=== PATIENT | female | born 1950 | race Caucasian/White ===

== ENCOUNTER 2023-04-07 14:52 | Emergency (ER) | payer OTHER, SELFPAY ==
--- OUTSIDE RECORDS SUMMARY | 2023-04-07 15:04 | XMS REPORT | Continuity of Care Document ---
:1950 Author Organization [facility] t Address [address] [facility]. [address] [place] [address] Support Name Relationship Address Phone MAY VILLEDA P [address] [phone] [place] [phone] JANET VILLEDA E [address] [place] [phone] Unavailable E [address] Unavailable [place] [phone] Unavailable Unavailable Unavailable Unavailable MD ANGEL KIKO Emergency Provider [address] [facility] [place] [address] PHYSICIAN, NO Primary Care Physician Unavailable Unavailab CLAIRE Cohen Unavailable [address] [place] Unavailable [place] [phone] VINAY TONEY Unavailable UNK [phone] [place] [address] CHRISTIANA MAY Unavailable [address] [place] [phone] [place] [phone] JANET VILLEDA Unavailable [address] [place] [phone] [place] [phone] JANET VILLEDA T Unavailable Unavailable CHRISTIANA CASANDRA SP [address] [place] [phone] NOT OBTAINED Unavailable Unavailable Unavailable MAY VILLEDA SP [address] [place] [phone] MAY VILLEDA SP [address] [place] [phone] NONE, NONE OT [address] [place] [phone] MAY VILLEDA SP [address] [place] [phone] Care Team Providers Name Role Phone Violeta Kaur CNM Primary Care Physician [phone] JOAO JIMÉNEZ Attending Clinician Unavailable BEATRIS GUNTER Attending Clinician Unavailable Kush Levy Attending Clinician Unavailable Ginny Attending Clinician Unavailable Delfino Villareal Attending Clinician Unavailable Peter JHA, Rock Re Attending Clinician Willem Rogers MA Attending Clinician Unavailable Erasto Resendiz MD Attending Clinician ROBYN SANTIAGO Attending Clinician Unavailable Nic KUMAR, Dea Attending Clinician Unavailable Cheyanne Do MD Attending Clinician Stalin Attending Clinician Unavailable LAKESHIA PICKARD Attending Clinician Unavailable LYNETTE HENDERSON Attending Clinician Unavailable KATLYN POWELL Attending Clinician Unavailable JENNA RAMIREZ Attending Clinician Unavailable Layla Attending Clinician Unavailable NOLAN MANLEY Attending Clinician Unavailable BARBARA CHAVEZ Attending Clinician Unavailable ALICE CONTE Attending Clinician Unavailable CALEB WOLFE Attending Clinician Unavailable JOAO JIMÉNEZ Attending Clinician Unavailable RAKAN ESCOBAR Attending Clinician Unavailable EMEKA VILLANUEVA Attending Clinician Unavailable LAURA TORRES Attending Clinician Unavailable JES GORDON Attending Clinician Unavailable Heide Ngo NP Attending Clinician Unavailable DEL WASHINGTON Attending Clinician Unavailable Jenna Ramirez MD Attending Clinician Del Washington MD Attending Clinician ZackRyann clark Attending Clinician Unavailable JENNY BENÍTEZ Attending Clinician Unavailable LICHA MAYBERRY Attending Clinician Unavailable CHEYANNE DO Attending Clinician Unavailable NISHANT VASQUEZ Attending Clinician Unavail able DA DIAZ Attending Clinician Unavailable ALICE ELLIS Attending Clinician Unavailable WISAM ANTONY Attending Clinician Unavailable Natasha Solares Admitting Clinician Unavailable Ginny Admitting Clinician Unavailable ROBYN SANTIAGO Admitting Clinician Unavailable Stalin Admitting Clinician Unavailable Layla Admitting Clinician Unavailable BARBARA CHAVEZ Admitting Clinician Unavailable DIANA PAULSON Admitting Clinician Unavailable LAURA TORRES Admitting Clinician Unavailable JES GORDON Admitting Clinician Unavailable JENNY BENÍTEZ Admitting Clinician Unavailable BRANDEN BRAY Admitting Clinician Unavailable ARCHANA CASILLAS Admitting Clinician Unavailable Payers Payer Name Policy Type Policy Number Effective Date Expiration Date S gabbi [facility] [id number] (MEDICARE REPLACEMENT/ADVANTA GE - PPO) UNITED MEDICARE HMO [id number] 2020 00:00:00 [employer] MEDICARE ADV [id number] 2016 00:00:00 Problems Condition Condition Condition Status Onset Resolution Last Treating Co mments Source Name Details Category Date Date Treatment Clinician Date Lumbosacra Lumbosacra Problem Active V illage l l 8-24 Family radiculopa Radiculopa 00:00: Pr actic thy thy 00 e Morbid Morbid Problem Active [facility] obesity Obesity 6-22 Family 00:00: Practic 00 e Gastroesop Gastroesop Problem Active V illage hageal hageal 6-22 Family reflux Reflux 00:00: Practic disease Disease 00 e without without esophagiti Esophagiti s s Flare of Flare of Problem Active [facility] rheumatoid Rheumatoid 6-22 [facility] arthritis Arthritis 00:00: Prac tic 00 e Pain of Pain of Problem Active [facility] left Left 6-22 Family shoulder Shoulder 00:00: Practi c joint Joint 00 e Obstructiv Obstructiv Problem Active V illage e sleep e Sleep 5-18 Family apnea of Apnea of 00:00: Practi c adult Adult 00 e Varicose Varicose Problem Active [facility] veins of Veins of 5-18 Family lower Lower 00:00: Practic extremity Extremity 00 e Memory Memory Problem Active [facility] impairment Impairment 5-18 Fa kaela 00:00: Practic 00 e Long-term Long-term Problem Active Sonu renny current Current 5-18 Family use of Use of 00:00: Practic benzodiaze Benzodiaze 00 e clinton alonzo Rheumatoid Rheumatoid Disease Active Overview : Methodi arthritis arthritis -15 Formattin s t of of 00:00: g of this Hospita multiple multiple 00 note l sites sites might be without without different rheumatoid rheumatoid from the factor factor original. DX 2011Past Tx:MTXHum iraOrenci aCimzia LyoRinvoq Remicade 07/2022- [id number] /13/23: Last dose of Remicade 02/16/23 and had reaction to infusion so dicontinu ed. Still on PDS 20mg, tramadol helpingCo ntinue PDS 20mg for now, Discontin ue Remicade/ Inflixima bStart Orencia IV monthly, r/b/a d/w pt. Previous use was not for very long.Last Assessmen t & Plan: Formattin g of this note might be different from the original. Still with sig. Pain and debility. Inflixima b doses in 11/15/22 with little relief as it did previousl y. Taking PDSW 30mg and Tramadol with mild improveme nt. Negative inflixima b antibodie sIncrease Inflixima b to 10mg/kg IV q8, due 12/2022- orders updatedTr y to decrease PDS to 20mgConti nue with Tramadol Encounter Encounter Disease Active Overview: Methodi for for - Formattin st long-term long-term 00:00: g of this H ospita (current) (current) 00 note l use of use of might be other other different medication medication from the s s original. On Inflixima bqfTB negative 10/2022Hep B/C negative : Had an infusion reaction to Remicade. No fever chills or infection . Still with active synovitis Change to [place] IV Labs stableLas t Assessmen t & Plan: Formattin g of this note might be different from the original. 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 Deficiency 00:00: Pr actic disorder Disorder 00 e Degenerati Degenerati Problem Active V illage ve joint ve Joint 1- Family disease Disease 00:00: Practic involving Involving 00 e multiple Multiple joints Joints HMG COA HMG COA Problem Active [facility] reductase Reductase 1-26 Fami ly inhibitor Inhibitor 00:00: Prac tic adverse Adverse 00 e reaction Reaction Hyperglyce Hyperglyce Problem Active V illage gabriel due to gabriel Due to 07-14 [facility] type 2 Type 2 00:00: Practic diabetes Diabetes 00 e mellitus Mellitus Blood Blood Problem Active [facility] coagulatio Coagulatio 1-05 [facility] n disorder n Disorder 00:00: Pr actic 00 e Type 2 Type 2 Problem Active 2021-06 [facility] diabetes Diabetes 2-12 Family mellitus Mellitus 00:00: Practi c 00 e Restless Restless Problem Active 2021-06 [place] legs Legs 2-12 Family 00:00: Practic 00 e Arterioscl Arterioscl Problem Active 2021-06 V illage erosis of erosis of 2-12 Fami ly coronary Coronary 00:00: Practi c artery Artery 00 e bypass Bypass graft Graft Pulmonary Pulmonary Problem Active 2021-06 Sonu lawson embolism Embolism 2-12 Family 00:00: Practic 00 e Deep Deep Problem Active 2021-06 [facility] venous Venous 2-12 Family thrombosis Thrombosis 00:00: Pr actic of lower of Lower 00 e extremity Extremity Primary Primary Problem Active 2021-06 [facility] biliary Biliary 2-12 Family cholangiti Cholangiti 00:00: Pr actic s s 00 e Rheumatoid Rheumatoid Problem Active 2021-06 [facility] arthritis Arthritis 2-12 Fami ly 00:00: Practic 00 e Musculoske Musculoske Problem Active 2021-06 [facility] illage letal pain letal Pain 2-12 Fa kaela 00:00: Practic 00 e Rib pain Rib Pain Problem Active 2021-06 [place] 2-12 Family 00:00: Practic 00 e 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 2-12 Fa kaela osis osis 00:00: Practic 00 e Nonalcohol Nonalcohol Problem Active 2021-06 V illage ic ic 2-12 Family steatohepa Steatohepa 00:00: Pr actic titis titis 00 e Hyperlipid Hyperlipid Problem Active 2021-06 [facility] illage emia due emia Due 212 Family to type 2 to Type 2 00:00: Prac tic diabetes Diabetes 00 e mellitus Mellitus Peripheral Peripheral Problem Active 2021-06 [facility] neuropathy Neuropathy 2-12 Fa kaela due to Due to 00:00: Practic type 2 Type 2 00 e diabetes Diabetes mellitus Mellitus Carpal Carpal Problem Active 2021-06 [place] tunnel Tunnel 2-12 Family syndrome Syndrome 00:00: Practi c of left of Left 00 e wrist Wrist Restless Restless Disease Active [facility] di legs legs 2 st syndrome syndrome 00:00: Hospit a 00 l Diabetic Diabetic Disease Active [facility] polyneurop polyneurop 2 athy athy 00:00: Hospita associated associated 00 l with type with type 2 diabetes 2 diabetes mellitus mellitus S/P total S/P total Disease Active Met hodi knee knee 07-[address] replacemen replacemen 00:00: Ho spita t t 00 l Urinary Urinary Disease Active [facility] incontinen incontinen 07-28 st ce ce 00:00: Hospita 00 l Abnormal Abnormal Disease Active [facility] liver liver 07-28 function function 00:00: Hospit a 00 l Adrenal Adrenal Disease Active [facility] cortical cortical 07-28 st adenoma of adenoma of 00:00: Ho spita left left 00 l adrenal adrenal gland gland Atheroscle Atheroscle Disease Active M ethodi rotic rotic 07-28 st heart heart 00:00: Hospita disease of disease of 00 l barrow barrow coronary coronary artery artery without without angina angina pectoris pectoris Hx of CABG Hx of CABG Disease Recurre Overvie w: Methodi nce 07-[address] 00:00: g of this Hospita 00 note l might be different from the original. 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 Transamin ases were normal on last check in February 2020. Repeat today. She has no evidence of advanced fibrosis on imaging or exam. We discussed the importanc e of aggressiv e managemen t of all of her risk factors - diabetes, HTN, HPL and obesity. 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 A liver biopsy in Apr 2007 was consisten t with steatohep atitis, and did not show any evidence of PBC. MRI was suggestiv e of fatty liver disease. Alk phos is well within normal range. Will repeat blood work today but likelihoo d of PBC is low given normal alk phos. RUQ RUQ Disease Active Last [facility] abdominal abdominal 06-23 Assessmen L ukes pain pain 00:00: t & Plan: Medical 00 She has a Center history of RUQ dating back to 2006. Imaging has not pointed towards a cause - most recently in February 2020. Her abdominal pain is thought to be secondary to hepatomeg laron/NEAL. Repeat blood work today. We discussed weight loss at length. Bilateral Bilateral Disease Active Met hodi knee pain knee pain 5-18 st 00:00: Hospita 00 l Antibiotic Antibiotic Disease Active [facility] overdose overdose 7 [facility] 00[facility] Medical [facility] Center Cellulitis Cellulitis Disease Active [facility] of left of left 7-20 [facility] upper upper 00:00: Medical extremity extremity 00 Cent er Shoulder Shoulder Disease Active Metho di impingemen impingemen 1-17 st t t 00:00: Hospita 00 l Diabetes Diabetes Disease Active 2009-06 Meth[facility] di mellitus mellitus - st with with 00:00: Hospita neuropathy neuropathy 00 l Mixed Mixed Disease Active 2009-06 [facility] hyperlipid hyperlipid - st emia emia 00:00: Hospita 00 l Sleep Sleep Disease Active [facility] apnea apnea 4-27 st 00:00: Hospita 00 l NEAL NEAL Disease Active 2007-1 Overview: Method i (nonalcoho (nonalcoho -[address] lic lic [facility]00[facility] ste[facility]hepa [facility] note nathaniel adams) might be different from the original. Last Assessmen t & Plan: Formattin g of this note might be different from the original. The findings were confirmed by both imaging studies and a liver biopsy. The patient presents with multiple risk factors for metabolic syndrome which include hyperlipi demia, obesity, and diabetes. The diabetes is reportedl y not well controlle d. I have again stressed the importanc e of weight loss, and control of DM and hypertens ion. Originall y thought to have PBC and started on Uri. She may continue Ursodeoxy cholic acid as some studies have shown benefial effect for NAEL. Weight is 234 pounds, height is 5'5" and BMI is 39. She is advised that she should be on a weight loss diet with a goal weight of 210 to begin, but snf ideal weight would be in the 140's. She should employ either a restricte d carbohydr ate or restricte d calorie diet with routine exercise. Weekly weight loss should be about 1-2 pounds. The weight loss would benefit not only her liver health, but her overall health. No known No known Disease Metho di active active st problems problems Hospit a l Hyperlipid Hyperlipid Disease Active C HI [facility] Allergies, Adverse Reactions, Alerts Allergy Allergy Status Severity Reaction(s) Onset Inactive Treating Comm ents Source Name Type Date Date Clinician AMOXICIL Allergy Active Itching [facility] OLEG-POT 8-17 [facility] CLAVULAN 00:00: Medical ATE 00 Center DIPHENHY Allergy Active Other [facility] DRAMINE 8-17 [facility] HCL 00:00: Medical 00 Center CHOCOLAT Allergy Active Other [facility] E FLAVOR 8-17 [facility] 00:[facility]: Medical 00 Center Hydroxyc Propensi Active Other (See unknown M ethodi hloroqui ty to Comments) 3 st ne adverse 00:00: Hospita reaction 00 l s to drug Diphenhy Propensi Active Other (See RLS Me thodi dramine ty to Comments) [address] Hcl adverse 00:00: Hospita reaction 00 l s to drug Losartan Propensi Active Other (See RLS Me thodi ty to Comments) [address] adverse 00:00: Hospita reaction 00 l s to drug Oxycodon Propensi Active 2018-[address] e-Acetam ty to 08-12 [facility] inophen adverse 00:00: Medical reaction 00 Center s OXYCODON Allergy Active Itching 2018-06 [facility] E-ACETAM 08-12 INOPHEN 00:00: 00 Codeine Propensi Active Itching 2016-06 Method i ty to 08-09 st adverse 00:00: Hospita reaction 00 l s to drug Ibuprofe Propensi Active Other (See "makes my Methodi n ty to Comments) [address] adverse 00:00: crazy" Hospita reaction 00 l s to drug Ibuprofe Drug Active Other (See "makes my C [facility] n Intolera Comments) 3 legs go Luke s nce 00:00: crazy" Medical 00 Center IBUPROFE Allergy Active Low Other [facility] N 3 00:00: 00 Clindamy Propensi Active Diarrhea 2015-06 Colitis/C M ethodi zeferino ty to 07-[address] adverse 00:00: Hospita reaction 00 l s to drug Clindamy Drug Active Diarrhea 2015-06 Colitis/C [facility] zeferino Allergy 07-15 .Diff [facility] 00:[facility]: Medical 00 Center CLINDAMY Allergy Active High Diarrhea 2015-06 [facility] ZEFERINO 07-15 00:00: 00 Iodine Propensi Active Other Methodi ty to 818 reaction( st adverse 00:00: s): Hospita reaction 00 itching l s to drug Ceftriax Propensi Active Itching Other Metho di one ty to 8-18 reaction( st adverse 00:00: s): itch Hospita reaction 00 l s to drug Sulfa Propensi Active Other Methodi (Sulfona ty to 8-18 reaction( st mide adverse 00:00: s): chesy Hospit a Antibiot reaction 00 congestio l ics) s to n drug Valsarta Propensi Active Other Method i n ty to 818 reaction( st adverse 00:00: s): Info Hospita reaction 00 Not l s to Available drug Hydrocod Propensi Active Other Method i one-Acet ty to 02-03 reaction( st aminophe adverse 00:00: s): rash Hospi ta n reaction 00 l s to drug MORPHINE Allergy Active Med Hives 2014-06 [facility] 2-16 00:00: 00 Iodine Propensi Active Itching 2014-06 Methodi And ty to 16 st Iodide adverse 00:00: Hospita Containi reaction 00 l ng s to Products drug Morphine Propensi Active Itching 2014-06 Meth[facility] di ty to 216 st adverse 00:00: Hospita reaction 00 l s to drug Iodine Drug Active Itching 2014-[address] [facility] And Allergy -16 [facility] Iodide 00:00: Medical Containi 00 Center ng Products Morphine Drug Active Hives, 2014-[address] [facility] Allergy Itching -16 [facility] 00:00: Medical 00 Center Iodine Propensi Active Itching 2014-06 Methodi And ty to 08-04 st Iodide adverse 00:00: Hospita Containi reaction 00 l ng s to Products drug IODINE Allergy Active Med Itching 2014-06 [facility] AND 2-16 IODIDE 00:00: CONTAINI 00 NG PRODUCTS CEFTRIAX Allergy Active Itching [facility] ONE 02-15 00:00: 00 Ceftriax Propensi Active Itching Tolerates [facility] one ty to 02-15 keflex [facility] adverse 00:00: Medical reaction 00 Center s CONJUGAT Allergy Active Low [facility] ED 09-22 ESTROGEN 00:00: S 00 SULFA Allergy Active Low [facility] (SULFONA 09-22 MIDE 00:00: ANTIBIOT 00 ICS) Conjugat Propensi Active Other Method i ed ty to 09-22 reaction( st Estrogen adverse 00:00: s): Hospita s reaction 00 headaches l s to Migraine drug Prometha Propensi Active Restless Meth doug zine ty to 09-[address] adverse 00:00: syndrome. Hospit a reaction 00 Can take l s to if mixed drug with another medicatio nOther reaction( s): rls CODEINE Allergy Active Low Itching [facility] 06 00:00: 00 PROMETHA Allergy Active Low Other [facility] ZINE 09-22 00:00: 00 Prometha Drug Active Mild Restless [facility] zine Intolera 09-22 leg [facility] nce 00:00: syndrome. Medical 00 Can take Center if mixed with another medicatio n Conjugat Drug Active Mild Migraine [facility] ed Intolera 09-22 [facility] Estrogen nce 00:00: Medical s 00 Center Sulfa Propensi Active Mild Caused [facility] (Sulfona ty to 09-22 URI? [facility] mide adverse 00:00: Medical Antibiot reaction 00 Center ics) s Codeine Drug Active Itching Headache. [facility] t Intolera 09-22 Can take [facility] nce 00:00: small Medical 00 amounts Center Ceftriax Propensi Active Itching Metho di one ty to 01-05 st Sodium adverse 00:00: Hospita reaction 00 l s to drug Lisinopr Propensi Active 2008-06 Other Method i il ty to 0-13 reaction( st adverse 00:00: s): Hospita reaction 00 itching l s to drug Amoxicil Propensi Active Rash Congestio Met hodi oleg-Pot ty to 12-[address] Clavulan adverse 00:00: Hospita ate reaction 00 l s to drug Penicill Propensi Active Rash Method i ins ty to 12-19 st adverse 00:00: Hospita reaction 00 l s to drug Penicill Propensi Active Rash Method i ins ty to 12-19 st adverse 00:00: Hospita reaction 00 l s to drug AUGMENTI DA Active U 2003- [facility] N 02-19 [facility] 00:00: Region [facility] MORPHINE DA Active U 2003-0 [facility] 02-19 [facility] 00:00: Region 00 [facility] No Known DA Active U 2003-0 [facility] Contrast 02[facility]19 [facility] No Known DA Active U 2003[facility]0 [facility] Food 02-19 [facility] No Known DA Active U 2003-0 [facility] Other 02-19 [facility] Allergie 00:00: Region [facility] Mold Allergy Active Anaphylaxis, Sonu renny to Respiratory Famil y substanc distress Practi c e e SULFA Allergy Active Respiratory Vill age (SULFONA to distress Family MIDE substan Practic ANTIBIOT e e ICS) Hydroxyc Allergy Active Itching Villag e hloroqui to Family ne [facility] Practic e e Benadryl Allergy Active Other Village to Family substanc Practic e e CIGARETT Allergy Active Other Village E SMOKE to Family substanc Practic e e INSECT Allergy Active Anaphylaxis, Sonu renny VENOM to Other, Family substan Respiratory Pra ctic e distress e Iodine Allergy Active Itching [place] to Family [facility] Practic e e Family History Family Member Diagnosis Comments Start Date Stop Date Source Natural father Arthritis [facility] father Diabetes [facility] father Liver disease [facility] father Alcohol abuse [facility] Natural father Diabetes [facility] Natural father Liver disease [facility] Natural mother Blood Clots [facility] mother Heart disease [facility] Natural mother Pulmonary embolism [facility] Natural sister Liver disease [facility] Social History Social Habit Start Date Stop Date Quantity Comments Source Sexual orientation [facility] Alcohol intake 2023-03-22 2023-03-22 Ex-drinker [facility] 00:00:00 00:00:00 (finding) Hospital History of Social 2023-03-22 2023-03-[address] function 00:00:00 00:00:00 Hospital Tobacco use and 2021-08-03 2021-08-03 Smokeless [facility] exposure 00:00:00 00:00:00 tobacco non-user Hospital Tobacco Comment 2021-08-03 2021-08-03 None [facility] 00:00:00 00:00:00 Hospital Alcohol Comment 2017-06-08 2017-06-08 rarely [facility] 00:00:00 00:00:00 Hospital Sex Ass[birth year] At [birth year] [facility] 00:00:00 00:00:00 Hospital Smoking Status Start Date Stop Date Source Never smoked tobacco [facility] Medications Ordered Filled Start Stop Current Ordering Indication Dosage Frequency Signature Comments Components Source Medication Medication Date Date Medication? Clinician (SIG) Name Name gabapentin 2022-06 No 300mg QD Take 1 Met hodi (NEURONTIN) 03-[address] 300 mg 11:00: 00:00 (300 mg Hospita capsule 36 :00 total) by l mouth daily. insulin 2022-06 Yes 40U Q.5D Inject 40 Metho di glargine,hu 0-[address] m[address]rec.anlog 10:34: under the H ospita (BASAGLAR 11 skin 2 l KWIKPEN (two) U-100 times a INSULIN day. SUBQ) abatacept 2022-06 Yes Q14D Inject Method i (ORENCIA 0-[address] SUBQ) 10:34: skin every Hospit a 11 14 l (fourteen) days. calcium-mag 2022-06 Yes Take by Met hodi nesium-zinc 0-[address] tablet 10:32: Hospita 01 l insulin 2022-06 Yes 20U Inject 20 Metho di regular, 0-[address] human 10:32: directed Hospita (NOVOLIN R 01 as needed. l REGULAR SS U-100 INSULN INJ) rivaroxaban 2022-06 Yes 20mg Take 1 Meth doug (XARELTO) 0-04 tablet (20 st 20 mg 10:32: mg total) Hospita tablet 01 by mouth. l metFORMIN 2022-06 Yes 500mg Q.5D Take 1 Metho di XR 0-[address] (GLUCOPHAGE 10:32: (500 mg Hos walter -XR) 500 mg 01 total) by l 24 hr mouth 2 tablet (two) times a day. traMADoL 2022-06 Yes 100mg QD Take 100 Meth doug 100 mg 0-[address] tablet 10:32: mouth Hospita 01 nightly. l gabapentin 2022-06 Yes 600mg QD Take 600 Me thodi enacarbil 0-[address] (Horizant) 00:00: mouth Hospit a 600 mg 00 nightly. l tablet extended release acetaminoph 2022- No 650mg Q8H Take 650 Methodi en ER 9-13 09-[address] (TYLENOL) 11:27: 00:00 mouth Hospit a 650 MG 8 hr 04 :00 every 8 l tablet (eight) hours as needed for mild pain. clonAZEPAM 2022- No .5mg Take 0.5 Me thodi (KlonoPIN) 9-13 09-[address] 0.5 MG 11:26: 00:00 mouth. Hospita tablet 48 :00 l colchicine 2022- No .6mg QD Take 0.6 Me thodi 0.6 mg 03-[address] tablet 11:26: 00:00 mouth Hospita 39 :00 [place] [id number] 50mg Q6H Take 1 Metho di (ULTRAM) 50 03-01 tablet (50 s t mg tablet 11:26: 00:00 mg total) Ho spita 28 :00 by mouth l every 6 (six) hours as needed for moderate pain .acute pain. predniSONE Yes [id number] 20mg QD Take 2 Methodi (DELTASONE) - tablets st 10 mg 00:00: (20 mg Hospita tablet 00 total) by l mouth daily. Take 2 tabs daily x 3 days then 1 tab daily metformin metformin No 2 BID metformin [facility] ER 500 mg ER 500 mg 9- ER 500 mg Family 24 hr 24 hr 00:00: 24 hr Practic tablet,exte tablet,exte 00 tablet,ext e nded nded ended release release release Take 2 Take 2 Take 2 tablets tablets tablets twice a day twice a day twice a by oral by oral day by route for route for oral route 90 days. 90 days. for 90 days. metformin metformin No 2 BID metformin [facility] ER 500 mg ER 500 mg 9- ER 500 mg Family 24 hr 24 hr 00:00: 24 hr Practic tablet,exte tablet,exte 00 tablet,ext e nded nded ended release release release Take 2 Take 2 Take 2 tablets tablets tablets twice a day twice a day twice a by oral by oral day by route for route for oral route 90 days. 90 days. for 90 days. metformin metformin No 2 BID metformin [facility] ER 500 mg ER 500 mg - ER 500 mg Family 24 hr 24 hr 00:00: 24 hr Practic tablet,exte tablet,exte 00 tablet,ext e nded nded ended release release release Take 2 Take 2 Take 2 tablets tablets tablets twice a day twice a day twice a by oral by oral day by route for route for oral route 90 days. 90 days. for 90 days. certolizuma No 200mg Q14D Inject 200 Methodi b pegoL 11-18 06-[address] (CIMZIA) 17:05: 00:00 the [facility] mg/2 mL 37 :00 every 14 l (200 mg/mL (fourteen) x 2) days. syringe kit Xarelto 20 Xarelto 20 No Xarelto 20 [facility] mg tablet mg tablet 3-10 mg tablet Family 00:00: Practic 00 e Xarelto 20 Xarelto 20 No Xarelto 20 [facility] mg tablet mg tablet 3-10 mg tablet Family 00:00: Practic 00 e Xarelto 20 Xarelto 20 No 1 Q1D Xarelto 20 [facility] mg tablet mg tablet 3-10 mg tablet Family Take 1 Take 1 00:00: Take 1 Practic tablet tablet 00 tablet e every day every day every day by oral by oral by oral route for route for route for 90 days. 90 days. 90 days. predniSONE 2022- No Take 2 [facility] (DELTASONE) 3 09-13 tabs daily s t 5 mg tablet 00:00: 00:00 x 3 days H ospita 00 :00 then 1 tab l daily [facility] No 1 Q1D Farxiga 10 [facility] mg tablet mg tablet 1-03 mg tablet Family Take 1 Take 1 00:00: Take 1 Practic tablet tablet 00 tablet e every day every day every day by oral by oral by oral route for route for route for 90 days. 90 days. 90 days. Broxiga 10 Broxiga No 1 Q1D Farxiga 10 [facility] mg tablet mg tablet 1-03 mg tablet Family Take 1 Take 1 00:00: Take 1 Practic tablet tablet 00 tablet e every day every day every day by oral by oral by oral route for route for route for 90 days. 90 days. 90 days. Broxiga 10 Broxiga No 1 Q1D Farxiga 10 [facility] mg tablet mg tablet 1-03 mg tablet Family Take 1 Take 1 00:00: Take 1 Practic tablet tablet 00 tablet e every day every day every day by oral by oral by oral route for route for route for 90 days. 90 days. 90 days. Broxiga 10 Broxiwilliam No 1 Q1D Farxiga 10 [facility] mg tablet mg tablet 1-03 mg tablet Family Take 1 Take 1 00:00: Take 1 Practic tablet tablet 00 tablet e every day every day every day by oral by oral by oral route for route for route for 90 days. 90 days. 90 days. abatacept 2022- No Q1W Inject Metho di 125 mg/mL 03-[address] auto-inject 00:00: 00:00 skin every Hospita or 00 :00 7 days. l Inject 1 pen injector predniSONE 2021- No 10mg QD Take 1 [facility] (DELTASONE) 02-24 tablet (10 s t 10 mg 00:00: 05:59 mg total) Hospit a tablet 00 :00 by mouth l daily. Farxiga 10 Yes TAKE ONE Met hodi mg tablet -[address] 00:00: MOUTH Hospita 00 DAILY l solifenacin 2022- No 1{tbl} QD Take 1 M ethodi (VESICARE) 11-02 tablet (10 st 10 MG 00:00: 00:00 mg total) Hospit a tablet 00 :00 by mouth l daily. aspirin 2020-06- No QD daily. [facility]i (ECOTRIN) 07-10 st 325 MG 00:00: 00:00 Hospita enteric 00 :00 l coated tablet calcium-mag Yes Take by [facility] nesium-zinc 1-12 mouth. [facility] Tab 09:[facility]: [facility] omega-3 Yes 2g Q.5D Take [address] [facility] acid ethyl 1-12 by mouth 2 Dangelo es esters 09:35: (two) Medical (LOVAZA) 1 52 times Center gram daily. capsule insulin Yes QD Inject [facility] glargine 1-12 subcutaneo [facility] (BASAGLAR 09:35: usly Medical KWIKPEN 52 nightly . Center U-100 INSULIN) 100 unit/mL (3 mL) InPn calcium-mag Yes Take by [facility] nesium-zinc 1-12 mouth. [facility] Tab 09:35: Medical 52 Center omega-3 Yes 2g Q.5D Take [address] [facility] acid ethyl 1-12 by mouth 2 Dangelo es esters 09:35: (two) Medical (LOVAZA) 1 52 times Center gram daily. capsule insulin Yes QD Inject [facility] glargine -12 subcutaneo [facility] (BASAGLAR 09:35: Medical KWIKPEN 52 nightly . Center U-100 INSULIN) 100 unit/mL (3 mL) InPn hydrOXYzine 2020- No Itching 25mg Take [address] [facility] (ATARAX) 25 - 04-12 tablet (25 L ukes MG tablet 00:00: 23:59 mg total) Me dical 00 :00 by mouth Center every 12 (twelve) hours as needed for Itching for up to 90 days. hydrOXYzine 2020- No Itching 25mg Take [address] [facility] (ATARAX) 25 - 04-12 tablet (25 L ukes MG tablet 00:00: 23:59 mg total) Me dical 00 :00 by mouth Center every 12 (twelve) hours as needed for Itching for up to 90 days. losartan 2019-06 Yes 50mg QD Take [address] [facility] (COZAAR) 50 2-09 by mouth Luke s MG tablet 00:00: daily . Medic al [address] [place] [address] losartan 2019-06 Yes 50mg QD Take [address] [facility] (COZAAR) 50 2-09 by mouth Luke s MG tablet 00:00: daily . Medic al [address] [place] [address] Trulicity 2019-06 Yes Q7D once a [facility] 1.5 mg/0.5 1-17 week . [facility] mL PnIj 00:00: [address] 2019-06 Yes Q7D once a [facility] 1.5 mg/0.5 -17 week . [facility] mL PnIj 00:00: [place] [address] 2019-06 Yes 10mg QD Take [address] mg tablet 1-11 by mouth [facility] 00:00: daily . [place] [address] 2019-06 Yes 10mg QD Take [address] mg tablet 1-11 by mouth [facility] 00:00: daily . [address] 2019-06 No Trulicity [facility] 1.5 mg/0.5 1.5 mg/0.5 1-10 1.5 mg/0.5 Family mL mL 00:00: mL Practic subcutaneou subcutaneou 00 subcutaneo e s pen s pen us pen injector injector injector Bel Staples 2019- No [place]wey HalePen 9-29 Dewey Family U-100 U-100 00:00: U-100 Practic Insulin 100 Insulin 100 00 Insulin e unit/mL (3 unit/mL (3 100 mL) mL) unit/mL (3 subcutaneou subcutaneou mL) s s subcutaneo us BD BD No [facility] Ultra-Fine Ultra-Fine 9-29 Ultra-Fine Family Queenie Pen Queenie Pen 00:00: Queenie Pen P ractic Needle 32 Needle 32 00 Needle 32 e gauge x gauge x gauge x 5/32" 32" 532" BD BD No [facility] Ultra-Fine Ultra-Fine 9-29 Ultra-Fine Family Queenie Pen Queenie Pen 00:00: Queenie Pen P ractic Needle 32 Needle 32 00 Needle 32 e gauge x gauge x gauge x 5/32" 532" 532" BD BD No [facility] Ultra-Fine Ultra-Fine 9-29 Ultra-Fine Family Queenie Pen Queenie Pen 00:00: Queenie Pen P ractic Needle 32 Needle 32 00 Needle 32 e gauge x gauge x gauge x 5/32" 532" 532" BD BD No [facility] Ultra-Fine Ultra-Fine 9-29 Ultra-Fine Family Queenie Pen Queenie Pen 00:00: Queenie Pen P ractic Needle 32 Needle 32 00 Needle 32 e gauge x gauge x gauge x 5/32" 532" 532" BD BD No [facility] Ultra-Fine Ultra-Fine 9-29 Ultra-Fine Family Queenie Pen Queenie Pen 00:00: Queenie Pen P ractic Needle 32 Needle 32 00 Needle 32 e gauge x gauge x gauge x 5/32" 5/32" 532" pramipexole pramipexole No pramipexol [facility] ER 4.5 mg ER 4.5 mg 7-15 e ER 4.5 F amily tablet,exte tablet,exte 00:00: mg Practic nded nded 00 tablet,ext e release 24 release 24 ended hr hr release 24 hr cyclobenzap cyclobenzap No susanne [facility] rine 10 mg rine 10 mg 4-01 anne 10 Family tablet tablet 00:00: mg tablet Prac tic 00 e ibuprofen ibuprofen No ibuprofen [facility] 600 mg 600 mg - 600 mg Family tablet tablet 00:00: tablet Practic 00 e promethazin 2018-06 Yes 25mg Take [address] [facility] e 2-24 tablet (25 [facility] (PHENERGAN) 00:00: mg total) M edical 25 MG 00 by mouth Center tablet every 6 (six) hours as needed for Nausea. mupirocin 2018-06 Yes 1{appli Q.[id number] Apply [address] [facility] (BACTROBAN) 2-24 cation} [id number] applicatio [facility] 2 % cream 00:00: 3D n Medical 00 topically Center 3 (three) times daily. promethazin 2018-06 Yes 25mg Take [address] [facility] e 2-24 tablet (25 [facility] (PHENERGAN) 00:00: mg total) M edical 25 MG 00 by mouth Center tablet every 6 (six) hours as needed for Nausea. mupirocin 2018-06 Yes 1{appli Q.[id number] Apply [address] [facility] (BACTROBAN) 2-24 cation} [id number] applicatio [facility] 2 % cream 00:00: 3D n Medical 00 topically Center 3 (three) times daily. oxyCODONE-a 2018-06 Yes 10mg Q.25D Take [address] [facility] cetaminophe 2-19 by mouth 4 Debbie kes n 00:00: (four) Medical (PERCOCET) 00 times Center 10-325 mg daily. per tablet oxyCODONE-a 2018-06 Yes 10mg Q.25D Take [address] [facility] cetaminophe 2-19 by mouth 4 Debbie kes n 00:00: (four) Medical (PERCOCET) 00 times Center 10-325 mg daily. per tablet cholecalcif 2018-06 Yes 400U QD Take 400 Me thodi anaya, 2-[address] vitamin D3, 00:00: mouth Hospi ta 125 mcg 00 daily. l (5,000 unit) tablet insulin 2018-06 Yes 50U QD Inject 50 [facility] degludec-li 1-04 Units [facility] raglutide 00:00: subcutaneo Me dical (XULTOPHY 00 usly Center 100/3.6) daily. 100 unit-3.6 mg /mL (3 mL) InPn insulin 2018- Yes 50U QD Inject 50 [facility] degludec-li 1-04 Units [facility] raglutide 00:00: subcutaneo Me dical (XULTOPHY 00 usly Center 100/3.6) daily. 100 unit-3.6 mg /mL (3 mL) InPn liraglutide Yes as [facility] (Victoza 3-05 directed [facility] 2-Rodrick) 0.6 00:00: Medical mg/0.1 mL 00 Center (18 mg/3 mL) PnIj liraglutide Yes as [facility] (Victoza 3-05 directed [facility] 2-Rodrick) 0.6 00:00: Medical mg/0.1 mL 00 Center (18 mg/3 mL) PnIj Novolog Novolog 2018- No Novolog Vill age U-100 U-100 3-05 U-100 Family Insulin Insulin 00:00: Insulin Prac tic aspart 100 aspart 100 00 aspart 100 e unit/mL unit/mL unit/mL subcutaneou subcutaneou subcutaneo s solution s solution us solution albuterol 2019-0 Yes 3 ml as [facility] (PROVENTIL) 2-05 needed [facility] 2.5 mg /3 00:00: Medical mL (0.083 00 Center %) nebulizer solution albuterol 2019-0 Yes 3 ml as [facility] (PROVENTIL) 2-05 needed [facility] 2.5 mg /3 00:00: Medical mL (0.083 00 Center %) nebulizer solution acetaminoph 2019 Yes [address] en-codeine 1-16 as needed Luke s (TYLENOL 00:00: Medical #4) 300-60 00 Center mg per tablet acetaminoph 2019-0 Yes [address] en-codeine 1-16 as needed Luke s (TYLENOL 00:00: Medical #4) 300-60 00 Center mg per tablet Lyrica 75 Lyrica 75 2018-0 No Lyrica 75 Village mg capsule mg capsule 1-16 mg capsule Family 00:00: Practic 00 e DULAGLUTIDE Yes Inject [facility]oug (TRULICITY 9-[address] SUBQ) 14:45: skin. Hospita 44 l omega-3 Yes 1g Q.5D Take 1 g Method i acid ethyl 9-[address] esters 14:45: (two) Hospita (LOVAZA) 1 44 times a l gram day. capsule ondansetron 2016-06 Yes Method i (ZOFRAN) 4 2-06 st MG tablet 00:00: Hospita 00 l pravastatin pravastatin 2016-06 No pravastati [facility] 10 mg 10 mg 2-06 n 10 mg Family tablet tablet 00:00: tablet Practic 00 e pramipexole 2016-06 Yes Method i 3 mg tablet - st extended 00:00: Hospita release 24 00 l hr pramipexole 2016-06 Yes 3mg QD Take 3 mg M ethodi 3 mg tablet 07-[address] extended 00:00: nightly. Hospi ta release 24 00 l hr ezetimibe 2016-06 Yes Methodi (ZETIA) 10 1-20 st mg tablet 00:00: Hospita 00 l pramipexole 2016-06 Yes Method i (MIRAPEX) 1 0-31 st MG tablet 00:00: Hospita 00 l pramipexole 2016-06 Yes 1mg Q.[id number] Take 1 [facility] (MIRAPEX) 1 0-31 [id number] tablet (1 st MG tablet 00:00: 3D mg total) Hos walter 00 by mouth 3 l (three) times a day. LANTUS Yes Methodi SOLOSTAR 9-13 st 100 unit/mL 00:00: Hospit a injection 00 l (pen) Lovaza 1 Lovaza 1 No Lovaza 1 V illage gram gram 9-08 gram Family capsule capsule 00:00: capsule Prac tic 00 e Cipro 500 Cipro 500 No Cipro 500 Village mg tablet mg tablet 5-08 mg tablet Family 00:00: Practic e Cipro 500 Cipro 500 No Cipro 500 Village mg tablet mg tablet 5-08 mg tablet Family 00:00: Practic e Cipro 500 Cipro 500 No Cipro 500 Village mg tablet mg tablet 5-08 mg tablet Family 00:00: Practic 00 e Cipro 500 Cipro 500 No Cipro 500 [facility] mg tablet mg tablet 5-08 mg tablet Family 00:00: Practic 00 e azelastine Yes [address] [facility] (ASTELIN) 2-08 each [facility] 137 mcg 00:00: nostril Medical (0.1 %) 00 Center nasal spray azelastine Yes [address] [facility] (ASTELIN) 2-08 each [facility] 137 mcg 00:00: nostril Medical (0.1 %) 00 Center nasal spray AZITHROmyci 2015-06 Yes TAKE [address] [facility] n 2-22 TODAY AND [facility] (ZITHROMAX) 00:00: THEN 1 Medi josue 250 MG 00 DAILY X 4 Center tablet DAYS AZITHROmyci 2015-06 Yes TAKE [address] [facility] n 2-22 TODAY AND [facility] (ZITHROMAX) 00:00: THEN 1 Medi josue 250 MG 00 DAILY X 4 Center tablet DAYS Humalog Humalog No Humalog Vill age KwikPen KwikPen 8-16 KwikPen Family (U-100) (U-100) 00:00: (U-100) Prac tic Insulin 100 Insulin 100 00 Insulin e unit/mL unit/mL 100 subcutaneou subcutaneou unit/mL s s subcutaneo us Humalog Humalog No Humalog Vill age KwikPen KwikPen 8-16 KwikPen Family (U-100) (U-100) 00:00: (U-100) Prac tic Insulin 100 Insulin 100 00 Insulin e unit/mL unit/mL 100 subcutaneou subcutaneou unit/mL s 30 units s 30 units subcutaneo as needed as needed us 30 when BS are when BS are units as high high needed when BS are high benzonatate Yes [address] (TESSALON 1-21 as needed [facility] PERLES) 100 00:00: Medica l MG capsule 00 [place] benzonatate Yes [address] (TESSALON 1-21 as needed [facility] PERLES) 100 00:00: Medica l MG capsule 00 [place] pramipexole 2014-06 Yes TAKE ONE [facility] 3 mg Tb24 1-25 TABLET BY [facility] 00:00: MOUTH Medical 00 DAILY. [place] pramipexole 2014-06 Yes TAKE ONE [facility] 3 mg Tb24 1-25 TABLET BY [facility] 00:00: MOUTH Medical 00 DAILY. [place] Baby Baby No 1 Q1D Baby [facility] Aspirin 81 Aspirin 81 Aspirin 81 Family mg chewable mg chewable mg P ractic tablet Chew tablet Chew chewable e 1 tablet 1 tablet tablet every day every day Chew 1 by oral by oral tablet route. route. every day by oral route. Bel Colemanaglalyx No 40unit( BID Basaglar [place] KwikClay KwikPen s) KwikPen Family U-100 U-100 U-100 Practic Insulin 100 Insulin 100 Insulin e unit/mL (3 unit/mL (3 100 mL) mL) unit/mL (3 subcutaneou subcutaneou mL) s Inject 40 s Inject 40 subcutaneo units twice units twice us Inject a day by a day by 40 units subcutaneou subcutaneou twice a s route. s route. day by subcutaneo us route. clonazepam clonazepam No 1 clonazepam [facility] 1 mg tablet 1 mg tablet 1 mg F amily Take 1 Take 1 tablet Practic tablet as tablet as Take 1 e needed by needed by tablet as oral route. oral route. needed by oral route. erythromyci erythromyci No erythromyc [facility] n 5 mg/gram n 5 mg/gram in 5 F amily (0.5 %) eye (0.5 %) eye mg/gram Practic ointment ointment (0.5 %) e APPLY 1 CM APPLY 1 CM eye RIBBON INTO RIBBON INTO ointment THE LOWER THE LOWER APPLY 1 CM CONJUNCTIVA CONJUNCTIVA RIBBON L SAC(S) IN L SAC(S) IN INTO THE THE THE LOWER AFFECTED AFFECTED CONJUNCTIV EYE(S) BY EYE(S) BY AL SAC(S) OPHTHALMIC OPHTHALMIC IN THE ROUTE 3 ROUTE 3 AFFECTED TIMES PER TIMES PER EYE(S) BY DAY DAY OPHTHALMIC ROUTE 3 TIMES PER DAY fenofibrate fenofibrate No 1 Q1D fenofibrat [facility] 40 mg 40 mg e 40 mg Family tablet Take tablet Take tablet Practic 1 tablet 1 tablet Take 1 e every day every day tablet by oral by oral every day route. route. by oral route. FreeStyle FreeStyle No FreeStyle Village Wang 2 Wang 2 Wang 2 Family Sensor kit Sensor kit Sensor kit Practic Take by Take by Take by e miscell. miscell. miscell. route. route. route. gabapentin gabapentin No 1capsul BID gabapentin [facility] 300 mg 300 mg e(s) 300 mg Family capsule capsule capsule Practi c Take 1 Take 1 Take 1 e capsule capsule capsule twice a day twice a day twice a by oral by oral day by route at route at oral route bedtime. bedtime. at bedtime. metformin metformin No 2 BID metformin [facility] ER 500 mg ER 500 mg ER 500 mg Family 24 hr 24 hr 24 hr Practic tablet,exte tablet,exte tablet,ext e nded nded ended release release release Take 2 Take 2 Take 2 tablets tablets tablets twice a day twice a day twice a by oral by oral day by route for route for oral route 90 days. 90 days. for 90 days. metronidazo metronidazo No metronidaz [facility] le 0.75 % le 0.75 % ole 0.75 % [facility] topical gel topical gel topical Practic APPLY A APPLY A gel APPLY e THIN LAYER THIN LAYER A THIN TO THE TO THE LAYER TO AFFECTED AFFECTED THE AREA(S) BY AREA(S) BY AFFECTED TOPICAL TOPICAL AREA(S) BY ROUTE 2 ROUTE 2 TOPICAL TIMES PER TIMES PER ROUTE 2 DAY IN THE DAY IN THE TIMES PER MORNING AND MORNING AND DAY IN THE EVENING EVENING MORNING AND EVENING Orencia 125 Orencia 125 No 1mL Q1W Orencia [facility] mg/mL mg/mL 125 mg/mL Family subcutaneou subcutaneou subcutaneo Practic s syringe s syringe us syringe e Inject 1 mL Inject 1 mL Inject 1 every week every week mL every by by week by subcutaneou subcutaneou subcutaneo s route. s route. us route. pramipexole pramipexole No 1.5 Q1D pramipexol [facility] 1 mg tablet 1 mg tablet e 1 mg Family Take 1.5 Take 1.5 tablet Pract ic tablets tablets Take 1.5 e every day every day tablets by oral by oral every day route for route for by oral 90 days. 90 days. route for 90 days. solifenacin solifenacin No solifenaci [facility] 10 mg 10 mg n 10 mg Family tablet Take tablet Take tablet Practic 1 tablet 1 tablet Take 1 e every day every day tablet by oral by oral every day route. route. by oral route. tramadol tramadol No 1 tramadol Sonu renny 100 mg 100 mg 100 mg Family tablet Take tablet Take tablet Practic 1 tablet as 1 tablet as Take 1 e needed by needed by tablet as oral route. oral route. needed by oral route. Trulicity 3 Trulicity 3 No 3mg Q1W Trulicity [facility] mg/0.5 mL mg/0.5 mL 3 mg/0.5 F amily subcutaneou subcutaneou mL P ractic s pen s pen subcutaneo e injector injector us pen Inject 3 mg Inject 3 mg injector every week every week Inject 3 by by mg every subcutaneou subcutaneou week by s route as s route as subcutaneo directed directed us route for 30 for 30 as days. days. directed for 30 days. Tylenol Tylenol No Tylenol Villag e tylenol w/ tylenol w/ tylenol w/ Family codeine 1 codeine 1 codeine 1 Practic prn prn prn e Xarelto 20 Xarelto 20 No 1 Q1D Xarelto 20 Village mg tablet mg tablet mg tablet Family Take 1 Take 1 Take 1 Practic tablet tablet tablet e every day every day every day by oral by oral by oral route. route. route. Baby Baby No 1 Q1D Baby [place] Aspirin 81 Aspirin 81 Aspirin 81 Family mg chewable mg chewable mg P ractic tablet Chew tablet Chew chewable e 1 tablet 1 tablet tablet every day every day Chew 1 by oral by oral tablet route. route. every day by oral route. Bel Staples No 40unit( BID [facility] Dewey KwikPen s) Dewey Family U-100 U-100 U-100 Practic Insulin 100 Insulin 100 Insulin e unit/mL (3 unit/mL (3 100 mL) mL) unit/mL (3 subcutaneou subcutaneou mL) s Inject 40 s Inject 40 subcutaneo units twice units twice us Inject a day by a day by 40 units subcutaneou subcutaneou twice a s route. s route. day by subcutaneo us route. clonazepam clonazepam No 1 clonazepam [facility] 1 mg tablet 1 mg tablet 1 mg F amily Take 1 Take 1 tablet Practic tablet as tablet as Take 1 e needed by needed by tablet as oral route. oral route. needed by oral route. erythromyci erythromyci No erythromyc [facility] n 5 mg/gram n 5 mg/gram in 5 F amily (0.5 %) eye (0.5 %) eye mg/gram Practic ointment ointment (0.5 %) e APPLY 1 CM APPLY 1 CM eye RIBBON INTO RIBBON INTO ointment THE LOWER THE LOWER APPLY 1 CM CONJUNCTIVA CONJUNCTIVA RIBBON L SAC(S) IN L SAC(S) IN INTO THE THE THE LOWER AFFECTED AFFECTED CONJUNCTIV EYE(S) BY EYE(S) BY AL SAC(S) OPHTHALMIC OPHTHALMIC IN THE ROUTE 3 ROUTE 3 AFFECTED TIMES PER TIMES PER EYE(S) BY DAY DAY OPHTHALMIC ROUTE 3 TIMES PER DAY fenofibrate fenofibrate No 1 Q1D fenofibrat [facility] 40 mg 40 mg e 40 mg Family tablet Take tablet Take tablet Practic 1 tablet 1 tablet Take 1 e every day every day tablet by oral by oral every day route. route. by oral route. FreeStyle FreeStyle No FreeStyle [facility] Wang 2 Wang 2 Wang 2 Family Sensor kit Sensor kit Sensor kit Practic Take by Take by Take by e miscell. miscell. miscell. route. route. route. gabapentin gabapentin No 1capsul BID gabapentin [facility] 300 mg 300 mg e(s) 300 mg [facility] capsule capsule capsule Practi c Take 1 Take 1 Take 1 e capsule capsule capsule twice a day twice a day twice a by oral by oral day by route at route at oral route bedtime. bedtime. at bedtime. metformin metformin No 2 BID metformin [facility] ER 500 mg ER 500 mg ER 500 mg [facility] 24 hr 24 hr 24 hr Practic tablet,exte tablet,exte tablet,ext e nded nded ended release release release Take 2 Take 2 Take 2 tablets tablets tablets twice a day twice a day twice a by oral by oral day by route for route for oral route 90 days. 90 days. for 90 days. metronidazo metronidazo No metronidaz [facility] le 0.75 % le 0.75 % ole 0.75 % [facility] topical gel topical gel topical Practic APPLY A APPLY A gel APPLY e THIN LAYER THIN LAYER A THIN TO THE TO THE LAYER TO AFFECTED AFFECTED THE AREA(S) BY AREA(S) BY AFFECTED TOPICAL TOPICAL AREA(S) BY ROUTE 2 ROUTE 2 TOPICAL TIMES PER TIMES PER ROUTE 2 DAY IN THE DAY IN THE TIMES PER MORNING AND MORNING AND DAY IN THE EVENING EVENING MORNING AND EVENING Orencia 125 Orencia 125 No 1mL Q1W [place] mg/mL mg/mL 125 mg/mL [facility] subcutaneou subcutaneou subcutaneo Practic s syringe s syringe us syringe e Inject 1 mL Inject 1 mL Inject 1 every week every week mL every by by week by subcutaneou subcutaneou subcutaneo s route. s route. us route. pramipexole pramipexole No 1.5 Q1D pramipexol [facility] 1 mg tablet 1 mg tablet e 1 mg Family Take 1.5 Take 1.5 tablet Pract ic tablets tablets Take 1.5 e every day every day tablets by oral by oral every day route for route for by oral 90 days. 90 days. route for 90 days. solifenacin solifenacin No solifenaci [facility] 10 mg 10 mg n 10 mg Family tablet Take tablet Take tablet Practic 1 tablet 1 tablet Take 1 e every day every day tablet by oral by oral every day route. route. by oral route. tramadol tramadol No 1 tramadol Sonu renny 100 mg 100 mg 100 mg Family tablet Take tablet Take tablet Practic 1 tablet as 1 tablet as Take 1 e needed by needed by tablet as oral route. oral route. needed by oral route. Trulicity 3 Trulicity 3 No 3mg Q1W Trulicity [facility] mg/0.5 mL mg/0.5 mL 3 mg/0.5 F amily subcutaneou subcutaneou mL P ractic s pen s pen subcutaneo e injector injector us pen Inject 3 mg Inject 3 mg injector every week every week Inject 3 by by mg every subcutaneou subcutaneou week by s route as s route as subcutaneo directed directed us route for 30 for 30 as days. days. directed for 30 days. Tylenol Tylenol No Tylenol Vill[facility] e tylenol w/ tylenol w/ tylenol w/ Family codeine 1 codeine 1 codeine 1 Practic prn prn prn e Xarelto 20 Xarelto 20 No 1 Q1D Xarelto 20 Village mg tablet mg tablet mg tablet Family Take 1 Take 1 Take 1 Practic tablet tablet tablet e every day every day every day by oral by oral by oral route. route. route. Baby Baby No 1 Q1D Baby [place] Aspirin 81 Aspirin 81 Aspirin 81 Family mg chewable mg chewable mg P ractic tablet Chew tablet Chew chewable e 1 tablet 1 tablet tablet every day every day Chew 1 by oral by oral tablet route. route. every day by oral route. Basaglar Basaglar No 40unit( BID [facility]lar [place] Dewey BakerikClay s) [facility] Family U-100 U-100 U-100 Practic Insulin 100 Insulin 100 Insulin e unit/mL (3 unit/mL (3 100 mL) mL) unit/mL (3 subcutaneou subcutaneou mL) s Inject 40 s Inject 40 subcutaneo units twice units twice us Inject a day by a day by 40 units subcutaneou subcutaneou twice a s route. s route. day by subcutaneo us route. clonazepam clonazepam No 1 clonazepam [facility] 1 mg tablet 1 mg tablet 1 mg F amily Take 1 Take 1 tablet Practic tablet as tablet as Take 1 e needed by needed by tablet as oral route. oral route. needed by oral route. erythromyci erythromyci No erythromyc [facility] n 5 mg/gram n 5 mg/gram in 5 F amily (0.5 %) eye (0.5 %) eye mg/gram Practic ointment ointment (0.5 %) e APPLY 1 CM APPLY 1 CM eye RIBBON INTO RIBBON INTO ointment THE LOWER THE LOWER APPLY 1 CM CONJUNCTIVA CONJUNCTIVA RIBBON L SAC(S) IN L SAC(S) IN INTO THE THE THE LOWER AFFECTED AFFECTED CONJUNCTIV EYE(S) BY EYE(S) BY AL SAC(S) OPHTHALMIC OPHTHALMIC IN THE ROUTE 3 ROUTE 3 AFFECTED TIMES PER TIMES PER EYE(S) BY DAY DAY OPHTHALMIC ROUTE 3 TIMES PER DAY fenofibrate fenofibrate No 1 Q1D fenofibrat [facility] 40 mg 40 mg e 40 mg Family tablet Take tablet Take tablet Practic 1 tablet 1 tablet Take 1 e every day every day tablet by oral by oral every day route. route. by oral route. FreeStyle FreeStyle No FreeStyle [place] Wang 2 Wang 2 Wang 2 Family Sensor kit Sensor kit Sensor kit Practic Take by Take by Take by e miscell. miscell. miscell. route. route. route. gabapentin gabapentin No 1capsul BID gabapentin [facility] 300 mg 300 mg e(s) 300 mg Family capsule capsule capsule Practi c Take 1 Take 1 Take 1 e capsule capsule capsule twice a day twice a day twice a by oral by oral day by route at route at oral route bedtime. bedtime. at bedtime. metformin metformin No 2 BID metformin [place] ER 500 mg ER 500 mg ER 500 mg Family 24 hr 24 hr 24 hr Practic tablet,exte tablet,exte tablet,ext e nded nded ended release release release Take 2 Take 2 Take 2 tablets tablets tablets twice a day twice a day twice a by oral by oral day by route for route for oral route 90 days. 90 days. for 90 days. metronidazo metronidazo No metronidaz [facility] le 0.75 % le 0.75 % ole 0.75 % Family topical gel topical gel topical Practic APPLY A APPLY A gel APPLY e THIN LAYER THIN LAYER A THIN TO THE TO THE LAYER TO AFFECTED AFFECTED THE AREA(S) BY AREA(S) BY AFFECTED TOPICAL TOPICAL AREA(S) BY ROUTE 2 ROUTE 2 TOPICAL TIMES PER TIMES PER ROUTE 2 DAY IN THE DAY IN THE TIMES PER MORNING AND MORNING AND DAY IN THE EVENING EVENING MORNING AND EVENING [place] 125 [place] 125 No 1mL Q1W [place] mg/mL mg/mL 125 mg/mL Family subcutaneou subcutaneou subcutaneo Practic s syringe s syringe us syringe e Inject 1 mL Inject 1 mL Inject 1 every week every week mL every by by week by subcutaneou subcutaneou subcutaneo s route. s route. us route. pramipexole pramipexole No 1.5 Q1D pramipexol [facility] 1 mg tablet 1 mg tablet e 1 mg Family Take 1.5 Take 1.5 tablet Pract ic tablets tablets Take 1.5 e every day every day tablets by oral by oral every day route for route for by oral 90 days. 90 days. route for 90 days. solifenacin solifenacin No solifenaci [facility] 10 mg 10 mg n 10 mg Family tablet Take tablet Take tablet Practic 1 tablet 1 tablet Take 1 e every day every day tablet by oral by oral every day route. route. by oral route. tramadol tramadol No 1 tramadol Sonu renny 100 mg 100 mg 100 mg Family tablet Take tablet Take tablet Practic 1 tablet as 1 tablet as Take 1 e needed by needed by tablet as oral route. oral route. needed by oral route. Trulicity 3 Trulicity 3 No 3mg Q1W Trulicity [place] mg/0.5 mL mg/0.5 mL 3 mg/0.5 F amily subcutaneou subcutaneou mL P ractic s pen s pen subcutaneo e injector injector us pen Inject 3 mg Inject 3 mg injector every week every week Inject 3 by by mg every subcutaneou subcutaneou week by s route as s route as subcutaneo directed directed us route for 30 for 30 as days. days. directed for 30 days. Tylenol Tylenol No Tylenol [place] e tylenol w/ tylenol w/ tylenol w/ Family codeine 1 codeine 1 codeine 1 Practic prn prn prn e Xarelto 20 Xarelto 20 No 1 Q1D Xarelto 20 [facility] mg tablet mg tablet mg tablet Family Take 1 Take 1 Take 1 Practic tablet tablet tablet e every day every day every day by oral by oral by oral route. route. route. Baby Baby No 1 Q1D Baby [facility] Aspirin 81 Aspirin 81 Aspirin 81 Family mg chewable mg chewable mg P ractic tablet Chew tablet Chew chewable e 1 tablet 1 tablet tablet every day every day Chew 1 by oral by oral tablet route. route. every day by oral route. Bel Colemanaglalyx No [facility]( [facility] K[facility]Pen [facility]) KwGloria Family U-100 U-100 U-100 Practic Insulin 100 Insulin 100 Insulin e unit/mL (3 unit/mL (3 100 mL) mL) unit/mL (3 subcutaneou subcutaneou mL) s Inject 40 s Inject 40 subcutaneo units twice units twice us Inject a day by a day by 40 units subcutaneou subcutaneou twice a s route. s route. day by subcutaneo us route. celecoxib celecoxib No 1capsul Q1D celecoxib [facility] 200 mg 200 mg e(s) 200 mg Family capsule capsule capsule Practi c Take 1 Take 1 Take 1 e capsule capsule capsule every day every day every day by oral by oral by oral route for route for route for 30 days. 30 days. 30 days. clonazepam clonazepam No 1 clonazepam [place] 1 mg tablet 1 mg tablet 1 mg F amily Take 1 Take 1 tablet Practic tablet as tablet as Take 1 e needed by needed by tablet as oral route. oral route. needed by oral route. erythromyci erythromyci No erythromyc [facility] n 5 mg/gram n 5 mg/gram in 5 F amily (0.5 %) eye (0.5 %) eye mg/gram Practic ointment ointment (0.5 %) e APPLY 1 CM APPLY 1 CM eye RIBBON INTO RIBBON INTO ointment THE LOWER THE LOWER APPLY 1 CM CONJUNCTIVA CONJUNCTIVA RIBBON L SAC(S) IN L SAC(S) IN INTO THE THE THE LOWER AFFECTED AFFECTED CONJUNCTIV EYE(S) BY EYE(S) BY AL SAC(S) OPHTHALMIC OPHTHALMIC IN THE ROUTE 3 ROUTE 3 AFFECTED TIMES PER TIMES PER EYE(S) BY DAY DAY OPHTHALMIC ROUTE 3 TIMES PER DAY fenofibrate fenofibrate No 1 Q1D fenofibrat [facility] 40 mg 40 mg e 40 mg Family tablet Take tablet Take tablet Practic 1 tablet 1 tablet Take 1 e every day every day tablet by oral by oral every day route. route. by oral route. FreeStyle FreeStyle No FreeStyle [facility] Wang 2 Wang 2 Wang 2 Family Sensor kit Sensor kit Sensor kit Practic Take by Take by Take by e miscell. miscell. miscell. route. route. route. gabapentin gabapentin No 1capsul BID gabapentin [facility] 300 mg 300 mg e(s) 300 mg [facility] capsule capsule capsule Practi c Take 1 Take 1 Take 1 e capsule capsule capsule twice a day twice a day twice a by oral by oral day by route at route at oral route bedtime. bedtime. at bedtime. metformin metformin No 2 BID metformin [facility] ER 500 mg ER 500 mg ER 500 mg [facility] 24 hr 24 hr 24 hr Practic tablet,exte tablet,exte tablet,ext e nded nded ended release release release Take 2 Take 2 Take 2 tablets tablets tablets twice a day twice a day twice a by oral by oral day by route for route for oral route 90 days. 90 days. for 90 days. metronidazo metronidazo No metronidaz [facility] le 0.75 % le 0.75 % ole 0.75 % [facility] topical gel topical gel topical Practic APPLY A APPLY A gel APPLY e THIN LAYER THIN LAYER A THIN TO THE TO THE LAYER TO AFFECTED AFFECTED THE AREA(S) BY AREA(S) BY AFFECTED TOPICAL TOPICAL AREA(S) BY ROUTE 2 ROUTE 2 TOPICAL TIMES PER TIMES PER ROUTE 2 DAY IN THE DAY IN THE TIMES PER MORNING AND MORNING AND DAY IN THE EVENING EVENING MORNING AND EVENING Novolin R Novolin R No 5unit(s Novolin R [place] Regular Regular ) Regular Family U-100 U-100 U-100 Practic Insulin 100 Insulin 100 Insulin e unit/mL unit/mL 100 injection injection unit/mL solution solution injection Take 5 Take 5 solution units as units as Take 5 needed by needed by units as injection injection needed by route. route. injection route. Orencia 125 O[place]cia 125 No 1mL Q1W [place] mg/mL mg/mL 125 mg/mL Family subcutaneou subcutaneou subcutaneo Practic s syringe s syringe us syringe e Inject 1 mL Inject 1 mL Inject 1 every week every week mL every by by week by subcutaneou subcutaneou subcutaneo s route. s route. us route. Orencia Orencia No Orencia [place] e ClickJect ClickJect ClickJect Family 125 mg/mL 125 mg/mL 125 mg/mL Practic subcutaneou subcutaneou subcutaneo e s s us auto-inject auto-inject auto-injec or or tor pramipexole pramipexole No 1.5 Q1D pramipexol [facility] 1 mg tablet 1 mg tablet e 1 mg Family Take 1.5 Take 1.5 tablet Pract ic tablets tablets Take 1.5 e every day every day tablets by oral by oral every day route for route for by oral 90 days. 90 days. route for 90 days. solifenacin solifenacin No solifenaci [facility] 10 mg 10 mg n 10 mg Family tablet Take tablet Take tablet Practic 1 tablet 1 tablet Take 1 e every day every day tablet by oral by oral every day route. route. by oral route. tramadol tramadol No 1 tramadol Sonu renny 100 mg 100 mg 100 mg Family tablet Take tablet Take tablet Practic 1 tablet as 1 tablet as Take 1 e needed by needed by tablet as oral route. oral route. needed by oral route. Trulicity Trulicity No 4.5mg Q1W Trulicity [facility] 4.5 mg/0.5 4.5 mg/0.5 4.5 mg/0.5 Family mL mL mL Practic subcutaneou subcutaneou subcutaneo e s pen s pen us pen injector injector injector Inject 4.5 Inject 4.5 Inject 4.5 mg every mg every mg every week by week by week by subcutaneou subcutaneou subcutaneo s route for s route for us route 90 days. 90 days. for 90 days. Tylenol Tylenol No Tylenol [place] tylenol w/ tylenol w/ tylenol w/ Family codeine 1 codeine 1 codeine 1 Practic prn prn prn e Xarelto 20 Xarelto 20 No 1 Q1D Xarelto 20 [facility] mg tablet mg tablet mg tablet Family Take 1 Take 1 Take 1 Practic tablet tablet tablet e every day every day every day by oral by oral by oral route. route. route. Baby Baby No 1 Q1D Baby [place] Aspirin 81 Aspirin 81 Aspirin 81 Family mg chewable mg chewable mg P ractic tablet Chew tablet Chew chewable e 1 tablet 1 tablet tablet every day every day Chew 1 by oral by oral tablet route. route. every day by oral route. [place]aglalyx Colemanaglalyx No 40unit( BID [place]aglalyx [place] KwikPen s) [place] Family U-100 U-100 U-100 Practic Insulin 100 Insulin 100 Insulin e unit/mL (3 unit/mL (3 100 mL) mL) unit/mL (3 subcutaneou subcutaneou mL) s Inject 40 s Inject 40 subcutaneo units twice units twice us Inject a day by a day by 40 units subcutaneou subcutaneou twice a s route. s route. day by subcutaneo us route. clonazepam clonazepam No 1 clonazepam [facility] 1 mg tablet 1 mg tablet 1 mg F amily Take 1 Take 1 tablet Practic tablet as tablet as Take 1 e needed by needed by tablet as oral route. oral route. needed by oral route. Farxiga 10 Farxiga 10 No 1 Q1D Farxiga 10 [place] mg tablet mg tablet mg tablet Family Take 1 Take 1 Take 1 Practic tablet tablet tablet e every day every day every day by oral by oral by oral route for route for route for 90 days. 90 days. 90 days. FreeStyle FreeStyle No FreeStyle [facility] Wang 2 Wang 2 Wang 2 Family Sensor kit Sensor kit Sensor kit Practic Take by Take by Take by e miscell. miscell. miscell. route. route. route. metformin metformin No 2 BID metformin [place] ER 500 mg ER 500 mg ER 500 mg Family tablet,exte tablet,exte tablet,ext Practic nded nded ended e release 24 release 24 release 24 hr Take 2 hr Take 2 hr Take 2 tablets tablets tablets twice a day twice a day twice a by oral by oral day by route for route for oral route 90 days. 90 days. for 90 days. metronidazo metronidazo No metronidaz [facility] le 0.75 % le 0.75 % ole 0.75 % [facility] topical gel topical gel topical Practic APPLY A APPLY A gel APPLY e THIN LAYER THIN LAYER A THIN TO THE TO THE LAYER TO AFFECTED AFFECTED THE AREA(S) BY AREA(S) BY AFFECTED TOPICAL TOPICAL AREA(S) BY ROUTE 2 ROUTE 2 TOPICAL TIMES PER TIMES PER ROUTE 2 DAY IN THE DAY IN THE TIMES PER MORNING AND MORNING AND DAY IN THE EVENING EVENING MORNING AND EVENING Novolin R Novolin R No 5unit(s Novolin R [place] Regular Regular ) Regular Family U-100 U-100 U-100 Practic Insulin 100 Insulin 100 Insulin e unit/mL unit/mL 100 injection injection unit/mL solution solution injection Take 5 Take 5 solution units as units as Take 5 needed by needed by units as injection injection needed by route. route. injection route. pramipexole pramipexole No 1 TID pramipexol [facility] 1 mg tablet 1 mg tablet e 1 mg Family Take 1 Take 1 tablet Practic tablet 3 tablet 3 Take 1 e times a day times a day tablet 3 by oral by oral times a route. route. day by oral route. pramipexole pramipexole No 1 Q1D pramipexol [facility] ER 3 mg ER 3 mg e ER 3 mg Fami ly tablet,exte tablet,exte tablet,ext Practic nded nded ended e release 24 release 24 release 24 hr Take 1 hr Take 1 hr Take 1 tablet tablet tablet every day every day every day by oral by oral by oral route for route for route for 90 days. 90 days. 90 days. prednisone prednisone No 1 BID prednisone [facility] 5 mg tablet 5 mg tablet 5 mg F amily Take 1 Take 1 tablet Practic tablet tablet Take 1 e twice a day twice a day tablet by oral by oral twice a route for route for day by 16 days. 16 days. oral route for 16 days. Remicade Remicade No Remicade Sonu renny 100 mg 100 mg 100 mg Family intravenous intravenous intravenou Practic solution solution s solution e Inject by Inject by Inject by intravenous intravenous intravenou route. route. s route. tramadol tramadol No 1 tramadol Sonu renny 100 mg 100 mg 100 mg Family tablet Take tablet Take tablet Practic 1 tablet as 1 tablet as Take 1 e needed by needed by tablet as oral route. oral route. needed by oral route. Trulicity Trulicity No Trulicity [place] 4.5 mg/0.5 4.5 mg/0.5 4.5 mg/0.5 Family mL mL mL Practic subcutaneou subcutaneou subcutaneo e s pen s pen us pen injector injector injector Inject 4.5 Inject 4.5 Inject 4.5 mg every mg every mg every week by week by week by subcutaneou subcutaneou subcutaneo s route for s route for us route 90 days. 90 days. for 90 days. Tylenol Tylenol No Tylenol [place] tylenol w/ tylenol w/ tylenol w/ Family codeine 1 codeine 1 codeine 1 Practic prn prn prn e Baby Baby No 1 Q1D Baby [place] Aspirin 81 Aspirin 81 Aspirin 81 Family mg chewable mg chewable mg P ractic tablet Chew tablet Chew chewable e 1 tablet 1 tablet tablet every day every day Chew 1 by oral by oral tablet route. route. every day by oral route. Bel Staples No 40unit( BID [place] KwikPen s) [place] Family U-100 U-100 U-100 Practic Insulin 100 Insulin 100 Insulin e unit/mL (3 unit/mL (3 100 mL) mL) unit/mL (3 subcutaneou subcutaneou mL) s Inject 40 s Inject 40 subcutaneo units twice units twice us Inject a day by a day by 40 units subcutaneou subcutaneou twice a s route. s route. day by subcutaneo us route. clonazepam clonazepam No 1 clonazepam [place] 1 mg tablet 1 mg tablet 1 mg F amily Take 1 Take 1 tablet Practic tablet as tablet as Take 1 e needed by needed by tablet as oral route. oral route. needed by oral route. Farxiga 10 Farxiga 10 No 1 Q1D Farxiga 10 [place] mg tablet mg tablet mg tablet Family Take 1 Take 1 Take 1 Practic tablet tablet tablet e every day every day every day by oral by oral by oral route for route for route for 90 days. 90 days. 90 days. FreeStyle FreeStyle No FreeStyle [place] Wang 2 Wang 2 Wang 2 Family Sensor kit Sensor kit Sensor kit Practic Take by Take by Take by e miscell. miscell. miscell. route. route. route. metformin metformin No 2 BID metformin [facility] ER 500 mg ER 500 mg ER 500 mg Family tablet,exte tablet,exte tablet,ext Practic nded nded ended e release 24 release 24 release 24 hr Take 2 hr Take 2 hr Take 2 tablets tablets tablets twice a day twice a day twice a by oral by oral day by route for route for oral route 90 days. 90 days. for 90 days. metronidazo metronidazo No metronidaz [facility] le 0.75 % le 0.75 % ole 0.75 % Family topical gel topical gel topical Practic APPLY A APPLY A gel APPLY e THIN LAYER THIN LAYER A THIN TO THE TO THE LAYER TO AFFECTED AFFECTED THE AREA(S) BY AREA(S) BY AFFECTED TOPICAL TOPICAL AREA(S) BY ROUTE 2 ROUTE 2 TOPICAL TIMES PER TIMES PER ROUTE 2 DAY IN THE DAY IN THE TIMES PER MORNING AND MORNING AND DAY IN THE EVENING EVENING MORNING AND EVENING Novolin R Novolin R No 5unit(s Novolin R [facility] Regular Regular ) Regular Family U-100 U-100 U-100 Practic Insulin 100 Insulin 100 Insulin e unit/mL unit/mL 100 injection injection unit/mL solution solution injection Take 5 Take 5 solution units as units as Take 5 needed by needed by units as injection injection needed by route. route. injection route. pramipexole pramipexole No 1 TID pramipexol [facility] 1 mg tablet 1 mg tablet e 1 mg Family Take 1 Take 1 tablet Practic tablet 3 tablet 3 Take 1 e times a day times a day tablet 3 by oral by oral times a route. route. day by oral route. pramipexole pramipexole No 1 Q1D pramipexol [facility] ER 3 mg ER 3 mg e ER 3 mg Fami ly tablet,exte tablet,exte tablet,ext Practic nded nded ended e release 24 release 24 release 24 hr Take 1 hr Take 1 hr Take 1 tablet tablet tablet every day every day every day by oral by oral by oral route for route for route for 90 days. 90 days. 90 days. prednisone prednisone No 1 BID prednisone [facility] 5 mg tablet 5 mg tablet 5 mg F amily Take 1 Take 1 tablet Practic tablet tablet Take 1 e twice a day twice a day tablet by oral by oral twice a route for route for day by 16 days. 16 days. oral route for 16 days. Remicade Remicade No Remicade Sonu lawson 100 mg 100 mg 100 mg Family intravenous intravenous intravenou Practic solution solution s solution e Inject by Inject by Inject by intravenous intravenous intravenou route. route. s route. tramadol tramadol No 1 tramadol Sonu lawson 100 mg 100 mg 100 mg Family tablet Take tablet Take tablet Practic 1 tablet as 1 tablet as Take 1 e needed by needed by tablet as oral route. oral route. needed by oral route. Trulicity Trulicity No Trulicity [place] 4.5 mg/0.5 4.5 mg/0.5 4.5 mg/0.5 Family mL mL mL Practic subcutaneou subcutaneou subcutaneo e s pen s pen us pen injector injector injector Inject 4.5 Inject 4.5 Inject 4.5 mg every mg every mg every week by week by week by subcutaneou subcutaneou subcutaneo s route for s route for us route 90 days. 90 days. for 90 days. Tylenol Tylenol No Tylenol [place] [facility] tylenol w/ tylenol w/ tylenol w/ Family codeine 1 codeine 1 codeine 1 Practic prn prn prn e Baby Baby No 1 Q1D Baby [place] Aspirin 81 Aspirin 81 Aspirin 81 Family mg chewable mg chewable mg P ractic tablet Chew tablet Chew chewable e 1 tablet 1 tablet tablet every day every day Chew 1 by oral by oral tablet route. route. every day by oral route. Basaglar Basaglar No Basaglar Sonu lawson KwikPen KwikPen KwikPen Family U-100 U-100 U-100 Practic Insulin 100 Insulin 100 Insulin e unit/mL (3 unit/mL (3 100 mL) mL) unit/mL (3 subcutaneou subcutaneou mL) s Inject 40 s Inject 40 subcutaneo units twice units twice us Inject a day by a day by 40 units subcutaneou subcutaneou twice a s route. s route. day by subcutaneo us route. clonazepam clonazepam No 1 Q1D clonazepam [facility] 0.5 mg 0.5 mg 0.5 mg Family tablet Take tablet Take tablet Practic 1 tablet 1 tablet Take 1 e every day every day tablet by oral by oral every day route for 7 route for 7 by oral days. days. route for 7 days. clonazepam clonazepam No .5 clonazepam [facility] 1 mg tablet 1 mg tablet 1 mg F amily Take 0.5 Take 0.5 tablet Pract ic tablets as tablets as Take 0.5 e needed by needed by tablets as oral route oral route needed by for 10 for 10 oral route days. days. for 10 days. [facility] mg tablet mg tablet mg tablet Family Take 1 Take 1 Take 1 Practic tablet tablet tablet e every day every day every day by oral by oral by oral route for route for route for 90 days. 90 days. 90 days. FreeStyle FreeStyle No FreeStyle [facility] Wang 2 Wang 2 Wang 2 Family Sensor kit Sensor kit Sensor kit Practic Take by Take by Take by e miscell. miscell. miscell. route. route. route. metformin metformin No 2 BID metformin [facility] ER 500 mg ER 500 mg ER 500 mg Family tablet,exte tablet,exte tablet,ext Practic nded nded ended e release 24 release 24 release 24 hr Take 2 hr Take 2 hr Take 2 tablets tablets tablets twice a day twice a day twice a by oral by oral day by route for route for oral route 90 days. 90 days. for 90 days. metronidazo metronidazo No metronidaz [facility] le 0.75 % le 0.75 % ole 0.75 % [facility] topical gel topical gel topical Practic APPLY A APPLY A gel APPLY e THIN LAYER THIN LAYER A THIN TO THE TO THE LAYER TO AFFECTED AFFECTED THE AREA(S) BY AREA(S) BY AFFECTED TOPICAL TOPICAL AREA(S) BY ROUTE 2 ROUTE 2 TOPICAL TIMES PER TIMES PER ROUTE 2 DAY IN THE DAY IN THE TIMES PER MORNING AND MORNING AND DAY IN THE EVENING EVENING MORNING AND EVENING [facility] Regular Regular ) Regular Family U-100 U-100 U-100 Practic Insulin 100 Insulin 100 Insulin e unit/mL unit/mL 100 injection injection unit/mL solution solution injection Take 5 Take 5 solution units as units as Take 5 needed by needed by units as injection injection needed by route. route. injection route. pramipexole pramipexole No 1 TID pramipexol [facility] 1 mg tablet 1 mg tablet e 1 mg Family Take 1 Take 1 tablet Practic tablet 3 tablet 3 Take 1 e times a day times a day tablet 3 by oral by oral times a route. route. day by oral route. pramipexole pramipexole No pramipexol [facility] ER 3 mg ER 3 mg e ER 3 mg Fami ly tablet,exte tablet,exte tablet,ext Practic nded nded ended e release 24 release 24 release 24 hr Take 1 hr Take 1 hr Take 1 tablet tablet tablet every day every day every day by oral by oral by oral route for route for route for 90 days. 90 days. 90 days. Remicade Remicade No Remicade Sonu davisone 100 mg 100 mg 100 mg Family intravenous intravenous intravenou Practic solution solution s solution e Inject by Inject by Inject by intravenous intravenous intravenou route. route. s route. tramadol tramadol No 1 tramadol Sonu lawson 100 mg 100 mg 100 mg Family tablet Take tablet Take tablet Practic 1 tablet as 1 tablet as Take 1 e needed by needed by tablet as oral route. oral route. needed by oral route. Trulicity Trulicity No Trulicity [place] 4.5 mg/0.5 4.5 mg/0.5 4.5 mg/0.5 Family mL mL mL Practic subcutaneou subcutaneou subcutaneo e s pen s pen us pen injector injector injector Inject 4.5 Inject 4.5 Inject 4.5 mg every mg every mg every week by week by week by subcutaneou subcutaneou subcutaneo s route for s route for us route 90 days. 90 days. for 90 days. Tylenol Tylenol No Tylenol [place] [facility] tylenol w/ tylenol w/ tylenol w/ Family codeine 1 codeine 1 codeine 1 Practic prn prn prn e Baby Baby No 1 Q1D Baby [facility] Aspirin 81 Aspirin 81 Aspirin 81 Family mg chewable mg chewable mg P ractic tablet Chew tablet Chew chewable e 1 tablet 1 tablet tablet every day every day Chew 1 by oral by oral tablet route. route. every day by oral route. Basaglar Basaglar No Basaglar Sonu renny KwikPen KwikPen KwikPen Family U-100 U-100 U-100 Practic Insulin 100 Insulin 100 Insulin e unit/mL (3 unit/mL (3 100 mL) mL) unit/mL (3 subcutaneou subcutaneou mL) s Inject 40 s Inject 40 subcutaneo units twice units twice us Inject a day by a day by 40 units subcutaneou subcutaneou twice a s route. s route. day by subcutaneo us route. clonazepam clonazepam No 1 Q1D clonazepam [place] 0.5 mg 0.5 mg 0.5 mg Family tablet Take tablet Take tablet Practic 1 tablet 1 tablet Take 1 e every day every day tablet by oral by oral every day route for 7 route for 7 by oral days. days. route for 7 days. clonazepam clonazepam No clonazepam [place] 1 mg tablet 1 mg tablet 1 mg F amily Take 0.5 Take 0.5 tablet Pract ic tablets as tablets as Take 0.5 e needed by needed by tablets as oral route oral route needed by for 10 for 10 oral route days. days. for 10 days. Farxiga 10 Farxiga 10 No Farxiga 10 [place] mg tablet mg tablet mg tablet Family Take 1 Take 1 Take 1 Practic tablet tablet tablet e every day every day every day by oral by oral by oral route for route for route for 90 days. 90 days. 90 days. FreeStyle FreeStyle No FreeStyle [facility] Wang 2 Wang 2 Wang 2 Family Sensor kit Sensor kit Sensor kit Practic Take by Take by Take by e miscell. miscell. miscell. route. route. route. gabapentin gabapentin No 1capsul Q1D gabapentin [facility] 300 mg 300 mg e(s) 300 mg Family capsule capsule capsule Practi c Take 1 Take 1 Take 1 e capsule capsule capsule every day every day every day by oral by oral by oral route at route at route at bedtime. bedtime. bedtime. metformin metformin No 2 BID metformin [facility] ER 500 mg ER 500 mg ER 500 mg Family tablet,exte tablet,exte tablet,ext Practic nded nded ended e release 24 release 24 release 24 hr Take 2 hr Take 2 hr Take 2 tablets tablets tablets twice a day twice a day twice a by oral by oral day by route for route for oral route 90 days. 90 days. for 90 days. metronidazo metronidazo No metronidaz [facility] le 0.75 % le 0.75 % ole 0.75 % Family topical gel topical gel topical Practic APPLY A APPLY A gel APPLY e THIN LAYER THIN LAYER A THIN TO THE TO THE LAYER TO AFFECTED AFFECTED THE AREA(S) BY AREA(S) BY AFFECTED TOPICAL TOPICAL AREA(S) BY ROUTE 2 ROUTE 2 TOPICAL TIMES PER TIMES PER ROUTE 2 DAY IN THE DAY IN THE TIMES PER MORNING AND MORNING AND DAY IN THE EVENING EVENING MORNING AND EVENING Novolin R Novolin R No 5unit(s Novolin R [facility] Regular Regular ) Regular Family U-100 U-100 U-100 Practic Insulin 100 Insulin 100 Insulin e unit/mL unit/mL 100 injection injection unit/mL solution solution injection Take 5 Take 5 solution units as units as Take 5 needed by needed by units as injection injection needed by route. route. injection route. pramipexole pramipexole No 1 TID pramipexol [facility] 1 mg tablet 1 mg tablet e 1 mg Family Take 1 Take 1 tablet Practic tablet 3 tablet 3 Take 1 e times a day times a day tablet 3 by oral by oral times a route. route. day by oral route. pramipexole pramipexole No pramipexol [facility] ER 3 mg ER 3 mg e ER 3 mg Fami ly tablet,exte tablet,exte tablet,ext Practic nded nded ended e release 24 release 24 release 24 hr Take 1 hr Take 1 hr Take 1 tablet tablet tablet every day every day every day by oral by oral by oral route for route for route for 90 days. 90 days. 90 days. Remicade Remicade No Remicade [facility] 100 mg 100 mg 100 mg Family intravenous intravenous intravenou Practic solution solution s solution e Inject by Inject by Inject by intravenous intravenous intravenou route. route. s route. tramadol tramadol No 1 tramadol [facility] 100 mg 100 mg 100 mg Family tablet Take tablet Take tablet Practic 1 tablet as 1 tablet as Take 1 e needed by needed by tablet as oral route. oral route. needed by oral route. Trulicity Trulicity No 4.5mg Q1W Trulicity [facility] 4.5 mg/0.5 4.5 mg/0.5 4.5 mg/0.5 Family mL mL mL Practic subcutaneou subcutaneou subcutaneo e s pen s pen us pen injector injector injector Inject 4.5 Inject 4.5 Inject 4.5 mg every mg every mg every week by week by week by subcutaneou subcutaneou subcutaneo s route for s route for us route 90 days. 90 days. for 90 days. Tylenol Tylenol No Tylenol [facility] tylenol w/ tylenol w/ tylenol w/ Family codeine 1 codeine 1 codeine 1 Practic prn prn prn e Xarelto 20 Xarelto 20 No Xarelto 20 [facility] mg tablet mg tablet mg tablet Family Take 1 Take 1 Take 1 Practic tablet tablet tablet e every day every day every day by oral by oral by oral route for route for route for 90 days. 90 days. 90 days. Baby Baby No 1 Q1D Baby [place] Aspirin 81 Aspirin 81 Aspirin 81 Family mg chewable mg chewable mg P ractic tablet Chew tablet Chew chewable e 1 tablet 1 tablet tablet every day every day Chew 1 by oral by oral tablet route. route. every day by oral route. Basaglalyx [place] No 40unit( BID Basaglalyx [facility] KwikPen KwikPen s) KwikPen Family U-100 U-100 U-100 [facility] Insulin 100 Insulin 100 Insulin e unit/mL (3 unit/mL (3 100 mL) mL) unit/mL (3 subcutaneou subcutaneou mL) s Inject 40 s Inject 40 subcutaneo units twice units twice us Inject a day by a day by 40 units subcutaneou subcutaneou twice a s route. s route. day by subcutaneo us route. clonazepam clonazepam No 1 clonazepam [facility] 1 mg tablet 1 mg tablet 1 mg F amily Take 1 Take 1 tablet Practic tablet as tablet as Take 1 e needed by needed by tablet as oral route. oral route. needed by oral route. FreeStyle FreeStyle No FreeStyle [facility] Wang 2 Wang 2 Wang 2 Family Sensor kit Sensor kit Sensor kit Practic Take by Take by Take by e miscell. miscell. miscell. route. route. route. Baby Baby No 1 Q1D Baby [place] Aspirin 81 Aspirin 81 Aspirin 81 Family mg chewable mg chewable mg P ractic tablet Chew tablet Chew chewable e 1 tablet 1 tablet tablet every day every day Chew 1 by oral by oral tablet route. route. every day by oral route. Basaglar Basaglar No Basaglar [facility] ren[facility] KwikPen KwikPen KwikPen Family U-100 U-100 U-100 [facility] Insulin 100 Insulin 100 Insulin e unit/mL (3 unit/mL (3 100 mL) mL) unit/mL (3 subcutaneou subcutaneou mL) s Inject 40 s Inject 40 subcutaneo units twice units twice us Inject a day by a day by 40 units subcutaneou subcutaneou twice a s route. s route. day by subcutaneo us route. clonazepam clonazepam No 1 Q1D clonazepam [facility] 0.5 mg 0.5 mg 0.5 mg Family tablet Take tablet Take tablet Practic 1 tablet 1 tablet Take 1 e every day every day tablet by oral by oral every day route for 7 route for 7 by oral days. days. route for 7 days. clonazepam clonazepam No clonazepam [facility] 1 mg tablet 1 mg tablet 1 mg F amily Take 0.5 Take 0.5 tablet Pract ic tablets as tablets as Take 0.5 e needed by needed by tablets as oral route oral route needed by for 10 for 10 oral route days. days. for 10 days. famotidine famotidine No 1 Q1D famotidine [facility] 40 mg 40 mg 40 mg Family tablet Take tablet Take tablet Practic 1 tablet 1 tablet Take 1 e every day every day tablet by oral by oral every day route for route for by oral 30 days. 30 days. route for 30 days. Farxiga 10 Farxiga 10 No Farxiga 10 [facility] mg tablet mg tablet mg tablet Family TAKE ONE TAKE ONE TAKE ONE Pra ctic TABLET BY TABLET BY TABLET BY e MOUTH DAILY MOUTH DAILY MOUTH DAILY FreeStyle FreeStyle No FreeStyle [facility] Wang 2 Wang 2 Wang 2 Family Sensor kit Sensor kit Sensor kit Practic Take by Take by Take by e miscell. miscell. miscell. route. route. route. gabapentin gabapentin No 1capsul Q1D gabapentin [facility] 300 mg 300 mg e(s) 300 mg Family capsule capsule capsule Practi c Take 1 Take 1 Take 1 e capsule capsule capsule every day every day every day by oral by oral by oral route at route at route at bedtime. bedtime. bedtime. gabapentin gabapentin No 1capsul Q1D gabapentin [facility] 300 mg 300 mg e(s) 300 mg Family capsule capsule capsule Practi c Take 1 Take 1 Take 1 e capsule capsule capsule every day every day every day by oral by oral by oral route. route. route. metformin metformin No 2 BID metformin [facility] ER 500 mg ER 500 mg ER 500 mg Family tablet,exte tablet,exte tablet,ext Practic nded nded ended e release 24 release 24 release 24 hr Take 2 hr Take 2 hr Take 2 tablets tablets tablets twice a day twice a day twice a by oral by oral day by route for route for oral route 90 days. 90 days. for 90 days. metronidazo metronidazo No metronidaz [facility] le 0.75 % le 0.75 % ole 0.75 % [facility] topical gel topical gel topical Practic APPLY A APPLY A gel APPLY e THIN LAYER THIN LAYER A THIN TO THE TO THE LAYER TO AFFECTED AFFECTED THE AREA(S) BY AREA(S) BY AFFECTED TOPICAL TOPICAL AREA(S) BY ROUTE 2 ROUTE 2 TOPICAL TIMES PER TIMES PER ROUTE 2 DAY IN THE DAY IN THE TIMES PER MORNING AND MORNING AND DAY IN THE EVENING EVENING MORNING AND EVENING Novolin R Novolin R No 5unit(s Novolin R [facility] Regular Regular ) Regular Family U-100 U-100 U-100 Practic Insulin 100 Insulin 100 Insulin e unit/mL unit/mL 100 injection injection unit/mL solution solution injection Take 5 Take 5 solution units as units as Take 5 needed by needed by units as injection injection needed by route. route. injection route. pramipexole pramipexole No pramipexol [facility] 1 mg tablet 1 mg tablet e 1 mg Family Take 1 Take 1 tablet Practic tablet 3 tablet 3 Take 1 e times a day times a day tablet 3 by oral by oral times a route. route. day by oral route. pramipexole pramipexole No pramipexol [facility] ER 3 mg ER 3 mg e ER 3 mg Fami ly tablet,exte tablet,exte tablet,ext Practic nded nded ended e release 24 release 24 release 24 hr Take 1 hr Take 1 hr Take 1 tablet tablet tablet every day every day every day by oral by oral by oral route for route for route for 90 days. 90 days. 90 days. prednisone prednisone No 1 Q1D prednisone [facility] 20 mg 20 mg 20 mg Family tablet Take tablet Take tablet Practic 1 tablet 1 tablet Take 1 e every day every day tablet by oral by oral every day route for route for by oral 21 days. 21 days. route for 21 days. Remicade Remicade No Remicade [facility] 100 mg 100 mg 100 mg Family intravenous intravenous intravenou Practic solution solution s solution e Inject by Inject by Inject by intravenous intravenous intravenou route. route. s route. tramadol tramadol No 1 tramadol [facility] 100 mg 100 mg 100 mg Family tablet Take tablet Take tablet Practic 1 tablet as 1 tablet as Take 1 e needed by needed by tablet as oral route. oral route. needed by oral route. Trulicity Trulicity No Trulicity [facility] 4.5 mg/0.5 4.5 mg/0.5 4.5 mg/0.5 Family mL mL mL Practic subcutaneou subcutaneou subcutaneo e s pen s pen us pen injector injector injector Inject 4.5 Inject 4.5 Inject 4.5 mg every mg every mg every week by week by week by subcutaneou subcutaneou subcutaneo s route for s route for us route 90 days. 90 days. for 90 days. Tylenol Tylenol No Tylenol [facility] tylenol w/ tylenol w/ tylenol w/ Family codeine 1 codeine 1 codeine 1 Practic prn prn prn e metformin metformin No 1 BID metformin [facility] ER 500 mg ER 500 mg ER 500 mg Family 24 hr 24 hr 24 hr Practic tablet,exte tablet,exte tablet,ext e nded nded ended release release release Take 1 Take 1 Take 1 tablet tablet tablet twice a day twice a day twice a by oral by oral day by route. route. oral route. Xarelto 20 Xarelto 20 No Xarelto 20 [facility] mg tablet mg tablet mg tablet Family Take 1 Take 1 Take 1 Practic tablet tablet tablet e every day every day every day by oral by oral by oral route for route for route for 90 days. 90 days. 90 days. Orencia 125 Orencia 125 No 1mL Q1W [place] mg/mL mg/mL 125 mg/mL Family subcutane subcutaneou subcutaneo Practic s syringe s syringe us syringe e Inject 1 mL Inject 1 mL Inject 1 every week every week mL every by by week by subcutaneou subcutaneou subcutaneo s route. s route. us route. pramipexole pramipexole No 1 Q1D pramipexol [facility] 0.5 mg 0.5 mg e 0.5 mg Family tablet Take tablet Take tablet Practic 1 tablet 1 tablet Take 1 e every day every day tablet by oral by oral every day route at route at by oral bedtime. bedtime. route at bedtime. Baby Baby No 1 Q1D Baby [place] Aspirin 81 Aspirin 81 Aspirin 81 Family mg chewable mg chewable mg P ractic tablet Chew tablet Chew chewable e 1 tablet 1 tablet tablet every day every day Chew 1 by oral by oral tablet route. route. every day by oral route. solifenacin solifenacin No 1 Q1D solifenaci [facility] 10 mg 10 mg n 10 mg Family tablet Take tablet Take tablet Practic 1 tablet 1 tablet Take 1 e every day every day tablet by oral by oral every day route. route. by oral route. ciprofloxac ciprofloxac No ciprofloxa [place] in 0.3 % in 0.3 % zeferino 0.3 % Fa kaela eye drops eye drops eye drops Practic INSTILL 1-2 INSTILL 1-2 INSTILL e DROP INTO DROP INTO 1-2 DROP BOTH EYES BOTH EYES INTO BOTH EVERY 6 EVERY 6 EYES EVERY HOURS FOR 5 HOURS FOR 5 6 HOURS DAYS DAYS FOR 5 DAYS clonazepam clonazepam No 1 Q1D clonazepam [facility] 0.5 mg 0.5 mg 0.5 mg Family tablet Take tablet Take tablet Practic 1 tablet 1 tablet Take 1 e every day every day tablet by oral by oral every day route for 7 route for 7 by oral days. days. route for 7 days. famotidine famotidine No famotidine [facility] 40 mg 40 mg 40 mg Family tablet TAKE tablet TAKE tablet Practic 1 TABLET BY 1 TABLET BY TAKE 1 e MOUTH DAILY MOUTH DAILY TABLET BY MOUTH DAILY Farxiga 10 Farxiga 10 No Farxiga 10 [facility] mg tablet mg tablet mg tablet Family TAKE ONE TAKE ONE TAKE ONE Pra ctic TABLET BY TABLET BY TABLET BY e MOUTH DAILY MOUTH DAILY MOUTH DAILY FreeStyle FreeStyle No FreeStyle [place] Wang 2 Wang 2 Wang 2 Family Sensor kit Sensor kit Sensor kit Practic Take by Take by Take by e miscell. miscell. miscell. route. route. route. gabapentin gabapentin No 1capsul Q1D gabapentin [facility] 300 mg 300 mg e(s) 300 mg Family capsule capsule capsule Practi c Take 1 Take 1 Take 1 e capsule capsule capsule every day every day every day by oral by oral by oral route at route at route at bedtime. bedtime. bedtime. tramadol tramadol No 1 tramadol [facility] 100 mg 100 mg 100 mg Family tablet Take tablet Take tablet Practic 1 tablet as 1 tablet as Take 1 e needed by needed by tablet as oral route. oral route. needed by oral route. Novolin N Novolin N No Novolin N [facility] NPH U-100 NPH U-100 NPH U-100 Family Insulin Insulin Insulin Practi c isophane isophane isophane e 100 unit/mL 100 unit/mL 100 subcutaneou subcutaneou unit/mL s susp s susp subcutaneo us susp Novolin R Novolin R No 5unit(s Novolin R [facility] Regular Regular ) Regular Family U-100 U-100 U-100 Practic Insulin 100 Insulin 100 Insulin e unit/mL unit/mL 100 injection injection unit/mL solution solution injection Take 5 Take 5 solution units as units as Take 5 needed by needed by units as injection injection needed by route. route. injection route. pramipexole pramipexole No pramipexol [facility] 1 mg tablet 1 mg tablet e 1 mg Family tablet Practic e Trulicity Trulicity No Trulicity [facility] pt unsure pt unsure pt unsure Family of of of Practic dosage(once dosage(once dosage(onc e a week) a week) e a week) prednisone prednisone No prednisone [facility] 20 mg 20 mg 20 mg Family tablet Take tablet Take tablet Practic 1 tablet 1 tablet Take 1 e every day every day tablet by oral by oral every day route for route for by oral 21 days. 21 days. route for 21 days. Remicade Remicade No Remicade [facility] 100 mg 100 mg 100 mg Family intravenous intravenous intravenou Practic solution solution s solution e Inject by Inject by Inject by intravenous intravenous intravenou route. route. s route. tramadol tramadol No 1 tramadol [facility] 100 mg 100 mg 100 mg Family tablet Take tablet Take tablet Practic 1 tablet as 1 tablet as Take 1 e needed by needed by tablet as oral route. oral route. needed by oral route. Trulicity Trulicity No Trulicity [facility] 4.5 mg/0.5 4.5 mg/0.5 4.5 mg/0.5 Family mL mL mL Practic subcutaneou subcutaneou subcutaneo e s pen s pen us pen injector injector injector INJECT 4.5 INJECT 4.5 INJECT 4.5 MG UNDER MG UNDER MG UNDER THE SKIN THE SKIN THE SKIN ONCE WEEKLY ONCE WEEKLY ONCE WEEKLY Tylenol Tylenol No Tylenol [facility] tylenol w/ tylenol w/ tylenol w/ Family codeine 1 codeine 1 codeine 1 Practic prn prn prn e Voltaren Voltaren No Voltellisn Son[facility] lawson Arthritis Arthritis Arthritis Family Pain 1 % Pain 1 % Pain 1 % Pra ctic topical gel topical gel topical e gel Xarelto 20 Xarelto 20 No Xarelto 20 [facility] mg tablet mg tablet mg tablet Family Take 1 Take 1 Take 1 Practic tablet tablet tablet e every day every day every day by oral by oral by oral route for route for route for 90 days. 90 days. 90 days. Tylenol Tylenol No Tylenol [facility] tylenol w/ tylenol w/ tylenol w/ Family codeine 1 codeine 1 codeine 1 Practic prn prn prn e Xarelto 20 Xarelto 20 No 1 Q1D Xarelto 20 [facility] mg tablet mg tablet mg tablet Family Take 1 Take 1 Take 1 Practic tablet tablet tablet e every day every day every day by oral by oral by oral route. route. route. Baby Baby No 1 Q1D Baby [place] Aspirin 81 Aspirin 81 Aspirin 81 Family mg chewable mg chewable mg P ractic tablet Chew tablet Chew chewable e 1 tablet 1 tablet tablet every day every day Chew 1 by oral by oral tablet route. route. every day by oral route. [place] No 40unit( BID Basaglar [place] KwikPen KwikPen s) KwikPen Family U-100 U-100 U-100 Practic Insulin 100 Insulin 100 Insulin e unit/mL (3 unit/mL (3 100 mL) mL) unit/mL (3 subcutaneou subcutaneou mL) s Inject 40 s Inject 40 subcutaneo units twice units twice us Inject a day by a day by 40 units subcutaneou subcutaneou twice a s route. s route. day by subcutaneo us route. famotidine famotidine No famotidine [facility] 40 mg 40 mg 40 mg Family tablet TAKE tablet TAKE tablet Practic 1 TABLET BY 1 TABLET BY TAKE 1 e MOUTH DAILY MOUTH DAILY TABLET BY MOUTH DAILY Farxiga 10 Farxiga 10 No Farxiga 10 [facility] mg tablet mg tablet mg tablet Family TAKE ONE TAKE ONE TAKE ONE Pra ctic TABLET BY TABLET BY TABLET BY e MOUTH DAILY MOUTH DAILY MOUTH DAILY FreeStyle FreeStyle No FreeStyle [place] Wang 2 Wang 2 Wang 2 Family Sensor kit Sensor kit Sensor kit Practic Take by Take by Take by e miscell. miscell. miscell. route. route. route. gabapentin gabapentin No 1capsul Q1D gabapentin [facility] 300 mg 300 mg e(s) 300 mg Family capsule capsule capsule Practi c Take 1 Take 1 Take 1 e capsule capsule capsule every day every day every day by oral by oral by oral route at route at route at bedtime. bedtime. bedtime. pramipexole pramipexole No pramipexol [facility] 1 mg tablet 1 mg tablet e 1 mg Family tablet Practic e prednisone prednisone No prednisone [facility] 20 mg 20 mg 20 mg Family tablet Take tablet Take tablet Practic 1 tablet 1 tablet Take 1 e every day every day tablet by oral by oral every day route for route for by oral 21 days. 21 days. route for 21 days. Remicade Remicade No Remicade [facility] 100 mg 100 mg 100 mg Family intravenous intravenous intravenou Practic solution solution s solution e Inject by Inject by Inject by intravenous intravenous intravenou route. route. s route. tramadol tramadol No 1 tramadol [facility] 100 mg 100 mg 100 mg Family tablet Take tablet Take tablet Practic 1 tablet as 1 tablet as Take 1 e needed by needed by tablet as oral route. oral route. needed by oral route. Trulicity Trulicity No Trulicity [facility] 4.5 mg/0.5 4.5 mg/0.5 4.5 mg/0.5 Family mL mL mL Practic subcutaneou subcutaneou subcutaneo e s pen s pen us pen injector injector injector INJECT 4.5 INJECT 4.5 INJECT 4.5 MG UNDER MG UNDER MG UNDER THE SKIN THE SKIN THE SKIN ONCE WEEKLY ONCE WEEKLY ONCE WEEKLY Tylenol Tylenol No Tylenol [place] tylenol w/ tylenol w/ tylenol w/ Family codeine 1 codeine 1 codeine 1 Practic prn prn prn e Vascepa 1 Vascepa 1 No 2capsul BID Vascepa 1 [facility] gram gram e(s) gram Family capsule capsule capsule Practi c Take 2 Take 2 Take 2 e capsules capsules capsules twice a day twice a day twice a by oral by oral day by route. route. oral route. Xarelto 20 Xarelto 20 No Xarelto 20 [facility] mg tablet mg tablet mg tablet Family Take 1 Take 1 Take 1 Practic tablet tablet tablet e every day every day every day by oral by oral by oral route for route for route for 90 days. 90 days. 90 days. Baby Baby No 1 Q1D Baby [place] Aspirin 81 Aspirin 81 Aspirin 81 Family mg chewable mg chewable mg P ractic tablet Chew tablet Chew chewable e 1 tablet 1 tablet tablet every day every day Chew 1 by oral by oral tablet route. route. every day by oral route. Basaglar Basaglar No Basaglar Sonu davisone [place] Family U-100 U-100 U-100 Practic Insulin 100 Insulin 100 Insulin e unit/mL (3 unit/mL (3 100 mL) mL) unit/mL (3 subcutaneou subcutaneou mL) s Inject 40 s Inject 40 subcutaneo units twice units twice us Inject a day by a day by 40 units subcutaneou subcutaneou twice a s route. s route. day by subcutaneo us route. Farxiga 10 Farxiga 10 No Farxiga 10 [facility] mg tablet mg tablet mg tablet Family TAKE ONE TAKE ONE TAKE ONE Pra ctic TABLET BY TABLET BY TABLET BY e MOUTH DAILY MOUTH DAILY MOUTH DAILY FreeStyle FreeStyle No FreeStyle [facility] Wang 2 Wang 2 Wang 2 Family Sensor kit Sensor kit Sensor kit Practic Take by Take by Take by e miscell. miscell. miscell. route. route. route. furosemide furosemide No 1 Q1D furosemide [facility] 20 mg 20 mg 20 mg Family tablet Take tablet Take tablet Practic 1 tablet 1 tablet Take 1 e every day every day tablet by oral by oral every day route for route for by oral 30 days. 30 days. route for 30 days. gabapentin gabapentin No 1capsul Q1D gabapentin [facility] 300 mg 300 mg e(s) 300 mg Family capsule capsule capsule Practi c Take 1 Take 1 Take 1 e capsule capsule capsule every day every day every day by oral by oral by oral route at route at route at bedtime. bedtime. bedtime. Humalog Humalog No Humalog [facility] [place] Family (U-100) (U-100) (U-100) Practi c Insulin 100 Insulin 100 Insulin e unit/mL unit/mL 100 subcutaneou subcutaneou unit/mL s 5-10 s 5-10 subcutaneo units as units as us 5-10 needed when needed when units as BS are BS are needed highand highand when BS premeals on premeals on are heaviest heaviest highand meal of the meal of the premeals day day on heaviest meal of the day potassium potassium No 1 Q1D potassium [place] chloride ER chloride ER chloride Family 10 mEq 10 mEq ER 10 mEq Practi c tablet,exte tablet,exte tablet,ext e nded nded ended release release release Take 1 Take 1 Take 1 tablet tablet tablet every day every day every day by oral by oral by oral route for route for route for 30 days. 30 days. 30 days. pramipexole pramipexole No pramipexol [facility] 1 mg tablet 1 mg tablet e 1 mg Family TAKE ONE TAKE ONE tablet Pract ic TABLET BY TABLET BY TAKE ONE e MOUTH THREE MOUTH THREE TABLET BY TIMES A DAY TIMES A DAY MOUTH THREE TIMES A DAY prednisone prednisone No prednisone [facility] 20 mg 20 mg 20 mg Family tablet Take tablet Take tablet Pract[facility] 1 tablet 1 tablet Take 1 e every day every day tablet by oral by oral every day route for route for by oral 21 days. 21 days. route for 21 days. Remicade Remicade No Remicade [facility] 100 mg 100 mg 100 mg Family intravenous intravenous intravenou Practic solution solution s solution e Inject by Inject by Inject by intravenous intravenous intravenou route. route. s route. tramadol tramadol No 1 tramadol [facility] ren[facility] 100 mg 100 mg 100 mg Family tablet Take tablet Take tablet Practic 1 tablet as 1 tablet as Take 1 e needed by needed by tablet as oral route. oral route. needed by oral route. Trulicity Trulicity No Trulicity [facility] 4.5 mg/0.5 4.5 mg/0.5 4.5 mg/0.5 [facility] mL mL mL Practic subcutaneou subcutaneou subcutaneo e s pen s pen us pen injector injector injector INJECT 4.5 INJECT 4.5 INJECT 4.5 MG UNDER MG UNDER MG UNDER THE SKIN THE SKIN THE SKIN ONCE WEEKLY ONCE WEEKLY ONCE WEEKLY Tylenol Tylenol No Tylenol [facility] tylenol w/ tylenol w/ tylenol w/ Family codeine 1 codeine 1 codeine 1 Practic prn prn prn e Xarelto 20 Xarelto 20 No Xarelto 20 [facility] mg tablet mg tablet mg tablet Family Take 1 Take 1 Take 1 Practic tablet tablet tablet e every day every day every day by oral by oral by oral route for route for route for 90 days. 90 days. 90 days. Baby Baby No 1 Q1D Baby [place] Aspirin 81 Aspirin 81 Aspirin 81 Family mg chewable mg chewable mg P ractic tablet Chew tablet Chew chewable e 1 tablet 1 tablet tablet every day every day Chew 1 by oral by oral tablet route. route. every day by oral route. Basaglar Basaglar No Basaglar [facility] Family U-100 U-100 U-100 [facility] Insulin 100 Insulin 100 Insulin e unit/mL (3 unit/mL (3 100 mL) mL) unit/mL (3 subcutaneou subcutaneou mL) s Inject 40 s Inject 40 subcutaneo units twice units twice us Inject a day by a day by 40 units subcutaneou subcutaneou twice a s route. s route. day by subcutaneo us route. Farxiga 10 Farxiga 10 No Farxiga 10 [facility] mg tablet mg tablet mg tablet Family TAKE 1 TAKE 1 TAKE 1 Practic TABLET BY TABLET BY TABLET BY e MOUTH DAILY MOUTH DAILY MOUTH DAILY FreeStyle FreeStyle No FreeStyle [facility] [facility] Wang 2 Wang 2 Wang 2 Family Sensor kit Sensor kit Sensor kit Practic Take by Take by Take by e miscell. miscell. miscell. route. route. route. furosemide furosemide No furosemide [facility] 20 mg 20 mg 20 mg Family tablet Take tablet Take tablet Practic 1 tablet 1 tablet Take 1 e every day every day tablet by oral by oral every day route for route for by oral 30 days. 30 days. route for 30 days. gabapentin gabapentin No 1capsul Q1D gabapentin [facility] 300 mg 300 mg e(s) 300 mg Family capsule capsule capsule Practi c Take 1 Take 1 Take 1 e capsule capsule capsule every day every day every day by oral by oral by oral route at route at route at bedtime. bedtime. bedtime. Humalog Humalog No Humalog [facility] (U-100) (U-100) (U-100) Practi c Insulin 100 Insulin 100 Insulin e unit/mL unit/mL 100 subcutaneou subcutaneou unit/mL s 5-10 s 5-10 subcutaneo units as units as us 5-10 needed when needed when units as BS are BS are needed highand highand when BS premeals on premeals on are heaviest heaviest highand meal of the meal of the premeals day day on heaviest meal of the day Mounjaro Mounjaro No 2.5mg Q1W Mounjaro [facility] 2.5 mg/0.5 2.5 mg/0.5 2.5 mg/0.5 Family mL mL mL Practic subcutaneou subcutaneou subcutaneo e s pen s pen us pen injector injector injector Inject 2.5 Inject 2.5 Inject 2.5 mg every mg every mg every week by week by week by subcutaneou subcutaneou subcutaneo s route for s route for us route 30 days. 30 days. for 30 days. Novolog Novolog No Novolog [facility] FlexPen FlexPen FlexPen Family U-100 U-100 U-100 Practic Insulin Insulin Insulin e aspart 100 aspart 100 aspart 100 unit/mL (3 unit/mL (3 unit/mL (3 mL) mL) mL) subcutaneou subcutaneou subcutaneo s s us potassium potassium potassium [facility] chloride ER chloride ER chloride [facility] 10 mEq 10 mEq ER 10 mEq Practi c tablet,exte tablet,exte tablet,ext e nded nded ended release release release Take 1 Take 1 Take 1 tablet tablet tablet every day every day every day by oral by oral by oral route for route for route for 30 days. 30 days. 30 days. pramipexole pramipexole No pramipexol [facility] 1 mg tablet 1 mg tablet e 1 mg Family TAKE ONE TAKE ONE tablet Pract ic TABLET BY TABLET BY TAKE ONE e MOUTH THREE MOUTH THREE TABLET BY TIMES A DAY TIMES A DAY MOUTH THREE TIMES A DAY prednisone prednisone No prednisone [facility] 20 mg 20 mg 20 mg Family tablet Take tablet Take tablet Practic 1 tablet 1 tablet Take 1 e every day every day tablet by oral by oral every day route for route for by oral 21 days. 21 days. route for 21 days. Toujeo Max Toujeo Max No 15unit( Q1D Toujeo Max [place] U-300 U-300 s) U-300 Family SoloStar SoloStar SoloStar Pra ctic 300 unit/mL 300 unit/mL 300 e (3 mL) (3 mL) unit/mL (3 subcutaneou subcutaneou mL) s insulin s insulin subcutaneo pen Inject pen Inject us insulin 15 units 15 units pen Inject every day every day 15 units by by every day subcutaneou subcutaneou by s route for s route for subcutaneo 30 days. 30 days. us route for 30 days. tramadol tramadol No 1 tramadol Sonu davisone 100 mg 100 mg 100 mg Family tablet Take tablet Take tablet Practic 1 tablet as 1 tablet as Take 1 e needed by needed by tablet as oral route. oral route. needed by oral route. Tylenol Tylenol No Tylenol [facility] tylenol w/ tylenol w/ tylenol w/ Family codeine 1 codeine 1 codeine 1 Practic prn prn prn e Xarelto 20 Xarelto 20 No Xarelto 20 [facility] mg tablet mg tablet mg tablet Family Take 1 Take 1 Take 1 Practic tablet tablet tablet e every day every day every day by oral by oral by oral route for route for route for 90 days. 90 days. 90 days. Baby Baby No 1 Q1D Baby [facility] Aspirin 81 Aspirin 81 Aspirin 81 Family mg chewable mg chewable mg P ractic tablet Chew tablet Chew chewable e 1 tablet 1 tablet tablet every day every day Chew 1 by oral by oral tablet route. route. every day by oral route. Basaglar Basaglar No Basaglar Sonu lawson KwikPen KwikPen KwikPen Family U-100 U-100 U-100 Practic Insulin 100 Insulin 100 Insulin e unit/mL (3 unit/mL (3 100 mL) mL) unit/mL (3 subcutaneou subcutaneou mL) s Inject 40 s Inject 40 subcutaneo units twice units twice us Inject a day by a day by 40 units subcutaneou subcutaneou twice a s route. s route. day by subcutaneo us route. ciprofloxac ciprofloxac No 1 Q12H ciprofloxa [facility] in 500 mg in 500 mg zeferino 500 mg Family tablet Take tablet Take tablet Practic 1 tablet 1 tablet Take 1 e every 12 every 12 tablet hours by hours by every 12 oral route oral route hours by for 10 for 10 oral route days. days. for 10 days. Farxiga 10 Farxiga 10 No Farxiga 10 [facility] mg tablet mg tablet mg tablet Family TAKE 1 TAKE 1 TAKE 1 Practic TABLET BY TABLET BY TABLET BY e MOUTH DAILY MOUTH DAILY MOUTH DAILY FreeStyle FreeStyle No FreeStyle [facility] Wang 2 Wang 2 Wang 2 Family Sensor kit Sensor kit Sensor kit Practic Take by Take by Take by e miscell. miscell. miscell. route. route. route. furosemide furosemide No furosemide [facility] 20 mg 20 mg 20 mg Family tablet Take tablet Take tablet Practic 1 tablet 1 tablet Take 1 e every day every day tablet by oral by oral every day route for route for by oral 30 days. 30 days. route for 30 days. gabapentin gabapentin No 1capsul Q1D gabapentin [facility] 300 mg 300 mg e(s) 300 mg Family capsule capsule capsule Practi c Take 1 Take 1 Take 1 e capsule capsule capsule every day every day every day by oral by oral by oral route at route at route at bedtime. bedtime. bedtime. Humalog Humalog No Humalog [facility] KwikPen KwikPen KwikPen Family (U-100) (U-100) (U-100) Practi c Insulin 100 Insulin 100 Insulin e unit/mL unit/mL 100 subcutaneou subcutaneou unit/mL s 5-10 s 5-10 subcutaneo units as units as us 5-10 needed when needed when units as BS are BS are needed highand highand when BS premeals on premeals on are heaviest heaviest highand meal of the meal of the premeals day day on heaviest meal of the day metronidazo metronidazo No 1 Q8H metronidaz [facility] le 500 mg le 500 mg ole 500 mg Family tablet Take tablet Take tablet Practic 1 tablet 1 tablet Take 1 e every 8 every 8 tablet hours by hours by every 8 oral route oral route hours by for 10 for 10 oral route days. days. for 10 days. Mounjaro Mounjaro No 2.5mg Q1W Mounjaro Vi [facility] 2.5 mg/0.5 2.5 mg/0.5 2.5 mg/0.5 Family mL mL mL Practic subcutaneou subcutaneou subcutaneo e s pen s pen us pen injector injector injector Inject 2.5 Inject 2.5 Inject 2.5 mg every mg every mg every week by week by week by subcutaneou subcutaneou subcutaneo s route for s route for us route 30 days. 30 days. for 30 days. mupirocin 2 mupirocin 2 No mupirocin [facility] % topical % topical 2 % Famil y ointment ointment topical Prac tic APPLY A APPLY A ointment e SMALL SMALL APPLY A AMOUNT TO AMOUNT TO SMALL THE THE AMOUNT TO AFFECTED AFFECTED THE AREA BY AREA BY AFFECTED TOPICAL TOPICAL AREA BY ROUTE 3 ROUTE 3 TOPICAL TIMES PER TIMES PER ROUTE 3 DAY DAY TIMES PER DAY Novolog Novolog No Novolog [facility] FlexPen FlexPen FlexPen Family U-100 U-100 U-100 Practic Insulin Insulin Insulin e aspart 100 aspart 100 aspart 100 unit/mL (3 unit/mL (3 unit/mL (3 mL) mL) mL) subcutaneou subcutaneou subcutaneo s Patient s Patient us Patient unsure of unsure of unsure of dosage dosage dosage ofloxacin ofloxacin No 1drop(s TID ofloxacin [facility] 0.3 % eye 0.3 % eye ) 0.3 % eye Family drops drops drops Practic Instill 1 Instill 1 Instill 1 e drop 3 drop 3 drop 3 times a day times a day times a by by day by ophthalmic ophthalmic ophthalmic route for route for route for 33 days. 33 days. 33 days. potassium potassium No potassium [facility] chloride ER chloride ER chloride [facility] 10 mEq 10 mEq ER 10 mEq Practi c tablet,exte tablet,exte tablet,ext e nded nded ended release release release TAKE 1 TAKE 1 TAKE 1 TABLET BY TABLET BY TABLET BY MOUTH DAILY MOUTH DAILY MOUTH DAILY pramipexole pramipexole No 1 TID pramipexol [facility] 1 mg tablet 1 mg tablet e 1 mg Family Take 1 Take 1 tablet Practic tablet 3 tablet 3 Take 1 e times a day times a day tablet 3 by oral by oral times a route. route. day by oral route. pramipexole pramipexole No pramipexol [facility] ER 3 mg ER 3 mg e ER 3 mg Fami ly tablet,exte tablet,exte tablet,ext Practic nded nded ended e release 24 release 24 release 24 hr Take 1 hr Take 1 hr Take 1 tablet tablet tablet every day every day every day by oral by oral by oral route for route for route for 90 days. 90 days. 90 days. prednisone prednisone No 1 Q1D prednisone [facility] 10 mg 10 mg 10 mg Family tablet Take tablet Take tablet Practic 1 tablet 1 tablet Take 1 e every day every day tablet by oral by oral every day route as route as by oral needed for needed for route as 30 days. 30 days. needed for 30 days. prednisone prednisone prednisone [facility] 20 mg 20 mg 20 mg Family tablet Take tablet Take tablet Practic 1 tablet 1 tablet Take 1 e every day every day tablet by oral by oral every day route for route for by oral 21 days. 21 days. route for 21 days. Yaneth Brandusita Witt No 15unit( Q1D Yaneth Witt [facility] U-300 U-300 s) U-300 Family SoloStar SoloStar SoloStar Pra ctic 300 unit/mL 300 unit/mL 300 e (3 mL) (3 mL) unit/mL (3 subcutaneou subcutaneou mL) s insulin s insulin subcutaneo pen Inject pen Inject us insulin 15 units 15 units pen Inject every day every day 15 units by by every day subcutaneou subcutaneou by s route for s route for subcutaneo 30 days. 30 days. us route for 30 days. tramadol tramadol No 1 tramadol Sonu renny 100 mg 100 mg 100 mg Family tablet Take tablet Take tablet Practic 1 tablet as 1 tablet as Take 1 e needed by needed by tablet as oral route. oral route. needed by oral route. Tylenol Tylenol No Tylenol [facility] tylenol w/ tylenol w/ tylenol w/ Family codeine 1 codeine 1 codeine 1 Practic prn prn prn e Xarelto 20 Xarelto 20 No Xarelto 20 [facility] mg tablet mg tablet mg tablet Family Take 1 Take 1 Take 1 Practic tablet tablet tablet e every day every day every day by oral by oral by oral route for route for route for 90 days. 90 days. 90 days. Immunizations Ordered Immunization Filled Immunization Date Status Commen ts Source Name Name Pneumococcal Pneumococcal 2022-05-22 Completed [facility] conjugate PCV20, conjugate PCV20, 00:00:00 Pr actice polysaccharide polysaccharide [id number] conjugate, [id number] conjugate, adjuvant, PF - ML adjuvant, PF - ML Influenza vaccine, Influenza vaccine, 2022-05-22 [facility] quadrivalent, quadrivalent, 00:00:00 Practice adjuvanted - ML adjuvanted - ML Pneumococcal Pneumococcal 2022-05-22 Completed [facility] conjugate PCV20, conjugate PCV20, 00:00:00 Pr actice polysaccharide polysaccharide [id number] conjugate, [id number] conjugate, adjuvant, PF - ML adjuvant, PF - ML Influenza vaccine, Influenza vaccine, 2022-05-22 Completed [facility] Family quadrivalent, quadrivalent, 00:00:00 Practice adjuvanted - ML adjuvanted - ML Pneumococcal Pneumococcal 2022-05-22 Completed [facility] Fa kaela conjugate PCV20, conjugate PCV20, 00:00:00 Pr actice polysaccharide polysaccharide [id number] conjugate, [id number] conjugate, adjuvant, PF - ML adjuvant, PF - ML Influenza vaccine, Influenza vaccine, 2022-05-22 Completed [facility] Family quadrivalent, quadrivalent, 00:00:00 Practice adjuvanted - ML adjuvanted - ML Pneumococcal Pneumococcal 2022-05-22 Completed [facility] Fa kaela conjugate PCV20, conjugate PCV20, 00:00:00 Pr actice polysaccharide polysaccharide [id number] conjugate, [id number] conjugate, adjuvant, PF - ML adjuvant, PF - ML Influenza vaccine, Influenza vaccine, 2022-05-22 Completed [facility] quadrivalent, quadrivalent, 00:00:00 Practice adjuvanted - ML adjuvanted - ML Pneumococcal Pneumococcal 2022-05-22 Completed [facility] kaela conjugate PCV20, conjugate PCV20, 00:00:00 Pr actice polysaccharide polysaccharide [id number] conjugate, [id number] conjugate, adjuvant, PF - ML adjuvant, PF - ML Influenza vaccine, Influenza vaccine, 2022-05-22 Completed [facility] quadrivalent, quadrivalent, 00:00:00 Practice adjuvanted - ML adjuvanted - ML Pneumococcal Pneumococcal 2022-05-22 Completed [facility] kaela conjugate PCV20, conjugate PCV20, 00:00:00 Pr actice polysaccharide polysaccharide [id number] conjugate, [id number] conjugate, adjuvant, PF - ML adjuvant, PF - ML Influenza vaccine, Influenza vaccine, 2022-05-22 Completed [facility] Family quadrivalent, quadrivalent, 00:00:00 Practice adjuvanted - ML adjuvanted - ML Pneumococcal Pneumococcal 2022-05-22 Completed [facility] Fa kaela conjugate PCV20, conjugate PCV20, 00:00:00 Pr actice polysaccharide polysaccharide [id number] conjugate, [id number] conjugate, adjuvant, PF - ML adjuvant, PF - ML Influenza vaccine, Influenza vaccine, 2022-05-22 Completed [facility] quadrivalent, quadrivalent, 00:00:00 Practice adjuvanted - ML adjuvanted - ML Pneumococcal Pneumococcal 2022-05-22 Completed [facility] conjugate PCV20, conjugate PCV20, 00:00:00 Pr actice polysaccharide polysaccharide [id number] conjugate, [id number] conjugate, adjuvant, PF - ML adjuvant, PF - ML Influenza vaccine, Influenza vaccine, 2022-05-22 Completed [facility] Family quadrivalent, quadrivalent, 00:00:00 Practice adjuvanted - ML adjuvanted - ML Pneumococcal Pneumococcal 2022-05-22 Completed [facility] Fa kaela conjugate PCV20, conjugate PCV20, 00:00:00 Pr actice polysaccharide polysaccharide [id number] conjugate, [id number] conjugate, adjuvant, PF - ML adjuvant, PF - ML Influenza vaccine, Influenza vaccine, 2022-05-22 Completed [facility] Family quadrivalent, quadrivalent, 00:00:00 Practice adjuvanted - ML adjuvanted - ML Pneumococcal Pneumococcal 2022-05-22 Completed [facility] kaela conjugate PCV20, conjugate PCV20, 00:00:00 Pr actice polysaccharide polysaccharide [id number] conjugate, [id number] conjugate, adjuvant, PF - ML adjuvant, PF - ML Influenza vaccine, Influenza vaccine, 2022-05-22 Completed [facility] quadrivalent, quadrivalent, 00:00:00 Practice adjuvanted - ML adjuvanted - ML Pneumococcal Pneumococcal 2022-05-22 Completed [facility] kaela conjugate PCV20, conjugate PCV20, 00:00:00 Pr actice polysaccharide polysaccharide [id number] conjugate, [id number] conjugate, adjuvant, PF - ML adjuvant, PF - ML Influenza vaccine, Influenza vaccine, 2022-05-22 Completed [facility] quadrivalent, quadrivalent, 00:00:00 Practice adjuvanted - ML adjuvanted - ML Pneumococcal Pneumococcal 2022-05-22 Completed [facility] kaela conjugate PCV20, conjugate PCV20, 00:00:00 Pr actice polysaccharide polysaccharide [id number] conjugate, [id number] conjugate, adjuvant, PF - ML adjuvant, PF - ML Influenza vaccine, Influenza vaccine, 2022-05-22 Completed [facility] Family quadrivalent, quadrivalent, 00:00:00 Practice adjuvanted - ML adjuvanted - ML Pneumococcal Pneumococcal 2022-05-22 Completed [facility] kaela conjugate PCV20, conjugate PCV20, 00:00:00 Pr actice polysaccharide polysaccharide [id number] conjugate, [id number] conjugate, adjuvant, PF - ML adjuvant, PF - ML Influenza vaccine, Influenza vaccine, 2022-05-22 Completed [facility] quadrivalent, quadrivalent, 00:00:00 Practice adjuvanted - ML adjuvanted - ML Pneumococcal Pneumococcal 2022-05-22 Completed [facility] conjugate PCV20, conjugate PCV20, 00:00:00 Pr actice polysaccharide polysaccharide [id number] conjugate, [id number] conjugate, adjuvant, PF - ML adjuvant, PF - ML Influenza vaccine, Influenza vaccine, 2022-05-22 Completed [facility] Family quadrivalent, quadrivalent, 00:00:00 Practice adjuvanted - ML adjuvanted - ML COVID-19, mRNA, COVID-19, mRNA, 2021-12-28 Completed [facility] LNP-S, PF, 100 LNP-S, PF, 100 00:00:00 Practi ce mcg/0.5 mL dose mcg/0.5 mL dose (Moderna) - ML (Moderna) - ML COVID-19, mRNA, COVID-19, mRNA, 2021-12-28 Completed [facility] Family LNP-S, PF, 100 LNP-S, PF, 100 00:00:00 Practi ce mcg/0.5 mL dose mcg/0.5 mL dose (Moderna) - ML (Moderna) - ML COVID-19, mRNA, COVID-19, mRNA, 2021-12-28 Completed [facility] Family LNP-S, PF, 100 LNP-S, PF, 100 00:00:00 Practi ce mcg/0.5 mL dose mcg/0.5 mL dose (Moderna) - ML (Moderna) - ML COVID-19, mRNA, COVID-19, mRNA, 2021-12-28 Completed [facility] LNP-S, PF, 100 LNP-S, PF, 100 00:00:00 Practi ce mcg/0.5 mL dose mcg/0.5 mL dose (Moderna) - ML (Moderna) - ML COVID-19, mRNA, COVID-19, mRNA, 2021-12-28 Completed [facility] LNP-S, PF, 100 LNP-S, PF, 100 00:00:00 Practi ce mcg/0.5 mL dose mcg/0.5 mL dose (Moderna) - ML (Moderna) - ML COVID-19, mRNA, COVID-19, mRNA, 2021-12-28 Completed [facility] LNP-S, PF, 100 LNP-S, PF, 100 00:00:00 Practi ce mcg/0.5 mL dose mcg/0.5 mL dose (Moderna) - ML (Moderna) - ML COVID-19, mRNA, COVID-19, mRNA, 2021-12-28 Completed [facility] LNP-S, PF, 100 LNP-S, PF, 100 00:00:00 Practi ce mcg/0.5 mL dose mcg/0.5 mL dose (Moderna) - ML (Moderna) - ML COVID-19, mRNA, COVID-19, mRNA, 2021-12-28 Completed [facility] LNP-S, PF, 100 LNP-S, PF, 100 00:00:00 Practi ce mcg/0.5 mL dose mcg/0.5 mL dose (Moderna) - ML (Moderna) - ML COVID-19, mRNA, COVID-19, mRNA, 2021-12-28 Completed [facility] Family LNP-S, PF, 100 LNP-S, PF, 100 00:00:00 Practi ce mcg/0.5 mL dose mcg/0.5 mL dose (Moderna) - ML (Moderna) - ML COVID-19, mRNA, COVID-19, mRNA, 2021-12-28 Completed [facility] LNP-S, PF, 100 LNP-S, PF, 100 00:00:00 Practi ce mcg/0.5 mL dose mcg/0.5 mL dose (Moderna) - ML (Moderna) - ML COVID-19, mRNA, COVID-19, mRNA, 2021-12-28 Completed [facility] LNP-S, PF, 100 LNP-S, PF, 100 00:00:00 Practi ce mcg/0.5 mL dose mcg/0.5 mL dose (Moderna) - ML (Moderna) - ML COVID-19, mRNA, COVID-19, mRNA, 2021-12-28 Completed [facility] LNP-S, PF, 100 LNP-S, PF, 100 00:00:00 Practi ce mcg/0.5 mL dose mcg/0.5 mL dose (Moderna) - ML (Moderna) - ML COVID-19, mRNA, COVID-19, mRNA, 2021-12-28 Completed [facility] LNP-S, PF, 100 LNP-S, PF, 100 00:00:00 Practi ce mcg/0.5 mL dose mcg/0.5 mL dose (Moderna) - ML (Moderna) - ML COVID-19, mRNA, COVID-19, mRNA, 2021-12-28 Completed [facility] LNP-S, PF, 100 LNP-S, PF, 100 00:00:00 Practi ce mcg/0.5 mL dose mcg/0.5 mL dose (Moderna) - ML (Moderna) - ML influenza, influenza, 2021-03-24 Completed [facility] high-dose, high-dose, 00:00:00 Practice quadrivalent - ML quadrivalent - ML COVID-19, mRNA, COVID-19, mRNA, 2021-03-24 Completed [facility] LNP-S, PF, 100 LNP-S, PF, 100 00:00:00 Practi ce mcg/0.5 mL dose mcg/0.5 mL dose (Moderna) - ML (Moderna) - ML influenza, influenza, 2021-03-24 Completed [facility] Family high-dose, high-dose, 00:00:00 Practice quadrivalent - ML quadrivalent - ML COVID-19, mRNA, COVID-19, mRNA, 2021-03-24 Completed [facility] LNP-S, PF, 100 LNP-S, PF, 100 00:00:00 Practi ce mcg/0.5 mL dose mcg/0.5 mL dose (Moderna) - ML (Moderna) - ML influenza, influenza, 2021-03-24 Completed [facility] high-dose, high-dose, 00:00:00 Practice quadrivalent - ML quadrivalent - ML COVID-19, mRNA, COVID-19, mRNA, 2021-03-24 Completed [facility] LNP-S, PF, 100 LNP-S, PF, 100 00:00:00 Practi ce mcg/0.5 mL dose mcg/0.5 mL dose (Moderna) - ML (Moderna) - ML influenza, influenza, 2021-03-24 Completed [facility] high-dose, high-dose, 00:00:00 Practice quadrivalent - ML quadrivalent - ML COVID-19, mRNA, COVID-19, mRNA, 2021-03-24 Completed [facility] LNP-S, PF, 100 LNP-S, PF, 100 00:00:00 Practi ce mcg/0.5 mL dose mcg/0.5 mL dose (Moderna) - ML (Moderna) - ML influenza, influenza, 2021-03-24 Completed [facility] Family high-dose, high-dose, 00:00:00 Practice quadrivalent - ML quadrivalent - ML COVID-19, mRNA, COVID-19, mRNA, 2021-03-24 Completed [facility] Family LNP-S, PF, 100 LNP-S, PF, 100 00:00:00 Practi ce mcg/0.5 mL dose mcg/0.5 mL dose (Moderna) - ML (Moderna) - ML influenza, influenza, 2021-03-24 Completed [facility] Family high-dose, high-dose, 00:00:00 Practice quadrivalent - ML quadrivalent - ML COVID-19, mRNA, COVID-19, mRNA, 2021-03-24 Completed [facility] Family LNP-S, PF, 100 LNP-S, PF, 100 00:00:00 Practi ce mcg/0.5 mL dose mcg/0.5 mL dose (Moderna) - ML (Moderna) - ML influenza, influenza, 2021-03-24 Completed [facility] Family high-dose, high-dose, 00:00:00 Practice quadrivalent - ML quadrivalent - ML COVID-19, mRNA, COVID-19, mRNA, 2021-03-24 Completed [facility] LNP-S, PF, 100 LNP-S, PF, 100 00:00:00 Practi ce mcg/0.5 mL dose mcg/0.5 mL dose (Moderna) - ML (Moderna) - ML influenza, influenza, 2021-03-24 Completed [facility] Family high-dose, high-dose, 00:00:00 Practice quadrivalent - ML quadrivalent - ML COVID-19, mRNA, COVID-19, mRNA, 2021-03-24 Completed [facility] LNP-S, PF, 100 LNP-S, PF, 100 00:00:00 Practi ce mcg/0.5 mL dose mcg/0.5 mL dose (Moderna) - ML (Moderna) - ML influenza, influenza, 2021-03-24 Completed [facility] Family high-dose, high-dose, 00:00:00 Practice quadrivalent - ML quadrivalent - ML COVID-19, mRNA, COVID-19, mRNA, 2021-03-24 Completed [facility] LNP-S, PF, 100 LNP-S, PF, 100 00:00:00 Practi ce mcg/0.5 mL dose mcg/0.5 mL dose (Moderna) - ML (Moderna) - ML influenza, influenza, 2021-03-24 Completed [facility] high-dose, high-dose, 00:00:00 Practice quadrivalent - ML quadrivalent - ML COVID-19, mRNA, COVID-19, mRNA, 2021-03-24 Completed [facility] LNP-S, PF, 100 LNP-S, PF, 100 00:00:00 Practi ce mcg/0.5 mL dose mcg/0.5 mL dose (Moderna) - ML (Moderna) - ML influenza, influenza, 2021-03-24 Completed [facility] high-dose, high-dose, 00:00:00 Practice quadrivalent - ML quadrivalent - ML influenza, influenza, 2021-03-24 Completed [facility] high-dose, high-dose, 00:00:00 Practice quadrivalent - ML quadrivalent - ML COVID-19, mRNA, COVID-19, mRNA, 2021-03-24 Completed [facility] LNP-S, PF, 100 LNP-S, PF, 100 00:00:00 Practi ce mcg/0.5 mL dose mcg/0.5 mL dose (Moderna) - ML (Moderna) - ML COVID-19, mRNA, COVID-19, mRNA, 2021-03-24 Completed [facility] LNP-S, PF, 100 LNP-S, PF, 100 00:00:00 Practi ce mcg/0.5 mL dose mcg/0.5 mL dose (Moderna) - ML (Moderna) - ML influenza, influenza, 2021-03-24 Completed [facility] Family high-dose, high-dose, 00:00:00 Practice quadrivalent - ML quadrivalent - ML COVID-19, mRNA, COVID-19, mRNA, 2021-03-24 Completed [facility] LNP-S, PF, 100 LNP-S, PF, 100 00:00:00 Practi ce mcg/0.5 mL dose mcg/0.5 mL dose (Moderna) - ML (Moderna) - ML influenza, influenza, 2021-03-24 Completed [facility] high-dose, high-dose, 00:00:00 Practice quadrivalent - ML quadrivalent - ML COVID-19, mRNA, COVID-19, mRNA, 2021-03-24 Completed [facility] LNP-S, PF, 100 LNP-S, PF, 100 00:00:00 Practi ce mcg/0.5 mL dose mcg/0.5 mL dose (Moderna) - ML (Moderna) - ML COVID-19, mRNA, COVID-19, mRNA, 2020-07-28 Completed [facility] LNP-S, PF, 100 LNP-S, PF, 100 00:00:00 Practi ce mcg/0.5 mL dose mcg/0.5 mL dose (Moderna) - ML (Moderna) - ML COVID-19, mRNA, COVID-19, mRNA, 2020-07-28 Completed [facility] LNP-S, PF, 100 LNP-S, PF, 100 00:00:00 Practi ce mcg/0.5 mL dose mcg/0.5 mL dose (Moderna) - ML (Moderna) - ML COVID-19, mRNA, COVID-19, mRNA, 2020-07-28 Completed [facility] LNP-S, PF, 100 LNP-S, PF, 100 00:00:00 Practi ce mcg/0.5 mL dose mcg/0.5 mL dose (Moderna) - ML (Moderna) - ML COVID-19, mRNA, COVID-19, mRNA, 2020-07-28 Completed [facility] LNP-S, PF, 100 LNP-S, PF, 100 00:00:00 Practi ce mcg/0.5 mL dose mcg/0.5 mL dose (Moderna) - ML (Moderna) - ML COVID-19, mRNA, COVID-19, mRNA, 2020-07-28 Completed [facility] LNP-S, PF, 100 LNP-S, PF, 100 00:00:00 Practi ce mcg/0.5 mL dose mcg/0.5 mL dose (Moderna) - ML (Moderna) - ML COVID-19, mRNA, COVID-19, mRNA, 2020-07-28 Completed [facility] LNP-S, PF, 100 LNP-S, PF, 100 00:00:00 Practi ce mcg/0.5 mL dose mcg/0.5 mL dose (Moderna) - ML (Moderna) - ML COVID-19, mRNA, COVID-19, mRNA, 2020-07-28 [facility]pleted [facility], PF, 100 LNP-S, PF, 100 00:00:00 Practi ce mcg/0.5 mL dose mcg/0.5 mL dose (Moderna) - ML (Moderna) - ML COVID-19, mRNA, COVID-19, mRNA, 2020-07-28 [facility]pleted [facility] PF, 100 LNP-S, PF, 100 00:00:00 Practi ce mcg/0.5 mL dose mcg/0.5 mL dose (Moderna) - ML (Moderna) - ML COVID-19, mRNA, COVID-19, mRNA, 2020-07-28 [facility]pleted [facility] PF, 100 LNP-S, PF, 100 00:00:00 Practi ce mcg/0.5 mL dose mcg/0.5 mL dose (Moderna) - ML (Moderna) - ML COVID-19, mRNA, COVID-19, mRNA, 2020-07-28 [facility]pleted [facility] PF, 100 LNP-S, PF, 100 00:00:00 Practi ce mcg/0.5 mL dose mcg/0.5 mL dose (Moderna) - ML (Moderna) - ML COVID-19, mRNA, COVID-19, mRNA, 2020-07-28 [facility]pleted [facility], PF, 100 LNP-S, PF, 100 00:00:00 Practi ce mcg/0.5 mL dose mcg/0.5 mL dose (Moderna) - ML (Moderna) - ML COVID-19, mRNA, COVID-19, mRNA, 2020-07-28 [facility]pleted [facility], PF, 100 LNP-S, PF, 100 00:00:00 Practi ce mcg/0.5 mL dose mcg/0.5 mL dose (Moderna) - ML (Moderna) - ML COVID-19, mRNA, COVID-19, mRNA, 2020-07-28 [facility]pleted [facility], PF, 100 LNP-S, PF, 100 00:00:00 Practi ce mcg/0.5 mL dose mcg/0.5 mL dose (Moderna) - ML (Moderna) - ML COVID-19, mRNA, COVID-19, mRNA, 2020-07-28 [facility]pleted [facility], PF, 100 LNP-S, PF, 100 00:00:00 Practi ce mcg/0.5 mL dose mcg/0.5 mL dose (Moderna) - ML (Moderna) - ML COVID-19, mRNA, COVID-19, mRNA, 2020-06-30 Completed [facility], PF, 100 LNP-S, PF, 100 00:00:00 Practi ce mcg/0.5 mL dose mcg/0.5 mL dose (Moderna) - ML (Moderna) - ML COVID-19, mRNA, COVID-19, mRNA, 2020-06-30 Completed [facility], PF, 100 LNP-S, PF, 100 00:00:00 Practi ce mcg/0.5 mL dose mcg/0.5 mL dose (Moderna) - ML (Moderna) - ML COVID-19, mRNA, COVID-19, mRNA, 2020-06-30 Completed [facility], PF, 100 LNP-S, PF, 100 00:00:00 Practi ce mcg/0.5 mL dose mcg/0.5 mL dose (Moderna) - ML (Moderna) - ML COVID-19, mRNA, COVID-19, mRNA, 2020-06-30 Completed [facility], PF, 100 LNP-S, PF, 100 00:00:00 Practi ce mcg/0.5 mL dose mcg/0.5 mL dose (Moderna) - ML (Moderna) - ML COVID-19, mRNA, COVID-19, mRNA, 2020-06-30 Completed [facility], PF, 100 LNP-S, PF, 100 00:00:00 Practi ce mcg/0.5 mL dose mcg/0.5 mL dose (Moderna) - ML (Moderna) - ML COVID-19, mRNA, COVID-19, mRNA, 2020-06-30 Completed [facility], PF, 100 LNP-S, PF, 100 00:00:00 Practi ce mcg/0.5 mL dose mcg/0.5 mL dose (Moderna) - ML (Moderna) - ML COVID-19, mRNA, COVID-19, mRNA, 2020-06-30 Completed [facility], PF, 100 LNP-S, PF, 100 00:00:00 Practi ce mcg/0.5 mL dose mcg/0.5 mL dose (Moderna) - ML (Moderna) - ML COVID-19, mRNA, COVID-19, mRNA, 2020-06-30 Completed [facility], PF, 100 LNP-S, PF, 100 00:00:00 Practi ce mcg/0.5 mL dose mcg/0.5 mL dose (Moderna) - ML (Moderna) - ML COVID-19, mRNA, COVID-19, mRNA, 2020-06-30 Completed [facility], PF, 100 LNP-S, PF, 100 00:00:00 Practi ce mcg/0.5 mL dose mcg/0.5 mL dose (Moderna) - ML (Moderna) - ML COVID-19, mRNA, COVID-19, mRNA, 2020-06-30 Completed [facility], PF, 100 LNP-S, PF, 100 00:00:00 Practi ce mcg/0.5 mL dose mcg/0.5 mL dose (Moderna) - ML (Moderna) - ML COVID-19, mRNA, COVID-19, mRNA, 2020-06-30 Completed [facility], PF, 100 LNP-S, PF, 100 00:00:00 Practi ce mcg/0.5 mL dose mcg/0.5 mL dose (Moderna) - ML (Moderna) - ML COVID-19, mRNA, COVID-19, mRNA, 2020-06-30 Completed [facility], PF, 100 LNP-S, PF, 100 00:00:00 Practi ce mcg/0.5 mL dose mcg/0.5 mL dose (Moderna) - ML (Moderna) - ML COVID-19, mRNA, COVID-19, mRNA, 2020-06-30 Completed [facility], PF, 100 LNP-S, PF, 100 00:00:00 Practi ce mcg/0.5 mL dose mcg/0.5 mL dose (Moderna) - ML (Moderna) - ML COVID-19, mRNA, COVID-19, mRNA, 2020-06-30 Completed [facility], PF, 100 LNP-S, PF, 100 00:00:00 Practi ce mcg/0.5 mL dose mcg/0.5 mL dose (Moderna) - ML (Moderna) - ML Tdap - ML Tdap - ML 2019-09-17 Completed [facility] Tdap - ML Tdap - ML 2019-09-17 Completed [facility] 00:00:00 Practice Tdap - ML Tdap - ML 2019-09-17 Completed [facility] 00:00:00 Practice Tdap - ML Tdap - ML 2019-09-17 Completed [facility] 00:00:00 Practice Tdap - ML Tdap - ML 2019-09-17 Completed [facility] 00:00:00 Practice Tdap - ML Tdap - ML 2019-09-17 Completed [facility] 00:00:00 Practice Tdap - ML Tdap - ML 2019-09-17 Completed [facility] 00:00:00 Practice Tdap - ML Tdap - ML 2019-09-17 Completed [facility] 00:00:00 Practice Tdap - ML Tdap - ML 2019-09-17 Completed [facility] 00:00:00 Practice Tdap - ML Tdap - ML 2019-09-17 Completed [facility] 00:00:00 Practice Tdap - ML Tdap - ML 2019-09-17 Completed [facility] 00:00:00 Practice Tdap - ML Tdap - ML 2019-09-17 Completed [facility] 00:00:00 Practice Tdap - ML Tdap - ML 2019-09-17 Completed [facility] 00[facility]:00 Practice Tdap - ML Tdap - ML 2019-09-17 Completed [facility] 00:00:00 Practice Tdap 2019-01-[address] [facility] Tdap 2019-01-[address] [facility] influenza, influenza, Unknown Completed [facility] high-dose, high-dose, Practice quadrivalent quadrivalent Pneumococcal Pneumococcal Unknown Completed [facility] kaela conjugate PCV20, conjugate PCV20, Pr actice polysaccharide polysaccharide [id number] conjugate, [id number] conjugate, adjuvant, PF - ML adjuvant, PF - ML Influenza vaccine, Influenza vaccine, Unknown Completed [facility] quadrivalent, quadrivalent, Practice adjuvanted - ML adjuvanted - ML COVID-19, mRNA, COVID-19, mRNA, Unknown Completed [facility], PF, 100 LNP-S, PF, 100 Practi ce mcg/0.5 mL dose mcg/0.5 mL dose (Moderna) - ML (Moderna) - ML influenza, influenza, Unknown Completed [facility] high-dose, high-dose, Practice quadrivalent - ML quadrivalent - ML COVID-19, mRNA, COVID-19, mRNA, Unknown Completed [facility], PF, 100 LNP-S, PF, 100 Practi ce mcg/0.5 mL dose mcg/0.5 mL dose (Moderna) - ML (Moderna) - ML COVID-19, mRNA, COVID-19, mRNA, Unknown Completed [facility] age Family LNP-S, PF, 100 LNP-S, PF, 100 Practi ce mcg/0.5 mL dose mcg/0.5 mL dose (Moderna) - ML (Moderna) - ML COVID-19, mRNA, COVID-19, mRNA, Unknown Completed [facility] age Family LNP-S, PF, 100 LNP-S, PF, 100 Practi ce mcg/0.5 mL dose mcg/0.5 mL dose (Moderna) - ML (Moderna) - ML Tdap - ML Tdap - ML Unknown Completed [facility] Practice Tdap Unknown Completed [facility] Tdap Unknown Completed [facility] Pneumococcal Unknown Completed [facility] FLUZONE HIGH-DOSE PF Unknown Completed [facility] Hep B, Unspecified Unknown Completed [facility] Hep B, Unspecified Unknown Completed [facility] Hep A, Unspecified [facility], Unspecified [facility] COVID-19 Unknown [facility] COVID[facility]19 Unknown [facility] COVID-19 Unknown [facility] FLUZONE QUAD Unknown Completed [facility] FLUZONE QUAD Unknown Completed [facility] FLUZONE QUAD Unknown Completed [facility] FLUZONE QUAD Unknown Completed [facility] Tdap Unknown Com[facility] COVID-19 Unknown [facility] Vital Signs Vital Name Observation Time Observation Value Comments Source BP Systolic 2023-03-29 00:00:00 121 mm[Hg] [facility] Body Weight 2023-03-29 00:00:00 224.8 [lb_av] [facility] Height 2023-03-29 00:00:00 64 [in_i] [facility] BP Diastolic 2023-03-29 00:00:00 77 mm[Hg] [facility] BMI (Body Mass 2023-03-29 00:00:00 38.6 kg/m2 [facility] BP Diastolic 2023-02-28 00:00:00 76 mm[Hg] [facility] BMI (Body Mass 2023-02-28 00:00:00 38.9 kg/m2 [facility] BP Systolic 2023-02-28 00:00:00 134 mm[Hg] [facility] Height 2023-02-28 00:00:00 64 [in_i] [facility] Body Weight 2023-02-28 00:00:00 226.8 [lb_av] [facility] BP Systolic 2023-02-17 00:00:00 140 mm[Hg] [facility] Body Weight 2023-02-17 00:00:00 227.4 [lb_av] [facility] Height 2023-02-17 00:00:00 64 [in_i] [facility] BMI (Body Mass 2023-02-17 00:00:00 39 kg/m2 [facility] BP Diastolic 2023-02-17 00:00:00 80 mm[Hg] [facility] BP Diastolic 2023-02-07 00:00:00 74 mm[Hg] [facility] Body Weight 2023-02-07 00:00:00 220 [lb_av] [facility] Height 2023-02-07 00:00:00 64 [in_i] [facility] BP Systolic 2023-02-07 00:00:00 130 mm[Hg] [facility] BMI (Body Mass 2023-02-07 00:00:00 37.8 kg/m2 [facility] BMI (Body Mass 2023-02-03 00:00:00 37.8 kg/m2 [facility] Body Weight 2023-02-03 00:00:00 220 [lb_av] [facility] Height 2023-02-03 00:00:00 64 [in_i] [facility] BP Diastolic 2023-02-03 00:00:00 71 mm[Hg] [facility] BP Systolic 2023-02-03 00:00:00 108 mm[Hg] [facility] BP Diastolic 2022-12-06 00:00:00 86 mm[Hg] [facility] Height 2022-12-06 00:00:00 64 [in_i] [facility] BMI (Body Mass 2022-12-06 00:00:00 38.4 kg/m2 [facility] BP Systolic 2022-12-06 00:00:00 134 mm[Hg] [facility] Body Weight 2022-12-06 00:00:00 224 [lb_av] [facility] BP Diastolic 2022-11-01 00:00:00 81 mm[Hg] [facility] Height 2022-11-01 00:00:00 64 [in_i] [facility] BMI (Body Mass 2022-11-01 00:00:00 37.8 kg/m2 [facility] BP Systolic 2022-11-01 00:00:00 125 mm[Hg] [facility] Body Weight 2022-11-01 00:00:00 220.4 [lb_av] [facility] BP Diastolic 2022-09-12 00:00:00 80 mm[Hg] [facility] Height 2022-09-12 00:00:00 64 [in_i] [facility] BMI (Body Mass 2022-09-12 00:00:00 38.8 kg/m2 [facility] BP Systolic 2022-09-12 00:00:00 123 mm[Hg] [facility] Body Weight 2022-09-12 00:00:00 226 [lb_av] [facility] BP Diastolic 2022-08-26 00:00:00 79 mm[Hg] [facility] Height 2022-08-26 00:00:00 64 [in_i] [facility] BMI (Body Mass 2022-08-26 00:00:00 38.3 kg/m2 [facility] BP Systolic 2022-08-26 00:00:00 123 mm[Hg] [facility] Body Weight 2022-08-26 00:00:00 223.2 [lb_av] [facility] BP Diastolic 2022-08-12 00:00:00 80 mm[Hg] [facility] Height 2022-08-12 00:00:00 64 [in_i] [facility] BMI (Body Mass 2022-08-12 00:00:00 38.3 kg/m2 [facility] BP Systolic 2022-08-12 00:00:00 124 mm[Hg] [facility] Body Weight 2022-08-12 00:00:00 223 [lb_av] [facility] BP Diastolic 2022-07-13 00:00:00 83 mm[Hg] [facility] Height 2022-07-13 00:00:00 64 [in_i] [facility] BMI (Body Mass 2022-07-13 00:00:00 38.7 kg/m2 [facility] BP Systolic 2022-07-13 00:00:00 133 mm[Hg] [facility] Body Weight 2022-07-13 00:00:00 225.4 [lb_av] [facility] BP Diastolic 2022-06-22 00:00:00 77 mm[Hg] [facility] Height 2022-06-22 00:00:00 64 [in_i] [facility] BMI (Body Mass 2022-06-22 00:00:00 38.1 kg/m2 [facility] BP Systolic 2022-06-22 00:00:00 139 mm[Hg] [facility] Body Weight 2022-06-22 00:00:00 221.8 [lb_av] [facility] BP Diastolic 2022-06-21 00:00:00 75 mm[Hg] [facility] Height 2022-06-21 00:00:00 64 [in_i] [facility] BMI (Body Mass 2022-06-21 00:00:00 38.1 kg/m2 [facility] Index) Practice BP Systolic 2022-06-21 00:00:00 112 mm[Hg] [facility] Body Weight 2022-06-21 00:00:00 221.8 [lb_av] [facility] BP Diastolic 2022-05-25 00:00:00 76 mm[Hg] [facility] Height 2022-05-25 00:00:00 64 [in_i] [facility] BMI (Body Mass 2022-05-25 00:00:00 38.4 kg/m2 [facility] Index) Practice BP Systolic 2022-05-25 00:00:00 130 mm[Hg] [facility] Body Weight 2022-05-25 00:00:00 223.6 [lb_av] [facility] HEIGHT 2021-03-16 11:31:00 162.6 cm WEIGHT 2021-03-16 11:31:00 108.863 kg HEIGHT 2020-06-23 10:49:00 163.8 cm WEIGHT 2020-06-23 10:49:00 110.768 kg HEIGHT 2020-06-23 10:49:00 163.8 cm WEIGHT 2020-06-23 10:49:00 110.768 kg Systolic blood 2023-04-03 14:05:00 137 mm[facility]Hg[facility] pressure Diastolic blood 2023-04-03 14:05:00 75 mm[Hg] [facility] pressure Heart rate 2023-04-03 14:05:00 96 /min [facility] Body temperature 2023-04-03 14:05:00 36.67 Rylie [facility] Respiratory rate 2023-04-03 14:05:00 18 /min [facility] Body height 2023-04-03 14:05:00 160 cm [facility] Body weight 2023-04-03 14:05:00 100.699 kg [facility] BMI 2023-04-03 14:05:00 39.33 kg/m2 [facility] Oxygen saturation in 2023-04-03 14:05:00 97 /min [facility] Arterial blood by Pulse oximetry Systolic blood 2020-06-23 10:49:00 145 mm[Hg] [facility] Diastolic blood 2020-06-23 10:49:00 76 mm[Hg] [facility] rate 2020-06-23 10:49:00 75 /min [facility] Body temperature 2020-06-23 10:49:00 36.72 Rylie [facility] Respiratory rate 2020-06-23 10:49:00 18 /min [facility] Body height 2020-06-23 10:49:00 163.8 cm [facility] Body weight 2020-06-23 10:49:00 110.768 kg [facility] BMI 2020-06-23 10:49:00 41.27 kg/m2 [facility] Procedures Procedure Date / Time Performing Clinician Source Performed SEDIMENTATION RATE 2023-04-03 14:04:00 [facility] C-REACTIVE PROTEIN 2023-04-03 14:04:00 [facility] CBC WITH PLATELET AND 2023-04-03 14:04:00 [facility] DIFFERENTIAL COMPREHENSIVE METABOLIC 2023-04-03 14:04:00 [facility] PANEL CBC WITH PLATELET AND 2023-02-16 13:49:00 [facility] DIFFERENTIAL COMPREHENSIVE METABOLIC 2023-02-16 13:49:00 [facility] PANEL SEDIMENTATION RATE 2023-02-16 13:49:00 [facility] C-REACTIVE PROTEIN 2023-02-16 13:49:00 [facility] X-RAY OF SHOULDER 2 VIEW 2022-12-06 00:00:00 [facility] INFLIXIMAB AND 2022-11-22 17:49:00 [facility] ospital ANTI-INFLIXIMAB AB (SERIAL MONITOR) C-REACTIVE PROTEIN 2022-11-22 16:52:00 [facility] SEDIMENTATION RATE 2022-11-22 16:52:00 [facility]OL[facility] 2022-11-22 16:52:00 Erasto Resendiz [facility] PANEL CBC WITH PLATELET AND 2022-11-22 16:52:00 [facility] DIFFERENTIAL QUANTIFERON-TB GOLD PLUS, 2022-11-15 17:24:00 Erasto Resendiz [facility] 4 TUBE QUANTIFERON-TB GOLD PLUS 2022-11-15 17:24:00 LauraErasto borjas [facility] CBC WITH PLATELET AND 2022-11-15 15:05:00 [facility] DIFFERENTIAL COMPREHENSIVE METABOLIC 2022-11-15 15:05:00 Erasto Resendiz [facility] PANEL SEDIMENTATION RATE 2022-11-15 15:05:00 [facility] C-REACTIVE PROTEIN 2022-11-15 15:05:00 [facility] MRI, lumbar spine, w/o 2022-09-12 00:00:00 [facility] Practice ankle brachial index 2022-08-12 00:00:00 [facility] X-RAY OF CHEST 2 VIEW 2022-05-25 00:00:00 [facility] HEPATIC FUNCTION PANEL 2020-08-12 09:28:00 Jenna Ramirez [facility] GGT 2020-08-12 09:28:00 Jenna Ramirez [facility] HEPATIC FUNCTION PANEL 2020-07-29 09:40:00 Jenna Ramirez [facility] GGT 2020-07-29 09:40:00 Jenna Ramirez [facility] HEPATIC FUNCTION PANEL 2020-07-14 11:19:00 Jenna Ramirez [facility] GGT 2020-07-14 11:19:00 Jenna Ramirez [facility] HEPATIC FUNCTION PANEL 2020-06-30 09:38:00 Jenna Ramirez [facility] GAMMA GLUTAMYL TRANSFERASE 2020-06-30 09:38:00 James, Jenna Combs [facility] (GGT) [facility] BASIC METABOLIC PANEL (7) 2020-06-23 12:34:00 Del Washington [facility] HEPATIC FUNCTION PANEL 2020-06-23 12:34:00 Del Washington [facility] CBC W/PLT COUNT & AUTO 2020-06-23 12:34:[address] [facility] DIFFERENTIAL [facility] MITOCHONDRIA M2 ANTIBODY 2020-06-23 12:34:[address] [facility] (IGG) [facility] GAMMA GLUTAMYL TRANSFERASE 2020-06-23 12:34:[address] [facility] (GGT) [facility] Mammography of Bilateral [facility] Breasts Practice Tonsillectomy [facility] Laparoscopic [facility] Cholecystectomy Practice Lung Surgery [facility] Practice Hysterectomy [facility] Practice Section [facility] Colonoscopy [facility] Plan of Care Planned Activity Planned Date Details Comments Source Future Scheduled Test 2029-01-05 DTAP/TDAP/TD VACCINES [facility] 00:00:00 (3 - Td) [code = [facility] DTAP/TDAP/TD VACCINES (3 - Td)] Future Scheduled Test 2029-01-05 DTAP/TDAP/TD VACCINES [facility] 00:00:00 (3 - Td) [code = [facility] DTAP/TDAP/TD VACCINES (3 - Td)] Future Scheduled Test 2023-04-06 [facility] 11:50:34 malignant neoplasm of colon (procedure) [code = 660150466] Future Scheduled Test 2023-04-06 [facility] 11:50:34 malignant neoplasm of colon (procedure) [code = 076024061] Future Scheduled Test 2023-04-06 [facility] 11:50:34 malignant neoplasm of colon (procedure) [code = 161698864] Future Scheduled Test 2023-04-06 [facility] 11:50:34 (procedure) [code = 810909564] Future Scheduled Test 2023-04-06 SHINGLES VACCINES (1 [facility] 11:50:34 of 2) [code = SHINGLES VACCINES (1 of 2)] Future Scheduled Test 2023-04-06 HEPATITIS B VACCINES [facility] 11:50:34 (3 of 3 - Risk 3-dose series) [code = HEPATITIS B VACCINES (3 of 3 - Risk 3-dose series)] Future Scheduled Test 2023-04-06 RSV VACCINES > 60 YR [facility] 11:50:34 (1 - 1-dose 60+ series) [code = RSV VACCINES > 60 YR (1 - 1-dose 60+ series)] Future Scheduled Test 2023-04-06 65+ PNEUMOCOCCAL [facility] 11:50:34 VACCINE (2 - PCV) [code = 65+ PNEUMOCOCCAL VACCINE (2 - PCV)] Future Scheduled Test 2023-04-06 BREAST CANCER [facility] 11:50:34 SCREENING [code = BREAST CANCER SCREENING] Future Scheduled Test 2023-04-06 DIABETIC FOOT EXAM [facility] 11:50:34 [code = DIABETIC FOOT EXAM] Future Scheduled Test 2023-04-06 URINE MICROALBUMIN [facility] 11:50:34 [code = URINE MICROALBUMIN] Future Scheduled Test 2023-04-06 COVID-19 VACCINE (5 - [facility] 11:50:34 season) [code = COVID-19 VACCINE ( - season)] Future Scheduled Test 2023-04-06 INFLUENZA VACCINE [facility] 11:50:34 (#1) [code = INFLUENZA VACCINE (#1)] Future Scheduled Test 2023-04-06 DIABETES: RETINAL EYE [facility] 11:50:34 EXAM [code = DIABETES: RETINAL EYE EXAM] Future Scheduled Test 2023-04-06 Screening for [facility] 11:50:34 malignant neoplasm of colon (procedure) [code = 139974041] Future Scheduled Test 2023-04-06 Screening for [facility] 11:50:34 malignant neoplasm of colon (procedure) [code = 107025989] Diagnostic Test 2023-03-29 HbA1c (hemoglobin [facility] 00:[facility] A1c), blood [code = Practice HbA1c (hemoglobin A1c), blood] Diagnostic Test 2023-03-29 CMP, serum or plasma [facility] 00:[facility]:00 [code = CMP, serum or Practi ce plasma] Diagnostic Test 2023-03-29 CBC w/ auto diff [facility] 00:00:00 [code = CBC w/ auto Practice diff] Future Scheduled Test 2021-02-17 [address] VACC[address] [facility] 00:00:00 (#1) [code = Medical Center INFLUENZA VACCINE (#1)] Future Scheduled Test 2021-02-17 IN[address] VACC[address] [facility] 00:00:00 (#1) [code = Medical Center INFLUENZA VACCINE (#1)] Future Scheduled Test 2020-06-[address] [facility] 00:00:00 (12+) [code = Medical Center DEPRESSION SCREENING (12+)] Future Scheduled Test 2020-06-19 FALLS RISK SCREENING [facility] 00:00:00 [code = FALLS RISK Medical C enter SCREENING] Future Scheduled Test 2020-06-[address] [facility] 00:00:00 (12+) [code = Medical Center DEPRESSION SCREENING (12+)] Future Scheduled Test 2020-06-19 FALLS RISK SCREENING [facility] 00:00:00 [code = FALLS RISK Medical C enter SCREENING] Future Scheduled Test 2017-03-[address] [facility] 00:00:00 measurement [facility] Center (procedure) [code = [id number]] Future Scheduled Test 2017-03-[address] [facility] 00:00:00 [facility] (procedure) [code = 68193012] Future Scheduled Test 2015-06-[address] [facility] 00:00:00 WELLNESS (YEAR 2 or Medical Center FIRST YEAR if no IPPE) [code = MEDICARE ANNUAL WELLNESS (YEAR 2 or FIRST YEAR if no IPPE)] Future Scheduled Test 2015-06-[address] [facility] 00:00:00 WELLNESS (YEAR 2 or Medical Center FIRST YEAR if no IPPE) [code = MEDICARE ANNUAL WELLNESS (YEAR 2 or FIRST YEAR if no IPPE)] Future Scheduled Test 2014 PNEUMOCOCCAL 65+ [facility]RS [facility] 00:00:00 (1 of 1 - Medical Center [id number] [id number]) [code = PNEUMOCOCCAL 65+ YRS (1 of 1 - [id number] [id number])] Future Scheduled Test 2014 PNEUMOCOCCAL 65+ YRS [facility] 00:00:00 (1 of 1 - Medical Center [id number] [id number]) [code = PNEUMOCOCCAL 65+ YRS (1 of 1 - [id number] PCV13)] Future Scheduled Test 1999 SHINGLES VACCINES ([address] [facility] 00:00:00 of 2) [code = Medical Center SHINGLES VACCINES (1 of 2)] Future Scheduled Test 1999 SHINGLES VACCINES ([address] [facility] 00:00:00 of 2) [code = Medical Center SHINGLES VACCINES (1 of 2)] Future Scheduled Test 1967 HEPATITIS C SCREENING [facility] 00:00:00 [code = HEPATITIS C Medical Center SCREENING] Future Scheduled Test 1967 HEPATITIS C SCREENING [facility] 00:00:00 [code = HEPATITIS C Medical Center SCREENING] Future Scheduled Test 1961 COVID-19 VACCINE (1) [facility] 00:00:00 [code = COVID-[address] VACCINE (1)] Future Scheduled Test 1961 COVID-19 VACCINE (1) [facility] 00:00:00 [code = COVID-[address] VACCINE (1)] Future Scheduled Test 1959 DIABETIC EYE EXAM [facility] 00:00:00 [code = DIABETIC EYE Medical Center EXAM] Future Scheduled Test [facility] examination [facility] (regime/therapy) [code = [id number]] Future Scheduled Test 1959 Urine screening for [facility] 00:00[facility]00 protein (procedure) [facility] [code = 551565293] Future Scheduled Test 1959 DIABETIC EYE EXAM [facility] [code = DIABETIC EYE [facility] EXAM] Future Scheduled Test 1959 Diabetic foot [facility] examination [facility] (regime/therapy) [code = 540101953] Future Scheduled Test 1959 Urine screening for [facility] 00:00:00 protein (procedure) [facility] [code = 062086535] Future Scheduled Test 1949 [facility]ening for [facility] breast (procedure) [code = 281272036] Future Scheduled Test 1949 [facility]ening [facility] colon (procedure) [code = 421330778] Future Scheduled Test 1949 [facility] breast (procedure) [code = 925140290] Future Scheduled Test 1949 Screening for [facility] 00:[facility]:00 malignant neoplasm of [facility] colon (procedure) [code = 020123814] Future Scheduled Test DIABETES: RETINAL EYE [facility] EXAM [code = DIABETES: RETINAL EYE EXAM] Future Scheduled Test DIABETIC FOOT EXAM [facility] [code = DIABETIC FOOT EXAM] Future Scheduled Test URINE MICROALBUMIN [facility] [code = URINE MICROALBUMIN] Future Scheduled Test COVID-19 VACCINE (1) [facility] [code = COVID-19 VACCINE (1)] Future Scheduled Test Hepatitis C screening [facility] (procedure) [code = 378652847] Future Scheduled Test BREAST CANCER [facility] SCREENING [code = BREAST CANCER SCREENING] Future Scheduled Test COLONOSCOPY SCREENING [facility] [code = COLONOSCOPY SCREENING] Future Scheduled Test SHINGLES VACCINES [facility] (#1) [code = SHINGLES VACCINES (#1)] Future Scheduled Test 65+ PNEUMOCOCCAL [facility] VACCINE (2 of 2) [code = 65+ PNEUMOCOCCAL VACCINE (2 of 2)] Future Scheduled Test INFLUENZA VACCINE [facility] [code = INFLUENZA VACCINE] Future Appointment 2023-04-26 [facility], [place] [address] [facility] Encounters Start End Encounter Admission Attending Care Care Encounter Source Date/Time Date/Time Type Type Clinicians Facility Department ID 2021-06-23 Outpatient TINO TW MED [id number] MH 11:08:42 JOAO 2021-06-23 Outpatient JANI MHTW MED [id number] MH 08:28:20 BEATRIS 2020-06-24 Inpatient KATHLEEN SamuelMOUNA sextonCR DAYS [id number] [facility] 12:00:00 Kush Rueda [facility] 2019-06-14 Outpatient MHTW MHTW [id number] MH TW 13:01:42 2023-04-03 2023-04-03 Infusion 1.2.840.1 [id number] Methodi 09:15:00 11:11:[address] 3.430.2.7 Hospit a .3.022639 l .8 2023-04-03 2023-04-03 Travel 1.2.840.1 1.2.173.278 5048 [id number] Methodi 00:00:00 00:00:[address] 3.430.2.7 0.2.7.3.698 Ho spita .3.414636 084.8 l .8 2023-04-03 2023-04-03 Outpatient [facility] [id number] 00:00:00 00:00:[address] 2023-03-29 2023-03-29 Outpatient Nguyen[place] [id number] [facility] 00:00:00 00:00:00 MINDY [id number] Family Practic e 2023-03-29 2023-03-29 Katlyn VFP [place] - [id number] [facility] 00:00:00 00:00:00 [facility] [place], Medical - Pracbennie shelby MD: 129 [place] - e Vision [facility], [address], [place] [address] , Ph. 2023-03-27 2023-03-27 Telephone Dionna, 1.2.840.1 [id number] Methodi 00:00:00 00:00:[address] 3.430.2.7 Hospit a .3.889772 l .8 2023-03-22 2023-03-22 Office [place] 1.2.840.1 [id number] [id number] Methodi 10:30:00 11:02:43 [place] [address] 3.430.2.7 Hospit a .3.088330 l .8 2023-03-22 2023-03-22 Telephone Ken, 1.2.840.1 [id number] Methodi 00:00:00 00:00:[address] 3.430.2.7 Hospit a .3.637040 l .8 2023-03-22 2023-03-22 Outpatient PETER, [place] [facility] [id number] [facility] 00:00:00 00:00:[address] 2023-03-14 2023-03-15 Infusion 1.2.840.1 [id number] Methodi 08:45:00 11:02:[address] 3.430.2.7 Hospit a .3.513169 l .8 2023-03-14 2023-03-15 Outpatient [facility] [id number] [facility] 00:00:00 00:00:[address] 2023-03-14 2023-03-14 Travel 1.2.840.1 1.2.511.927 9817 [id number] Methodi 00:00:00 00:00:[address] 3.430.2.7 0.2.7.3.698 spita .3.958907 084.8 l .8 2023-03-02 2023-03-02 Telephone Dionna, 1.2.840.1 [id number] 21 [id number] Methodi 00:00:00 00:00:[address] 3.430.2.7 Hospit a .3.283628 l .8 2023-03-01 2023-03-01 Office Astrid, 1.2.840.1 [id number] 894 [id number] Methodi 11:00:00 11:44:57 Visit Erasto 53746.1.[address] 3.430.2.7 Hospit a .3.371869 l .8 2023-03-01 2023-03-01 Travel 1.2.840.1 1.2.416.906 9869 [id number] Methodi 00:00:00 00:00:[address] 3.430.2.7 0.2.7.3.698 Ho spita .3.595671 084.8 l .8 2023-03-01 2023-03-01 Telephone [place] 1.2.840.1 [id number] 2 [id number] Methodi 00:00:00 00:00:[address] 3.430.2.7 Hospit a .3.894243 l .8 2023-03-01 2023-03-01 [facility] [id number] [facility] 00:00:00 00:00:00 MUJAHED [address] 2023-02-28 2023-02-28 Outpatient Nguyen_C_HO VFP VFP [address] [place] [address] 00:00:00 00:00:00 USUSAN [id number] Family Practic e 2023-02-28 2023-02-28 Katlyn VFP [place] - [id number] [facility] 00:00:00 00:00:00 [facility] Won Medical - Pracbennie shelby MD: 129 [place] - e Vision VM_HOU_[facility], [address], [place] [address] , Ph. 2023-02-27 2023-02-27 Outpatient Nguyen_C_HO VFP VFP [address] [place] [address] 00:00:00 00:00:00 MINDY [id number] Family Practic e 2023-02-22 2023-02-22 Outpatient Nguyen_C_HO VFP VFP [address] [place] [address] 00:00:00 00:00:00 USUSAN [id number] Family Practic e 2023-02-16 2023-02-17 Infusion 1.2.840.1 [id number] 578 [id number] Methodi 08:45:00 10:49:[address] 3.430.2.7 Hospit a .3.150022 l .8 2023-02-17 2023-02-17 Katlyn VFP [place] - [id number] [facility] 00:00:00 00:00:00 [facility] Won Medical - Practi c MD: 129 [place] - e Vision VM_HOU_[facility] [address], [place], [place] [address] , Ph. 2023-02-16 2023-02-17 Outpatient [facility] [id number] [facility] 00:00:00 00:00:[address] 2023-02-16 2023-02-16 Travel 1.2.840.1 1.2.575.196 9372 [id number] Methodi 00:00:00 00:00:[address] 3.430.2.7 0.2.7.3.698 Ho spita .3.227061 084.8 l .8 2023-02-14 2023-02-14 Office Astrid, 1.2.840.1 [id number] 175 [id number] Methodi 10:15:00 10:58:51 Visit Erasto 28819.1.[address] 3.430.2.7 Hospit a .3.028234 l .8 2023-02-14 2023-02-14 Travel 1.2.840.1 1.2.685.150 6555 146784 Methodi 00:00:00 00:00:[address] 3.430.2.7 0.2.7.3.698 Ho spita .3.469737 084.8 l .8 2023-02-14 2023-02-14 [facility] [id number] [facility] 00:00:00 00:00:[address] 2023-02-10 2023-02-10 Outpatient Nguyen_C_HO VFP VFP 247 8247-20 [facility] 00:00:00 00:00:00 MINDY [id number] Family Practic e 2023-02-07 2023-02-07 Outpatient Nguyen_C_HO VFP VFP 247 8247-20 [facility] 00:00:00 00:00:00 MINDY 067268 Family Practic e 2023-02-07 2023-02-07 Outpatient Nguyen_C_HO VFP VFP 247 8247-20 [facility] 00:00:00 00:00:00 USUSAN [id number] Family Practic e 2023-02-07 2023-02-07 Katlyn VFP [place] - [id number] [facility] 00:00:00 00:00:00 Zane [facility] [place], Medical - Practi c MD: 129 [place] - e Vision Jag[address] [facility], [address], [place] [address] , Ph. 2023-02-03 2023-02-03 Outpatient Nguyen_C_HO VFP VFP 247 8247-20 [facility] 00:00:00 00:00:00 MINDY [id number] Family Practic e 2023-02-03 2023-02-03 Lena Ramachandran VFP [place] - [id number] [facility] 00:00:00 00:00:00 MARIXA Harkins: [facility] 4585 Medical - Practi c Research [place] - e [address], [place] [address] , Ph. 2022-12-27 2022-12-28 Office Astrid, 1.2.840.1 [id number] 576 [id number] Methodi 12:45:00 06:24:13 Visit Erasto 71764.1.[address] 3.430.2.7 Hospit a .3.021415 l .8 2022-12-27 2022-12-28 [facility] [id number] [facility] 00:00:00 00:00:00 [facility] [address] 2022-12-23 2022-12-23 Telephone Nic, 1.2.840.1 [id number] Methodi 00:00:00 00:00:[address] 3.430.2.7 Hospit a .3.371658 l .8 2022-12-06 2022-12-06 Outpatient Nguyen_C VFP VFP [id number] 20 [facility] 00:00:00 00:00:00 [id number] Family Practic e 2022-12-06 2022-12-06 Katlyn P [place] - [id number] [place] 00:00:00 00:00:00 [facility] [place] - Maegan shelby MD: 129 [place] - e Vision VM_HOU_[facility], [address], [place] [address] , Ph. 2022-11-22 2022-11-23 Office Astrid 1.2.840.1 [id number] 864 [id number] Methodi 11:15:00 06:57:13 Visit Erasto 66944.1.[address] 3.430.2.7 Hospit a .3.451207 l .8 2022-11-23 2022-11-23 Outpatient Nguyen_C VFP VF [id number] [address] [place] [address] 00:00:00 00:00:00 [id number] Family Practic e 2022-11-22 2022-11-23 [facility] [id number] [facility] 00:00:00 00:00:00 [address]IX[address] 2022-11-22 2022-11-22 [facility] Cheyanne Do 1.2.840.1 [id number] Methodi 00:00:00 00:00:00 Orders Leann 46535.1.[address] 3.430.2.7 Hospit a .3.278747 l .8 2022-11-22 2022-11-22 Travel 1.2.840.1 1.2.608.423 4451 411040 Methodi 00:00:00 00:00:[address] 3.430.2.7 0.2.7.3.698 Ho spita .3.403551 084.8 l .8 2022-11-20 2022-11-20 Outpatient Nguyen_C VFP VFP [id number] [address] [place] [address] 00:00:00 00:00:00 [id number] Family Practic e 2022-11-18 2022-11-19 Office Astrid 1.2.840.1 [id number] 038 [id number] Methodi 12:15:00 08:24:19 Visit Mujahed 12804.1.[address] 3.430.2.7 Hospit a .3.068433 l .8 2022-11-18 2022-11-19 Outpatient ASTRID [facility] [id number] [facility] 00:00:00 00:00:00 [address]ED [address] 2022-11-18 2022-11-18 Travel 1.2.840.1 1.2.803.315 7935 726902 Methodi 00:00:00 00:00:[address] 3.430.2.7 0.2.7.3.698 Ho spita .3.630047 084.8 l .8 2022-11-15 2022-11-16 Infusion Astrid, 1.2.840.1 [id number] Methodi 10:00:00 16:22:[address] 3.430.2.7 Hospit a .3.782244 l .8 2022-11-15 2022-11-16 Outpatient ASTRID [facility] [id number] [facility] 00:00:00 00:00:00 MUJAHED [address] 2022-11-15 2022-11-15 Travel 1.2.840.1 1.2.363.136 3792 850577 Methodi 00:00:00 00:00:[address] 3.430.2.7 0.2.7.3.698 Ho spita .3.499005 084.8 l .8 2022-11-08 2022-11-08 Telephone Nic, 1.2.840.1 [id number] Methodi 00:00:00 00:00:[address] 3.430.2.7 Hospit a .3.675771 l .8 2022-11-01 2022-11-01 Outpatient Nguyen_C VFP VFP [id number] [address] [place] [address] 00:00:00 00:00:00 917807 Family Practic e 2022-11-01 2022-11-01 Katlyn VFP [place] - [id number] [facility] 00:00:00 00:00:00 Zane [facility] Estella [place] - Pracbennie shelby MD: 129 [place] - e Vision VM_KIP_[facility], [address], [place] [address] , Ph. 2022-10-31 2022-10-31 Cruz Resendiz, 1.2.840.1 [id number] 058 [id number] Methodi 00:00:00 00:00:00 Only Mujahed [address]3968.1.[address] 3.430.2.7 Hospit a .3.024547 l .8 2022-10-30 2022-10-30 Outpatient Nguyen_C VFP VFP [id number] [address] [place] [address] 00:00:00 00:00:00 [id number] Family Practic e 2022-10-16 2022-10-16 Outpatient Nguyen_C VFP VFP [id number] [address] [place] [address] 00:00:00 00:00:00 [id number] Family Practic e 2022-10-14 2022-10-14 Junie Resendiz 1.2.840.1 [id number] 21 [id number] Methodi 00:00:00 00:00:[address] 3.430.2.7 Hospit a .3.717971 l .8 2022-09-19 2022-09-19 Outpatient Nguyen_C VFP VFP [id number] [address] [place] [address] 00:00:00 00:00:00 [id number] Family Practic e 2022-09-12 2022-09-12 Outpatient Roblessuare VFP VFP [id number] 00:00:00 00:00:00 z_J [id number] Family Practic e 2022-09-12 2022-09-12 Melodie VFP [place] - [id number] V illage 00:00:00 00:00:00 [facility] Est[facility] Martinez - Pra love MD: 129 [place] - e Vision VM_HOU_[address], [place] [address] , Ph. 2022-09-02 2022-09-02 Emergency E MELLY TW MHTW 7523 MHTW 16:06:00 23:42:00 LAKESHIA 2022-08-26 2022-08-26 Outpatient Roblessuare VFP VFP [address] [place] [address] 00:00:00 00:00:00 z_J [id number] Family Practic e 2022-08-26 2022-08-26 Katlyn VFP [place] - [id number] [facility] 00:00:00 00:00:00 Degroot [facility] Won, Medical - Pracbennie shelby MD: 129 [place] - e Vision VM_Lorrie [facility] [address], [place] [address] , Ph. 2022-08-16 2022-08-16 Emergency E HENDERSON, TW MHTW 7522 MHTW 16:12:00 23:58:00 LYNETTE 2022-08-12 2022-08-12 Outpatient Roblessuare VFP VFP [address] [place] [address] 00:00:00 00:00:00 z_J [id number] Family Practic e 2022-08-12 2022-08-12 Outpatient Roblessuare VFP VFP [address] [place] [address] 00:00:00 00:00:00 z_J [id number] Family Practic e 2022-08-12 2022-08-12 Outpatient Roblessuare VFP VFP [id number] 00:00:00 00:00:00 z_J 513204 Family Practic e 2022-08-12 2022-08-12 Melodie VFP [place] - [id number] V illage 00:00:00 00:00:00 [facility] Juan Medical - Pra love MD: 129 [place] - e Vision VM_Lorrie [address] [facility] [address], [place] [address] , Ph. 2022-07-27 2022-07-27 Outpatient Roblessuare VFP VFP [address] [place] [address] 00:00:00 00:00:00 z_J [id number] Family Practic e 2022-07-13 2022-07-13 Katlyn VFP [place] - [id number] [facility] 00:00:00 00:00:00 [facility] WonEstella - Maegan shelby MD: 129 [place] - e Vision _KIP_[facility] [address], [place] [address] , Ph. 2022-07-07 2022-07-07 Outpatient Roblessuare VFP VFP [address] [place] [address] 00:00:00 00:00:00 kali_Varsha [id number] Family Practic e 2022-07-07 2022-07-07 Outpatient Roblessuare VFP VFP [address] [place] [address] 00:00:00 00:00:00 Nalini [id number] Family Practic e 2022-06-28 2022-06-28 Outpatient Roblessuare VFP VFP [address] [place] [address] 00:00:00 00:00:00 kali_Varsha [id number] Family Practic e 2022-06-22 2022-06-22 Outpatient Roblessuare VFP VFP [address] [place] [address] 00:00:00 00:00:00 kali_Varsha [id number] Family Practic e 2022-06-22 2022-06-22 Katlyn VFP [place] - [id number] [facility] 00:00:00 00:00:00 [facility] WonEstella - Maegan shelby MD: 129 [place] - e Vision VM_KIP_Wilbertorena [facility] [address], [place] [address] , Ph. 2022-06-21 2022-06-21 Outpatient Roblessuare VFP VFP [address] [place] [address] 00:00:00 00:00:00 z_J [id number] Family Practic e 2022-06-21 2022-06-21 Kristin VFP [place] - [id number] [facility] 00:00:00 00:00:00 MARIXA Garcia: [facility] 129 Vision [facility] [place] - e [address] _AURAU_Nort [facility] [address], [place] [address] , Ph. 2022-06-07 2022-06-07 Outpatient DEGROOT-CORTES MHTW MHTW [id number] MHTW 11:00:00 23:59:00 JAYMIEAKTLYN 2022-06-06 2022-06-06 Outpatient Roblessuare VFP VFP [id number] 00:00:00 00:00:00 Nalini [id number] Family Practic e 2022-05-25 2022-05-25 Outpatient Roblessuare VFP VFP [id number] 00:00:00 00:00:00 Nalini [id number] Family Practic e 2022-05-25 2022-05-25 Katlyn VFP [place] - [id number] [facility] 00:00:00 00:00:00 [facility] - Practi afsaneh MD: 129 [place] - e Vision VM_HOU_[facility] [address] [place] [address] , Ph. 2022-05-20 2022-05-20 Outpatient Clark_A_HOU VFP VFP [address] [place] [address] 00:00:00 00:00:00 [id number] Family Practic e 2022-05-20 2022-05-20 Outpatient Roblessuare VFP VFP [id number] 00:00:00 00:00:00 Nalini [id number] Family Practic e 2022-02-15 2022-02-16 Emergency E EFREN MANLEY MHTW [id number] MHTW 23:24:00 04:36:00 NOLAN 2022-01-04 2022-01-06 Outpatient E NACHO MHTW MED [id number] MHTW 14:45:00 11:30:00 BARBARA MALLOY 2021-12-28 2021-12-28 Outpatient [facility] [id number] [facility] 00:00:00 00:00:[address] 2021-11-25 2021-11-25 Emergency E ALICE CONTE MHTW MHTW [id number] MHTW 16:26:00 18:08:00 2021-11-09 2021-11-09 Outpatient [facility] [id number] [facility] 00:00:00 00:00:[address] 2021-10-26 2021-10-26 Outpatient EL SLWH [facility] [id number] WH 13:54:15 13:54:15 2021-10-26 2021-10-26 Outpatient EL JAMES, [facility] [id number] WH 13:07:10 13:07:10 RISE 2021-09-20 2021-09-20 Outpatient [facility] [id number] [facility] 00:00:00 00:00:[address] 2021-08-30 2021-08-30 Outpatient EL JAMES, [facility] [id number] [facility] 13:02:31 23:59:00 RISE 2021-08-10 2021-08-10 Outpatient EL JAMES, WH [facility] [id number] [facility] 12:46:11 12:46:11 RISE 2021-08-03 2021-08-03 Outpatient CALEB WOLFE [facility] [id number] [facility] 00:00:00 00:00:[address] 2021-08-03 2021-08-03 Outpatient CALEB WOLFE [facility] [id number] [facility] 00:00:00 00:00:[address] 2021-07-28 2021-07-28 Outpatient [facility] [id number] [facility] 00:00:00 00:00:[address] 2021-07-11 2021-07-12 Emergency E VINEET TW TW 7517 TW 19:46:00 02:10:00 NOLAN 2021-06-07 2021-06-07 Outpatient EL TINO, [facility] [id number] [facility] 15:28:13 23:59:00 JOAO 2021-05-03 2021-05-10 Inpatient E LUZ MHTRupa MED [id number] MHTW 11:48:00 12:45:00 RAKAN 2021-03-16 2021-03-16 Outpatient EL JAMES, [facility] [id number] [facility] 00:00:00 00:00:00 RISE 2021-02-20 2021-02-20 Emergency E RICH MHTW MHTW [id number] MHTW 08:33:00 13:03:00 EMEKA 2021-02-20 2021-02-20 Outpatient JANI MHTW MED [id number] MHTW 08:08:00 08:08:00 BEATRIS 2020-12-29 2020-12-29 Outpatient EL JAMES, [facility] [id number] [facility] 00:00:00 00:00:00 [facility] 2020-12-18 2020-12-18 Outpatient LAURA TORRES MHTW MED [id number] MHTW 12:44:00 15:15:00 2020-08-27 2020-08-30 Inpatient Blank EVAN MHTW MED [id number] MHTW 23:50:00 12:00:00 JES 2020-08-24 2020-08-24 Telephone Jeni [facility] [id number] 00:00:00 00:00:00 [facility] 2020-08-18 2020-08-18 Outpatient KATHLEEN PHILLIPMARTINEZ, [facility] [id number] [facility] 00:00:00 00:00:00 DEL 2020-06-30 2020-06-30 Office James [facility] [id number] 08:23:56 08:53:56 Visit [facility] 2020-06-30 2020-06-30 Outpatient EL JAMES, [facility] [id number] [facility] 00:00:00 00:00:00 [facility] 2020-06-30 2020-06-30 Outpatient EL JAMES, [facility] [id number] [facility] 00:00:00 00:00:00 [facility] 2020-06-30 2020-06-30 Outpatient EL [facility] [id number] [facility] 00:00:00 00:00:00 2020-06-30 2020-06-30 Orders Jeni [facility] [id number] 00:00:00 00:00:00 Only Heide M [facility] 2020-06-23 2020-06-23 Office EL Jenna Ramirez [facility] [id number] 10:46:05 11:46:05 Visit Del [facility] 2020-06-23 2020-06-23 Outpatient FELIX [facility] [id number] SL 00:00:00 00:00:00 DEL 2020-06-23 2020-06-23 Outpatient EL [facility] [id number] [facility] 00:00:00 00:00:00 2020-06-22 2020-06-22 Documentat Zack [facility] [id number] 00:[facility] 00[facility] 2020-05-28 2020-05-28 Outpatient MEHDI RAMIREZ SLE [id number] [facility] 00:00:00 00:00:00 RISE 2020-05-04 2020-05-04 Outpatient LIKOVER, [facility] [id number] Memoria 15:41:00 23:59:00 [facility] 2020-03-30 2020-03-30 Outpatient SHAWANDA TW MED [id number] MHTW 14:00:00 23:59:00 GWENDOLINE 2020-03-24 2020-03-24 [facility] 7510 Memoria 05:32:00 10:00:00 JENNY [facility] 2020-02-17 2020-02-17 Outpatient CHEYANNE DO TW MHTW [id number] MHTW 20:00:00 20:00:00 2019-11-04 2019-11-04 Outpatient LIKOVER, [facility] 0139 [facility] 16:12:00 16:12:00 JENNY [facility] 2019-06-05 2019-06-05 Outpatient [facility] [id number] [facility] 06:21:00 06:21:00 nathaniel [facility] 2019-03-04 2019-03-04 Outpatient MHTW TW [id number] MHTW 09:00:00 09:00:00 2019-02-19 2019-02-19 Outpatient [facility] 13:31:00 13:31:00 nathaniel armstrong [facility] 2019-01-23 2019-01-23 Outpatient [facility] 7505 [facility] 13:31:00 13:31:00 nathaniel armstrong [facility] 2019-01-21 2019-01-21 Outpatient [facility] [address] [facility] 07:21:00 07:21:00 2018-09-11 2018-09-11 Outpatient JOE, [facility] [id number] 00:00:00 00:00:00 [facility] Results Test Description Test Time Test Comments Results Result Comments Source Sedimentation rate 2023-04-03 16:24:00 Test Item Value Reference Range Interpretation Comme nts Sedimentation rate (test code = 10 See_Comment [Automated message] The system 79975-3) which generated this result transmitted ref erence range: 0 - 30 mm/hr. The refe rence range was not used to interpr et this result as normal/abnormal . [facility] [id number] 14:54:00 Test Item Value Reference Range Interpretation Comments Hemolysis (test code = <15 <=15 3440) Sodium (test code = 138 mmol/L 135-658 3196904) Potassium (test code = 4.3 mmol/L 3.5-5.0 3687778) Chloride (test code = 105 mmol/L 98-107 2075-0) CO2 (test code = 24 mmol/L 23-32 8-9) Glucose (test code = 218 mg/dL 60-100 H 2345-7) BUN (test code = 24 mg/dL 7-17 H 2472390) Creatinine (test code = 0.7 mg/dL 0.6-1.0 4695436) eGFR MDRD (test code = 83.2 See_Comment If Af rican [place], 8846) multiply the GF R by 1.210. [Automat ed message] The sy stem which generated this result transmit karen reference range : 60.0 - 137.0 mL/min/1.73m^2. The reference range was not used to interpret this result as normal/abnormal . Total bilirubin (test 0.3 mg/dL 0.2-1.3 code = 1974-) Alkaline phosphatase 92 U/L 38-126 (test code = 6768-6) Protein (test code = 6.5 g/dL 6.0-8.5 2885-2) Albumin (test code = 3.7 g/dL 3.5-5.0 0777359) Calcium (test code = 9.4 mg/dL 8.4-10.6 1679085) AST (test code = 14 U/L 8-35 1920-8) ALT (test code = 16 U/L 7-44 1742-6) Anion gap (test code = 14.0 10.0-20.0 9475195) BUN/creatinine ratio 35.0 7.0-25.0 H (test code = 3097-3) Lab Interpretation Abnormal (test code = 07806-6) [facility]-reactive [id number] 14:54:00 Test Item Value Reference Range Interpretation Comments CRP (test code = 1987-) 0.8 mg/dL <=0.5 H Lab Interpretation (test code = Abnormal 25854-5) [facility] with platelet and [id number] 14:27:00 Test Item Value Reference Range Interpretation Comments WBC (test code = 6690-2) 9.7 10^3/uL 4.0-10.6 RBC (test code = 0227266) 5.40 10^6/uL 4.15-4.90 H HGB (test code = 280) 14.6 g/dL 12.0-16.0 HCT (test code = 5738853) 45.4 % 37.0-48.0 MCV (test code = 4710577) 84.1 fL 80.0-98.0 MCH (test code = 3372664) 27.0 pg 28.0-33.0 L MCHC (test code = 1407132) 32.2 g/dL 32.0-36.0 RDW (test code = 2973) 16.6 % 10.6-15.4 H Platelet count (test code = 346 10^3/uL 150-400 777-3) MPV (test code = 5718341) 10.5 fL 9.4-12.4 Nucleated RBC (test code = 254) 0.0 % 0.0-1.0 Absolute nRBC (test code = 0.0 10^3/uL 0.0-0.0 9739953) Neutrophils (test code = 61.0 % 45.0-74.0 3544796) Lymphocytes (test code = 736-9) 24.6 % 16.0-45.0 Monocytes (test code = 5905-5) 10.7 % 4.0-10.0 H Eosinophils (test code = 1352) 2.7 % 0.0-5.0 Basophils (test code = 706-2) 0.4 % 0.0-2.0 Immature granulocytes (test code 0.6 % 0.0-1.0 = 1594) Neutrophils, absolute (test code 5.9 10^3/uL 1.6-9.0 = 1801) Lymphocytes, absolute (test code 2.4 10^3/uL 0.4-4.4 = 6420640) Monocytes, absolute (test code = 1.0 10^3/uL 0.2-1.7 4431604) Eosinophils, absolute (test code 0.3 10^3/uL 0.0-1.7 = 1353) Basophils, absolute (test code = 0.0 10^3/uL 0.0-0.3 929) Immature granulocytes, absolute 0.1 10^3/uL 0.0-0.0 H (test code = 2839) Lab Interpretation (test code = Abnormal 91141-7) [facility], [id number] 12:12:00 Test Item Value Reference Range Interpretation Comments bacteria (test code = bacteria) none seen none seen/few cast type (test code = cast type) comment casts (test code = casts) none seen none seen comment (test code = comment) comment crystal type (test code = crystal comment type) crystals (test code = crystals) comment epithelial cells (non renal) (test none seen 0-10 code = epithelial cells (non renal)) epithelial cells (renal) (test code comment = epithelial cells (renal)) mucus threads (test code = mucus comment threads) RBC (test code = RBC) 0-2 0-2 trichomonas (test code = comment trichomonas) WBC (test code = WBC) none seen 0-5 yeast (test code = yeast) comment [facility] W Reflex Culture panel - Urine 2023-03-01 00:00:00 Test Item Value Reference Range Interpretation Comments appearance (test code = appearance) clear clear bilirubin (test code = bilirubin) negative negative glucose (test code = glucose) 3+ negative A ketones (test code = ketones) negative negative microscopic examination (test code = microscopic examination) nitrite, urine (test code = negative negative nitrite, urine) occult blood (test code = occult negative negative blood) pH (test code = pH) 8.0 5.0-7.5 H protein (test code = protein) negative negative/trace specific gravity (test code = >=1.030 1.005-1.030 A specific gravity) urinalysis reflex (test code = comment urinalysis reflex) urine-color (test code = yellow yellow urine-color) urobilinogen,semi-qn (test code = 0.2 mg/dL 0.2-1.0 urobilinogen,semi-qn) WBC esterase (test code = WBC negative negative esterase) [facility]Microalbumin/Creatinine [Mass Ratio] in [id number] 00:00:00 Test Item Value Reference Range Interpretation Comments creatinine random urine 22.1 mg/dL 20.0-320.0 (test code = creatinine random urine) microalbumin random result IS <5 ug/mL. urine (test code = result IS less than microalbumin random the sensitivity of the urine) instrument. microalbumin/creatinine (random urine) ratio calculated (test code = microalbumin/creatinine (random urine) ratio calculated) [facility] HospitalThyroxine (T4) free [Mass/volume] in Serum or Plasma 2023-02-28 19:33:00 Test Item Value Reference Range Interpretation Comments T4 free (test code = T4 free) 0.96 NG/dL 0.70-1.48 [facility] HospitalCB W Auto Differential panel - [id number] 00:00:00 Test Item Value Reference Range Interpretation Comments WBC (test code = WBC) 13.16 x10*3/?L 4.00-11.00 H RBC (test code = RBC) 5.81 10*12/L 3.93-5.22 H hemoglobin (test code = 15.10 g/dL 11.20-15.70 hemoglobin) hematocrit (test code = 49.3 % 34.1-44.9 H hematocrit) MCV (test code = MCV) 84.9 fL 80.0-100.0 MCH (test code = MCH) 26.0 pg 25.6-32.2 MCHC (test code = MCHC) 30.6 g/dL 32.2-35.5 L platelet count (test code = 407.0 k/uL 150.0-400.0 H platelet count) RDW-SD (test code = RDW-SD) 50.7 fL 36.4-46.3 H MPV (test code = MPV) 11.6 fL 7.5-11.5 H neut% (test code = neut%) 78.7 % 34.0-71.1 H lymph% (test code = lymph%) 15.1 % 19.3-51.7 L mon% (test code = mon%) 4.9 % 4.7-12.5 eos% (test code = eos%) 0.1 % 0.7-5.8 L baso% (test code = baso%) 0.4 % 0.1-1.2 neut# (test code = neut#) 10.4 x10*3/?L 1.6-6.1 H lymph# (test code = lymph#) 2.0 x10*3/?L 1.2-3.7 mon# (test code = mon#) 0.7 x10*3/?L 0.2-0.9 eos# (test code = eos#) 0.01 x10*3/?L 0.04-0.36 L baso# (test code = baso#) 0.05 x10*3/?L 0.01-0.08 [facility] HospitalTSH, serum, reflex free [id number] 00:00:00 Test Item Value Reference Range Interpretation Comments TSH_R (test code = TSH_R) 0.335 uIU/mL 0.350-4.940 L [facility]Com[facility] 2000 panel - Serum or Plasma 2023-02-28 00:00:00 Test Item Value Reference Range Interpretation Comments glucose (test code = glucose) 286 mg/dL 70-99 H creatinine (test code = 0.78 mg/dL 0.57-1.11 creatinine) BUN (test code = BUN) 21.1 mg/dL 9.8-25.0 eGFR (test code = eGFR) >60 sodium (test code = sodium) 136 mEq/L 135-145 potassium (test code = potassium) 5.2 mEq/L 3.5-5.3 CO2 (test code = CO2) 21.1 mmol/L 20.0-32.0 chloride (test code = chloride) 102 mmol/L 98-110 anion gap (test code = anion gap) 13 calc calcium (test code = calcium) 9.8 mg/dL 8.4-10.4 total protein (test code = total 6.9 g/dL 6.1-8.2 protein) albumin (test code = albumin) 3.7 g/dL 3.4-5.1 total bilirubin (test code = 0.4 mg/dL 0.2-1.2 total bilirubin) alk phos (test code = alk phos) 105 unit/L 40-150 ALT (test code = ALT) 26 U/L 0-55 AST (test code = AST) 16 U/L 5-34 [facility] HospitalHemoglobin A1c/Hemoglobin.total in [id number] 00:00:00 Test Item Value Reference Range Interpretation Comments Hemoglobin A1c/Hemoglobin.total in 8.1 % 1.0-5.7 H Blood (test code = 4548-4) average blood glucose (calculation) 186 mg/dL (test code = average blood glucose (calculation)) [facility] HospitalPOCT-GLUCOSE [id number] 06:50:03 Test Item Value Reference Range Interpretation Comments POC-GLUCOSE METER 112 mg/dL 70-110 H : TESTED A T [facility] [address] (BEAKER) (test code [facility] [address] [facility], = 1538) [place] [address] 384: Pilot Can Router/Techni nicole ID = [id number] for Varsha lafleur Chayito LIPID [id number] 13:01:52 Test Item Value Reference Range Interpretation Comments TRIGLYCERIDES (BEAKER) (test code = 212 mg/dL 540) CHOLESTEROL (BEAKER) (test code = 215 mg/dL 631) HDL CHOLESTEROL (BEAKER) (test code 44 mg/dL = 976) LDL CHOLESTEROL CALCULATED (BEAKER) 129 mg/dL (test code = 633) Triglyceride Reference Range: Low Risk <150 Borderline 150-199 High Risk 200- 499 Very High Risk >=500Cholesterol Reference Range: Low Risk <200 Borderline 200-239 High Risk >240HDL Cholesterol Reference Range: Low Risk >=60 High Risk <40LDL Cholesterol Reference Range: Optimal <100 Near Optimal 100-129 Borderline 130-159 High 160-189 Very High >=190 [employer] ID - [id number] 10:10:47 Test Item Value Reference Range Interpretation Comments PROTIME (BEAKER) (test 11.9 seconds 9.7-11.2 H Final Information code = 759) (Auto Output) INR (BEAKER) (test 1.13 See_Comment Final Inf ormation code = 370) (Auto Output) [Automated mess age] The system Szl generated this result transmit karen reference range : <=5.90. The reference range was not used to interpret this result as normal/abnormal . PARTIAL THROMBOPLASTIN 37.1 seconds 23.0-31.0 H Final Information TIME (BEAKER) (test (Auto Ou tput) code = 760) RECOMMENDED COUMADIN/WARFARIN INR THERAPY RANGESSTANDARD DOSE: 2.0 - 3.0 Includes: PROPHYLAXIS for venous thrombosis, systemic embolization; TREATMENT for venous thrombosis and/or pulmonary embolus.HIGH RISK: Target INR is 2.5-3.5 for patients with mechanical heart valves.BUN AND CREATININE [id number] 10:10:46 Test Item Value Reference Range Interpretation Comments BLOOD UREA 16 mg/dL 10-26 NITROGEN (BEAKER) (test code = 354) CREATININE 0.52 mg/dL 0.50-1.20 (BEAKER) (test code = 358) BUN/CREAT RATIO 31 For a normal individual on (BEAKER) (test a normal diet , the code = reference inter william for the [id number]) mass ratio rang es between 12:1 and 20:1 ( BUN in mg/dL/creatinin e in mg/dL) EGFR (BEAKER) 98 Interpretatio n of eGFR (test code = mL/min/1.73 values Stage De scription 1092) sq m Result G1 Carina l or high >=90 G2 Mildly decreased 60-89 G3a Mildl y to moderately 45-5 9 G3b Moderately to s everely 30-44 G4 Severl y decreased 15-29 G5 Kidney failure <15Reported eGF R is based on the CKD-EPI 2020 equation that d oes not use a race coefficientEsti mated GFR is not as accur ate as Creatinine Anju babb in predicting glom erular filtration rate . Estimated GFR is not appl icable for dialysis patien ts [id number] 10:06:42 Test Item Value Reference Range Interpretation Comments SODIUM (BEAKER) (test code = 381) 137 meq/L 135-148 POTASSIUM (BEAKER) (test code = 3.8 meq/L 3.6-5.5 379) CHLORIDE (BEAKER) (test code = 382) 105 meq/L 98-106 CO2 (BEAKER) (test code = 355) 25 meq/L 24-32 CBC W/PLT COUNT & AUTO [id number] 09:45:34 Test Item Value Reference Range Interpretation Comments WHITE BLOOD CELL COUNT (BEAKER) 8.5 K/ L 4.0-10.0 (test code = 775) RED BLOOD CELL COUNT (BEAKER) 5.27 M/ L 4.00-5.00 H (test code = 761) HEMOGLOBIN (BEAKER) (test code = 14.1 GM/DL 12.0-15.5 410) HEMATOCRIT (BEAKER) (test code = 43.4 % 36.0-46.0 411) MEAN CORPUSCULAR VOLUME (BEAKER) 82 fL 82-99 (test code = 753) MEAN CORPUSCULAR HEMOGLOBIN 26.8 pg 27.0-33.0 L (BEAKER) (test code = 751) MEAN CORPUSCULAR HEMOGLOBIN CONC 32.5 GM/DL 32.0-36.0 (BEAKER) (test code = 752) RED CELL DISTRIBUTION WIDTH 14.7 % 12.0-15.0 (BEAKER) (test code = 412) PLATELET COUNT (BEAKER) (test 373 K/CU MM 150-430 code = 756) MEAN PLATELET VOLUME (BEAKER) 10.0 fL 6.0-11.5 (test code = 754) NUCLEATED RED BLOOD CELLS 0 /100 WBC 0-0 (BEAKER) (test code = 413) NEUTROPHILS RELATIVE PERCENT 59 % (BEAKER) (test code = 429) LYMPHOCYTES RELATIVE PERCENT 29 % (BEAKER) (test code = 430) MONOCYTES RELATIVE PERCENT 8 % (BEAKER) (test code = 431) EOSINOPHILS RELATIVE PERCENT 3 % (BEAKER) (test code = 432) BASOPHILS RELATIVE PERCENT 1 % (BEAKER) (test code = 437) NEUTROPHILS ABSOLUTE COUNT 5.00 K/ L 1.80-8.00 (BEAKER) (test code = 670) LYMPHOCYTES ABSOLUTE COUNT 2.44 K/ L 1.48-4.50 (BEAKER) (test code = 414) MONOCYTES ABSOLUTE COUNT (BEAKER) 0.69 K/ L 0.00-1.30 (test code = 415) EOSINOPHILS ABSOLUTE COUNT 0.27 K/ L 0.00-0.50 (BEAKER) (test code = 416) BASOPHILS ABSOLUTE COUNT (BEAKER) 0.04 K/ L 0.00-0.20 (test code = 417) IMMATURE GRANULOCYTES-RELATIVE 0.90 % 0.00-0.00 H PERCENT (BEAKER) (test code = 2801) Infliximab Concentration and Anti-Infliximab Antibody (Serial Monitor)2022-12-02 06:08:00 Test Item Value Reference Interpretation Comments Range Infliximab 37 ug/mL Quantitation L imit: <0.4 Drug Level ug/mLResults of 0.4 or higher (test code = [place] [address]-0) infliximab. Com ments: - The optimal drug co ncentration depends upon pa tient-specific factors includi ng the disease and desired the rapeutic endpoint. - Norma ntenance trough concentr ations >=5 may be associated w ith higher remission rates .(1) - In severe CD, high er trough levels (>10) ma y be necessary to achieve fist bruce healing.(2) - I n rheumatoid arthritis, DARIUS R responders had higher medi an trough levels (3.6) th an non-responders (0.5).(3) - This assay maren ures the antibody-unboun d (free) fraction of inf liximab when serum anti-infl iximab antibodies are present. ANTI-INFLIXIMA <22 ng/mL Interpretati on: The above B ANTIBODY result is an UN DETECTED (test code = Antibody titer. Quantitation 76451-8) Limit: <22 ng/m L. Results of 22 or higher in dicate detection of an ti- infliximab antibodies. 22 - 200 ng/mL: LOW titer 201 - 1,000 ng/mL: INTERMEDIATE ti ter 1,001 or greater ng/mL: HIGH titer Comments: - Ant i-drug antibody levels should be interpreted in the context of the concomitant free drug trough concentr ation. - Low titer anti-drug antibodies may be transien t while high titers are like ly to be more consequential.( 4-6) - Some immunogenicity is reversible. Elimination of intermediate titer (and even some high titer) anti-inf liximab antibodies has been achieved with dose escal ation and/or methotrexate or 6-MP.(7) - Maintenance of drug levels greater than 3 ug/mL may reduce the risk of developing anti-drug antib odies.(8) - This anti-infli ximab antibody assay is drug t olerant, and all positive re sults are verified for an ti-drug specificity by a confirmatory test. Reference s:1. Yvonne Trejo , et al. AGA Review on TDM i n IBD. Gastroenterol 2017;153:835-85 7.2. Laya Bhatti, et al. Gastroen terol 2016;150(4):S10 5-S106.3. Wolbink GJ, et al. Madie Rheum Dis 2005;64:704 -707.4. Rudi C, e t al. Inflamm Bowel Dis 2012; 18(12): 2706-3512.5. Nubia Trejo, et al. Am J Gas troenterol 2013;108: 962-9 71.6. Korina H, et al. Clin Gas troenterol Hepatol 2015;13 (3): 522-530.7. Asha peterson A, et al. Gastroenter ol 2019;156(6):S-6 17.8. Nacho JF, et al. Chris roenterol 2016;150(4):S14 4.9. Joshua Maddox et al. [facility] Marty rnal 2016 DOI:10.1208/ [id number] -3. These tests were raquel sebastian and their performancechar acteristics determined by Nathaniel Brennan. They have not beencl eared or approved by the Food and Drug Administration. However, these electrochemilum inescence immunoassay (ECLIA)measurem ents of infliximab and anti-infliximab antibody(consti tuting DoseASSURE IFX) have been developed andva lidated in accordance with CLIA (Clinical LaboratoryImpro vement Amendments) and the FDA Guidance docume nt, AssayDevelopmen t and Validation for Immunogenicity Testing ofThera peutic Protein Products (2019) . Results of apeer-reviewed methods comparison / va lidation of theseassays hav e been published.(9) MANJIT (test code Performed at: = MANJIT) 01 - [facility] [id number] [place], [place] [id number] Director: Jayme Santos MD, Phone: [phone] [facility] RiverQuantiFERON-TB Gold Plus, 4 [id number] 03:07:00 Test Item Value Reference Range Interpretation Comments QuantiFERON Incubation Incubation (test performed. code = 5936) Quantiferon TB Negative Negative No response t o M gold plus (test tuberculosis antigens code = 78118-3) detected.Inf ection with M tubercul osis is unlikely, bu t high riskindividuals should be consi dered for additional testing(ATS/IDS A/CDC Clinical Practi ce Guidelines, 201 7). Thereference ra nge is an Antigen melissa s Nil result of <0.35 IU/mL.Chemilumi nescen ce immunoassay methodology MANJIT (test code = Performed at: 01 MANJIT) - [facility] [address] [id number] Director: Evangelista Metz MD, Phone: [phone] med at: 02 - [facility] [address] [id number] Director: Tab Anthony MD, Phone: [phone] [facility] HospitalQuantiFERON-TB Gold [id number] 03:07:00 Test Item Value Reference Range Interpretation Comments Quantiferon Comment QuantiFERON-TB Gold criteria (test Plus is a code = 8251-1) qualitative indirect test f orM tuberculosis infection (including dise ase) and is intended for usein conjuncti on with risk assessment, radiography, an d other medicalan d diagnostic evaluations. Th e QuantiFERON-TB Gold Plus result isdetermined by subtracting the Nil value from eith er TB antigen (Ag)value. The Mitogen tube se rves as a control fo r the test. QuantiFERON TB1 Ag 0.05 IU/mL Value (test code = 68416-7) QuantiFERON TB2 Ag 0.04 IU/mL Value (test code = 88530-8) Quantiferon NIL 0.07 IU/mL value (test code = 02242-8) Quantiferon >10.00 IU/mL mitogen value (test code = 14014-4) MANJIT (test code = Performed at: 02 MANJIT) - [facility] [address] [id number] Director: Tab Anthony MD, Phone: [phone] [facility] Auto Differential panel - [id number] 00:00:00 Test Item Value Reference Range Interpretation Comments Basophils [#/volume] in Blood 16 cells/uL 0-200 by Automated count (test code = 704-7) Basophils/100 leukocytes in 0.2 % Blood by Automated count (test code = 706-2) Eosinophils [#/volume] in 89 cells/uL 15-500 Blood by Automated count (test code = 711-2) Eosinophils/100 leukocytes in 1.1 % Blood by Automated count (test code = 713-8) Hematocrit [Volume Fraction] 41.1 % 35.0-45.0 of Blood by Automated count (test code = 4544-3) Hemoglobin [Mass/volume] in 13.9 g/dL 11.7-15.5 Blood (test code = 718-7) Lymphocytes [#/volume] in 2851 cells/uL 850-3900 Blood by Automated count (test code = 731-0) Lymphocytes/100 leukocytes in 35.2 % Blood by Automated count (test code = 736-9) Erythrocyte mean corpuscular 28.5 pg 27.0-33.0 hemoglobin [Entitic mass] by Automated count (test code = 785-6) Erythrocyte mean corpuscular 33.8 g/dL 32.0-36.0 hemoglobin concentration [Mass/volume] by Automated count (test code = 786-4) Erythrocyte mean corpuscular 84.4 fL 80.0-100.0 volume [Entitic volume] by Automated count (test code = 787-2) Monocytes [#/volume] in Blood 624 cells/uL 200-950 by Automated count (test code = 742-7) Monocytes/100 leukocytes in 7.7 % Blood by Automated count (test code = 5905-5) Neutrophils [#/volume] in 4520 cells/uL 9588-5271 Blood by Automated count (test code = 751-8) Neutrophils/100 leukocytes in 55.8 % Blood by Automated count (test code = 770-8) Platelets [#/volume] in Blood 367 thousand/uL 140-400 by Automated count (test code = 777-3) Platelet mean volume [Entitic 11.0 fL 7.5-12.5 volume] in Blood by Boris (test code = 776-5) Erythrocytes [#/volume] in 4.87 million/uL 3.80-5.10 Blood by Automated count (test code = 789-8) Erythrocyte distribution 15.1 % 11.0-15.0 H width [Ratio] by Automated count (test code = 788-0) Leukocytes [#/volume] in 8.1 thousand/uL 3.8-10.8 Blood by Automated count (test code = 6690-2) [facility]Com[facility] 2000 panel - Serum or Plasma 2022-11-11 00:00:00 Test Item Value Reference Range Interpretation Comments Albumin [Mass/volume] 3.7 g/dL 3.6-5.1 in Serum or Plasma (test code = 1751-7) Albumin/Globulin [Mass 1.4 (calc) 1.0-2.5 Ratio] in Serum or Plasma (test code = 1759-0) Alkaline phosphatase 89 U/L 37-153 [Enzymatic activity/volume] in Serum or Plasma (test code = 6768-6) Alanine 15 U/L 6-29 aminotransferase [Enzymatic activity/volume] in Serum or Plasma (test code = 1742-6) Aspartate 16 U/L 10-35 aminotransferase [Enzymatic activity/volume] in Serum or Plasma (test code = 1920-8) Bilirubin.total 0.4 mg/dL 0.2-1.2 [Mass/volume] in Serum or Plasma (test code = 1974-) Urea nitrogen 16 mg/dL 7-25 [Mass/volume] in Serum or Plasma (test code = 3094-0) Urea not applicable 6-22 nitrogen/Creatinine [Mass Ratio] in Serum or Plasma (test code = 3097-3) Calcium [Mass/volume] 9.6 mg/dL 8.6-10.4 in Serum or Plasma (test code = 41775-3) Chloride 103 mmol/L 98-110 [Moles/volume] in Serum or Plasma (test code = 5-0) Carbon dioxide, total 26 mmol/L 20-32 [Moles/volume] in Serum or Plasma (test code = 2027-) Creatinine 0.82 mg/dL 0.60-1.00 [Mass/volume] in Serum or Plasma (test code = 2160-0) Glomerular filtration 75 mL/min/1.73m2 See_Comment [ Automated rate/1.73 sq message] The M.predicted [Volume system w hich Rate/Area] in Serum, generat ed this Plasma or Blood by result Creatinine-based transmitted formula (CKD-EPI 2020) refer ence range: (test code = 19285-3) > or = 60. The reference range was not used to interpret this result as normal/abnormal . Globulin [Mass/volume] 2.7 g/dL (calc) 1.9-3.7 in Serum by calculation (test code = 24539-0) Glucose [Mass/volume] 183 mg/dL 65-99 H in Serum or Plasma (test code = 2345-7) Potassium 4.9 mmol/L 3.5-5.3 [Moles/volume] in Serum or Plasma (test code = 2823-3) Protein [Mass/volume] 6.4 g/dL 6.1-8.1 in Serum or Plasma (test code = 2885-2) Sodium [Moles/volume] 137 mmol/L 135-146 in Serum or Plasma (test code = 2951-2) [facility] HospitalHemoglobin A1c/Hemoglobin.total in [id number] 00:00:00 Test Item Value Reference Range Interpretation Comments Glucose mean value 166 mg/dL [Mass/volume] in Blood Estimated from glycated hemoglobin (test code = 49879-5) Glucose mean value 9.2 mmol/L [Moles/volume] in Blood Estimated from glycated hemoglobin (test code = 89469-1) Hemoglobin 7.4 % of total HGB <5.7 H A1c/Hemoglobin.total in Blood (test code = 4548-4) [facility] HospitalLipid 1996 panel - Serum or [id number] 00:00:00 Test Item Value Reference Range Interpretation Comments Cholesterol 233 mg/dL <200 H [Mass/volume] in Serum or Plasma (test code = 2093-3) Cholesterol.total/Cho 5.0 (calc) <5.0 H lesterol.in HDL [Mass ratio] in Serum or Plasma (test code = 9830-1) Cholesterol in HDL 47 mg/dL See_Comment L [Automat ed [Mass/volume] in message] Th e system Serum or Plasma (test which generated code = 2085-9) this result transmitted reference range : > or = 50. The reference range was not used to interpret this result as normal/abnormal . Cholesterol in LDL 143 mg/dL H [Mass/volume] in (calc) Serum or Plasma by calculation (test code = 95456-1) Cholesterol non HDL 186 mg/dL <130 H [Mass/volume] in (calc) Serum or Plasma (test code = 52321-1) Triglyceride 278 mg/dL <150 H [Mass/volume] in Serum or Plasma (test code = 2571-8) [facility] HospitalReagin Ab [Units/volume] in Serum or Plasma by RPR 2022-11-11 00:00:00 Test Item Value Reference Range Interpretation Comments Reagin Ab [Presence] in Serum by non-reactive non-reactive RPR (test code = 50005-3) [facility] HospitalThyroxine (T4) free [Mass/volume] in Serum or Plasma 2022-11-11 00:00:00 Test Item Value Reference Range Interpretation Comments Thyroxine (T4) free [Mass/volume] 1.0 NG/dL 0.8-1.8 in Serum or Plasma (test code = 3024-7) [facility] HospitalFolate+Cyanocobalamin [Interpretation] in Serum or Blood 2022-11-11 00:00:00 Test Item Value Reference Range Interpretation Comments Cobalamin (Vitamin B12) 434 pg/mL 200-1100 [Mass/volume] in Serum or Plasma (test code = 2132-9) Folate [Mass/volume] in Serum or 6.8 NG/mL Plasma (test code = 2284-8) [facility] HospitalMicroalbumin/Creatinine [Mass Ratio] in [id number] 00:00:00 Test Item Value Reference Range Interpretation Comments microalbumin random urine 5 ug/mL (test code = microalbumin random urine) creatinine random urine (test 67.5 mg/dL 20.0-320.0 code = creatinine random urine) microalbumin/creatinine 7 mcg/mg creat (random urine) ratio calculated (test code = microalbumin/creatinine (random urine) ratio calculated) [facility] HospitalHemoglobin A1c/Hemoglobin.total in [id number] 00:00:00 Test Item Value Reference Range Interpretation Comments Hemoglobin A1c/Hemoglobin.total in 10.0 % 1.0-5.7 H Blood (test code = 4548-4) average blood glucose (calculation) 240 mg/dL (test code = average blood glucose (calculation)) [facility] W Auto Differential panel - [id number] 00:00:00 Test Item Value Reference Range Interpretation Comments WBC (test code = WBC) 10.20 x10*3/?L 4.00-11.00 RBC (test code = RBC) 5.19 10*12/L 3.93-5.22 hemoglobin (test code = 14.60 g/dL 11.20-15.70 hemoglobin) hematocrit (test code = 46.4 % 34.1-44.9 H hematocrit) MCV (test code = MCV) 89.4 fL 80.0-100.0 MCH (test code = MCH) 28.1 pg 25.6-32.2 MCHC (test code = MCHC) 31.5 g/dL 32.2-35.5 L RDW-SD (test code = RDW-SD) 49.0 fL 36.4-46.3 H platelet count (test code = 353.0 k/uL 150.0-400.0 platelet count) MPV (test code = MPV) 11.3 fL 7.5-11.5 neut% (test code = neut%) 57.2 % 34.0-71.1 lymph% (test code = lymph%) 30.1 % 19.3-51.7 mon% (test code = mon%) 9.3 % 4.7-12.5 eos% (test code = eos%) 2.0 % 0.7-5.8 baso% (test code = baso%) 0.4 % 0.1-1.2 neut# (test code = neut#) 5.8 x10*3/?L 1.6-6.1 lymph# (test code = lymph#) 3.1 x10*3/?L 1.2-3.7 mon# (test code = mon#) 1.0 x10*3/?L 0.2-0.9 H eos# (test code = eos#) 0.20 x10*3/?L 0.04-0.36 baso# (test code = baso#) 0.04 x10*3/?L 0.01-0.08 [facility]in [Units/volume] in Serum or [id number] 00:00:00 Test Item Value Reference Range Interpretation Comments TSH (test code = TSH) 0.835 uIU/mL 0.350-4.940 [facility]Com[facility] 2000 panel - Serum or Plasma 2022-06-21 00:00:00 Test Item Value Reference Range Interpretation Comments ALT (test code = ALT) 27 U/L 0-55 AST (test code = AST) 20 U/L 5-34 BUN (test code = BUN) 15.8 mg/dL 9.8-25.0 alk phos (test code = alk phos) 106 unit/L 40-150 glucose (test code = glucose) 236 mg/dL 70-99 H albumin (test code = albumin) 3.5 g/dL 3.4-5.1 creatinine (test code = 0.76 mg/dL 0.57-1.11 creatinine) eGFR (test code = eGFR) >60 total bilirubin (test code = 0.9 mg/dL 0.2-1.2 total bilirubin) sodium (test code = sodium) 139 mEq/L 135-145 potassium (test code = potassium) 4.6 mEq/L 3.5-5.3 chloride (test code = chloride) 103 mmol/L 98-110 total protein (test code = total 6.6 g/dL 6.1-8.2 protein) calcium (test code = calcium) 9.1 mg/dL 8.4-10.4 CO2 (test code = CO2) 23.7 mmol/L 20.0-32.0 anion gap (test code = anion gap) 12 calc [facility] 1996 panel - Serum or [id number] 00:00:00 Test Item Value Reference Range Interpretation Comments HDL (test code = HDL) 52 mg/dL triglyceride (test code = 223 mg/dL <150 H triglyceride) VLDL (calculated) (test code = VLDL 45 mg/dL (calculated)) cholesterol/HDL ratio (test code = 5.7 mg/dL cholesterol/HDL ratio) non-HDL cholesterol (calculated) 243 mg/dL <160 H (test code = non-HDL cholesterol (calculated)) cholesterol (test code = 295 mg/dL <200 H cholesterol) Cholesterol in LDL [Mass/volume] in 198 mg/dL <130 H Serum or Plasma (test code = 2089-1) [facility] Auto Differential panel - [id number] 00:00:00 Test Item Value Reference Range Interpretation Comments WBC (test code = WBC) 10.20 x10*3/?L 4.00-11.00 RBC (test code = RBC) 5.19 10*12/L 3.93-5.22 hemoglobin (test code = 14.60 g/dL 11.20-15.70 hemoglobin) hematocrit (test code = 46.4 % 34.1-44.9 H hematocrit) MCV (test code = MCV) 89.4 fL 80.0-100.0 MCH (test code = MCH) 28.1 pg 25.6-32.2 MCHC (test code = MCHC) 31.5 g/dL 32.2-35.5 L RDW-SD (test code = RDW-SD) 49.0 fL 36.4-46.3 H platelet count (test code = 353.0 k/uL 150.0-400.0 platelet count) MPV (test code = MPV) 11.3 fL 7.5-11.5 neut% (test code = neut%) 57.2 % 34.0-71.1 lymph% (test code = lymph%) 30.1 % 19.3-51.7 mon% (test code = mon%) 9.3 % 4.7-12.5 eos% (test code = eos%) 2.0 % 0.7-5.8 baso% (test code = baso%) 0.4 % 0.1-1.2 neut# (test code = neut#) 5.8 x10*3/?L 1.6-6.1 lymph# (test code = lymph#) 3.1 x10*3/?L 1.2-3.7 mon# (test code = mon#) 1.0 x10*3/?L 0.2-0.9 H eos# (test code = eos#) 0.20 x10*3/?L 0.04-0.36 baso# (test code = baso#) 0.04 x10*3/?L 0.01-0.08 [facility] HospitalThyrotropin [Units/volume] in Serum or [id number] 00:00:00 Test Item Value Reference Range Interpretation Comments TSH (test code = TSH) 0.835 uIU/mL 0.350-4.940 [facility]Com[facility] 2000 panel - Serum or Plasma 2022-06-21 00:00:00 Test Item Value Reference Range Interpretation Comments ALT (test code = ALT) 27 U/L 0-55 AST (test code = AST) 20 U/L 5-34 BUN (test code = BUN) 15.8 mg/dL 9.8-25.0 alk phos (test code = alk phos) 106 unit/L 40-150 glucose (test code = glucose) 236 mg/dL 70-99 H albumin (test code = albumin) 3.5 g/dL 3.4-5.1 creatinine (test code = 0.76 mg/dL 0.57-1.11 creatinine) eGFR (test code = eGFR) >60 total bilirubin (test code = 0.9 mg/dL 0.2-1.2 total bilirubin) sodium (test code = sodium) 139 mEq/L 135-145 potassium (test code = potassium) 4.6 mEq/L 3.5-5.3 chloride (test code = chloride) 103 mmol/L 98-110 total protein (test code = total 6.6 g/dL 6.1-8.2 protein) calcium (test code = calcium) 9.1 mg/dL 8.4-10.4 CO2 (test code = CO2) 23.7 mmol/L 20.0-32.0 anion gap (test code = anion gap) 12 calc [facility] 1996 panel - Serum or [id number] 00:00:00 Test Item Value Reference Range Interpretation Comments HDL (test code = HDL) 52 mg/dL triglyceride (test code = 223 mg/dL <150 H triglyceride) VLDL (calculated) (test code = VLDL 45 mg/dL (calculated)) cholesterol/HDL ratio (test code = 5.7 mg/dL cholesterol/HDL ratio) non-HDL cholesterol (calculated) 243 mg/dL <160 H (test code = non-HDL cholesterol (calculated)) cholesterol (test code = 295 mg/dL <200 H cholesterol) Cholesterol in LDL [Mass/volume] in 198 mg/dL <130 H Serum or Plasma (test code = 2089-1) [facility] Differential panel - [id number] 00:00:00 Test Item Value Reference Range Interpretation Comments WBC (test code = WBC) 10.20 x10*3/?L 4.00-11.00 RBC (test code = RBC) 5.19 10*12/L 3.93-5.22 hemoglobin (test code = 14.60 g/dL 11.20-15.70 hemoglobin) hematocrit (test code = 46.4 % 34.1-44.9 H hematocrit) MCV (test code = MCV) 89.4 fL 80.0-100.0 MCH (test code = MCH) 28.1 pg 25.6-32.2 MCHC (test code = MCHC) 31.5 g/dL 32.2-35.5 L RDW-SD (test code = RDW-SD) 49.0 fL 36.4-46.3 H platelet count (test code = 353.0 k/uL 150.0-400.0 platelet count) MPV (test code = MPV) 11.3 fL 7.5-11.5 neut% (test code = neut%) 57.2 % 34.0-71.1 lymph% (test code = lymph%) 30.1 % 19.3-51.7 mon% (test code = mon%) 9.3 % 4.7-12.5 eos% (test code = eos%) 2.0 % 0.7-5.8 baso% (test code = baso%) 0.4 % 0.1-1.2 neut# (test code = neut#) 5.8 x10*3/?L 1.6-6.1 lymph# (test code = lymph#) 3.1 x10*3/?L 1.2-3.7 mon# (test code = mon#) 1.0 x10*3/?L 0.2-0.9 H eos# (test code = eos#) 0.20 x10*3/?L 0.04-0.36 baso# (test code = baso#) 0.04 x10*3/?L 0.01-0.08 [facility] HospitalThyrotropin [Units/volume] in Serum or [id number] 00:00:00 Test Item Value Reference Range Interpretation Comments TSH (test code = TSH) 0.835 uIU/mL 0.350-4.940 [facility]Com[facility] 2000 panel - Serum or Plasma 2022-06-21 00:00:00 Test Item Value Reference Range Interpretation Comments ALT (test code = ALT) 27 U/L 0-55 AST (test code = AST) 20 U/L 5-34 BUN (test code = BUN) 15.8 mg/dL 9.8-25.0 alk phos (test code = alk phos) 106 unit/L 40-150 glucose (test code = glucose) 236 mg/dL 70-99 H albumin (test code = albumin) 3.5 g/dL 3.4-5.1 creatinine (test code = 0.76 mg/dL 0.57-1.11 creatinine) eGFR (test code = eGFR) >60 total bilirubin (test code = 0.9 mg/dL 0.2-1.2 total bilirubin) sodium (test code = sodium) 139 mEq/L 135-145 potassium (test code = potassium) 4.6 mEq/L 3.5-5.3 chloride (test code = chloride) 103 mmol/L 98-110 total protein (test code = total 6.6 g/dL 6.1-8.2 protein) calcium (test code = calcium) 9.1 mg/dL 8.4-10.4 CO2 (test code = CO2) 23.7 mmol/L 20.0-32.0 anion gap (test code = anion gap) 12 calc [facility]Lipid 1996 panel - Serum or [id number] 00:00:00 Test Item Value Reference Range Interpretation Comments HDL (test code = HDL) 52 mg/dL triglyceride (test code = 223 mg/dL <150 H triglyceride) VLDL (calculated) (test code = VLDL 45 mg/dL (calculated)) cholesterol/HDL ratio (test code = 5.7 mg/dL cholesterol/HDL ratio) non-HDL cholesterol (calculated) 243 mg/dL <160 H (test code = non-HDL cholesterol (calculated)) cholesterol (test code = 295 mg/dL <200 H cholesterol) Cholesterol in LDL [Mass/volume] in 198 mg/dL <130 H Serum or Plasma (test code = 2089-1) [facility] Differential panel - [id number] 00:00:00 Test Item Value Reference Range Interpretation Comments WBC (test code = WBC) 10.20 x10*3/?L 4.00-11.00 RBC (test code = RBC) 5.19 10*12/L 3.93-5.22 hemoglobin (test code = 14.60 g/dL 11.20-15.70 hemoglobin) hematocrit (test code = 46.4 % 34.1-44.9 H hematocrit) MCV (test code = MCV) 89.4 fL 80.0-100.0 MCH (test code = MCH) 28.1 pg 25.6-32.2 MCHC (test code = MCHC) 31.5 g/dL 32.2-35.5 L RDW-SD (test code = RDW-SD) 49.0 fL 36.4-46.3 H platelet count (test code = 353.0 k/uL 150.0-400.0 platelet count) MPV (test code = MPV) 11.3 fL 7.5-11.5 neut% (test code = neut%) 57.2 % 34.0-71.1 lymph% (test code = lymph%) 30.1 % 19.3-51.7 mon% (test code = mon%) 9.3 % 4.7-12.5 eos% (test code = eos%) 2.0 % 0.7-5.8 baso% (test code = baso%) 0.4 % 0.1-1.2 neut# (test code = neut#) 5.8 x10*3/?L 1.6-6.1 lymph# (test code = lymph#) 3.1 x10*3/?L 1.2-3.7 mon# (test code = mon#) 1.0 x10*3/?L 0.2-0.9 H eos# (test code = eos#) 0.20 x10*3/?L 0.04-0.36 baso# (test code = baso#) 0.04 x10*3/?L 0.01-0.08 [facility] HospitalThyrotropin [Units/volume] in Serum or [id number] 00:00:00 Test Item Value Reference Range Interpretation Comments TSH (test code = TSH) 0.835 uIU/mL 0.350-4.940 [facility]Com[facility] 2000 panel - Serum or Plasma 2022-06-21 00:00:00 Test Item Value Reference Range Interpretation Comments ALT (test code = ALT) 27 U/L 0-55 AST (test code = AST) 20 U/L 5-34 BUN (test code = BUN) 15.8 mg/dL 9.8-25.0 alk phos (test code = alk phos) 106 unit/L 40-150 glucose (test code = glucose) 236 mg/dL 70-99 H albumin (test code = albumin) 3.5 g/dL 3.4-5.1 creatinine (test code = 0.76 mg/dL 0.57-1.11 creatinine) eGFR (test code = eGFR) >60 total bilirubin (test code = 0.9 mg/dL 0.2-1.2 total bilirubin) sodium (test code = sodium) 139 mEq/L 135-145 potassium (test code = potassium) 4.6 mEq/L 3.5-5.3 chloride (test code = chloride) 103 mmol/L 98-110 total protein (test code = total 6.6 g/dL 6.1-8.2 protein) calcium (test code = calcium) 9.1 mg/dL 8.4-10.4 CO2 (test code = CO2) 23.7 mmol/L 20.0-32.0 anion gap (test code = anion gap) 12 calc [facility]Lip[facility] 1996 panel - Serum or [id number] 00:00:00 Test Item Value Reference Range Interpretation Comments HDL (test code = HDL) 52 mg/dL triglyceride (test code = 223 mg/dL <150 H triglyceride) VLDL (calculated) (test code = VLDL 45 mg/dL (calculated)) cholesterol/HDL ratio (test code = 5.7 mg/dL cholesterol/HDL ratio) non-HDL cholesterol (calculated) 243 mg/dL <160 H (test code = non-HDL cholesterol (calculated)) cholesterol (test code = 295 mg/dL <200 H cholesterol) Cholesterol in LDL [Mass/volume] in 198 mg/dL <130 H Serum or Plasma (test code = 2089-1) [facility]UR[facility]/ REFLEX URINE [id number] 13:07:12 Test Item Value Reference Range Interpretation Comments COLOR (BEAKER) (test code = 470) Yellow CLARITY (BEAKER) (test code = 469) Clear SPECIFIC GRAVITY UA (BEAKER) (test 1.025 1.001-1.035 code = 468) PH UA (BEAKER) (test code = 467) 7.0 5.0-8.0 PROTEIN UA (BEAKER) (test code = Negative Negative 464) GLUCOSE UA (BEAKER) (test code = Negative Negative 365) KETONES UA (BEAKER) (test code = Negative Negative 371) BILIRUBIN UA (BEAKER) (test code = Negative Negative 462) BLOOD UA (BEAKER) (test code = 461) Negative Negative NITRITE UA (BEAKER) (test code = Negative Negative 465) LEUKOCYTE ESTERASE UA (BEAKER) (test Negative Negative code = 466) UROBILINOGEN UA (BEAKER) (test code 0.2 = 463) RBC UA (BEAKER) (test code = 519) 2 /HPF WBC UA (BEAKER) (test code = 520) 4 /HPF MUCUS (BEAKER) (test code = 1574) Few SQUAMOUS EPITHELIAL (BEAKER) (test 1 /HPF code = 516) HYALINE CASTS (BEAKER) (test code = 3 /LPF 514) SOURCE(BEAKER) (test code = 5825) [employer] Can Router ID - techCBC W/PLT COUNT & AUTO [id number] 12:38:36 Test Item Value Reference Range Interpretation Comments WHITE BLOOD CELL COUNT (BEAKER) 15.1 K/ L 4.0-10.0 H (test code = 775) RED BLOOD CELL COUNT (BEAKER) 5.26 M/ L 4.00-5.00 H (test code = 761) HEMOGLOBIN (BEAKER) (test code = 14.5 GM/DL 12.0-15.5 410) HEMATOCRIT (BEAKER) (test code = 45.9 % 36.0-46.0 411) MEAN CORPUSCULAR VOLUME (BEAKER) 87 fL 82-99 (test code = 753) MEAN CORPUSCULAR HEMOGLOBIN 27.6 pg 27.0-33.0 (BEAKER) (test code = 751) MEAN CORPUSCULAR HEMOGLOBIN CONC 31.6 GM/DL 32.0-36.0 L (BEAKER) (test code = 752) RED CELL DISTRIBUTION WIDTH 14.7 % 12.0-15.0 (BEAKER) (test code = 412) PLATELET COUNT (BEAKER) (test 489 K/CU MM 150-430 H code = 756) MEAN PLATELET VOLUME (BEAKER) 10.3 fL 6.0-11.5 (test code = 754) NUCLEATED RED BLOOD CELLS 0 /100 WBC 0-0 (BEAKER) (test code = 413) NEUTROPHILS RELATIVE PERCENT 78 % (BEAKER) (test code = 429) LYMPHOCYTES RELATIVE PERCENT 16 % (BEAKER) (test code = 430) MONOCYTES RELATIVE PERCENT 4 % (BEAKER) (test code = 431) EOSINOPHILS RELATIVE PERCENT 0 % (BEAKER) (test code = 432) BASOPHILS RELATIVE PERCENT 1 % (BEAKER) (test code = 437) NEUTROPHILS ABSOLUTE COUNT 11.78 K/ L 1.80-8.00 H (BEAKER) (test code = 670) LYMPHOCYTES ABSOLUTE COUNT 2.43 K/ L 1.48-4.50 (BEAKER) (test code = 414) MONOCYTES ABSOLUTE COUNT (BEAKER) 0.61 K/ L 0.00-1.30 (test code = 415) EOSINOPHILS ABSOLUTE COUNT 0.02 K/ L 0.00-0.50 (BEAKER) (test code = 416) BASOPHILS ABSOLUTE COUNT (BEAKER) 0.08 K/ L 0.00-0.20 (test code = 417) IMMATURE GRANULOCYTES-RELATIVE 1.10 % 0.00-0.00 H PERCENT (BEAKER) (test code = 2801) U/S, ABDOMINAL, [id number] 15:06:00Referring: Dr. Davy Castellanos for Exam:->fatty liver [facility] : 1950 Sex: FFINAL REPORT ABDOMINAL ULTRASOUND HISTORY: Fatty liver COMPARISON: CT abdomen of 07/14/2006 TECHNIQUE: Real-time ultrasound of the abdomen was performed. FINDINGS: The liver is enlarged. Hepatic length is 19.4 cm. There is a diffuse increase in hepatic echogenicity suggestive of diffuse hepatic parenchymal disease such as fatty infiltration. No mass lesion is visualized. The gallbladder surgically absent. The common bile duct is normal in caliber, measuring 5.6 mm. The main portal vein is normal in caliber, measuring 11.0 mm. The spleen is normal in size, measuring 10.1 cm in length. No abnormalities are visualized in the pancreas. No ascites or pleural effusions. The kidneys are n ormal in size, contour, and echogenicity. The right kidney measures 12.1 cm in length and the left kidney measures 11.3 cm in length. Mild bilateral hydronephrosis. No shadowing calculi are visualized.No renal mass lesion. No abnormalities are seen in the abdominal aorta, inferior vena cava, or hepatic veins. IMPRESSION: 1. Hepatomegaly. Fatty infiltration of the liver. 2. Prior cholecystectomy. No bile duct dilatation is visualized. 3. Mild bilateral symmetrical hydronephrosis. Signed: Caleb Tipton Verified Date/Time: 08/30/2021 15:06:20 [place] Location: [facility] Radiology Reading Room RAD, CHEST, 2 VIEWS 2021-06-07 16:43:00Referring: Dr. Davy Torres Reason for Exam:->z95.1 [facility] : 1950 Sex: FFINAL REPORT HISTORY: Presence of aortocoronary bypass graft COMPARISON: 01/06/2019FINDINGS: The lungs are clear aside from curvilinear likely scar at the left lateral lung base. No pleural effusions or pneumothorax. The heart shadow is normal in size. Sternotomy wires are present. The thoracic aorta is mildly tortuous. Degenerative changes are present in the spine. There are postoperative changes in the left shoulder. IMPRESSION: No evidence of acute cardiopulmonary disease. Signed: Caleb Tipton MDReport Verified Date/Time: 06/07/2021 16:43:30 [place] Location: [facility] Radiology Reading Room Hepatic function panel 2020-08-13 02:05:00 Test Item Value Reference Range Interpretation Comments Protein, Total, 6.5 g/dL 6.1-8.1 Serum (test code = 20101024) Albumin (test 3.8 g/dL 3.6-5.1 code = 0121461) GLOBULIN (QUEST) 2.7 See_Comment [Automated (test code = message] The 6216677) system which generated this result transmit karen reference range : 1.9 - 3.7 g/dL (calc). The reference range was not used to interpret this result as normal/abnormal . Albumin Globulin 1.4 See_Comment [Automated Ratio (test code message] Th e = 1759-0) system which generated this result transmit karen reference range : 1.0 - 2.5 (calc ). The reference range was not u sed to interpret th is result as normal/abnormal . Bilirubin, Total 0.4 mg/dL 0.2-1.2 (test code = 9397847) Bilirubin, 0.0 mg/dL See_Comment [Automated Direct (test message] The code = 7693961) system which generated this result transmit karen reference range : < OR = 0.2. The reference range was not used to interpret this result as normal/abnormal . Bilirubin, 0.4 See_Comment [Automated Indirect (test message] The code = 0804862) system which generated this result transmit karen reference range : 0.2 - 1.2 mg/dL (calc). The reference range was not used to interpret this result as normal/abnormal . Alkaline 107 U/L 37-153 Phosphatase, S (test code = 6768-6) AST (SGOT) (test 14 U/L 10-35 code = 20101030) ALT (SGPT) (test 20 U/L 6-29 code = 2716162) MANJIT (test code = FASTING:NOFASTING: MANJIT) NO RAC (test code = Performing RAC) Organization Information: Site ID: [facility] Address: [address] [place] [id number] Director: Mike Pantoja [facility]2021-[facility]-25 02:05:00 Test Item Value Reference Range Interpretation Comments GGT (test code = 28 U/L -65 ) MANJIT (test code = FASTING:NOFASTING: NO MANJIT) RAC (test code = Performing Organization RAC) Information: Site ID: [facility] Name: [facility] Address: [address] [place] [phone] Director: Mike KempMad [facility] HospitalHepatic function [id number] 02:05:00 Test Item Value Reference Range Interpretation Comments Protein, Total, 6.5 g/dL 6.1-8.1 Serum (test code = 20101024) Albumin (test 3.8 g/dL 3.6-5.1 code = 9855992) GLOBULIN (QUEST) 2.7 See_Comment [Automated (test code = message] The ) system which generated this result transmit karen reference range : 1.9 - 3.7 g/dL (calc). The reference range was not used to interpret this result as normal/abnormal . Albumin Globulin 1.4 See_Comment [Automated Ratio (test code message] Th e = 1759-0) system which generated this result transmit karen reference range : 1.0 - 2.5 (calc ). The reference range was not u sed to interpret th is result as normal/abnormal . Bilirubin, Total 0.4 mg/dL 0.2-1.2 (test code = 0709103) Bilirubin, 0.0 mg/dL See_Comment [Automated Direct (test message] The code = 4696798) system which generated this result transmit karen reference range : < OR = 0.2. The reference range was not used to interpret this result as normal/abnormal . Bilirubin, 0.4 See_Comment [Automated Indirect (test message] The code = 5429040) system which generated this result transmit karen reference range : 0.2 - 1.2 mg/dL (calc). The reference range was not used to interpret this result as normal/abnormal . Alkaline 107 U/L 37-153 Phosphatase, S (test code = 6768-6) AST (SGOT) (test 14 U/L 10-35 code = 6665433) ALT (SGPT) (test 20 U/L 6-29 code = 9870954) MANJIT (test code = FASTING:NOFASTING: MANJIT) NO RAC (test code = Performing RAC) Organization Information: Site ID: [facility] Name: [facility] Address: [address] [place] [phone] Director: Mike Pantoja [facility]2021-02-25 02:05:00 Test Item Value Reference Range Interpretation Comments GGT (test code = 28 U/L 65 ) MANJIT (test code = FASTING:NOFASTING: NO MANJIT) RAC (test code = Performing Organization RAC) Information: Site ID: [facility] Name: [facility] Address: [address] [place] [phone] Director: Mike L Kit [facility] CenterHEPATIC FUNCTION [id number] 10:28:00 Test Item Value Reference Range Interpretation Comments TOTAL PROTEIN (BEAKER) (test code = 7.0 gm/dL 6.0-8.5 770) ALBUMIN (BEAKER) (test code = 1145) 3.9 g/dL 3.5-5.0 BILIRUBIN TOTAL (BEAKER) (test code 0.7 mg/dL 0.1-1.3 = 377) BILIRUBIN DIRECT (BEAKER) (test 0.3 mg/dL 0.0-0.5 code = 706) ALKALINE PHOSPHATASE (BEAKER) (test 117 U/L 30-115 H code = 346) AST (SGOT) (BEAKER) (test code = 23 U/L 5-40 353) ALT (SGPT) (BEAKER) (test code = 36 U/L 6-50 347) Pilot Can Router ID - [id number] Glutamyl Transferase (GGT)2020-06-30 10:12:00 Test Item Value Reference Range Interpretation Comments GGT (test code = 2324-2) 67 U/L 5-55 H MANJIT (test code = MANJIT) Pilot Can Router ID - [id number] Lab Interpretation (test Abnormal code = 16627-1) [facility]ut[facility] Transfer[facility] (GGT)2020-06-30 10:12:00 Test Item Value Reference Range Interpretation Comments GGT (test code = 2324-2) 67 U/L 5-55 H MANJIT (test code = MANJIT) Pilot Can Router ID - [id number] Lab Interpretation (test Abnormal code = 16284-2) [facility] CenterGAMMA GLUT[facility]YL TRANSFERASE (GGT)2020-06-30 10:12:00 Test Item Value Reference Range Interpretation Comments GAMMA GLUTAMYL TRANSFERASE (BEAKER) 67 U/L 5-55 H (test code = 364) Pilot Can Router ID - [id number] M2 Antibody (IgG)2020-06-28 13:40:00 Test Item Value Reference Range Interpretation Comments Mitochondria M2 Ab 20.9 U See Note: H Reference (test code = 8838146) Range: NEGATIVE: < OR = 20.0EQUIVOCAL: 20.1-24.9POSITI VE: > OR = 25.0 MANJIT (test code = MANJIT) Performing Lab EZ [facility] [address] [place] [address] Kameron Erazo MD, PhD, MARJORIE Lab Interpretation Abnormal (test code = 86512-3) [facility] CenterMitochondria M2 Antibody (IgG)2020-06-28 13:40:00 Test Item Value Reference Range Interpretation Comments Mitochondria M2 Ab 20.9 U See Note: H Reference (test code = 3406861) Range: NEGATIVE: < OR = 20.0EQUIVOCAL: 20.1-24.9POSITI VE: > OR = 25.0 MANJIT (test code = MANJIT) Performing Lab EZ [facility] [address] [place] [address] Kameron Erazo MD, PhD, MARJORIE Lab Interpretation Abnormal (test code = 62259-5) [facility] Metabolic [id number] 13:06:00 Test Item Value Reference Range Interpretation Comments Sodium (test code = 139 meq/L 608-937 3888-2) Potassium (test code = 4.4 meq/L 3.5-5.5 2823-3) Chloride (test code = 106 meq/L 98-106 2075-0) CO2 (test code = 24 meq/L 20-31 2028-9) BUN (test code = 19 mg/dL 10-26 3094-0) Creatinine (test code 0.76 mg/dL 0.5-1.2 = 2160-0) Glucose (test code = 180 mg/dL 70-110 H 2345-7) Calcium (test code = 9.3 mg/dL 8.5-10.5 94186-9) EGFR (test code = 75 mL/min/1.73 [place] [address]-3) NOT ACCURATE CREATININE CLEARANCE IN PREDICTING GLOMERULAR FILTRATION RATE . ESTIMATED GFR I S NOT APPLICABLE FOR DIALYSIS PATIENTS. MANJIT (test code = MANJIT) Pilot Can Router ID - [id number] Lab Interpretation Abnormal (test code = 06730-6) [facility] Metabolic [id number] 13:06:00 Test Item Value Reference Range Interpretation Comments Sodium (test code = 139 meq/L 404-189 8741-2) Potassium (test code = 4.4 meq/L 3.5-5.5 2823-3) Chloride (test code = 106 meq/L 98-106 2075-0) CO2 (test code = 24 meq/L -31 2028-9) BUN (test code = 19 mg/dL - 3094-0) Creatinine (test code 0.76 mg/dL 0.5-1.2 = 2160-0) Glucose (test code = 180 mg/dL 70-110 H 2345-7) Calcium (test code = 9.3 mg/dL 8.5-10.5 13293-8) EGFR (test code = 75 mL/min/1.73 [place] [address]-1) NOT ACCURATE CREATININE CLEARANCE IN PREDICTING GLOMERULAR FILTRATION RATE . ESTIMATED GFR I S NOT APPLICABLE FOR DIALYSIS PATIENTS. MANJIT (test code = MANJIT) Pilot Can Router ID - [id number] Lab Interpretation Abnormal (test code = 63686-6) [facility] METABOLIC [id number] 13:06:00 Test Item Value Reference Range Interpretation Comments SODIUM (BEAKER) 139 meq/L 135-148 (test code = 381) POTASSIUM (BEAKER) 4.4 meq/L 3.5-5.5 (test code = 379) CHLORIDE (BEAKER) 106 meq/L 98-106 (test code = 382) CO2 (BEAKER) (test 24 meq/L code = 355) BLOOD UREA NITROGEN 19 mg/dL 04-13 (BEAKER) (test code = 354) CREATININE (BEAKER) 0.76 mg/dL 0.50-1.20 (test code = 358) GLUCOSE RANDOM 180 mg/dL 70-110 H (BEAKER) (test code = 652) CALCIUM (BEAKER) 9.3 mg/dL 8.5-10.5 (test code = 697) EGFR (BEAKER) (test 75 mL/min/1.73 ESTIMA KAREN GFR IS code = 1092) sq m NOT ACCURATE CREATININE CLEARANCE IN PREDICTING GLOMERULAR FILTRATION RATE . ESTIMATED GFR I S NOT APPLICABLE FOR DIALYSIS PATIEN TS. Pilot Can Router ID - [id number] FUNCTION [id number] 13:06:00 Test Item Value Reference Range Interpretation Comments TOTAL PROTEIN (BEAKER) (test code = 6.5 gm/dL 6.0-8.5 770) ALBUMIN (BEAKER) (test code = 1145) 3.7 g/dL 3.5-5.0 BILIRUBIN TOTAL (BEAKER) (test code 0.5 mg/dL 0.1-1.3 = 377) BILIRUBIN DIRECT (BEAKER) (test 0.2 mg/dL 0.0-0.5 code = 706) ALKALINE PHOSPHATASE (BEAKER) (test 124 U/L 30-115 H code = 346) AST (SGOT) (BEAKER) (test code = 21 U/L 5-40 353) ALT (SGPT) (BEAKER) (test code = 31 U/L 6-50 347) [employer] ID - [id number] GLUTAMYL TRANSFERASE (GGT)2020-06-23 13:06:00 Test Item Value Reference Range Interpretation Comments GAMMA GLUTAMYL TRANSFERASE (BEAKER) 78 U/L 5-55 H (test code = 364) [employer] ID - [id number] with platelet count + automated [id number] 12:45:00 Test Item Value Reference Range Interpretation Comments WBC (test code = 6690-2) 9.8 See_Comment [A utomated message] The system Szl generated this result transmitted ref erence range: 4.0 - 10 .0 K/L. The refe rence range was not u sed to interpret this result as normal/abnor mal. RBC (test code = 789-8) 5.13 See_Comment H [Au tomated message] The system Szl generated this result transmitted ref erence range: 4.00 - 5 .00 M/L. The refe rence range was not u sed to interpret this result as normal/abnor mal. MCHC (test code = 786-4) 31.8 See_Comment L [A utomated message] The system Szl generated this result transmitted ref erence range: 32.0 - 3 6.0 GM/DL. The refe rence range was not u sed to interpret this result as normal/abnor mal. Hematocrit (test code = 45.0 % 36-46 4544-3) MCV (test code = 787-2) 87.7 fL 82-99 MCH (test code = 785-6) 27.9 pg 27-33 RDW (test code = 788-0) 14.0 % 12-15 Platelets (test code = 285 See_Comment [Aut omated message] 777-3) The system Szl generated this result transmitted ref erence range: 150 - 43 0 K/CU MM. The referen ce range was not u sed to interpret this result as normal/abnor mal. MPV (test code = 10.8 fL 6-11.5 82341-2) nRBC (test code = 413) 0 See_Comment [Aut omated message] The system Szl generated this result transmitted ref erence range: 0 - 0 /1 00 WBC. The refere nce range was not u sed to interpret this result as normal/abnor mal. % Neutros (test code = 55 % 429) % Lymphs (test code = 30 % 430) % Monos (test code = 10 % 431) % Eos (test code = 432) 4 % % Baso (test code = 437) 1 % # Neutros (test code = 5.41 See_Comment [Aut omated message] 670) The system Szl generated this result transmitted ref erence range: 1.80 - 8 .00 K/L. The refe rence range was not u sed to interpret this result as normal/abnor mal. # Lymphs (test code = 2.97 See_Comment [Auto mated message] 414) The system Szl generated this result transmitted ref erence range: 1.48 - 4 .50 K/L. The refe rence range was not u sed to interpret this result as normal/abnor mal. # Monos (test code = 0.94 See_Comment [Autom ated message] 415) The system Szl generated this result transmitted ref erence range: 0.00 - 1 .30 K/L. The refe rence range was not u sed to interpret this result as normal/abnor mal. # Eos (test code = 416) 0.39 See_Comment [Au tomated message] The system Szl generated this result transmitted ref erence range: 0.00 - 0 .50 K/L. The refe rence range was not u sed to interpret this result as normal/abnor mal. # Baso (test code = 417) 0.05 See_Comment [A utomated message] The system Szl generated this result transmitted ref erence range: 0.00 - 0 .20 K/L. The refe rence range was not u sed to interpret this result as normal/abnor mal. Immature 0 % 0-0 Granulocytes-Relative (test code = 2801) Lab Interpretation (test Abnormal code = 79852-6) [facility] with platelet count + automated [id number] 12:45:00 Test Item Value Reference Range Interpretation Comments WBC (test code = 6690-2) 9.8 See_Comment [A utomated message] The system Szl generated this result transmitted ref erence range: 4.0 - 10 .0 K/L. The refe rence range was not u sed to interpret this result as normal/abnor mal. RBC (test code = 789-8) 5.13 See_Comment H [Au tomated message] The system Szl generated this result transmitted ref erence range: 4.00 - 5 .00 M/L. The refe rence range was not u sed to interpret this result as normal/abnor mal. MCHC (test code = 786-4) 31.8 See_Comment L [A utomated message] The system Szl generated this result transmitted ref erence range: 32.0 - 3 6.0 GM/DL. The refe rence range was not u sed to interpret this result as normal/abnor mal. Hematocrit (test code = 45.0 % 36-46 4544-3) MCV (test code = 787-2) 87.7 fL 82-99 MCH (test code = 785-6) 27.9 pg 27-33 RDW (test code = 788-0) 14.0 % 12-15 Platelets (test code = 285 See_Comment [Aut omated message] 777-3) The system Szl generated this result transmitted ref erence range: 150 - 43 0 K/CU MM. The referen ce range was not u sed to interpret this result as normal/abnor mal. MPV (test code = 10.8 fL 6-11.5 29621-9) nRBC (test code = 413) 0 See_Comment [Aut omated message] The system Szl generated this result transmitted ref erence range: 0 - 0 /1 00 WBC. The refere nce range was not u sed to interpret this result as normal/abnor mal. % Neutros (test code = 55 % 429) % Lymphs (test code = 30 % 430) % Monos (test code = 10 % 431) % Eos (test code = 432) 4 % % Baso (test code = 437) 1 % # Neutros (test code = 5.41 See_Comment [Aut omated message] 670) The system Szl generated this result transmitted ref erence range: 1.80 - 8 .00 K/L. The refe rence range was not u sed to interpret this result as normal/abnor mal. # Lymphs (test code = 2.97 See_Comment [Auto mated message] 414) The system Szl generated this result transmitted ref erence range: 1.48 - 4 .50 K/L. The refe rence range was not u sed to interpret this result as normal/abnor mal. # Monos (test code = 0.94 See_Comment [Autom ated message] 415) The system Szl generated this result transmitted ref erence range: 0.00 - 1 .30 K/L. The refe rence range was not u sed to interpret this result as normal/abnor mal. # Eos (test code = 416) 0.39 See_Comment [Au tomated message] The system Szl generated this result transmitted ref erence range: 0.00 - 0 .50 K/L. The refe rence range was not u sed to interpret this result as normal/abnor mal. # Baso (test code = 417) 0.05 See_Comment [A utomated message] The system Szl generated this result transmitted ref erence range: 0.00 - 0 .20 K/L. The refe rence range was not u sed to interpret this result as normal/abnor mal. Immature 0 % 0-0 Granulocytes-Relative (test code = 2801) Lab Interpretation (test Abnormal code = 04921-2) [facility] W/PLT COUNT & AUTO [id number] 12:45:00 Test Item Value Reference Range Interpretation Comments WHITE BLOOD CELL COUNT (BEAKER) 9.8 K/ L 4.0-10.0 (test code = 775) RED BLOOD CELL COUNT (BEAKER) 5.13 M/ L 4.00-5.00 H (test code = 761) HEMOGLOBIN (BEAKER) (test code = 14.3 GM/DL 12.0-15.5 410) HEMATOCRIT (BEAKER) (test code = 45.0 % 36.0-46.0 411) MEAN CORPUSCULAR VOLUME (BEAKER) 87.7 fL 82.0-99.0 (test code = 753) MEAN CORPUSCULAR HEMOGLOBIN 27.9 pg 27.0-33.0 (BEAKER) (test code = 751) MEAN CORPUSCULAR HEMOGLOBIN CONC 31.8 GM/DL 32.0-36.0 L (BEAKER) (test code = 752) RED CELL DISTRIBUTION WIDTH 14.0 % 12.0-15.0 (BEAKER) (test code = 412) PLATELET COUNT (BEAKER) (test 285 K/CU MM 150-430 code = 756) MEAN PLATELET VOLUME (BEAKER) 10.8 fL 6.0-11.5 (test code = 754) NUCLEATED RED BLOOD CELLS 0 /100 WBC 0-0 (BEAKER) (test code = 413) NEUTROPHILS RELATIVE PERCENT 55 % (BEAKER) (test code = 429) LYMPHOCYTES RELATIVE PERCENT 30 % (BEAKER) (test code = 430) MONOCYTES RELATIVE PERCENT 10 % (BEAKER) (test code = 431) EOSINOPHILS RELATIVE PERCENT 4 % (BEAKER) (test code = 432) BASOPHILS RELATIVE PERCENT 1 % (BEAKER) (test code = 437) NEUTROPHILS ABSOLUTE COUNT 5.41 K/ L 1.80-8.00 (BEAKER) (test code = 670) LYMPHOCYTES ABSOLUTE COUNT 2.97 K/ L 1.48-4.50 (BEAKER) (test code = 414) MONOCYTES ABSOLUTE COUNT (BEAKER) 0.94 K/ L 0.00-1.30 (test code = 415) EOSINOPHILS ABSOLUTE COUNT 0.39 K/ L 0.00-0.50 (BEAKER) (test code = 416) BASOPHILS ABSOLUTE COUNT (BEAKER) 0.05 K/ L 0.00-0.20 (test code = 417) IMMATURE GRANULOCYTES-RELATIVE 0 % 0-0 PERCENT (BEAKER) (test code = 2801) BLOOD [id number] 01:00:00 Test Item Value Reference Range Interpretation Comments CULTURE (BEAKER) (test No growth in 5 days code = 1095) BLOOD [id number] 01:00:00 Test Item Value Reference Range Interpretation Comments CULTURE (BEAKER) (test No growth in 5 days code = 1095) POCT-GLUCOSE [id number] 11:28:00 Test Item Value Reference Range Interpretation Comments POC-GLUCOSE METER 229 mg/dL 70-110 H TESTED AT [facility] [address] (BEAKER) (test code [facility] = 1538) [place] [address] POCT-GLUCOSE [id number] 05:09:00 Test Item Value Reference Range Interpretation Comments POC-GLUCOSE METER 258 mg/dL 70-110 H TESTED AT [facility] [address] (BEAKER) (test code [facility] = 1538) [place] [address] BASIC METABOLIC [id number] 04:37:00 Test Item Value Reference Range Interpretation Comments SODIUM (BEAKER) 134 meq/L 135-148 L (test code = 381) POTASSIUM (BEAKER) 4.2 meq/L 3.5-5.5 Specimen slightly (test code = 379) hemolyzed CHLORIDE (BEAKER) 107 meq/L 98-106 H (test code = 382) CO2 (BEAKER) (test 19 meq/L 20-31 L code = 355) BLOOD UREA NITROGEN 9 mg/dL 10-26 L (BEAKER) (test code = 354) CREATININE (BEAKER) 0.71 mg/dL 0.50-1.20 Specimen slightly (test code = 358) hemolyzed GLUCOSE RANDOM 260 mg/dL 70-110 H (BEAKER) (test code = 652) CALCIUM (BEAKER) 9.0 mg/dL 8.5-10.5 (test code = 697) EGFR (BEAKER) (test 82 mL/min/1.73 ESTIMA KAREN GFR IS code = 1092) sq m NOT ACCURATE CREATININE CLEARANCE IN PREDICTING GLOMERULAR FILTRATION RATE . ESTIMATED GFR I S NOT APPLICABLE FOR DIALYSIS PATIEN TS. POCT-GLUCOSE [id number] 20:47:00 Test Item Value Reference Range Interpretation Comments POC-GLUCOSE METER 205 mg/dL 70-110 H TESTED AT [facility] [address] (BEAKER) (test code [facility] = 1538) [place] [address] POCT-GLUCOSE [id number] 16:43:00 Test Item Value Reference Range Interpretation Comments POC-GLUCOSE METER 193 mg/dL 70-110 H TESTED AT [facility] [address] ([facility]) (test code [facility] = 1538) [place] [address] POCT-GLUCOSE [id number] 11:38:00 Test Item Value Reference Range Interpretation Comments POC-GLUCOSE METER 198 mg/dL 70-110 H TESTED AT [facility] [address] ([facility]) (test code [facility] = 1538) [place] [address] RAD, CHEST, 1 VIEW, NON [id number] 11:13:00Reason for exam:->SOBShould this be performed at the bedside?->YesFINAL REPORT Chest, AP view. History: Shortness of breath. Comparison: 09/19/2016. Discussion: The cardiomediastinal silhouette and pulmonary vasculature are within normal limits. The lungs are clear without evidence of consolidation or effusion. There are no acute osseous abnormalities. The soft tissues are unremarkable. IMPRESSION: No acute cardiopulmonary abnormality. Signed: Joanie Sandoval MDReport Verified Date/Time: 01/06/2019 11:13:43 Reading Location: [address] Ortho Consult Reading Room POCT-GLUCOSE [id number] 05:58:00 Test Item Value Reference Range Interpretation Comments POC-GLUCOSE METER 177 mg/dL 70-110 H TESTED AT [facility] [address] ([facility]) (test code [facility] = 1538) [place] [address] RAD, HAND, 3 VIEWS, [id number] 20:51:00Reason for exam:->ABSCESSFINAL REPORT RAD, HAND, 3 VIEWS, LEFT CLINICAL HISTORY:ABSCESS TECHNIQUE: RAD, HAND, 3 VIEWS, LEFT COMPARISON: None. Dorsal soft tissue swelling. No subcutaneous gas or organized soft tissue collection identified. Degenerative changes of the first carpometacarpal joint. Ossification distal to the ulnar styloid likely degenerative or remote posttraumatic in origin. Triquetral irregularity suggests remote injury but is nonspecific. Osseous alignment is normal. There are degenerative changes of the first digit DIP joint. No acute osseous fracture. IMPRESSION: Dorsal soft tissue swelling. No radiographic evidence of subcutaneous gas or convincing evidence of osteomyelitis. Consider correlation with MRI with and without IV contrast for more sensitive detection of osteomyelitis. Additional findings discussed above. Signed: Jeferson Mike MDReport Verified Date/Time: 01/05/2019 20:51:30 REHENSIVE METABOLIC [id number] 20:05:00 Test Item Value Reference Range Interpretation Comments TOTAL PROTEIN 6.5 gm/dL 6.0-8.5 (BEAKER) (test code = 770) ALBUMIN (BEAKER) 3.7 g/dL 3.5-5.0 (test code = 1145) ALKALINE PHOSPHATASE 120 U/L 30-115 H (BEAKER) (test code = 346) BILIRUBIN TOTAL 0.5 mg/dL 0.1-1.3 (BEAKER) (test code = 377) SODIUM (BEAKER) (test 139 meq/L 135-148 code = 381) POTASSIUM (BEAKER) 3.5 meq/L 3.5-5.5 (test code = 379) CHLORIDE (BEAKER) 107 meq/L 98-106 H (test code = 382) CO2 (BEAKER) (test 24 meq/L 20-31 code = 355) BLOOD UREA NITROGEN 15 mg/dL 10-26 (BEAKER) (test code = 354) CREATININE (BEAKER) 0.76 mg/dL 0.50-1.20 (test code = 358) GLUCOSE RANDOM 164 mg/dL 70-110 H (BEAKER) (test code = 652) CALCIUM (BEAKER) 9.3 mg/dL 8.5-10.5 (test code = 697) AST (SGOT) (BEAKER) 38 U/L 5-40 (test code = 353) ALT (SGPT) (BEAKER) 42 U/L 6-50 (test code = 347) EGFR (BEAKER) (test 75 mL/min/1.73 ESTIMA KAREN GFR IS code = 1092) sq m NOT ACCURATE CREATININE CLEARANCE IN PREDICTING GLOMERULAR FILTRATION RATE . ESTIMATED GFR I S NOT APPLICABLE FOR DIALYSIS PATIEN TS. CREATINE KINASE (CK)2019-01-05 20:05:00 Test Item Value Reference Range Interpretation Comments CREATINE KINASE TOTAL (BEAKER) (test 265 U/L 29-168 H code = 380) CBC W/PLT COUNT & AUTO [id number] 19:38:00 Test Item Value Reference Range Interpretation Comments WHITE BLOOD CELL COUNT 9.6 K/ L 4.0-10.0 (BEAKER) (test code = 775) RED BLOOD CELL COUNT 4.83 M/ L 4.00-5.00 (BEAKER) (test code = 761) HEMOGLOBIN (BEAKER) 13.7 GM/DL 12.0-15.5 (test code = 410) HEMATOCRIT (BEAKER) 42.7 % 36.0-46.0 (test code = 411) MEAN CORPUSCULAR VOLUME 88.4 fL 82.0-99.0 (BEAKER) (test code = 753) MEAN CORPUSCULAR 28.4 pg 27.0-33.0 HEMOGLOBIN (BEAKER) (test code = 751) MEAN CORPUSCULAR 32.1 GM/DL 32.0-36.0 HEMOGLOBIN CONC (BEAKER) (test code = 752) RED CELL DISTRIBUTION 13.1 % 12.0-15.0 WIDTH (BEAKER) (test code = 412) PLATELET COUNT (BEAKER) 348 K/CU MM 150-430 (test code = 756) MEAN PLATELET VOLUME 10.2 fL 6.0-11.5 MPV-Boogie roximately (BEAKER) (test code = 20% po sitive bias 754) due to method change. NUCLEATED RED BLOOD 0 /100 WBC 0-0 CELLS (BEAKER) (test code = 413) NEUTROPHILS RELATIVE 54 % PERCENT (BEAKER) (test code = 429) LYMPHOCYTES RELATIVE 32 % PERCENT (BEAKER) (test code = 430) MONOCYTES RELATIVE 8 % PERCENT (BEAKER) (test code = 431) EOSINOPHILS RELATIVE 6 % PERCENT (BEAKER) (test code = 432) BASOPHILS RELATIVE 1 % PERCENT (BEAKER) (test code = 437) NEUTROPHILS ABSOLUTE 5.13 K/ L 1.80-8.00 COUNT (BEAKER) (test code = 670) LYMPHOCYTES ABSOLUTE 3.03 K/ L 1.48-4.50 COUNT (BEAKER) (test code = 414) MONOCYTES ABSOLUTE 0.72 K/ L 0.00-1.30 COUNT (BEAKER) (test code = 415) EOSINOPHILS ABSOLUTE 0.56 K/ L 0.00-0.50 H COUNT (BEAKER) (test code = 416) BASOPHILS ABSOLUTE 0.05 K/ L 0.00-0.20 COUNT (BEAKER) (test code = 417) IMMATURE 1 % 0-0 H GRANULOCYTES-RELATIVE PERCENT (BEAKER) (test code = 2801) BLOOD [id number] 10:00:00 Test Item Value Reference Range Interpretation Comments CULTURE (BEAKER) (test No growth in 5 days code = 1095) SPUTUM CULTURE + GRAM [id number] 11:15:00 Test Item Value Reference Range Interpretation Comments CULTURE (BEAKER) 2+ Normal respiratory (test code = 1095) mer present GRAM STAIN RESULT 4+ White blood cells (BEAKER) (test code = seen 1123) GRAM STAIN RESULT 0-5 epithelial cells (BEAKER) (test code = 46835) GRAM STAIN RESULT No organisms seen (BEAKER) (test code = 10719) POCT-GLUCOSE [id number] 05:40:00 Test Item Value Reference Range Interpretation Comments POC-GLUCOSE METER 236 mg/dL 70-110 H TESTED AT [facility] [address] (BEAKER) (test code [facility] = 1538) [place] [address] CBC W/PLT COUNT & AUTO [id number] 03:54:00 Test Item Value Reference Range Interpretation Comments WHITE BLOOD CELL COUNT (BEAKER) 11.2 K/ L 4.0-10.0 H (test code = 775) RED BLOOD CELL COUNT (BEAKER) 4.63 M/ L 4.00-5.00 (test code = 761) HEMOGLOBIN (BEAKER) (test code = 13.3 GM/DL 12.0-15.0 410) HEMATOCRIT (BEAKER) (test code = 40.5 % 36.0-45.0 411) MEAN CORPUSCULAR VOLUME (BEAKER) 87.4 fL 82.0-99.0 (test code = 753) MEAN CORPUSCULAR HEMOGLOBIN 28.7 pg 27.0-33.0 (BEAKER) (test code = 751) MEAN CORPUSCULAR HEMOGLOBIN CONC 32.9 GM/DL 32.0-36.0 (BEAKER) (test code = 752) RED CELL DISTRIBUTION WIDTH 13.8 % 12.0-15.0 (BEAKER) (test code = 412) PLATELET COUNT (BEAKER) (test 327 K/CU MM 150-430 code = 756) MEAN PLATELET VOLUME (BEAKER) 7.6 fL 6.5-10.5 (test code = 754) NUCLEATED RED BLOOD CELLS 0 /100 WBC 0-0 (BEAKER) (test code = 413) NEUTROPHILS RELATIVE PERCENT 76 % (BEAKER) (test code = 429) LYMPHOCYTES RELATIVE PERCENT 15 % (BEAKER) (test code = 430) MONOCYTES RELATIVE PERCENT 8 % (BEAKER) (test code = 431) EOSINOPHILS RELATIVE PERCENT 0 % (BEAKER) (test code = 432) BASOPHILS RELATIVE PERCENT 0 % (BEAKER) (test code = 437) NEUTROPHILS ABSOLUTE COUNT 8.50 K/ L 1.80-8.00 H (BEAKER) (test code = 670) LYMPHOCYTES ABSOLUTE COUNT 1.70 K/ L 1.48-4.50 (BEAKER) (test code = 414) MONOCYTES ABSOLUTE COUNT (BEAKER) 0.90 K/ L 0.00-1.30 (test code = 415) EOSINOPHILS ABSOLUTE COUNT 0.00 K/ L 0.00-0.50 (BEAKER) (test code = 416) BASOPHILS ABSOLUTE COUNT (BEAKER) 0.00 K/ L 0.00-0.20 (test code = 417) POCT-GLUCOSE [id number] 20:20:00 Test Item Value Reference Range Interpretation Comments POC-GLUCOSE METER 311 mg/dL 70-110 H Notified R Neil JHA/TESTED AT (BEAKER) (test code [facility] [address] [facility] = 1538) [facility] [place] [address] POCT-GLUCOSE [id number] 16:03:00 Test Item Value Reference Range Interpretation Comments POC-GLUCOSE METER 247 mg/dL 70-110 H TESTED AT [facility] [address] (BEAKER) (test code [facility] = 1538) [place] [address] BLOOD [id number] 16:00:00 Test Item Value Reference Range Interpretation Comments CULTURE (BEAKER) (test No growth in 5 days code = 1095) BLOOD [id number] 16:00:00 Test Item Value Reference Range Interpretation Comments CULTURE (BEAKER) (test No growth in 5 days code = 1095) POCT-GLUCOSE [id number] 11:59:00 Test Item Value Reference Range Interpretation Comments POC-GLUCOSE METER 118 mg/dL 70-110 H TESTED AT [facility] [address] (BEAKER) (test code [facility] = 1538) [place] [address] POCT-GLUCOSE [id number] 06:11:00 Test Item Value Reference Range Interpretation Comments POC-GLUCOSE METER 152 mg/dL 70-110 H TESTED AT [facility] [address] (BEAKER) (test code [facility] = 1538) [place] [address] POCT-GLUCOSE [id number] 20:49:00 Test Item Value Reference Range Interpretation Comments POC-GLUCOSE METER 207 mg/dL 70-110 H TESTED AT [facility] [address] (BEAKER) (test code [facility] = 1538) [place] [address] POCT-GLUCOSE [id number] 16:49:00 Test Item Value Reference Range Interpretation Comments POC-GLUCOSE METER 221 mg/dL 70-110 H TESTED AT [facility] [address] (BEAKER) (test code [facility] = 1538) [place] [address] POCT-GLUCOSE [id number] 11:47:00 Test Item Value Reference Range Interpretation Comments POC-GLUCOSE METER 172 mg/dL 70-110 H TESTED AT [facility] [address] (BEAKER) (test code [facility] = 1538) [place] [address] BASIC METABOLIC [id number] 05:37:00 Test Item Value Reference Range Interpretation Comments SODIUM (BEAKER) 140 meq/L 135-148 (test code = 381) POTASSIUM (BEAKER) 3.8 meq/L 3.5-5.5 (test code = 379) CHLORIDE (BEAKER) 103 meq/L 98-106 (test code = 382) CO2 (BEAKER) (test 23 meq/L 20-31 code = 355) BLOOD UREA NITROGEN 15 mg/dL 10-26 (BEAKER) (test code = 354) CREATININE (BEAKER) 0.70 mg/dL 0.50-1.20 (test code = 358) GLUCOSE RANDOM 85 mg/dL 70-110 (BEAKER) (test code = 652) CALCIUM (BEAKER) 9.7 mg/dL 8.5-10.5 (test code = 697) EGFR (BEAKER) (test 83 mL/min/1.73 ESTIMA KAREN GFR IS code = 1092) sq m NOT ACCURATE CREATININE CLEARANCE IN PREDICTING GLOMERULAR FILTRATION RATE . ESTIMATED GFR I S NOT APPLICABLE FOR DIALYSIS PATIEN TS. CBC W/PLT COUNT & AUTO [id number] 05:26:00 Test Item Value Reference Range Interpretation Comments WHITE BLOOD CELL COUNT (BEAKER) 12.0 K/ L 4.0-10.0 H (test code = 775) RED BLOOD CELL COUNT (BEAKER) 4.81 M/ L 4.00-5.00 (test code = 761) HEMOGLOBIN (BEAKER) (test code = 13.8 GM/DL 12.0-15.0 410) HEMATOCRIT (BEAKER) (test code = 42.0 % 36.0-45.0 411) MEAN CORPUSCULAR VOLUME (BEAKER) 87.3 fL 82.0-99.0 (test code = 753) MEAN CORPUSCULAR HEMOGLOBIN 28.8 pg 27.0-33.0 (BEAKER) (test code = 751) MEAN CORPUSCULAR HEMOGLOBIN CONC 33.0 GM/DL 32.0-36.0 (BEAKER) (test code = 752) RED CELL DISTRIBUTION WIDTH 13.9 % 12.0-15.0 (BEAKER) (test code = 412) PLATELET COUNT (BEAKER) (test 312 K/CU MM 150-430 code = 756) MEAN PLATELET VOLUME (BEAKER) 7.9 fL 6.5-10.5 (test code = 754) NUCLEATED RED BLOOD CELLS 0 /100 WBC 0-0 (BEAKER) (test code = 413) NEUTROPHILS RELATIVE PERCENT 66 % (BEAKER) (test code = 429) LYMPHOCYTES RELATIVE PERCENT 22 % (BEAKER) (test code = 430) MONOCYTES RELATIVE PERCENT 9 % (BEAKER) (test code = 431) EOSINOPHILS RELATIVE PERCENT 2 % (BEAKER) (test code = 432) BASOPHILS RELATIVE PERCENT 1 % (BEAKER) (test code = 437) NEUTROPHILS ABSOLUTE COUNT 7.90 K/ L 1.80-8.00 (BEAKER) (test code = 670) LYMPHOCYTES ABSOLUTE COUNT 2.60 K/ L 1.48-4.50 (BEAKER) (test code = 414) MONOCYTES ABSOLUTE COUNT (BEAKER) 1.10 K/ L 0.00-1.30 (test code = 415) EOSINOPHILS ABSOLUTE COUNT 0.30 K/ L 0.00-0.50 (BEAKER) (test code = 416) BASOPHILS ABSOLUTE COUNT (BEAKER) 0.10 K/ L 0.00-0.20 (test code = 417) POCT-GLUCOSE [id number] 12:06:00 Test Item Value Reference Range Interpretation Comments POC-GLUCOSE METER 226 mg/dL 70-110 H TESTED AT [facility] [address] [facility] (test code [facility] = 1538) [place] [address] POCT-GLUCOSE [id number] 07:36:00 Test Item Value Reference Range Interpretation Comments POC-GLUCOSE METER 116 mg/dL 70-110 H TESTED AT [facility] [address] ([facility]) (test code [facility] = 1538) [place] [address] POCT-GLUCOSE [id number] 20:56:00 Test Item Value Reference Range Interpretation Comments POC-GLUCOSE METER 233 mg/dL 70-110 H TESTED AT [place] [address] ([facility]) (test code [employer] [facility] = 1538) [place] [address] POCT-GLUCOSE [id number] 16:24:00 Test Item Value Reference Range Interpretation Comments POC-GLUCOSE METER 152 mg/dL 70-110 H TESTED AT [facility] [address] ([facility]) (test code [employer] [facility] = 1538) [place] [address] POCT-GLUCOSE [id number] 11:46:00 Test Item Value Reference Range Interpretation Comments POC-GLUCOSE METER 171 mg/dL 70-110 H TESTED AT [facility] [address] [facility] (test code [employer] [facility] = 1538) [place] [address] POCT-GLUCOSE [id number] 07:01:00 Test Item Value Reference Range Interpretation Comments POC-GLUCOSE METER 130 mg/dL 70-110 H TESTED AT [facility] [address] [facility] (test code [employer] [facility] = 1538) [place] [address] HEMOGLOBIN [id number] 06:05:00 Test Item Value Reference Range Interpretation Comments HEMOGLOBIN A1C ([facility]) (test code = 7.6 % 4.3-6.1 H 368) CBC W/PLT COUNT & AUTO [id number] 05:31:00 Test Item Value Reference Range Interpretation Comments WHITE BLOOD CELL COUNT (BEAKER) 7.2 K/ L 4.0-10.0 (test code = 775) RED BLOOD CELL COUNT (BEAKER) 4.50 M/ L 4.00-5.00 (test code = 761) HEMOGLOBIN (BEAKER) (test code = 13.1 GM/DL 12.0-15.0 410) HEMATOCRIT (BEAKER) (test code = 39.7 % 36.0-45.0 411) MEAN CORPUSCULAR VOLUME (BEAKER) 88.2 fL 82.0-99.0 (test code = 753) MEAN CORPUSCULAR HEMOGLOBIN 29.1 pg 27.0-33.0 (BEAKER) (test code = 751) MEAN CORPUSCULAR HEMOGLOBIN CONC 33.0 GM/DL 32.0-36.0 (BEAKER) (test code = 752) RED CELL DISTRIBUTION WIDTH 13.9 % 12.0-15.0 (BEAKER) (test code = 412) PLATELET COUNT (BEAKER) (test 202 K/CU MM 150-430 code = 756) MEAN PLATELET VOLUME (BEAKER) 8.8 fL 6.5-10.5 (test code = 754) NUCLEATED RED BLOOD CELLS 0 /100 WBC 0-0 (BEAKER) (test code = 413) NEUTROPHILS RELATIVE PERCENT 65 % (BEAKER) (test code = 429) LYMPHOCYTES RELATIVE PERCENT 24 % (BEAKER) (test code = 430) MONOCYTES RELATIVE PERCENT 9 % (BEAKER) (test code = 431) EOSINOPHILS RELATIVE PERCENT 2 % (BEAKER) (test code = 432) BASOPHILS RELATIVE PERCENT 0 % (BEAKER) (test code = 437) NEUTROPHILS ABSOLUTE COUNT 4.70 K/ L 1.80-8.00 (BEAKER) (test code = 670) LYMPHOCYTES ABSOLUTE COUNT 1.70 K/ L 1.48-4.50 (BEAKER) (test code = 414) MONOCYTES ABSOLUTE COUNT (BEAKER) 0.70 K/ L 0.00-1.30 (test code = 415) EOSINOPHILS ABSOLUTE COUNT 0.10 K/ L 0.00-0.50 (BEAKER) (test code = 416) BASOPHILS ABSOLUTE COUNT (BEAKER) 0.00 K/ L 0.00-0.20 (test code = 417) POCT-GLUCOSE [id number] 22:05:00 Test Item Value Reference Range Interpretation Comments POC-GLUCOSE METER 198 mg/dL 70-110 H TESTED AT [facility] [id number] (BEAKER) (test code [facility] = 1538) [place] [address] SEDIMENTATION [id number] 18:04:00 Test Item Value Reference Range Interpretation Comments SEDIMENTATION RATE, ERYTHROCYTE 47 mm/HR 0-40 H (BEAKER) (test code = 766) POCT-GLUCOSE [id number] 17:48:00 Test Item Value Reference Range Interpretation Comments POC-GLUCOSE METER 131 mg/dL 70-110 H TESTED AT [facility] [id number] (BEAKER) (test code [facility] = 1538) [place] [address] COMPREHENSIVE METABOLIC [id number] 14:48:00 Test Item Value Reference Range Interpretation Comments TOTAL PROTEIN 7.2 gm/dL 6.0-8.5 Specimen sligh tly (BEAKER) (test code = hemoly zed 770) ALBUMIN (BEAKER) 3.7 g/dL 3.5-5.0 Specimen sl ightly (test code = 1145) hemolyzed ALKALINE PHOSPHATASE 80 U/L 30-115 (BEAKER) (test code = 346) BILIRUBIN TOTAL 0.4 mg/dL 0.1-1.3 Specimen sli ghtly (BEAKER) (test code = hemoly zed 377) SODIUM (BEAKER) (test 136 meq/L 135-148 code = 381) POTASSIUM (BEAKER) 4.6 meq/L 3.5-5.5 Specimen slightly (test code = 379) hemolyzed CHLORIDE (BEAKER) 103 meq/L 98-106 (test code = 382) CO2 (BEAKER) (test 23 meq/L 20-31 code = 355) BLOOD UREA NITROGEN 13 mg/dL 10-26 (BEAKER) (test code = 354) CREATININE (BEAKER) 0.82 mg/dL 0.50-1.20 Specimen slightly (test code = 358) hemolyzed GLUCOSE RANDOM 153 mg/dL 70-110 H (BEAKER) (test code = 652) CALCIUM (BEAKER) 9.6 mg/dL 8.5-10.5 (test code = 697) AST (SGOT) (BEAKER) 38 U/L 5-40 Specimen slightly (test code = 353) hemolyzed ALT (SGPT) (BEAKER) 43 U/L 6-50 Specimen slightly (test code = 347) hemolyzed EGFR (BEAKER) (test 70 mL/min/1.73 ESTIMA KAREN GFR IS code = 1092) sq m NOT ACCURATE CREATININE CLEARANCE IN PREDICTING GLOMERULAR FILTRATION RATE . ESTIMATED GFR I S NOT APPLICABLE FOR DIALYSIS PATIEN TS. CBC W/PLT COUNT & AUTO [id number] 14:33:00 Test Item Value Reference Range Interpretation Comments WHITE BLOOD CELL COUNT (BEAKER) 10.8 K/ L 4.0-10.0 H (test code = 775) RED BLOOD CELL COUNT (BEAKER) 4.80 M/ L 4.00-5.00 (test code = 761) HEMOGLOBIN (BEAKER) (test code = 13.9 GM/DL 12.0-15.0 410) HEMATOCRIT (BEAKER) (test code = 42.4 % 36.0-45.0 411) MEAN CORPUSCULAR VOLUME (BEAKER) 88.3 fL 82.0-99.0 (test code = 753) MEAN CORPUSCULAR HEMOGLOBIN 29.0 pg 27.0-33.0 (BEAKER) (test code = 751) MEAN CORPUSCULAR HEMOGLOBIN CONC 32.8 GM/DL 32.0-36.0 (BEAKER) (test code = 752) RED CELL DISTRIBUTION WIDTH 14.4 % 12.0-15.0 (BEAKER) (test code = 412) PLATELET COUNT (BEAKER) (test 215 K/CU MM 150-430 code = 756) MEAN PLATELET VOLUME (BEAKER) 9.1 fL 6.5-10.5 (test code = 754) NUCLEATED RED BLOOD CELLS 0 /100 WBC 0-0 (BEAKER) (test code = 413) NEUTROPHILS RELATIVE PERCENT 80 % (BEAKER) (test code = 429) LYMPHOCYTES RELATIVE PERCENT 14 % (BEAKER) (test code = 430) MONOCYTES RELATIVE PERCENT 6 % (BEAKER) (test code = 431) EOSINOPHILS RELATIVE PERCENT 1 % (BEAKER) (test code = 432) BASOPHILS RELATIVE PERCENT 0 % (BEAKER) (test code = 437) NEUTROPHILS ABSOLUTE COUNT 8.60 K/ L 1.80-8.00 H (BEAKER) (test code = 670) LYMPHOCYTES ABSOLUTE COUNT 1.50 K/ L 1.48-4.50 (BEAKER) (test code = 414) MONOCYTES ABSOLUTE COUNT (BEAKER) 0.60 K/ L 0.00-1.30 (test code = 415) EOSINOPHILS ABSOLUTE COUNT 0.00 K/ L 0.00-0.50 (BEAKER) (test code = 416) BASOPHILS ABSOLUTE COUNT (BEAKER) 0.00 K/ L 0.00-0.20 (test code = 417)
--- NOTE | 2023-04-07 15:52 | RAD REPORT ---
EXAM DESCRIPTION: MARTIR VINSON - 04/07/2023 3:32 pm CLINICAL HISTORY: Pain;Swelling COMPARISON: No comparisons TECHNIQUE: Left hand, 3 views. FINDINGS: No fracture is identified. There is no dislocation or periosteal reaction noted. Joint alignment is maintained with moderate deg enerative changes at the thumb base. Pronounced soft tissue swelling about the dorsum of the hand and knuckles. IMPRESSION: No acute osseus abnormality. Moderate degenerative changes at the thumb base. Soft tissu e swelling as above.
[2023-04-07 15:54] LABS: Absolute Lymphocytes (CBC) 2.2 K/uL (0.7-4.9); Hematocrit 42.8 % (36.0-45.0); Lymphocytes % 25.2 % (15.3-44.8); MCV 82.4 fL (80-100); MPV 8.9 fL (7.6-11.3); Platelets 308 thou/uL (152-406)
[2023-04-07] MEDS ORDERED: CIPROFLOXACIN 400mg IV 400 MG/200 ML BAG IV ONE (15:57)
[2023-04-07 16:11] LABS: Albumin 3.1 g/dL (3.4-5.0); Bilirubin Total 0.4 mg/dL (0.2-1.0); Potassium 4.1 mEq/L (3.5-5.1); Protein, Total 6.8 g/dL (6.4-8.2)
--- NOTE | 2023-04-07 16:22 | ER ---
Nurse's Notes [facility] Name: Shara Perdomo Age: 72 yrs Sex: Female : 1950 Arrival Date: 04/07/2023 Time: 14:52 Bed 7 Private MD: Diagnosis: Cellulitis of the left hand Presentation: 04/07 15:01 Chief complaint: Patient states: "Last night, I got stung by a [place] catfish on my mb9 left hand. It's red, irritated, and swollen. I am allergic to it". Coronavirus screen: At this time, the client does not indicate any symptoms associated with coronavirus-19. Ebola Screen: No symptoms or risks identified at this time. Initial Sepsis Screen: Does the patient meet any 2 criteria? No. Patient's initial sepsis screen is negative. Does the patient have a suspected source of infection? No. Patient's initial sepsis screen is negative. Risk Assessment: Do you want to hurt yourself or someone else? Patient reports no desire to harm self or others. Onset of symptoms was April 07, 2023. 15:01 Method Of Arrival: Ambulatory 9 15:01 Acuity: SAMIRA 3 mb9 Triage Assessment: 15:08 General: Appears in no apparent distress. Behavior is calm, cooperative. Pain: mb9 Complains of pain in left hand. Derm: Skin is pink, warm \\T\\ dry. Musculoskeletal: Range of motion: intact in all extremities, Swelling present in left hand. Historical: - Allergies: 15:04 No Known Allergies; mb9 - Home Meds: 15:06 Insulin: Regular Sub-Q [Active]; Xarelto oral [Active]; Aspirin Oral [Active]; mb9 - PMHx: 15:04 Diabetes mellitus; mb9 15:05 Rheumatoid arthritis; mb9 - PSHx: 15:05 Cholecystectomy; Tonsillectomy; section; Total abdominal hysterectomy; Spinal mb9 fusion; 15:06 [place] [address]; mb9 - Immunization history:: Adult Immunizations up to date. - Social history:: Smoking status: Patient denies any tobacco usage or history of. Screenin:01 [facility] ED Fall Risk Assessment (Adult) History of falling in the last 3 months, rs5 including since admission No falls in past 3 months (0 pts) Confusion or Disorientation No (0 pts) Intoxicated or Sedated No (0 pts) Impaired Gait No (0 pts) Mobility Assist Device Used No (0 pt) Altered Elimination No (0 pt) Score/Fall Risk Level 0 - 2 = Low Risk Oriented to surroundings, Maintained a safe environment. 15:01 Abuse screen: Denies threats or abuse. Nutritional screening: No deficits noted. rs5 Tuberculosis screening: No symptoms or risk factors identified. Assessment: 15:05 General: Appears in no apparent distress. comfortable, Behavior is calm, cooperative. rs5 Pain: Complains of pain in left hand Pain does not radiate. Pain currently is 3 out of 10 on a pain scale. Quality of pain is described as burning, aching, Pain began 2 hours ago. Neuro: Level of Consciousness is awake, alert, obeys commands, Oriented to person, place, time, situation. Cardiovascular: Heart tones S1 S2 present Patient's skin is warm and dry. Rhythm is regular. Respiratory: Airway is patent Respiratory effort is even, unlabored, Respiratory pattern is regular, symmetrical, Breath sounds are clear bilaterally. GI: Abdomen is round non-distended, Bowel sounds present X 4 quads. Abd is soft and non tender X 4 quads. : No signs and/or symptoms were reported regarding the genitourinary system. EENT: No signs and/or symptoms were reported regarding the EENT system. Derm: Skin is intact, Skin is pink, warm \\T\\ dry. Musculoskeletal: Range of motion: intact in all extremities, limited in left hand Left hand red, swollen. 15:49 Reassessment: No changes from previously documented assessment. rs5 15:49 Reassessment: Pt up for discharge, awaiting antibiotic to be finished. Reassessment: rs5 Patient and/or family updated on plan of care and expected duration. Pain level reassessed. Patient is alert, oriented x 3, equal unlabored respirations, skin warm/dry/pink. Vital Signs: 15:01 BP 140 / 77; Pulse 100; Resp 18; Temp 98.2; Pulse Ox 96% on R/A; Weight 99.79 kg; mb9 Height 5 ft. 5 in. ; 15:01 Body Mass Index 36.61 (99.79 kg, 165.1 cm) mb9 ED Course: 14:58 Patient arrived in ED. ts1 14:59 Jackie Branch [facility]NP [facility] 14:59 Aryan Merino MD is Attending Physician. [facility] 15:01 Patient has correct armband on for positive identification. Placed in gown. Bed in low rs5 position. Side rails up X2. 15:04 Triage completed. mb9 15:08 Arm band placed on. 9 15:34 XRAY Hand LEFT 3 View In Process Unspecified. EDMS 15:37 Glenn Choi, RN is Primary Nurse. rs5 Administered Medications: 15:47 Drug: Ciprofloxacin IVPB 400 mg 200 ml IVPB once over 60 mins Volume: 200 ml; Route: rs5 IVPB; Infused Over: 60 mins; Site: left forearm; 16:31 Not Given (Patient Refused; Pt denies painn): [id number] mg IVP once rs5 Outcome: 16:22 Discharge ordered by . [facility] 17:25 Patient left the ED. aa5 Signatures: Dispatcher [employer] EDSD Santa Rothman RN RN aa5 Jackie Branch FNP INSTRUCTIONAL ASSISTANT [facility] Dora Blackman RN RN mb9 Glenn Choi, RN RN rs5 Dea Lam, PAS PAS ts1 Corrections: (The following items were deleted from the chart) 15:06 15:01 Pulse 100bpm; Resp 18bpm; Pulse Ox 96% RA; Temp 98.2F; mb9 mb9
--- NOTE | 2023-04-07 16:23 | EDPHYS ---
Physician Documentation [facility] Name: Shara Perdomo Age: 72 yrs Sex: Female : 1950 Arrival Date: 04/07/2023 Time: 14:52 Bed 7 Private MD: ED Physician Aryan Merino HPI: 04/07 15:04 This 72 yrs old Female presents to ER via Ambulatory with complaints of Stung by a fish.jh7 15:04 Onset: The symptoms/episode began/occurred last night. Associated signs and symptoms: jh7 Pertinent positives: redness, swelling, Pertinent negatives: fever. 72-year-old female reports that she was stung by a hardheaded catfish last night at [place]. Complains of left hand swelling and redness. Reports that she is allergic to these kind of catfish. History of rheumatoid arthritis and diabetes.. Historical: - Allergies: 15:04 No Known Allergies; mb9 - Home Meds: 15:06 Insulin: Regular Sub-Q [Active]; Xarelto oral [Active]; Aspirin Oral [Active]; mb9 - PMHx: 15:04 Diabetes mellitus; mb9 15:05 Rheumatoid arthritis; mb9 - PSHx: 15:05 Cholecystectomy; Tonsillectomy; section; Total abdominal hysterectomy; Spinal mb9 fusion; 15:06 [place] [address]; mb9 - Immunization history:: Adult Immunizations up to date. - Social history:: Smoking status: Patient denies any tobacco usage or history of. ROS: 15:05 Constitutional: Negative for fever, chills, and weight loss, Eyes: Negative for injury, jh7 pain, redness, and discharge, Neck: Negative for injury, pain, and swelling, Cardiovascular: Negative for chest pain, palpitations, and edema, Respiratory: Negative for shortness of breath, cough, wheezing, and pleuritic chest pain, Back: Negative for injury and pain, Skin: Negative for injury, rash, and discoloration, Neuro: Negative for headache, weakness, numbness, tingling, and seizure, 15:05 MS/extremity: Positive for injury or acute deformity, erythema, pain, swelling, tenderness, of the left hand, 15:05 All other systems are negative, Exam: 15:05 Constitutional: This is a well developed, well nourished patient who is awake, alert, [facility] and in no acute distress. Head/Face: Normocephalic, atraumatic. Cardiovascular: Regular rate and rhythm with a normal S1 and S2. No gallops, murmurs, or rubs. Normal PMI, no JVD. No pulse deficits. Respiratory: Lungs have equal breath sounds bilaterally, clear to auscultation and percussion. No rales, rhonchi or wheezes noted. No increased work of breathing, no retractions or nasal flaring. Back: No spinal tenderness. No costovertebral tenderness. Full range of motion. 15:05 Neuro: Awake and alert, GCS 15, oriented to person, place, time, and situation. Motor strength 5/5 in all extremities. Sensory grossly intact. Normal gait. 15:05 Musculoskeletal/extremity: Extremities: noted in the left hand: erythema, pain, swelling, tenderness, Swelling and erythema noted over the dorsum of the hand and third digit. The hand is hot to the touch., ROM: intact in all extremities, Circulation is intact in all extremities. Pulses: are normal with no appreciated deficits, Perfusion: the extremity is normally perfused throughout, Sensation intact. 15:05 Skin: cellulitis, that is moderate, on the left hand, Vital Signs: 15:01 BP 140 / 77; Pulse 100; Resp 18; Temp 98.2; Pulse Ox 96% on R/A; Weight 99.79 kg; 9 Height 5 ft. 5 in. ; 15:01 Body Mass Index 36.61 (99.79 kg, 165.1 cm) [facility] MDM: 14:59 Patient medically screened. [facility] 16:25 Differential diagnosis: Cellulitis, puncture wound, allergic reaction. Data reviewed: [facility] vital signs, nurses notes, lab test result(s), radiologic studies, plain films. I considered the following discharge prescriptions or medication management in the emergency department Medications were administered in the Emergency Department. See MAR. Independent interpretation of the following test(s) in the Emergency Department X-Ray: My interpretation is no FB seen on x-ray. Care significantly affected by the following chronic conditions: Diabetes. Counseling: I had a detailed discussion with the patient and/or guardian regarding the historical points, exam findings, and any diagnostic results supporting the discharge/admit diagnosis, to return to the emergency department if symptoms worsen or persist or if there are any questions or concerns that arise at home. Response to treatment: the patient's symptoms have mildly improved after treatment. ED course: Inform the patient that we would give her a dose of IV antibiotics here, and prescribe her oral antibiotics to take at home. Strict return precautions given if she develops a fever or redness and swelling spreads. Advised to elevate the affected extremity and apply warm compresses at home.. 04/07 15:09 Order name: CBC with Diff; Complete Time: 16:20 [facility] 04/07 15:09 Order name: CMP; Complete Time: 16: [facility] 04/07 15: Order name: Lactate w/ 2H reflex if indic.; Complete Time: 16: [facility] 04/07 15:09 Order name: XRAY Hand LEFT 3 View; Complete Time: 15:53 [facility] Administered Medications: 15:47 Drug: Ciprofloxacin IVPB 400 mg 200 ml IVPB once over 60 mins Volume: 200 ml; Route: rs5 IVPB; Infused Over: 60 mins; Site: left forearm; 16:31 Not Given (Patient Refused; Pt denies painn): [id number] mg IVP once rs5 Disposition: 20:11 Co-signature as Attending Physician, Aryan Merino MD I reviewed the patient's care rt provided by the Advanced Practice Provider and agree with the diagnosis and treatment plan. Disposition Summary: 04/07/23 16:22 Discharge Ordered Notes: Location: Home [facility] Problem: new [facility] Symptoms: are unchanged [facility] Condition: Stable [facility] Diagnosis - Cellulitis of the left hand [facility] Followup: [facility] - With: Private Physician - When: 2 - 3 days - Reason: Recheck today's complaints Discharge Instructions: - Discharge Summary Sheet [facility] - Cellulitis, Adult [facility] Forms: - Medication Reconciliation Form [facility] - Thank You Letter [facility] - Antibiotic Education [facility] - Patient Portal Instructions [facility] - Leadership Thank You Letter [facility] Prescriptions: - Naprosyn 500 mg Oral Tablet - take 1 tablet ORAL route 2 times per day take with food; 30 tablet; Refills: 0, [facility] Product Selection Permitted - Doxycycline Monohydrate 100 mg Oral Tablet - take 1 tablet ORAL route every 12 hours for 10 days; 20 tablet; Refills: 0, [facility] Product Selection Permitted Signatures: Dispatcher [employer] Jackie Trammell FNP FNP [facility] Dora Blackman, RN RN mb9 Aryan Merino MD MD rt Glenn Choi, JOSÉ RN rs5
[2023-04-07] MEDS ORDERED: KETOROLAC 30 MG/ML INJ ONE ×2 (16:43→17:11)
[2023-04-07 17:35] VITALS: BP 140/77; TEMP 98.2; O2SAT 96
== END 2023-04-07 17:25 | disposition home or self-care (01) ==
LOC: ER 14:52
DX: L03.114 Cellulitis of left upper limb (principal); E11.9 Type 2 diabetes mellitus without complications; Z79.4 Long term (current) use of insulin; Z79.01 Long term (current) use of anticoagulants; Z79.82 Long term (current) use of aspirin
CPT/HCPCS: 85025; 36415; 83605; 80053; 73130; 96374; 99283; J0744

== ENCOUNTER 2023-04-08 12:20 | Emergency (ER) | payer OTHER ==
--- OUTSIDE RECORDS SUMMARY | 2023-04-08 12:32 | XMS REPORT | Continuity of Care Document ---
:1950 Author Organization [facility] t Address [address] [facility]. [address] [place] [address] Support Name Relationship Address Phone MAY VILLEDA P [address] [phone] [place] [id number] JANET VILLEDA E [address] [place] [id number] Unavailable E [address] Unavailable [place] [id number] Unavailable Unavailable Unavailable Unavailable MD ANGEL KIKO Emergency Provider [address] [facility] [place] [address] PHYSICIAN, NO Primary Care Physician Unavailable Unavailab CLAIRE Cohen Unavailable [address] [place] Unavailable [place] [id number] VINAY TONEY Unavailable UNK [phone] [place] [address] CHRISTIANA MAY Unavailable [address] [place] [phone] [place] [id number] JANET VILLEDA Unavailable [address] [place] [phone] [place] [id number] JANET VILLEDA T Unavailable Unavailable CHRISTIANA CASANDRA SP [address] [place] [id number] NOT OBTAINED Unavailable Unavailable Unavailable MAY VILLEDA SP [address] [place] [id number] MAY VILLEDA SP [address] [place] [id number] NONE, NONE OT [address] [place] [id number] MAY VILLEDA SP [address] [place] [id number] Care Team Providers Name Role Phone Asked, No Pcp Primary Care Physician Unavailable JOAO JIMÉNEZ Attending Clinician Unavailable BEATRIS GUNTER Attending Clinician Unavailable Kush Levy Attending Clinician Unavailable Ginny Attending Clinician Unavailable Delfino Villareal Attending Clinician Unavailable Peter JHA, [facility] Re Attending Clinician Willem Rogers MA Attending Clinician Unavailable Astrid JHA, Erasto Attending Clinician Leon Castillo MD Attending Clinician [phone] Nic KUMAR, Dea Attending Clinician Unavailable Cheyanne Do MD Attending Clinician Stalin Attending Clinician Unavailable LAKESHIA PICKARD Attending Clinician Unavailable LYNETTE HENDERSON Attending Clinician Unavailable KATLYN POWELL Attending Clinician Unavailable Sang KUMAR, Erma Huizar Attending Clinician Unavailable Jenna Ramirez MD Attending Clinician Heide Rosas Attending Clinician [phone] Layla Attending Clinician Unavailable NOLAN MANLEY Attending Clinician Unavailable BARBARA CHAVEZ Attending Clinician Unavailable ALICE CONTE Attending Clinician Unavailable JENNA RAMIREZ Attending Clinician Unavailable CALEB WOLFE Attending Clinician Unavailable JOAO JIMÉNEZ Attending Clinician Unavailable RAKAN ESCOBAR Attending Clinician Unavailable EMEKA VILLANUEVA Attending Clinician Unavailable MIRNA SHIPLEY Attending Clinician Unavailable JES GORDON Attending Clinician Unavailable Heide Ngo NP Attending Clinician Unavailable DEL WASHINGTON Attending Clinician Unavailable Del Washington MD Attending Clinician Ryann Dixon Attending Clinician Unavailable JENNY BENÍTEZ Attending Clinician Unavailable LICHA MAYBERRY Attending Clinician Unavailable CHEYANNE DO Attending Clinician Unavailable NISHANT VASQUEZ Attending Clinician Unavail able DA DIAZ Attending Clinician Unavailable ALICE ELLIS Attending Clinician Unavailable WISAM ANTONY Attending Clinician Unavailable Natasha Solares Admitting Clinician Unavailable Ginny Admitting Clinician Unavailable LEON CASTILLO Admitting Clinician Unavailable Stalin Admitting Clinician Unavailable Layla Admitting Clinician Unavailable BARBARA CHAVEZ Admitting Clinician Unavailable DIANA PAULSON Admitting Clinician Unavailable MIRNA SHIPLEY Admitting Clinician Unavailable JES GORDON Admitting Clinician Unavailable JENNY BENÍTEZ Admitting Clinician Unavailable BRANDEN BRAY Admitting Clinician Unavailable ARCHANA CASILLAS Admitting Clinician Unavailable Payers Payer Name Policy Type Policy Number Effective Date Expiration Date S [facility] [id number] (MEDICARE REPLACEMENT/ADVANTA GE - PPO) [employer] MEDICARE ADV [id number] 2016 00:00:00 Problems Condition Condition Condition Status Onset Resolution Last Treating Co mments Source Name Details Category Date Date Treatment Clinician Date Lumbosacra Lumbosacra Problem Active V illage l l 8-24 Family radiculopa Radiculopa 00:00: Pr actic thy thy 00 e Abnormal Abnormal Disease [facility] test test 00[facility] Medical 00 Center Morbid Morbid Problem Active [facility] obesity Obesity 6-22 Family 00:00: Practic 00 e Gastroesop Gastroesop Problem Active V illage hageal hageal 6-22 Family reflux Reflux 00:00: Practic disease Disease 00 e without without esophagiti Esophagiti s s Flare of Flare of Problem Active [facility] rheumatoid Rheumatoid 6-22 Fa [facility] arthritis Arthritis 00:00: Prac tic 00 e Pain of Pain of Problem Active [facility] left Left 6-22 Family shoulder Shoulder 00:00: Practi c joint Joint 00 e Obstructiv Obstructiv Problem Active V illage e sleep e Sleep 5-18 Family apnea of Apnea of 00:00: Practi c adult Adult 00 e Varicose Varicose Problem Active [facility] veins of Veins of 5-18 Family lower Lower 00:00: Practic extremity Extremity 00 e Memory Memory Problem Active [facility] impairment Impairment 5-18 Fa kaela 00:00: Practic 00 e Long-term Long-term Problem Active Sonu renny current Current 5-18 Family use of Use of 00:00: Practic benzodiaze Benzodiaze 00 e [place] Rheumatoid Rheumatoid Disease Active Overview : Methodi arthritis arthritis - Formattin s t of of 00:00: g of this Hospita multiple multiple 00 note l sites sites might be without without different rheumatoid rheumatoid from the factor factor original. DX 2011Pa Tx:MTXHum iraOrenci aCimzia LyoRinvoq Remicade 07/2022- [id number] /13/23: Last dose of Remicade 02/16/23 and [...] Encounter Disease Active Overview: Methodi for for 10-[address] long-term long-term 00:00: g of [...] b, increasin g dose to 10mg/kg iV [id number] e PDS 20-30mgTr amadolCon tinue Inflixima bLabs stable, continue with infusion Generalize Generalize Problem Active V illage d anxiety d Anxiety 3-27 Fami ly disorder Disorder 00:00: Practi c 00 e Edema of Edema of Problem Active [place] ge lower Lower 3-27 Family extremity Extremity 00:00: Prac tic 00 e Secondary Secondary Problem Active Sonu lawson immune Immune 07-14 Family deficiency Deficiency 00:00: Pr actic disorder Disorder 00 e Degenerati Degenerati Problem Active V illage ve joint ve Joint 07-14 Family disease Disease 00:00: Practic involving Involving 00 e multiple Multiple joints Joints 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 type 2 Type 2 00:00: Practic diabetes Diabetes 00 e mellitus Mellitus Blood Blood Problem Active [facility] coagulatio Coagulatio 05 [facility] n disorder n Disorder 00:00: Pr actic 00 e Arterioscl Arterioscl Problem Active 2021-06 V illage erosis of erosis of - Fami ly coronary Coronary 00:00: Practi c artery Artery 00 e bypass Bypass graft Graft Pulmonary Pulmonary Problem Active 2021-06 Sonu lawson embolism Embolism 2-12 Family 00:00: Practic 00 e Deep Deep Problem Active 2021-06 [facility] venous Venous 2-12 Family thrombosis Thrombosis 00:00: Pr actic of lower of Lower 00 e extremity Extremity Primary Primary Problem Active 2021-06 [facility] biliary Biliary 2-12 Family cholangiti Cholangiti 00:00: Pr actic s s 00 e Rheumatoid Rheumatoid Problem Active 2021-06 V illage arthritis Arthritis 2-12 Fami ly 00:00: Practic 00 e Musculoske Musculoske Problem Active 2021-06 V illage letal pain letal Pain 2-12 [facility] 00:00: Practic 00 e Rib pain Rib Pain Problem Active 2021-06 [place] ge 2-12 Family 00:00: Practic 00 e 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 2-12 [facility] osis osis 00:00: Practic 00 e Nonalcohol Nonalcohol Problem Active 2021-06 V illage ic ic 2-12 Family steatohepa Steatohepa 00:00: Pr actic titis titis 00 e Hyperlipid Hyperlipid Problem Active 2021-06 V illage emia due emia Due 2-12 Family to type 2 to Type 2 [...] Disease Active Met hodi knee knee 07-28 replacemen replacemen 00:00: Ho spita t t [...] Hospita disease of disease of 00 l [place] coronary coronary artery artery without without angina angina pectoris pectoris Hx of CABG Hx of CABG Disease Recurre Overvie w: Methodi nce [address] 00:00: g of this Hospita 00 note l might be different from the original. 2020 NEAL NEAL Disease Active Last [facility] (nonalcoho (nonalcoho 1-05 [facility] lic lic 00:00: t & Plan: Medical steatohepa steatohepa 00 Formattin Center titclement) bryan) g of this note might be different from the original. She has biopsy-pr oven NEAL that was diagnosed in [...] [facility]men [facility] 00:00: t & Plan: Medical [address] [place] [address] g of this note might be different from the original. She has history of a positive M2 antobody, so [...] pain pain 00:00: t & Plan: Medical [address] [place] [address] g of this note might be different from the original. She has a history of RUQ dating back to 2006. 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 Last [...] some studies have shown benefial effect for NEAL. Weight is 234 pounds, height is 5'5" and BMI is 39. She is advised that she should be on a weight loss diet with a goal weight of 210 to begin, but salvage determiner ideal weight would be in the 140's. She should employ either a restricte d carbohydr ate or restricte d calorie diet with routine exercise. Weekly weight loss should be about 1-2 pounds. The weight loss would benefit not only her liver health, but her overall health. Hyperlipid Hyperlipid Disease Recurre [facility] St emia emia [facility] Restless Restless Disease Recurre [facility] legs legs [facility] syndrome syndrome Medica l (RLS) (RLS) Center DM type 2 DM type 2 Disease Recurre Overview: [facility] (diabetes (diabetes nce Formattin L ukes mellitus, mellitus, g of this M edical type 2) type 2) note Center might be different from the original. Luisa.priya ann a1c 3 months ago. Obesity, Obesity, Disease Recurre Last [facility] morbid, morbid, [facility] BMI t & Plan: Medical 40.0-49.9 40.0-49.9 Formattin C enter g of this note might be different from the original. Body mass index is 41.27 kg/m2. Morbid obesity increases her risk for NEAL.. We discussed the importanc e of weight loss with a low carbohydr ate, high protein diet. She will try to find a structure d weight loss program in her area. No known No known Disease Metho di active active st problems problems Hospit a l Allergies, Adverse Reactions, Alerts Allergy Allergy Status Severity Reaction(s) Onset Inactive Treating Comm ents Source Name Type Date Date Clinician Amoxicil Propensi Active Itching [facility] oleg-Pot ty to 02-02 [facility] Clavulan adverse 00:00: Medical ate reaction 00 Center s Diphenhy Propensi Active Other (See Makes my [facility] dramine ty to Comments) 02-02 leg go [facility] Hcl adverse 00:00: crazy Medical reaction 00 Center s Chocolat Propensi Active Other (See Skin [facility] e Flavor ty to Comments) 02-02 breakout Dangelo es adverse 00:00: Medical reaction 00 Center s AMOXICIL Allergy Active Itching [facility] OLEG-POT 02-02 [facility] CLAVULAN 00:00: Medical ATE 00 Center DIPHENHY Allergy Active Other [facility] DRAMINE 02-02 [facility] HCL 00:00: Medical 00 Center CHOCOLAT Allergy Active Other [facility] E FLAVOR 817 [facility] 00:00: Medical 00 Center Hydroxyc Propensi Active Other (See unknown M ethodi hloroqui ty to Comments) 3 st ne adverse 00:00: Hospita reaction 00 l s to drug Diphenhy Propensi Active Other (See RLS Me thodi dramine ty to Comments) 07-[address] Hcl adverse 00:00: Hospita reaction 00 l s to drug Losartan Propensi Active Other (See RLS Me thodi ty to Comments) [address] adverse 00:00: Hospita reaction 00 l s to drug Oxycodon Propensi Active Itching 2018-06 [facility] e-Acetam ty to 2 [facility] inophen adverse 00:00: Medical reaction 00 Center s OXYCODON Allergy Active Itching 2018-06 [facility] E-ACETAM - INOPHEN 00:00: 00 Codeine Propensi Active Itching 2016-06 Method i ty to 08-09 st adverse 00:00: Hospita reaction 00 l s to drug Ibuprofe Propensi Active Other (See "makes my Methodi n ty to Comments) 09-[address] adverse 00:00: crazy" Hospita reaction 00 l s to drug Ibuprofe Drug Active Other (See "makes my [facility] n Intolera Comments) 09-14 legs go Luke s nce 00:00: crazy" [...] Center CLINDAMY Allergy Active High Diarrhea 2015-06 [facility] ZEFERINO 07-15 00:00: 00 Iodine Propensi Active Other Methodi ty to 8-18 reaction( st adverse 00:00: s): Hospita reaction [...] Active Other Method i n ty to 8-18 reaction( st adverse 00:00: s): Info Hospita reaction 00 Not l s to Available drug Hydrocod Propensi Active Other Method i one-Acet ty to 8-18 reaction( st aminophe adverse 00:00: s): rash Hospi ta n reaction 00 l s to drug MORPHINE Allergy Active Med Hives 2014-06 [facility] 08-04 00:00: 00 Iodine Propensi Active Itching 2014-06 [...] Active Hives, 2014-[address] [facility] Allergy Itching 2-16 [facility] 00:00: Medical 00 Center IODINE Allergy Active Med Itching 2014-06 [facility] AND 2-16 IODIDE 00:00: CONTAINI 00 NG PRODUCTS Iodine Propensi Active Itching 2014-06 Methodi And ty to 16 st Iodide adverse 00:00: Hospita Containi reaction 00 l ng s to Products drug CEFTRIAX Allergy Active Itching [facility] ONE 02-15 00:00: 00 Ceftriax Propensi Active Itching Tolerates [facility] one ty to 02-15 keflex [facility] adverse 00:00: Medical reaction 00 Center s CONJUGAT Allergy Active Low [facility] ED 406 ESTROGEN 00:00: S 00 SULFA Allergy Active Low [facility] (SULFONA 09-22 MIDE 00:00: ANTIBIOT 00 ICS) CODEINE Allergy Active Low Itching [facility] 406 00:00: 00 Conjugat Propensi Active Other Method i ed ty to 09-22 reaction( st Estrogen adverse 00:00: s): Hospita s reaction 00 headaches l s to Migraine drug Prometha Propensi Active Restless Meth doug zine ty to 09-[address] adverse 00:00: syndrome. Hospit a reaction 00 Can take l s to if mixed drug with another medicatio nOther reaction( s): rls PROMETHA Allergy Active Low Other [facility] ZINE 06 00:00: 00 Codeine Drug Active Itching Headache. [facility] t Intolera 06 Can take [facility]ukes nce 00:00: small Medical 00 amounts Center Prometha Drug Active Other (See Restless [facility] zine Intolera Comments) 09-22 leg [facility] nce 00:00: syndrome. Medical 00 Can take Center if mixed with another medicatio n Conjugat Drug Active Migraine [facility] ed Intolera 06 [facility] Estrogen nce 00:00: Medical s 00 Center Sulfa Propensi Active Caused [facility] (Sulfona ty to 4-06 URI? [facility]ukes mide adverse 00:00: Medical Antibiot reaction 00 Center ics) s Sulfa Propensi Active Mild Caused [facility] (Sulfona ty to 4-06 URI? [facility] mide adverse 00:00: Medical Antibiot reaction 00 Center ics) s Ceftriax Propensi Active Itching Metho di one ty to 01-05 st Sodium adverse 00:00: Hospita reaction 00 l s to drug Lisinopr Propensi Active 2008-06 Other Method i il ty to 0-13 reaction( st adverse 00:00: s): Hospita reaction 00 itching l s to drug Penicill Propensi Active Rash Method i ins ty to 12-19 st adverse 00:00: Hospita reaction 00 l s to drug Amoxicil Propensi Active Rash Congestio Met hodi oleg-Pot ty to 12-[address] Clavulan adverse 00:00: Hospita ate reaction 00 l s to drug Penicill Propensi Active Rash Method i ins ty to 12-19 st adverse 00:00: Hospita reaction 00 l s to drug AUGMENTI DA Active U 2003-0 [facility] N 02-19 [place] 00:00: [address] MORPHINE DA Active U 2003-0 [facility] 02-19 [place] 00:00: [address] No Known DA Active U 2003-0 [facility] Contrast 02-19 [place] Allergie 00:00: [address] No Known DA Active U 2003-0 [facility] Food 02-19 [place] Allergie 00:00: [address] No Known DA Active U 2003-0 [facility] Other 02-19 [place] Allergie 00:00: [address] Mold Allergy Active Anaphylaxis, Sonu renny to Respiratory Famil y substanc distress Practi c e e SULFA Allergy Active Respiratory Vill age (SULFONA to distress Family MIDE substanc Practic ANTIBIOT e e ICS) Hydroxyc Allergy Active Itching Villag e hloroqui to Family ne substanc Practic e e Benadryl Allergy Active Other Village to Family substanc Practic e e CIGARETT Allergy Active Other Village E SMOKE to Family substanc Practic e e INSECT Allergy Active Anaphylaxis, Sonu renny VENOM to Other, Family substanc Respiratory Pra ctic e distress e Iodine Allergy Active Itching Village to Family substanc Practic e e Family History Family Member Diagnosis Comments Start Date Stop Date Source Natural father Arthritis [facility] Natural father Diabetes [facility] Natural father Liver disease [facility] Natural father Alcohol abuse [facility] Natural father Diabetes [facility] Natural father Liver disease [facility] Natural mother Blood Clots [facility] mother Heart disease [facility] Natural mother Pulmonary embolism [facility] Natural sister Heart disease [facility] Natural sister Liver disease [facility] Social History Social Habit Start Date Stop Date Quantity Comments Source Sexual orientation [facility] History of Social 2023-03-22 2023-03-[address] function 00:00:00 00:00:00 Hospital Alcohol intake 2023-02-08 2023-02-08 Current drinker EVELIN Feliciano 00:00:00 00:00:00 of alcohol [facility] ([facility]) Alcohol Comment 2023-02-02 2023-02-02 rarely [facility] 00:00:00 00:00:00 [facility] Tobacco use and 2021-08-03 2021-08-03 Smokeless Protestant exposure 00:00:00 00:00:00 tobacco non-user Hospital Tobacco Comment 2021-08-03 2021-08-03 None [facility] 00:00:00 00:00:00 [facility] Sex Ass[birth year] [facility] 00:00:00 00:00:00 [facility] Center Smoking Status Start Date Stop Date Source Never smoked tobacco [facility] Medications Ordered Filled Start Stop Current Ordering Indication Dosage Frequency Signature Comments Components Source Medication Medication Date Date Medication? Clinician (SIG) Name Name gabapentin 2022-06- No 300mg QD Take 1 Met hodi (NEURONTIN) 0-04 10-[address] 300 mg 11:00: 00:00 (300 mg Hospita capsule 36 :00 total) by l mouth daily. gabapentin 2022-06 No 300mg QD Take 1 Met hodi (NEURONTIN) 0-04 10-[address] 300 mg 11:00: 00:00 (300 [...] Hospit a 11 14 l (fourteen) days. insulin 2022-06 Yes 40U Q.5D Inject 40 [...] tablet 10:32: mouth Hospita 01 nightly. l calcium-mag 2022-06 Yes Take by Met hodi [...] mg 00 nightly. l tablet extended release gabapentin 2022-06 Yes 600mg QD Take 600 Me thodi enacarbil 0-[address] (Horizant) 00:00: mouth Hospit a 600 mg 00 nightly. l tablet extended release acetaminoph 3-0 3- No 650mg Q8H Take 650 Methodi en ER 9-13 09-[address] (TYLENOL) 11:27: 00:00 mouth Hospit a 650 MG 8 hr 04 :00 every 8 l tablet (eight) hours as needed for mild pain. acetaminoph 3-0 2023- No 650mg Q8H Take 650 Methodi en ER 9-13 09-[address] (TYLENOL) 11:27: 00:00 mouth Hospit a 650 MG 8 hr 04 :00 every 8 l tablet (eight) hours as needed for mild pain. clonAZEPAM 2023-0 2023- No .5mg Take 0.5 Me thodi (KlonoPIN) 9-13 09-[address] 0.5 MG 11:26: 00:00 mouth. Hospita tablet 48 :00 l clonAZEPAM 2023-0 2023- No .5mg Take 0.5 Me thodi (KlonoPIN) 9-13 09-[address] 0.5 MG 11:26: 00:00 mouth. Hospita tablet 48 :00 l colchicine 3-0 2023- No .6mg QD Take 0.6 Me thodi 0.6 mg -13 09-[address] tablet 11:26: 00:00 mouth Hospita 39 :00 daily. l colchicine 2022- No .6mg QD Take 0.6 Me thodi 0.6 mg 9-13 09-[address] tablet 11:26: 00:00 mouth Hospita 39 :00 daily. l traMADoL 2022- [place] [id number] 50mg Q6H Take 1 Metho di (ULTRAM) 50 03-01-13 tablet (50 s t mg tablet 11:26: 00:00 mg total) Ho spita 28 :00 by mouth l every 6 (six) hours as needed for moderate [place] [id number] 50mg Q6H Take 1 Metho di (ULTRAM) 50 -01 03-13 tablet (50 s t mg tablet 11:26: 00:00 mg total) Ho spita 28 :00 by mouth l every 6 (six) hours as needed for moderate pain .acute pain. predniSONE Yes [id number] 20mg QD Take 2 Methodi (DELTASONE) 9-[address] 10 mg 00:00: (20 mg Hospita tablet 00 total) by l mouth daily. Take 2 tabs daily x 3 days then 1 tab daily predniSONE Yes [id number] 20mg QD Take 2 Methodi (DELTASONE) 9-[address] 10 mg 00:00: (20 mg Hospita tablet 00 total) by l mouth daily. Take 2 tabs daily x 3 days then 1 tab daily metformin metformin No 2 BID metformin Village ER 500 mg ER 500 mg 02-17 ER 500 mg Family 24 hr 24 [...] Village ER 500 mg ER 500 mg 02-17 ER 500 mg Family 24 hr 24 hr 00:00: 24 hr Practic tablet,exte tablet,exte 00 tablet,ext e nded nded ended release release release Take 2 Take 2 Take 2 tablets tablets tablets twice a day twice a day twice a by oral by oral day by route for route for oral route 90 days. 90 days. for 90 days. metformin metformin 2022-0 No 2 BID metformin Village ER 500 mg ER 500 mg 02-17 ER 500 mg Family 24 hr 24 hr 00:00: 24 hr Practic tablet,exte tablet,exte 00 tablet,ext e nded nded ended release release release Take 2 Take 2 Take 2 tablets tablets tablets twice a day twice a day twice a by oral by oral day by route for route for oral route 90 days. 90 days. for 90 days. calcium-mag 2022-0 Yes 3{tbl} QD Take [address] nesium-zinc 8-23 tablets by Debbie kes Tab 10:17: mouth Medical 47 nightly. Center rivaroxaban 2022-0 Yes 20mg Take [address] (XARELTO) 8-23 tablets [facility] 10 mg Tab 10:17: (20 mg Medica l tablet 47 total) by Center mouth daily with dinner. aspirin 81 2022-0 Yes 81mg QD Take 1 [facility] t MG EC 8-23 tablet (81 [facility] tablet 10:17: mg total) Medica l 47 by mouth Center nightly. metFORMIN 2022-0 Yes 1000mg Take [address] (GLUCOPHAGE 8-23 tablets [facility] ) 500 MG 10:17: (1,000 mg Medi josue tablet 47 total) by Center mouth 2 (two) times daily with breakfast and dinner. clonazePAM 2022-0 Yes .5mg Take 1 [facility] (KlonoPIN) 8-23 tablet [facility] 0.5 MG 10:17: (0.5 mg Medical tablet 47 total) by Center mouth every night as needed (for restless leg). solifenacin 3-0 Yes 5mg QD Take 0.[address] (VESIcare) 8-23 tablets (5 Dangelo es 10 MG 10:17: mg total) Medical tablet 47 by mouth Center daily. insulin 2022-0 Yes 40U Q.5D Inject 40 [facility] t glargine 8-23 Units [facility] (Basaglar 10:17: subcutaneo Me dical KwikPen 47 usly 2 Center U-100 (two) Insulin) times 100 unit/mL daily. (3 mL) InPn pramipexole 2022-0 Yes 3mg QD Take [address] (MIRAPEX) 1 8-23 tablets (3 Debbie kes MG tablet 10:17: mg total) Med ical 47 by mouth Center nightly. predniSONE 2022-0 Yes 20mg Take 2 [facility] 10 MG 10:17: (20 mg Medical tablet 47 total) by Center mouth daily as needed (RA pain). modafiniL 2022-0 Yes 200mg Take 1 [facility] (PROVIGIL[facility] 8-23 tablet [facility] 200 MG 10:17: (200 mg Medical tablet 47 total) by Center mouth as needed. insulin [address] [facility] regular 8-23 subcutaneo [facility] (HumuLIN 10:17: usly Use Medic al R,NovoLIN 47 as Center R) 100 directed unit/mL 30 u prn. injection gabapentin 2022-0 Yes 300mg QD Take [address] [facility] (NEURONTIN) 8-23 capsule [facility] 300 MG 10:17: (300 mg Medical capsule 47 total) by Center mouth nightly. infliximab 0 Yes [facility]ject [facility] (REMICADE 8-23 intravenou [facility] IV) 10:17: sly Every Medical 47 2 months Center infusion. calcium-mag 0 Yes 3{tbl} QD Take [address] [facility] nesium-zinc 8-23 tablets by Debbie kes Tab 10:17: mouth Medical 47 nightly. Center rivaroxaban 2022-0 Yes 20mg Take [address] [facility] (XARELTO) 8-23 tablets [facility] 10 mg Tab 10:17: (20 mg Medica l tablet 47 total) by Center mouth daily with dinner. aspirin 81 2022-0 Yes 81mg QD Take 1 [facility] MG EC 8-23 tablet (81 [facility] tablet 10:17: mg total) Medica l 47 by mouth Center nightly. metFORMIN 2022-0 Yes 1000mg Take [address] [facility] (GLUCOPHAGE 8-23 tablets [facility] ) 500 MG 10:17: (1,000 mg Medi josue tablet 47 total) by Center mouth 2 (two) times daily with breakfast and dinner. clonazePAM 2022-0 Yes .5mg Take 1 [facility] (KlonoPIN) 8-23 tablet [facility] 0.5 MG 10:17: (0.5 mg Medical tablet 47 total) by Center mouth every night as needed (for restless leg). solifenacin 2022-0 Yes 5mg QD Take 0.[address] (VESIcare) 8-23 tablets (5 Dangelo es 10 MG 10:17: mg total) Medical tablet 47 by mouth Center daily. insulin 2022-0 Yes 40U Q.5D Inject 40 [facility] glargine 8-23 Units [facility] (Basaglar 10:17: subcutaneo Me dical KwikPen 47 usly 2 Center U-100 (two) Insulin) times 100 unit/mL daily. (3 mL) InPn pramipexole 0 Yes 3mg QD Take [address] [facility] (MIRAPEX) 1 8-23 tablets (3 Debbie kes MG tablet 10:17: mg total) Med ical 47 by mouth Center nightly. predniSONE 0 Yes 20mg Take 2 [facility] (DELTASONE) 8-23 tablets [facility] 10 MG 10:17: (20 mg Medical tablet 47 total) by Center mouth daily as needed (RA pain). modafiniL 0 Yes 200mg Take 1 [facility] (PROVIGIL) 8- tablet [facility] 200 MG 10:17: (200 mg Medical tablet 47 total) by Center mouth as needed. insulin [address] [facility] regular 8-23 subcutaneo [facility] (HumuLIN 10:17: usly Use Medic al R,NovoLIN 47 as Center R) 100 directed unit/mL 30 u prn. injection gabapentin 2022-0 Yes 300mg QD Take [address] [facility] (NEURONTIN) - capsule [facility] 300 MG 10:17: (300 mg Medical capsule 47 total) by Center mouth nightly. infliximab 0 Yes Inject [facility] (REMICADE 8- intravenou Luke [facility] IV) 10:17: sly Every Medical 47 2 months Center infusion. omega-3 2022-0 2022- No 2g Q.5D Take 2 g [facility] acid ethyl 02-02 08-17 by mouth 2 Debbie kes esters 09:15: 00:00 (two) Medical (LOVAZA) 1 37 :00 times Center gram daily. capsule omega-3 2022- No 2g Q.5D Take 2 g [facility] acid ethyl 02-02 by mouth 2 Debbie kes esters 09:15: 00:00 (two) Medical (LOVAZA) 1 37 :00 times Center gram daily. capsule insulin 2022- No 40U Q.5D Inject [address] [facility] glargine 02-02 08-17 Units [facility] (LANTUS, 09:14: 00:00 subcutaneo Me dical SEMGLEE) 47 :00 usly 2 Center 100 unit/mL (two) injection times daily Use as directed . insulin 2022- No 40U Q.5D Inject [address] [facility] glargine 02-02 08-17 Units [facility] (LANTUS, 09:14: 00:00 subcutaneo Me dical SEMGLEE) 47 :00 usly 2 Center 100 unit/mL (two) injection times daily Use as directed . dapaglifloz 2022- No 10mg QD Take [address] [facility] in 02-02 by mouth [facility] (Farxiga) 09:14: 00:00 daily. Medic al 10 mg 38 :00 Center tablet dapaglifloz 2022- No 10mg QD Take [address] [facility] in 02-02 by mouth [facility] (Farxiga) 09:14: 00:00 daily. Medic al 10 mg 38 :00 Center tablet certolizuma 2022-3- No 2{dose} Inject [address] [facility] b pegol 02-02-17 Doses [facility] (CIMZIA 09:13: 00:00 subcutaneo Med ical SUBQ) 53 :00 usly once Center every 4 weeks. certolizuma 2022-0 3- No 2{dose} Inject [address] [facility] b pegol 02-02-17 Doses [facility] (CIMZIA 09:13: 00:00 subcutaneo Med ical SUBQ) 53 :00 usly once Center every 4 weeks. abatacept 2022-2022- No 125mg Q7D Inject [address] [facility] (ORENCIA 02-02-17 mg [facility] SUBQ) 09:12: 00:00 subcutaneo Medic al 34 :00 usly once Center a week . abatacept 2022- No 125mg Q7D Inject [address] [facility] (ORENCIA 8-17 08-17 mg [facility] SUBQ) 09:12: 00:00 subcutaneo Medic al 34 :00 usly once Center a week . certolizuma 2022- No 200mg Q14D Inject 200 Methodi b pegoL 6-02 06-[address] (CIMZIA) 17:05: 00:00 [facility] mg/2 mL 37 :00 every 14 l (200 mg/mL (fourteen) x 2) days. syringe kit certolizuma 2022- No 200mg Q14D Inject 200 [facility] b pegoL 6-02 06-[address] (CIMZIA) 17:05: 00:00 [facility] mg/2 mL 37 :00 every 14 l (200 mg/mL (fourteen) x 2) days. syringe kit Xarelto 20 Xarelto 20 No Xarelto 20 [facility] mg tablet mg tablet 3-10 mg tablet Family 00:00: 00 e Xarelto 20 Xarelto 20 No Xarelto 20 [facility] mg tablet mg tablet 3-10 mg tablet Family 00:00: 00 e Xarelto 20 Xarelto 20 No [...] 2022- No Take 2 [facility] (DELTASONE) 08-17 tabs daily s t 5 mg tablet 00:00: 00:00 x 3 days H ospita 00 :00 then 1 tab l daily predniSONE 2022- No Take 2 [facility] (DELTASONE) 08-17 tabs daily s t 5 mg tablet 00:00: 00:00 x 3 days H ospita 00 :00 then 1 tab l daily Farxiga 10 Farxiga 10 No 1 Q1D Farxiga 10 [facility] mg tablet mg tablet 1-03 mg tablet Family Take 1 Take 1 00:00: Take 1 Practic tablet tablet 00 tablet e every day every day every day by oral by oral by oral route for route for route for 90 days. 90 days. 90 days. Toni Muñoz No 1 Q1D Toni 10 [facility] mg tablet mg tablet 1-03 mg tablet Family Take 1 Take 1 00:00: Take 1 Practic tablet tablet 00 tablet e every day every day every day by oral by oral by oral route for route for route for 90 days. 90 days. 90 days. Toni Muñoz No 1 Q1D Toni 10 [facility] mg tablet mg tablet 1-03 mg tablet Family Take 1 Take 1 00:00: Take 1 Practic tablet tablet 00 tablet e every day every day every day by oral by oral by oral route for route for route for 90 days. 90 days. 90 days. Toni Muñoz No 1 Q1D Toni 10 [facility] mg tablet mg tablet 1-03 mg tablet Family Take 1 Take 1 00:00: Take 1 Practic tablet tablet 00 tablet e every day every day every day by oral by oral by oral route for route for route for 90 days. 90 days. 90 days. traMADoL 2021-06 Yes 100mg Take [address] [facility] (ULTRAM) 50 1-29 tablets [facility] mg tablet 00:00: (100 mg Medic al 00 total) by Center mouth as needed. traMADoL 2021-06 Yes 100mg Take [address] [facility] (ULTRAM) 50 1-29 tablets [facility] mg tablet 00:00: (100 mg Medic al 00 total) by Center mouth as needed. Xarelto 20 2021-06- No 20mg QD Take [address] [facility] mg tablet 02-02 by mouth [facility] 00:00: 00:00 daily. Medical 00 :00 [place] Xarelto 20 2021-06- No 20mg QD Take [address] [facility] mg tablet 02-02 by mouth [facility] 00:00: 00:00 daily. Medical 00 :00 [place] abatacept 2022- No Q1W Inject Metho di 125 mg/mL 03-[address] auto-inject 00:00: 00:00 skin every Hospita or 00 :00 7 days. l Inject 1 pen injector abatacept 2022- No Q1W Inject Metho di 125 mg/mL 03-[address] auto-inject 00:00: 00:00 skin every Hospita or 00 :00 7 days. l Inject 1 pen injector predniSONE 2021- No 10mg QD Take 1 [facility] (DELTASONE) 02-24 tablet (10 s t 10 mg 00:00: 05:59 mg total) Hospit a tablet 00 :00 by mouth l daily. predniSONE 2021- No 10mg QD Take 1 [facility] (DELTASONE) 02-24 tablet (10 s t 10 mg 00:00: 05:59 mg total) Hospit a tablet 00 :00 by mouth l daily. Farxiga 10 Yes TAKE ONE Met hodi mg tablet 6-[address] 00:00: MOUTH Hospita 00 DAILY l dapaglifloz 2021-0 Yes 10mg QD Take [address] [facility] in 6-28 tablet (10 [facility] propanediol 00:00: mg total) M edical (FARXIGA) 00 by mouth Center 10 mg daily. tablet Farxiga 10 Yes TAKE ONE Met hodi mg tablet 6-[address] 00:00: MOUTH Hospita 00 DAILY l dapaglifloz 2021-0 Yes 10mg QD Take [address] [facility] in 6-28 tablet (10 [facility] propanediol 00:00: mg total) M edical (FARXIGA) 00 by mouth Center 10 mg daily. tablet solifenacin 2022- No 1{tbl} QD Take 1 M ethodi (VESICARE) 11-02- tablet (10 10 MG 00:00: 00:00 mg total) Hospit a tablet 00 :00 by mouth l daily. solifenacin 2021-2022- No 1{tbl} QD Take 1 M ethodi (VESICARE) - 10- tablet (10 st 10 MG 00:00: 00:00 mg total) Hospit a tablet 00 :00 by mouth l daily. aspirin 2020-06- No QD daily. [facility] (ECOTRIN) 07-10 st 325 MG 00:00: 00:00 Hospita enteric 00 :00 l coated tablet aspirin 2020-06- No QD daily. [facility] (ECOTRIN) 07-10 09-13 st 325 MG 00:00: 00:00 Hospita enteric [...] St glargine 1-12 subcutaneo [facility] (BASAGLAR 09:35: [facility] Medical KWIKPEN 52 nightly . Center U-100 [...] St glargine 1-12 subcutaneo [facility] (BASAGLAR 09:35: [facility] Medical KWIKPEN 52 nightly . Center U-100 INSULIN) 100 unit/mL (3 mL) InPn hydrOXYzine 2020- No Itching 25mg Take [address] [facility] (ATARAX) 25 1- 04-12 tablet (25 L ukes MG tablet 00:00: 23:59 mg total) Me dical 00 :00 by mouth Center every 12 (twelve) hours as needed for Itching for up to 90 days. hydrOXYzine 2020- No Itching 25mg Take [address] [facility] (ATARAX) 25 1-12 04-12 tablet (25 L ukes MG tablet 00:00: 23:59 mg total) Me dical 00 :00 by mouth Center every 12 (twelve) hours as needed for Itching for up to 90 days. losartan 2019-06 Yes 50mg QD Take [address] [facility] (COZAAR) 50 2-09 by mouth Luke s MG tablet 00:00: daily . Medic al 00 [place] losartan 2019-06 Yes 50mg QD Take [address] [facility] (COZAAR) 50 2-09 by mouth Luke s MG tablet 00:00: daily . Medic al 00 [place] losartan 2019-06- No 50mg QD Take [address] (COZAAR) 50 2-02 24-17 by mouth Dangelo es MG tablet 00:00: 00:00 daily . Medi josue 00 :00 [place] losartan 2019-06- No 50mg QD Take [address] [facility] (COZAAR) 50 07-28- by mouth Dangelo es MG tablet 00:00: 00:00 daily . Medi josue 00 :00 [place] Trulicity 2019-06 Yes 1.5mg Q7D 0.[address] [address] 1.5 mg/0.5 1-17 (1.5 mg [facility] mL PnIj 00:00: total) Medical 00 once a [place] week Every Monday. Trulicity 2019-06 Yes Q7D once a [facility] 1.5 mg/0.5 -17 week . [facility] mL PnIj 00:00: Medical 00 [place] Trulicity 2019-06 Yes Q7D once a [facility] 1.5 mg/0.5 -17 week . [facility] mL PnIj 00:00: Medical [address] [place] [address] Trulicity 2019-06 Yes 1.5mg Q7D 0.[address] [facility] 1.5 mg/0.5 -17 (1.5 mg [facility] mL PnIj 00:00: total) Medical once a [place] week Every Monday. [facility] 2019-06 Yes 10mg QD Take [address] mg tablet 1-11 by mouth [facility] 00:00: daily . Medical 00 [facility] 2019-06 Yes 10mg QD Take [address] mg tablet 1-11 by mouth [facility] 00:00: daily . Medical [address] [place] [address] Trulicity Trulicity 2019-06 No Trulicity [place] 1.5 mg/0.5 1.5 mg/0.5 -10 1.5 mg/0.5 Family mL mL 00:00: mL Practic subcutaneou subcutaneou 00 subcutaneo e s pen s pen us pen injector injector injector Bel Staples No Basaglar [place] [facility] KweliotPen KwikPen 9-29 KweliotPen Family U-100 U-100 00:00: U-100 Practic Insulin 100 Insulin 100 00 Insulin e unit/mL (3 unit/mL (3 100 mL) mL) unit/mL (3 subcutaneou subcutaneou mL) s s subcutaneo us BD BD No [facility] Ultra-Fine Ultra-Fine 9-29 Ultra-Fine Family Queenie Pen Queenie Pen 00:00: Queenie Pen P ractic Needle 32 Needle 32 00 Needle 32 e gauge x gauge x gauge x /32" " " BD No [facility] Ultra-Fine Ultra-Fine 9-29 Ultra-Fine Family Queenie Pen Queenie Pen 00:00: Queenie Pen P ractic Needle 32 Needle 32 00 Needle 32 e gauge x gauge x gauge x /32" " " BD No [facility] Ultra-Fine Ultra-Fine 9-29 Ultra-Fine Family Queenie Pen Queenie Pen 00:00: Queenie Pen P ractic Needle 32 Needle 32 00 Needle 32 e gauge x gauge x gauge x 32" 32" " BD No [facility] Ultra-Fine Ultra-Fine 9-29 Ultra-Fine Family Queenie Pen Queenie Pen 00:00: Queenie Pen P ractic Needle 32 Needle 32 00 Needle 32 e gauge x gauge x gauge x /32" " " BD No [facility] Ultra-Fine Ultra-Fine 9-29 Ultra-Fine Family Queenie Pen Queenie Pen 00:00: Queenie Pen P ractic Needle 32 Needle 32 00 Needle 32 e gauge x gauge x gauge x 32" " " pramipexole pramipexole No pramipexol [facility] ER 4.5 mg ER 4.5 mg 7-15 e ER 4.5 F amily tablet,exte tablet,exte 00:00: mg Practic nded nded 00 tablet,ext e release 24 release 24 ended hr hr release 24 hr cyclobenzap cyclobenzap No cyclobenza [facility] rine 10 mg rine 10 mg 4-01 anne 10 Family tablet tablet 00:00: mg tablet Prac tic 00 e ibuprofen ibuprofen No ibuprofen [place] 600 mg 600 mg 1-07 600 mg Family tablet tablet 00:00: tablet Practic 00 e promethazin 2018-06 Yes 25mg Take [address] [facility] e 2-24 tablet (25 [facility] (PHENERGAN) 00:00: mg total) M edical 25 MG 00 by mouth Center tablet every 6 (six) hours as needed for Nausea. mupirocin 2018-06 Yes 1{appli Q.[id number] Apply [address] [facility] (BACTROBAN) 2-24 cation} [id number] applicatio [facility] 2 % cream 00:00: 3D n Medical 00 topically Center 3 (three) times daily. promethazin 2018-06 Yes 25mg Take [address] [facility] e 2-24 tablet (25 [facility] (PHENERGAN) 00:00: mg total) M edical 25 MG 00 by mouth Center tablet every 6 (six) hours as needed for Nausea. mupirocin 2018-06 Yes 1{appli Q.[id number] Apply [address] [facility] (BACTROBAN) 2-24 cation} [id number] applicatio [facility] 2 % cream 00:00: 3D n Medical 00 topically Center 3 (three) times daily. promethazin 2018-06- No 25mg Take [address] [facility] e 2-24 08-17 tablet (25 [facility] (PHENERGAN) 00:00: 00:00 mg total) Medical 25 MG 00 :00 by mouth Center tablet every 6 (six) hours as needed for Nausea. mupirocin 2018-06- No 1{appli Q.[id number] Apply [address] [facility] (BACTROBAN) 2-24 08-17 cation} [id number] applicatio [facility] 2 % cream 00:00: 00:00 3D n Medical 00 :00 topically Center 3 (three) times daily. promethazin 2018-06- No 25mg Take [address] [facility] e 2-24 08-17 tablet (25 [facility] (PHENERGAN) 00:00: 00:00 mg total) Medical 25 MG 00 :00 by mouth Center tablet every 6 (six) hours as needed for Nausea. mupirocin 2018-06- No 1{appli Q.[id number] Apply [address] [facility] (BACTROBAN) 2-24 08-17 cation} [id number] applicatio [facility] 2 % cream 00:00: 00:00 3D n Medical 00 :00 topically Center 3 (three) times daily. oxyCODONE-a [...] Center 10-325 mg daily. per tablet oxyCODONE-a 2018-06- No 10mg Q.25D Take [address] [facility] cetaminophe 2-19 08-17 by mouth 4 L ukes n 00:00: 00:00 (four) Medical (PERCOCET) 00 :00 times Center 10-325 mg daily. per tablet oxyCODONE-a 2018-06 No 10mg Q.25D Take [address] cetaminophe 2-19 08-17 by mouth 4 L ukes n 00:00: 00:00 (four) Medical (PERCOCET) 00 :00 times Center 10-325 mg daily. per tablet cholecalcif 2018-06 Yes 400U QD Take 400 Me thodi anaya, 2-[address] vitamin D3, 00:00: mouth Hospi ta 125 mcg 00 daily. l (5,000 unit) tablet cholecalcif 2018-06 Yes 400U QD Take 400 Me thodi anaya, 2-[address] vitamin D3, 00:00: mouth Hospi ta 125 mcg 00 daily. l (5,000 unit) tablet insulin 2018-06 Yes 50U QD Inject 50 [facility] degludec-li 1-04 Units [facility] raglutide 00:00: subcutaneo Me dical (XULTOPHY 00 usly Center 100/3.6) daily. 100 unit-3.6 mg /mL (3 mL) InPn insulin 2018-06 Yes 50U QD Inject 50 [...] Center (18 mg/3 mL) PnIj Novolog Novolog No Novolog Vill age U-100 U-100 3-05 U-100 Family Insulin Insulin 00:00: Insulin Prac tic aspart 100 aspart 100 00 aspart 100 e unit/mL unit/mL unit/mL subcutaneou subcutaneou subcutaneo s solution s solution us solution albuterol Yes 3 ml as [facility] (PROVENTIL) 2-05 needed [facility] 2.5 mg /3 00:00: Medical mL (0.083 00 Center %) nebulizer solution albuterol Yes 3 ml as [facility] (PROVENTIL) 2- needed [facility] 2.5 mg /3 00:00: Medical mL (0.083 00 Center %) nebulizer solution albuterol 2022- No [address] [facility] (PROVENTIL) 07-24 needed [facility] 2.5 mg /3 00:00: 00:00 Medical mL (0.083 00 :00 Center %) nebulizer solution albuterol 2022- No [address] [facility] (PROVENTIL) 07-24 needed [facility] 2.5 mg /3 00:00: 00:00 Medical mL (0.083 00 :00 Center %) nebulizer solution acetaminoph Yes [address] [facility] en-codeine 1-16 as needed Luke s (TYLENOL 00:00: Medical #4) 300-60 00 Center mg per tablet acetaminoph Yes [address] [facility] en-codeine 1-16 as needed Luke s (TYLENOL 00:00: Medical #4) 300-60 00 Center mg per tablet Lyrica 75 Lyrica 75 No Lyrica 75 [facility] mg capsule mg capsule 1-16 mg capsule Family 00:00: Practic 00 e acetaminoph 2022- No [address] en-codeine 1-16 -17 as needed Dangelo es (TYLENOL 00:00: 00:00 Medical #4) 300-60 00 :00 Center mg per tablet acetaminoph 2022- No [address] en-codeine -16 -17 as needed Dagnelo es (TYLENOL 00:00: 00:00 Medical #4) 300-60 00 :00 Center mg per tablet DULAGLUTIDE Yes Inject [facility] (TRULICITY 9-10 [...] Hospita 00 l [facility]-06 n 10 mg Family tablet tablet 00:00: tablet Practic 00 e pramipexole 2016-06 Yes 3mg QD Take 3 mg M ethodi 3 mg tablet 07-[address] extended 00:00: nightly. Hospi ta release 24 00 l hr pramipexole 2016-06 Yes 3mg QD Take 3 mg M ethodi 3 mg tablet 07-[address] extended 00:00: nightly. Hospi ta release 24 00 l hr pramipexole 2016-06 Yes Method i 3 mg tablet -29 st extended 00:00: Hospita release 24 00 l hr ezetimibe 2016-06 Yes [facility] (ZETIA) 10 1-20 st mg tablet 00:00: Hospita 00 l pramipexole 2016-06 Yes 1mg Q.[id number] Take 1 [facility] (MIRAPEX) 1 0-31 [id number] tablet (1 st MG tablet 00:00: 3D mg total) Hos walter 00 by mouth 3 l (three) times a day. pramipexole 2016-06 Yes 1mg Q.[id number] Take 1 [facility] (MIRAPEX) 1 0-31 [id number] tablet (1 st MG tablet 00:00: 3D mg total) Hos walter 00 by mouth 3 l (three) times a day. pramipexole 2016-06 Yes Method i (MIRAPEX) 1 0-31 st MG tablet 00:00: Hospita 00 l LANTUS Yes Methodi SOLOSTAR 9-13 st 100 [...] (0.1 %) 00 Center nasal spray azelastine 2022- No [address] [facility] (ASTELIN) 07-27 each [facility] 137 mcg 00:00: 00:00 nostril Medica l (0.1 %) 00 :00 Center nasal spray azelastine 2022- No [address] [facility] (ASTELIN) 07-27 each [facility] 137 mcg 00:00: 00:00 nostril Medica l (0.1 %) 00 :00 Center nasal spray AZITHROmyci 2015-06 Yes TAKE [...] 100 00:00: Medica l MG capsule 00 [place] benzonatate Yes [address] (TESSALON 1-21 as needed [facility] PERLES) 100 00:00: Medica l MG capsule 00 [place] benzonatate 2022- No [address] [facility] (TESSALON 1-21 08-17 as needed Luke s PERLES) 100 00:00: 00:00 Medic al MG capsule 00 :00 [place] benzonatate 2022- No [address] [facility] (TESSALON 1-21 08-17 as needed Luke s PERLES) 100 00:00: 00:00 Medic al MG capsule 00 :00 [place] pramipexole 2014-06 Yes 3mg QD Take [address] 3 mg Tb24 1-25 by mouth [facility] 00:00: nightly Medical 00 TAKE ONE Center TABLET BY MOUTH DAILY. pramipexole 2014-06 Yes TAKE ONE [facility] 3 mg Tb24 1-25 TABLET BY [facility] 00:00: MOUTH Medical 00 DAILY. [place] pramipexole 2014-06 Yes 3mg QD Take [address] 3 mg Tb24 1-25 by mouth [facility] 00:00: nightly Medical 00 TAKE ONE Center TABLET BY MOUTH DAILY. pramipexole 2014-06 Yes TAKE ONE [facility] 3 mg Tb24 1-25 TABLET BY [facility] 00:00: MOUTH Medical 00 DAILY. [place] Trulicity Trulicity No Trulicity [place] 4.5 mg/0.5 [...] route. Basaglar Basaglar No Basaglar Sonu renny HalePen KweliotPen KweliotPen Family U-100 U-100 U-100 Practic Insulin 100 [...] 7 days. clonazepam clonazepam No .5 clonazepam [place] 1 mg tablet 1 mg tablet 1 mg F amily Take 0.5 Take 0.5 tablet Pract ic tablets as tablets as Take 0.5 e needed by needed by tablets as oral route oral route needed by for 10 for 10 oral route days. days. for 10 days. [facility] mg tablet mg tablet mg tablet Family Take 1 Take 1 Take 1 Practic tablet tablet tablet e every day every day every day by oral by oral by oral route for route for route for 90 days. 90 days. 90 days. FreeStyle FreeStyle No FreeStyle [facility] Wang 2 Wang 2 Wang 2 Family Sensor kit Sensor kit Sensor kit Practic Take by Take by Take by e miscell. miscell. miscell. route. route. route. metformin metformin No 2 BID metformin [facility] ER 500 mg ER 500 mg [...] for 90 days. metronidazo metronidazo No metronidaz [facility] le 0.75 % le 0.75 % ole 0.75 % [facility] topical gel topical gel topical Practic [...] EVENING Novolin R Nov[facility] R No [facility] Regular Regular ) Regular Family U-100 U-100 U-100 Practic Insulin 100 Insulin 100 Insulin e unit/mL unit/mL 100 injection injection unit/mL solution solution injection Take 5 Take 5 solution units as units as Take 5 needed by needed by units as injection injection needed by route. route. injection route. pramipexole pramipexole No 1 TID pramipexol [facility] 1 mg tablet 1 mg tablet e 1 mg Family Take 1 Take 1 tablet Practic tablet 3 tablet 3 Take 1 e times a day times a day tablet 3 by oral by oral times a route. route. day by oral route. pramipexole pramipexole No pramipexol [facility] ER 3 mg ER 3 mg [...] by oral route. Trulicity Trulicity No Trulicity [facility] 4.5 mg/0.5 4.5 mg/0.5 4.5 mg/0.5 [...] e Baby Baby No 1 Q1D Baby [facility] Aspirin 81 Aspirin 81 Aspirin 81 [...] for 7 days. clonazepam clonazepam No clonazepam [facility] 1 mg tablet 1 mg tablet [...] days. 90 days. FreeStyle FreeStyle No FreeStyle [facility] Wang 2 Wang 2 Wang 2 Family Sensor kit Sensor kit Sensor kit Practic Take by Take by Take by e miscell. miscell. miscell. route. route. route. gabapentin gabapentin No 1capsul Q1D gabapentin [facility] 300 mg 300 mg e(s) 300 mg Family capsule capsule capsule Practi c Take 1 Take 1 Take 1 e capsule capsule capsule every day every day every day by oral by oral by oral route at route at route at bedtime. bedtime. bedtime. metformin metformin No 2 BID metformin [facility] ER 500 mg ER 500 mg [...] for 90 days. metronidazo metronidazo No metronidaz [facility] le 0.75 % le 0.75 % [...] R Novolin R No 5unit(s Novolin R [facility] Regular Regular ) Regular Family U-100 U-100 U-100 Practic Insulin 100 Insulin 100 Insulin e unit/mL unit/mL 100 injection injection unit/mL solution solution injection Take 5 Take 5 solution units as units as Take 5 needed by needed by units as injection injection needed by route. route. injection route. pramipexole pramipexole No 1 TID pramipexol [facility] 1 mg tablet 1 mg tablet e 1 mg Family Take 1 Take 1 tablet Practic tablet 3 tablet 3 Take 1 e times a day times a day tablet 3 by oral by oral times a route. route. day by oral route. pramipexole pramipexole No pramipexol [facility] ER 3 mg ER 3 mg [...] oral route. Trulicity Trulicity No 4.5mg Q1W Lyleulicity [facility] 4.5 mg/0.5 4.5 mg/0.5 4.5 mg/0.5 [...] days. Baby Baby No 1 Q1D Baby [facility] Aspirin 81 Aspirin 81 Aspirin 81 Family mg chewable mg chewable mg P ractic tablet Chew tablet Chew chewable e 1 tablet 1 tablet tablet every day every day Chew 1 by oral by oral tablet route. route. every day by oral route. Jakobalyx Jakobalyx No 40unit( BID [place] KwikPen KwikPen s) KwGloria Family U-100 U-100 [...] by oral route. FreeStyle FreeStyle No FreeStyle [facility] Wang 2 Wang 2 Wang 2 Family Sensor kit Sensor kit Sensor kit Practic Take by Take by Take by e miscell. miscell. miscell. route. route. route. Baby Baby No 1 Q1D Baby [facility] Aspirin 81 Aspirin 81 Aspirin 81 Family mg chewable mg chewable mg P ractic tablet Chew tablet Chew chewable e 1 tablet 1 tablet tablet every day every day Chew 1 by oral by oral tablet route. route. every day by oral route. Bel Staples No Bel davisone KweliotPen KwikPen KwikPen Family U-100 U-100 U-100 Practic [...] days. famotidine famotidine No 1 Q1D famotidine [facility] 40 mg 40 mg 40 mg [...] DAILY MOUTH DAILY FreeStyle FreeStyle No FreeStyle [facility] Wang 2 Wang 2 Wang 2 Family Sensor kit Sensor kit Sensor kit Practic Take by Take by Take by e miscell. miscell. miscell. route. route. route. gabapentin gabapentin No 1capsul Q1D gabapentin [facility] 300 mg 300 mg e(s) 300 mg Family capsule capsule capsule Practi c Take 1 Take 1 Take 1 e capsule capsule capsule every day every day every day by oral by oral by oral route at route at route at bedtime. bedtime. bedtime. gabapentin gabapentin No 1capsul Q1D gabapentin [facility] 300 mg 300 mg e(s) 300 [...] for 90 days. metronidazo metronidazo No metronidaz [facility] le 0.75 % le 0.75 % ole 0.75 % [facility] topical gel topical gel topical Practic [...] R Novolin R No 5unit(s Novolin R [facility] Regular Regular ) Regular Family U-100 U-100 U-100 Practic Insulin 100 Insulin 100 Insulin e unit/mL unit/mL 100 injection injection unit/mL solution solution injection Take 5 Take 5 solution units as units as Take 5 needed by needed by units as injection injection needed by route. route. injection route. pramipexole pramipexole No pramipexol [facility] 1 mg tablet 1 mg tablet e 1 mg Family Take 1 Take 1 tablet Practic tablet 3 tablet 3 Take 1 e times a day times a day tablet 3 by oral by oral times a route. route. day by oral route. pramipexole pramipexole No pramipexol [facility] ER 3 mg ER 3 mg [...] days. prednisone prednisone No 1 Q1D prednisone [facility] 20 mg 20 mg 20 mg [...] e metformin metformin No 1 BID metformin [facility] ER 500 mg ER 500 mg [...] [place] mg/mL mg/mL 125 mg/mL [facility] Practic s syringe s syringe us syringe e Inject 1 mL Inject 1 mL Inject 1 every week every week mL every by by week by subcutaneou subcutaneou subcutaneo s route. s route. us route. pramipexole pramipexole No 1 Q1D pramipexol [facility] 0.5 mg 0.5 mg e 0.5 [...] route. solifenacin solifenacin No 1 Q1D solifenaci [facility] 10 mg 10 mg n 10 [...] DAYS clonazepam clonazepam No 1 Q1D clonazepam [facility] 0.5 mg 0.5 mg 0.5 mg Family tablet Take tablet Take tablet Practic 1 tablet 1 tablet Take 1 e every day every day tablet by oral by oral every day route for 7 route for 7 by oral days. days. route for 7 days. famotidine famotidine No famotidine [facility] 40 mg 40 mg 40 mg [...] route. gabapentin gabapentin No 1capsul Q1D gabapentin [facility] 300 mg 300 mg e(s) 300 [...] Novolin N Novolin N No Novolin N [place] [facility] U-100 [facility]PH U-100 NPH U-100 Family [...] route. injection route. pramipexole pramipexole No pramipexol [facility] 1 mg tablet 1 mg tablet e 1 mg Family [facility] pt unsure pt unsure pt unsure Family of of of Practic dosage(once dosage(once dosage(onc e a week) a week) e a week) prednisone prednisone No prednisone [facility] 20 mg 20 mg 20 mg [...] needed by oral route. Trulicity Trulicity No [facility] 4.5 mg/0.5 4.5 mg/0.5 4.5 mg/0.5 Family [...] prn prn prn e Voltaren Voltaren No Voltaren Sonu renny Arthritis Arthritis Arthritis Family Pain 1 % [...] route. Baby Baby No 1 Q1D Baby [facility] Aspirin 81 Aspirin 81 Aspirin 81 Family mg chewable mg chewable mg P ractic tablet Chew tablet Chew chewable e 1 tablet 1 tablet tablet every day every day Chew 1 by oral by oral tablet route. route. every day by oral route. [place]ag[place] Colemanaglalyx [facility] [place] Family U-100 U-100 U-100 Practic Insulin 100 Insulin 100 Insulin e unit/mL (3 unit/mL (3 100 mL) mL) unit/mL (3 subcutaneou subcutaneou mL) s Inject 40 s Inject 40 subcutaneo units twice units twice us Inject a day by a day by 40 units subcutaneou subcutaneou twice a s route. s route. day by subcutaneo us route. famotidine famotidine No famotidine [facility] 40 mg 40 mg 40 mg [...] DAILY MOUTH DAILY FreeStyle FreeStyle No FreeStyle [facility] Wang 2 Wang 2 Wang 2 Family Sensor kit Sensor kit Sensor kit Practic Take by Take by Take by e miscell. miscell. miscell. route. route. route. gabapentin gabapentin No 1capsul Q1D gabapentin [facility] 300 mg 300 mg e(s) 300 mg Family capsule capsule capsule Practi c Take 1 Take 1 Take 1 e capsule capsule capsule every day every day every day by oral by oral by oral route at route at route at bedtime. bedtime. bedtime. pramipexole pramipexole No pramipexol [facility] 1 mg tablet 1 mg tablet e 1 mg Family tablet Practic e prednisone prednisone No prednisone [facility] 20 mg 20 mg 20 mg [...] by oral route. Trulicity Trulicity No Trulicity [facility] 4.5 mg/0.5 4.5 mg/0.5 4.5 mg/0.5 [...] DAILY MOUTH DAILY FreeStyle FreeStyle No FreeStyle [facility] Wang 2 Wang 2 Wang 2 Family Sensor kit Sensor kit Sensor kit Practic Take by Take by Take by e miscell. miscell. miscell. route. route. route. furosemide furosemide No 1 Q1D furosemide [facility] 20 mg 20 mg 20 mg Family tablet Take tablet Take tablet Practic 1 tablet 1 tablet Take 1 e every day every day tablet by oral by oral every day route for route for by oral 30 days. 30 days. route for 30 days. gabapentin gabapentin No 1capsul Q1D gabapentin [facility] 300 mg 300 mg e(s) 300 mg Family capsule capsule capsule Practi c Take 1 Take 1 Take 1 e capsule capsule capsule every day every day every day by oral by oral by oral route at route at route at bedtime. bedtime. bedtime. Humalog Humalog No Humalog [place] (U-100) (U-100) (U-100) Practi c Insulin 100 [...] days. 30 days. pramipexole pramipexole No pramipexol [place] 1 mg tablet 1 mg tablet e 1 mg Family TAKE ONE TAKE ONE tablet Pract ic TABLET BY TABLET BY TAKE ONE e MOUTH THREE MOUTH THREE TABLET BY TIMES A DAY TIMES A DAY MOUTH THREE TIMES A DAY prednisone prednisone No prednisone [place] 20 mg 20 mg 20 mg Family [...] by oral route. Trulicity Trulicity No Trulicity [facility] 4.5 mg/0.5 4.5 mg/0.5 4.5 mg/0.5 [...] route. route. route. furosemide furosemide No furosemide [facility] 20 mg 20 mg 20 mg Family tablet Take tablet Take tablet Practic 1 tablet 1 tablet Take 1 e every day every day tablet by oral by oral every day route for route for by oral 30 days. 30 days. route for 30 days. gabapentin gabapentin No 1capsul Q1D gabapentin [facility] 300 mg 300 mg e(s) 300 [...] subcutaneo s s us potassium potassium potassium [facility] chloride ER chloride ER chloride [facility] 10 mEq 10 mEq ER 10 mEq Practi c tablet,exte tablet,exte tablet,ext e nded nded ended release release release Take 1 Take 1 Take 1 tablet tablet tablet every day every day every day by oral by oral by oral route for route for route for 30 days. 30 days. 30 days. pramipexole pramipexole No pramipexol [facility] 1 mg tablet 1 mg tablet e 1 mg Family TAKE ONE TAKE ONE tablet Pract ic TABLET BY TABLET BY TAKE ONE e MOUTH THREE MOUTH THREE TABLET BY TIMES A DAY TIMES A DAY MOUTH THREE TIMES A DAY prednisone prednisone No prednisone [facility] 20 mg 20 mg 20 mg [...] route. Basaglar Basaglar No Basaglar Sonu lawson KwikClay KwikPen [place] [facility] U-100 U-100 U-100 Practic Insulin [...] route. route. route. furosemide furosemide No furosemide [facility] 20 mg 20 mg 20 mg Family tablet Take tablet Take tablet Practic 1 tablet 1 tablet Take 1 e every day every day tablet by oral by oral every day route for route for by oral 30 days. 30 days. route for 30 days. gabapentin gabapentin No 1capsul Q1D gabapentin [facility] 300 mg 300 mg e(s) 300 [...] day metronidazo metronidazo No 1 Q8H metronidaz [facility] le 500 mg le 500 mg [...] dosage ofloxacin ofloxacin No 1drop(s TID ofloxacin [facility] 0.3 % eye 0.3 % eye ) 0.3 % eye Family drops drops drops Practic Instill 1 Instill 1 Instill 1 e drop 3 drop 3 drop 3 times a day times a day times a by by day by ophthalmic ophthalmic ophthalmic route for route for route for 33 days. 33 days. 33 days. potassium potassium No potassium [facility] chloride ER chloride ER chloride [facility] 10 mEq 10 mEq ER 10 mEq Practi c tablet,exte tablet,exte tablet,ext e nded nded ended release release release TAKE 1 TAKE 1 TAKE 1 TABLET BY TABLET BY TABLET BY MOUTH DAILY MOUTH DAILY MOUTH DAILY pramipexole pramipexole No 1 TID pramipexol [facility] 1 mg tablet 1 mg tablet [...] days. prednisone prednisone No 1 Q1D prednisone [facility] 10 mg 10 mg 10 mg Family tablet Take tablet Take tablet Practic 1 tablet 1 tablet Take 1 e every day every day tablet by oral by oral every day route as route as by oral needed for needed for route as 30 days. 30 days. needed for 30 days. prednisone prednisone prednisone [facility] 20 mg 20 mg 20 mg Family tablet Take tablet Take tablet Practic 1 tablet 1 tablet Take 1 e every day every day tablet by oral by oral every day route for route for by oral 21 days. 21 days. route for 21 days. Sundayusita Brandusita Witt No 15unit( Q1D Tousita Witt [facility] U-300 U-300 s) U-300 Family SoloStar [...] days. Baby Baby No 1 Q1D Baby [facility] Aspirin 81 Aspirin 81 Aspirin 81 Family mg chewable mg chewable mg P ractic tablet Chew tablet Chew chewable e 1 tablet 1 tablet tablet every day every day Chew 1 by oral by oral tablet route. route. every day by oral route. [place]aglalyx Colemanaglalyx No 40unit( BID Bel [facility] KwikPen KwikPen s) KwikPen Family U-100 [...] by oral route. erythromyci erythromyci No erythromyc [facility] n 5 mg/gram n 5 mg/gram [...] DAY fenofibrate fenofibrate No 1 Q1D fenofibrat [facility] 40 mg 40 mg e 40 [...] route. gabapentin gabapentin No 1capsul BID gabapentin [facility] 300 mg 300 mg e(s) 300 mg Family capsule capsule capsule Practi c Take 1 Take 1 Take 1 e capsule capsule capsule twice a day twice a day twice a by oral by oral day by route at route at oral route bedtime. bedtime. at bedtime. metformin metformin No 2 BID metformin [facility] ER 500 mg ER 500 mg [...] for 90 days. metronidazo metronidazo No metronidaz [facility] le 0.75 % le 0.75 % [...] route. pramipexole pramipexole No 1.5 Q1D pramipexol [facility] 1 mg tablet 1 mg tablet e 1 mg Family Take 1.5 Take 1.5 tablet Pract ic tablets tablets Take 1.5 e every day every day tablets by oral by oral every day route for route for by oral 90 days. 90 days. route for 90 days. [facility] mg n 10 [...] Trulicity 3 Trulicity 3 No 3mg Q1W ulicity [facility] mg/0.5 mL mg/0.5 mL 3 mg/0.5 [...] route. route. every day by oral route. [place]aglar [place]aglar No 40unit( BID [place] KweliotPen KwikPen s) KwikClay Family U-100 U-100 U-100 Practic Insulin 100 [...] DAY fenofibrate fenofibrate No 1 Q1D fenofibrat [facility] 40 mg 40 mg e 40 mg Family tablet Take tablet Take tablet Practic 1 tablet 1 tablet Take 1 e every day every day tablet by oral by oral every day route. route. by oral route. FreeStyle FreeStyle No FreeStyle [facility] Wang 2 Wang 2 Wang 2 Family Sensor kit Sensor kit Sensor kit Practic Take by Take by Take by e miscell. miscell. miscell. route. route. route. gabapentin gabapentin No 1capsul BID gabapentin [facility] 300 mg 300 mg e(s) 300 mg Family capsule capsule capsule Practi c Take 1 Take 1 Take 1 e capsule capsule capsule twice a day twice a day twice a by oral by oral day by route at route at oral route bedtime. bedtime. at bedtime. metformin metformin No 2 BID metformin [facility] ER 500 mg ER 500 mg ER 500 mg [facility] 24 hr 24 hr 24 hr Practic tablet,exte tablet,exte tablet,ext e nded nded ended release release release Take 2 Take 2 Take 2 tablets tablets tablets twice a day twice a day twice a by oral by oral day by route for route for oral route 90 days. 90 days. for 90 days. metronidazo metronidazo No metronidaz [facility] le 0.75 % le 0.75 % ole 0.75 % [facility] topical gel topical gel topical Practic [...] Orencia 125 Orencia 125 No [facility] mg/mL mg/mL 125 mg/mL [facility] subcutaneou subcutaneou subcutaneo Practic s syringe s syringe us syringe e Inject 1 mL Inject 1 mL Inject 1 every week every week mL every by by week by subcutaneou subcutaneou subcutaneo s route. s route. us route. pramipexole pramipexole No 1.5 Q1D pramipexol [facility] 1 mg tablet 1 mg tablet e 1 mg Family Take 1.5 Take 1.5 tablet Pract ic tablets tablets Take 1.5 e every day every day tablets by oral by oral every day route for route for by oral 90 days. 90 days. route for 90 days. solifenacin solifenacin No solifenaci [facility] 10 mg 10 mg n 10 [...] route. Baby Baby No 1 Q1D Baby [facility] Aspirin 81 Aspirin 81 Aspirin 81 Family mg chewable mg chewable mg P ractic tablet Chew tablet Chew chewable e 1 tablet 1 tablet tablet every day every day Chew 1 by oral by oral tablet route. route. every day by oral route. Bel Staples No 40unit( BID Bel [facility] [place]wey KwikPen s) [place] Family U-100 [...] by oral route. erythromyci erythromyci No erythromyc [facility] n 5 mg/gram n 5 mg/gram [...] DAY fenofibrate fenofibrate No 1 Q1D fenofibrat [facility] 40 mg 40 mg e 40 mg Family tablet Take tablet Take tablet Practic 1 tablet 1 tablet Take 1 e every day every day tablet by oral by oral every day route. route. by oral route. FreeStyle FreeStyle No FreeStyle [facility] Wang 2 Wang 2 Wang 2 Family Sensor kit Sensor kit Sensor kit Practic Take by Take by Take by e miscell. miscell. miscell. route. route. route. gabapentin gabapentin No 1capsul BID gabapentin [facility] 300 mg 300 mg e(s) 300 mg Family capsule capsule capsule Practi c Take 1 Take 1 Take 1 e capsule capsule capsule twice a day twice a day twice a by oral by oral day by route at route at oral route bedtime. bedtime. at bedtime. metformin metformin No 2 BID metformin [facility] ER 500 mg ER 500 mg ER 500 mg [facility] 24 hr 24 hr 24 hr Practic tablet,exte tablet,exte tablet,ext e nded nded ended release release release Take 2 Take 2 Take 2 tablets tablets tablets twice a day twice a day twice a by oral by oral day by route for route for oral route 90 days. 90 days. for 90 days. metronidazo metronidazo No metronidaz [facility] le 0.75 % le 0.75 % [...] route. pramipexole pramipexole No 1.5 Q1D pramipexol [facility] 1 mg tablet 1 mg tablet e 1 mg Family Take 1.5 Take 1.5 tablet Pract ic tablets tablets Take 1.5 e every day every day tablets by oral by oral every day route for route for by oral 90 days. 90 days. route for 90 days. solifenacin solifenacin No solifenaci [facility] 10 mg 10 mg n 10 [...] 3 Trulicity 3 No 3mg Q1W Trulicity [facility] mg/0.5 mL mg/0.5 mL 3 mg/0.5 [...] oral route. Bel Staples No 40unit( BID [place] [facility] KwikClay KwikPen s) KwikPen Family U-100 U-100 [...] route. celecoxib celecoxib No 1capsul Q1D celecoxib [facility] 200 mg 200 mg e(s) 200 [...] DAY fenofibrate fenofibrate No 1 Q1D fenofibrat [facility] 40 mg 40 mg e 40 mg Family tablet Take tablet Take tablet Practic 1 tablet 1 tablet Take 1 e every day every day tablet by oral by oral every day route. route. by oral route. FreeStyle FreeStyle No FreeStyle [facility] Wang 2 Wang 2 Wang 2 Family Sensor kit Sensor kit Sensor kit Practic Take by Take by Take by e miscell. miscell. miscell. route. route. route. gabapentin gabapentin No 1capsul BID gabapentin [facility] 300 mg 300 mg e(s) 300 mg Family capsule capsule capsule Practi c Take 1 Take 1 Take 1 e capsule capsule capsule twice a day twice a day twice a by oral by oral day by route at route at oral route bedtime. bedtime. at bedtime. metformin metformin No 2 BID metformin [facility] ER 500 mg ER 500 mg ER 500 mg [facility] 24 hr 24 hr 24 hr Practic tablet,exte tablet,exte tablet,ext e nded nded ended release release release Take 2 Take 2 Take 2 tablets tablets tablets twice a day twice a day twice a by oral by oral day by route for route for oral route 90 days. 90 days. for 90 days. metronidazo metronidazo No metronidaz [facility] le 0.75 % le 0.75 % ole 0.75 % [facility] topical gel topical gel topical Practic [...] R Novolin R No 5unit(s Novolin R [facility] Regular Regular ) Regular Family U-100 [...] tor pramipexole pramipexole No 1.5 Q1D pramipexol [facility] 1 mg tablet 1 mg tablet e 1 mg Family Take 1.5 Take 1.5 tablet Pract ic tablets tablets Take 1.5 e every day every day tablets by oral by oral every day route for route for by oral 90 days. 90 days. route for 90 days. solifenacin solifenacin No solifenaci [facility] 10 mg 10 mg n 10 [...] route. Trulicity Trulicity No 4.5mg Q1W Trulicity [facility] 4.5 mg/0.5 4.5 mg/0.5 4.5 mg/0.5 [...] Basaglar No 40unit( BID [place] KwGloria s) [place] Family U-100 U-100 U-100 Practic [...] days. 90 days. FreeStyle FreeStyle No FreeStyle [facility] Wang 2 Wang 2 Wang 2 Family Sensor kit Sensor kit Sensor kit Practic Take by Take by Take by e miscell. miscell. miscell. route. route. route. metformin metformin No 2 BID metformin [facility] ER 500 mg ER 500 mg [...] for 90 days. metronidazo metronidazo No metronidaz [facility] le 0.75 % le 0.75 % ole 0.75 % [facility] topical gel topical gel topical Practic [...] R Novolin R No 5unit(s Novolin R [facility] Regular Regular ) Regular Family U-100 U-100 U-100 Practic Insulin 100 Insulin 100 Insulin e unit/mL unit/mL 100 injection injection unit/mL solution solution injection Take 5 Take 5 solution units as units as Take 5 needed by needed by units as injection injection needed by route. route. injection route. pramipexole pramipexole No 1 TID pramipexol [facility] 1 mg tablet 1 mg tablet e 1 mg Family Take 1 Take 1 tablet Practic tablet 3 tablet 3 Take 1 e times a day times a day tablet 3 by oral by oral times a route. route. day by oral route. pramipexole pramipexole No 1 Q1D pramipexol [facility] ER 3 mg ER 3 mg [...] days. prednisone prednisone No 1 BID prednisone [facility] 5 mg tablet 5 mg tablet [...] by oral route. Trulicity Trulicity No Trulicity [facility] 4.5 mg/0.5 4.5 mg/0.5 4.5 mg/0.5 [...] route. [place]ag[place]alyx Colemanaglalyx No 40unit( BID [place] KwikPen s) [place] Family U-100 [...] days. 90 days. FreeStyle FreeStyle No FreeStyle [facility] Wang 2 Wang 2 Wang 2 Family Sensor kit Sensor kit Sensor kit Practic Take by Take by Take by e miscell. miscell. miscell. route. route. route. metformin metformin No 2 BID metformin [facility] ER 500 mg ER 500 mg [...] for 90 days. metronidazo metronidazo No metronidaz [facility] le 0.75 % le 0.75 % [...] R Novolin R No 5unit(s Novolin R [facility] Regular Regular ) Regular Family U-100 U-100 U-100 Practic Insulin 100 Insulin 100 Insulin e unit/mL unit/mL 100 injection injection unit/mL solution solution injection Take 5 Take 5 solution units as units as Take 5 needed by needed by units as injection injection needed by route. route. injection route. pramipexole pramipexole No 1 TID pramipexol [facility] 1 mg tablet 1 mg tablet e 1 mg Family Take 1 Take 1 tablet Practic tablet 3 tablet 3 Take 1 e times a day times a day tablet 3 by oral by oral times a route. route. day by oral route. pramipexole pramipexole No 1 Q1D pramipexol [facility] ER 3 mg ER 3 mg [...] days. prednisone prednisone No 1 BID prednisone [facility] 5 mg tablet 5 mg tablet [...] route. oral route. needed by oral route. Immunizations Ordered Immunization Filled Immunization Date Status Commen ts Source Name Name Pneumococcal Pneumococcal 2022-05-22 Completed [facility] kaela conjugate PCV20, conjugate PCV20, 00:00:00 Pr actice polysaccharide polysaccharide [id number] conjugate, [id number] conjugate, adjuvant, PF - ML adjuvant, PF - ML Influenza vaccine, Influenza vaccine, 2022-05-22 Completed [facility] quadrivalent, quadrivalent, 00:00:00 Practice adjuvanted - ML adjuvanted - ML Pneumococcal Pneumococcal 2022-05-22 Completed [facility] kaela conjugate PCV20, conjugate PCV20, 00:00:00 Pr actice polysaccharide polysaccharide [id number] conjugate, [id number] conjugate, adjuvant, PF - ML adjuvant, PF - ML Influenza vaccine, Influenza vaccine, 2022-05-22 Completed [facility] quadrivalent, quadrivalent, 00:00:00 Practice adjuvanted - ML adjuvanted - ML Pneumococcal Pneumococcal 2022-05-22 Completed [facility] kaela conjugate PCV20, conjugate PCV20, 00:00:00 Pr actice polysaccharide polysaccharide [id number] conjugate, [id number] conjugate, adjuvant, PF - ML adjuvant, PF - ML Influenza vaccine, Influenza vaccine, 2022-05-22 Completed [facility] quadrivalent, quadrivalent, 00:00:00 Practice adjuvanted - ML adjuvanted - ML Pneumococcal Pneumococcal 2022-05-22 Completed [facility] kaela conjugate PCV20, conjugate PCV20, 00:00:00 Pr actice polysaccharide polysaccharide [id number] conjugate, [id number] conjugate, adjuvant, PF - ML adjuvant, PF - ML Influenza vaccine, Influenza vaccine, 2022-05-22 Completed [facility] quadrivalent, quadrivalent, 00:00:00 Practice adjuvanted - ML adjuvanted - ML Pneumococcal Pneumococcal 2022-05-22 Completed [facility] kaela conjugate PCV20, conjugate PCV20, 00:00:00 Pr actice polysaccharide polysaccharide [id number] conjugate, [id number] conjugate, adjuvant, PF - ML adjuvant, PF - ML Influenza vaccine, Influenza vaccine, 2022-05-22 Completed [facility] quadrivalent, quadrivalent, 00:00:00 Practice adjuvanted - ML adjuvanted - ML Pneumococcal Pneumococcal 2022-05-22 Completed [facility] kaela conjugate PCV20, conjugate PCV20, 00:00:00 Pr actice polysaccharide polysaccharide [id number] conjugate, [id number] conjugate, adjuvant, PF - ML adjuvant, PF - ML Influenza vaccine, Influenza vaccine, 2022-05-22 Completed [facility] quadrivalent, quadrivalent, 00:00:00 Practice adjuvanted - ML adjuvanted - ML Pneumococcal Pneumococcal 2022-05-22 Completed [facility] kaela conjugate PCV20, conjugate PCV20, 00:00:00 Pr actice polysaccharide polysaccharide [id number] conjugate, [id number] conjugate, adjuvant, PF - ML adjuvant, PF - ML Influenza vaccine, Influenza vaccine, 2022-05-22 Completed [facility] quadrivalent, quadrivalent, 00:00:00 Practice adjuvanted - ML adjuvanted - ML Pneumococcal Pneumococcal 2022-05-22 Completed [facility] kaela conjugate PCV20, conjugate PCV20, 00:00:00 Pr actice polysaccharide polysaccharide [id number] conjugate, [id number] conjugate, adjuvant, PF - ML adjuvant, PF - ML Influenza vaccine, Influenza vaccine, 2022-05-22 Completed [facility] quadrivalent, quadrivalent, 00:00:00 Practice adjuvanted - ML adjuvanted - ML Pneumococcal Pneumococcal 2022-05-22 Completed [facility] kaela conjugate PCV20, conjugate PCV20, 00:00:00 Pr actice polysaccharide polysaccharide [id number] conjugate, [id number] conjugate, adjuvant, PF - ML adjuvant, PF - ML Influenza vaccine, Influenza vaccine, 2022-05-22 Completed [facility] quadrivalent, quadrivalent, 00:00:00 Practice adjuvanted - ML adjuvanted - ML Pneumococcal Pneumococcal 2022-05-22 Completed [facility] kalea conjugate PCV20, conjugate PCV20, 00:00:00 Pr actice polysaccharide polysaccharide [id number] conjugate, [id number] conjugate, adjuvant, PF - ML adjuvant, PF - ML Influenza vaccine, Influenza vaccine, 2022-05-22 Completed [facility] quadrivalent, quadrivalent, 00:00:00 Practice adjuvanted - ML adjuvanted - ML Pneumococcal Pneumococcal 2022-05-22 Completed [facility] kaela conjugate PCV20, conjugate PCV20, 00:00:00 Pr actice polysaccharide polysaccharide [id number] conjugate, [id number] conjugate, adjuvant, PF - ML adjuvant, PF - ML Influenza vaccine, Influenza vaccine, 2022-05-22 Completed [facility] quadrivalent, quadrivalent, 00:00:00 Practice adjuvanted - ML adjuvanted - ML Pneumococcal Pneumococcal 2022-05-22 Completed [facility] kaela conjugate PCV20, conjugate PCV20, 00:00:00 Pr actice polysaccharide polysaccharide [id number] conjugate, [id number] conjugate, adjuvant, PF - ML adjuvant, PF - ML Influenza vaccine, Influenza vaccine, 2022-05-22 Completed [facility] quadrivalent, quadrivalent, 00:00:00 Practice adjuvanted - ML adjuvanted - ML Pneumococcal Pneumococcal 2022-05-22 Completed [facility] kaela conjugate PCV20, conjugate PCV20, 00:00:00 Pr actice polysaccharide polysaccharide [id number] conjugate, [id number] conjugate, adjuvant, PF - ML adjuvant, PF - ML Influenza vaccine, Influenza vaccine, 2022-05-22 Completed [facility] quadrivalent, quadrivalent, 00:00:00 Practice adjuvanted - ML adjuvanted - ML Pneumococcal Pneumococcal 2022-05-22 Completed [facility] kaela conjugate PCV20, conjugate PCV20, 00:00:00 Pr actice polysaccharide polysaccharide [id number] conjugate, [id number] conjugate, adjuvant, PF - ML adjuvant, PF - ML Influenza vaccine, Influenza vaccine, 2022-05-22 Completed [facility] quadrivalent, quadrivalent, 00:00:00 Practice adjuvanted [...] (Moderna) - ML influenza, influenza, 2021-03-24 Completed [facility] high-dose, high-dose, 00:00:00 Practice quadrivalent - ML quadrivalent - ML COVID-19, mRNA, COVID-19, mRNA, 2021-03-24 [facility] L[facility]-S, PF, 100 LNP-S, PF, 100 00:00:00 Practi ce mcg/0.5 mL dose mcg/0.5 mL dose (Moderna) - ML (Moderna) - ML influenza, influenza, 2021-03-24 Completed [facility] high-dose, high-dose, 00:00:00 Practice quadrivalent - ML quadrivalent - ML COVID-19, mRNA, COVID-19, mRNA, 2021-03-24 Completed [facility] L[facility]-S, PF, 100 LNP-S, PF, 100 00:00:00 Practi ce mcg/0.5 mL dose mcg/0.5 mL dose (Moderna) - ML (Moderna) - ML influenza, influenza, 2021-03-24 Completed [facility] high-dose, high-dose, 00:00:00 Practice quadrivalent [...] (Moderna) - ML influenza, influenza, 2021-03-24 Completed [facility] high-dose, high-dose, 00:00:00 Practice quadrivalent - ML quadrivalent - ML COVID-19, mRNA, COVID-19, mRNA, 2021-03-24 Completed [facility], PF, 100 LNP-S, PF, 100 00:00:00 Practi ce mcg/0.5 mL dose mcg/0.5 mL dose (Moderna) - ML (Moderna) - ML influenza, influenza, 2021-03-24 Completed [facility] high-dose, high-dose, 00:00:00 Practice quadrivalent - ML quadrivalent - ML COVID-19, mRNA, COVID-19, mRNA, 2021-03-24 Completed [facility]-S, PF, 100 LNP-S, PF, 100 00:00:00 Practi ce mcg/0.5 mL dose mcg/0.5 mL dose (Moderna) - ML (Moderna) - ML influenza, influenza, 2021-03-24 Completed [facility] high-dose, high-dose, 00:00:00 Practice quadrivalent - ML quadrivalent - ML influenza, influenza, 2021-03-24 Completed [facility] high-dose, high-dose, 00:00:00 Practice quadrivalent - ML [...] - ML Tdap - ML 2019-09-17 Completed [facility] 00:00:00 Practice Tdap - ML Tdap - ML 2019-09-17 Completed [facility] 00:00:00 Practice Tdap - ML Tdap - ML 2019-09-17 Completed [facility] 00:00:00 Practice Tdap - ML Tdap - ML 2019-09-17 Completed [facility] 00:00:00 Practice Tdap 2019-01-05 Completed [facility] Tdap 2019-01-05 Completed [facility]00 [facility] Tdap Unknown Completed [facility] influenza, influenza, Unknown Completed [facility] high-dose, high-dose, Practice quadrivalent quadrivalent Pneumococcal Pneumococcal Unknown Completed [facility] kaela conjugate PCV20, conjugate PCV20, Pr actice polysaccharide polysaccharide [id number] conjugate, [id number] conjugate, adjuvant, PF - ML adjuvant, PF - ML Influenza vaccine, Influenza vaccine, Unknown Completed [facility] quadrivalent, quadrivalent, Practice adjuvanted - ML adjuvanted - ML COVID-19, mRNA, COVID-19, mRNA, Unknown [facility]pleted [facility] L[facility]-S, PF, 100 LNP-S, PF, 100 Practi ce mcg/0.5 mL dose mcg/0.5 mL dose (Moderna) - ML (Moderna) - ML influenza, influenza, Unknown Completed [facility] high-dose, high-dose, Practice quadrivalent - ML quadrivalent [...] - ML Tdap - ML Unknown Completed [facility] Tdap Unknown Completed [facility] Tdap Unknown Com[facility] Pneumococcal Unknown Com[facility] FLUZONE HIGH-DOSE PF Unknown Completed [facility] Hep B, Unspecified Unknown Completed [facility] Hep B, Unspecified Unknown Completed [facility] Hep A, Unspecified [facility], Un[facility] COVID-19 Unknown [facility] COVID[facility]19 Unknown [facility] COVID-19 Unknown [facility] FLUZONE QUAD Unknown Completed [facility] FLUZONE QUAD Unknown Completed [facility] FLUZONE QUAD Unknown Completed [facility] FLUZONE QUAD Unknown Completed [facility] Tdap Unknown [facility] COVID-19 Unknown [facility] Tdap Unknown Completed [facility] Tdap Unknown Completed [facility] Tdap Unknown Completed [facility] Pneumococcal Unknown Com[facility] FLUZONE HIGH-DOSE PF Unknown Completed [facility] Hep B, Unspecified Unknown Completed [facility] Hep B, Unspecified Unknown Completed [facility] Hep A, Unspecified Unknown Completed [facility] Hep A, Unspecified Unknown [facility] COVID-19 Unknown [facility] COVID[facility]19 Unknown [facility] COVID-19 Unknown [facility] FLUZONE QUAD Unknown Completed [facility] FLUZONE QUAD Unknown Completed [facility] FLUZONE QUAD Unknown Completed [facility] FLUZONE QUAD Unknown Completed [facility] Tdap Unknown [facility] COVID-19 Unknown [facility] Vital Signs Vital Name Observation Time Observation Value Comments Source BP Systolic 2023-03-29 00:00:00 121 mm[Hg] [facility] Body Weight 2023-03-29 00:00:00 224.8 [lb_av] [facility] Height 2023-03-29 00:00:00 64 [in_i] [facility] BP Diastolic 2023-03-29 00:00:00 77 mm[Hg] [facility] BMI (Body Mass 2023-03-29 00:00:00 38.6 kg/m2 [...] Family Practice Height 2022-06-21 00:00:00 64 [in_i] [facility] BMI (Body Mass 2022-06-21 00:00:00 38.1 kg/m2 [facility] BP Systolic 2022-06-21 00:00:00 112 mm[Hg] [facility] Body Weight 2022-06-21 00:00:00 221.8 [lb_av] [facility] BP Diastolic 2022-05-25 00:00:00 76 mm[Hg] [facility] Height 2022-05-25 00:00:00 64 [in_i] [facility] BMI (Body Mass 2022-05-25 00:00:00 38.4 kg/m2 [facility] BP Systolic 2022-05-25 00:00:00 130 mm[Hg] [facility] Body Weight 2022-05-25 00:00:00 223.6 [lb_av] [facility] HEIGHT 2021-03-16 11:31:00 162.6 cm WEIGHT 2021-03-16 11:31:00 108.863 kg HEIGHT 2020-06-23 10:49:00 163.8 cm WEIGHT 2020-06-23 10:49:00 110.768 kg HEIGHT 2020-06-23 10:49:00 163.8 cm WEIGHT 2020-06-23 10:49:00 110.768 kg Systolic blood 2023-04-03 14:05:00 137 mm[Hg] [facility] pressure Diastolic blood 2023-04-03 14:05:00 75 mm[Hg] [facility] pressure Heart rate 2023-04-03 14:05:00 96 /min [facility] Body temperature 2023-04-03 14:05:00 36.67 Rylie [facility] Respiratory rate 2023-04-03 14:05:00 18 /min [facility] Body height 2023-04-03 14:05:00 160 cm [facility] Body weight 2023-04-03 14:05:00 100.699 kg [facility] BMI 2023-04-03 14:05:00 39.33 kg/m2 [facility] Oxygen saturation in 2023-04-03 14:05:00 97 /min [facility] Arterial blood by Pulse oximetry Heart rate 2023-02-08 09:40:00 89 /min [facility] Respiratory rate 2023-02-08 09:40:00 16 /min [facility] Oxygen saturation in 2023-02-08 09:40:00 98 /min [facility] Arterial blood by Medical Ce [facility]ter Pulse oximetry Systolic blood 2023-02-08 09:30:00 127 mm[Hg] [facility] Diastolic blood 2023-02-08 09:30:00 68 mm[Hg] [facility] Body temperature 2023-02-08 06:28:00 36 Rylie [facility] Body height 2023-02-02 19:22:00 162.6 cm [facility] Body weight 2023-02-02 19:22:00 98.969 kg [facility] BMI 2023-02-02 19:22:00 37.45 kg/m2 [facility] Systolic blood 2020-06-23 10:49:00 145 mm[Hg] [facility] Diastolic blood 2020-06-23 10:49:00 76 mm[Hg] [facility] Heart rate 2020-06-23 10:49:00 75 /min [facility] Body temperature 2020-06-23 10:49:00 36.72 Rylie [facility] Respiratory rate 2020-06-23 10:49:00 18 /min [facility] Body height 2020-06-23 10:49:00 163.8 cm [facility] Body weight 2020-06-23 10:49:00 110.768 kg [facility] BMI 2020-06-23 10:49:00 41.27 kg/m2 [facility] Procedures Procedure Date / Time Performing Clinician Source Performed SEDIMENTATION RATE 2023-04-03 14:04:00 [facility] C-REACTIVE PROTEIN 2023-04-03 14:04:00 [facility] CBC WITH PLATELET AND 2023-04-03 14:04:00 [facility] DIFFERENTIAL COMPREHENSIVE METABOLIC 2023-04-03 14:04:00 [facility] PANEL CBC WITH PLATELET AND 2023-02-16 13:49:00 [facility] DIFFERENTIAL COMPREHENSIVE METABOLIC 2023-02-16 13:49:00 [facility] PANEL SEDIMENTATION RATE 2023-02-16 13:49:00 [facility] C-REACTIVE PROTEIN 2023-02-16 13:49:00 [facility] POCT-GLUCOSE METER 2023-02-08 06:38:00 de Priya Garzon [facility] CARDIAC CATH REPORT - SCAN 2023-02-08 00:00:00 Provider, Default [facility] CBC W/PLT COUNT & AUTO 2023-02-02 09:31:00 de Priya Garzon [facility] ELECTROLYTES 2023-02-02 09:31:00 de La Duran, [facility] BUN AND CREATININE W/RATIO 2023-02-02 09:31:00 de La Duran, C [facility] PT/APTT 2023-02-02 09:31:00 de La Duran, [facility] LIPID PANEL 2023-02-02 09:31:00 de La Duran, [facility] CBC W/PLT COUNT & AUTO 2023-02-02 09:31:00 de La Duran, [facility] X-RAY OF SHOULDER 2 VIEW 2022-12-06 00:00:00 [facility] INFLIXIMAB AND 2022-11-22 17:49:00 Erasto Resendiz [facility] ospital ANTI-INFLIXIMAB AB (SERIAL MONITOR) C-REACTIVE PROTEIN 2022-11-22 16:52:00 [facility] 2022-11-22 16:52[facility]00 [facility]PRE[facility] METABOLIC 2022-11-22 16:52:00 Erasto Resendiz [facility] PANEL CBC WITH PLATELET AND 2022-11-22 16:52:00 [facility] DIFFERENTIAL QUANTIFERON-TB GOLD PLUS, 2022-11-15 17:24:00 Erasto Resendiz [facility] 4 TUBE QUANTIFERON-TB GOLD PLUS 2022-11-15 17:24:00 Erasto Resendiz [facility] CBC WITH PLATELET AND 2022-11-15 15:05:00 [facility]FFERENTIAL COMPREHENSIVE METABOLIC 2022-11-15 15:05:00 Erasto Resendiz [facility] PANEL SEDIMENTATION RATE 2022-11-15 15:05:00 [facility] C-REACTIVE PROTEIN 2022-11-15 15:05:00 [facility] MRI, lumbar spine, w/o 2022-09-12 00:00:00 Azar [facility] Practice ankle brachial index 2022-08-12 00:00:00 [facility] URINALYSIS W/ REFLEX URINE 2022-05-31 12:01:[address] [facility] CBC W/PLT COUNT & AUTO 2022-05-31 12:01:00 Heide Ngo [facility] CBC W/PLT COUNT & AUTO 2022-05-31 12:01:00 Heide Ngo [facility] X-RAY OF CHEST 2 VIEW 2022-05-25 00:00[facility] METABOLIC PANEL 2022-05-18 12:10:00 Heide Ngo [facility] HEPATIC FUNCTION PANEL 2022-05-18 12:10:00 Heide Ngo [facility] CBC W/PLT COUNT & AUTO 2022-05-18 12:10:00 Heide Ngo [facility] HEPATIC FUNCTION PANEL 2020-08-12 09:28:00 James, Rise J. [facility] GGT 2020-08-12 09:28:00 James, Rise J. [facility] HEPATIC FUNCTION PANEL 2020-07-29 09:40:00 James, Rise J. [facility] GGT 2020-07-29 09:40:00 James, Jenna J. [facility] HEPATIC FUNCTION PANEL 2020-07-14 11:19:00 James, Rise J. [facility] GGT 2020-07-14 11:19:00 James, Rise J. [facility] HEPATIC FUNCTION PANEL 2020-06-30 09:38:00 James, Rise J. [facility] GAMMA GLUTAMYL TRANSFERASE 2020-06-30 09:38:00 JamesJenna huerta . [facility] ([facility]) [facility] BASIC METABOLIC PANEL (7) 2020-06-23 12:34:00 [place] [facility] HEPATIC FUNCTION PANEL 2020-06-23 12:34:00 Del [place] [facility] CBC W/PLT COUNT & AUTO 2020-06-23 12:34:00 Del [place] [facility] DIFFERENTIAL [facility] MITOCHONDRIA M2 ANTIBODY 2020-06-23 12:34:00 Del [place] [facility] (IGG) [facility] GAMMA GLUTAMYL TRANSFERASE 2020-06-23 12:34:00 Del [place] [facility] (GGT) [facility] Mammography of Bilateral [facility] Breasts Practice Tonsillectomy [facility] Practice Laparoscopic [facility] Cholecystectomy Practice Lung Surgery [facility] Practice Hysterectomy [facility] Practice Section [facility] Practice Colonoscopy [facility] Practice Plan of Care Planned Activity Planned Date Details Comments Source Future Scheduled Test 2029-09-16 DTAP/TDAP/TD VACCINES [facility] 00:00:00 (4 - Td or Tdap) [code Medic al Center = DTAP/TDAP/TD VACCINES (4 - Td or Tdap)] Future Scheduled Test 2029-09-16 DTAP/TDAP/TD VACCINES [facility] 00:00:00 (4 - Td or Tdap) [code Medic al Center = DTAP/TDAP/TD VACCINES (4 - Td or Tdap)] Future Scheduled Test 2029-01-05 DTAP/TDAP/TD VACCINES [facility] 00:00:00 (3 - Td) [code = [facility] [facility] DTAP/TDAP/TD VACCINES (3 - Td)] Future Scheduled Test 2029-01-05 DTAP/TDAP/TD VACCINES [facility] 00:00:00 (3 - Td) [code = [facility] DTAP/TDAP/TD VACCINES (3 - Td)] Future Scheduled Test 2024-02-09 [address] [facility] (12+) [code = Tobacco Cessation Counseling and Screening (12+)] Future Scheduled Test 2024-02-[address] [facility] 00:[facility]:00 [facility] (12+) [code = Tobacco Cessation Counseling and Screening (12+)] Future Scheduled Test 2023-04-06 Screening for [facility] 11:50:34 malignant neoplasm of Hospit al colon (procedure) [code = 224806234] Future Scheduled Test 2023-04-06 Screening for [facility] 11:50:34 malignant neoplasm of Hospit al colon (procedure) [code = 717165393] Future Scheduled Test 2023-04-06 Screening for [facility] 11:50:34 malignant neoplasm of Hospit al colon (procedure) [code = 208397041] Future Scheduled Test 2023-04-06 Hepatitis C screening [facility] 11:50:34 (procedure) [code = Hospital 973139664] Future Scheduled Test 2023-04-06 SHINGLES VACCINES (1 [facility] 11:50:34 of 2) [code = SHINGLES Hospi french VACCINES (1 of 2)] Future Scheduled Test 2023-04-06 HEPATITIS B VACCINES [facility] 11:50:34 (3 of 3 - Risk 3-dose Hospit al series) [code = HEPATITIS B VACCINES (3 of 3 - Risk 3-dose series)] Future Scheduled Test 2023-04-06 RSV VACCINES > 60 YR [facility] 11:50:34 (1 - 1-dose 60+ Hospital series) [code = RSV VACCINES > 60 YR (1 - 1-dose 60+ series)] Future Scheduled Test 2023-04-06 65+ PNEUMOCOCCAL [facility] 11:50:34 VACCINE (2 - PCV) Hospital [code = 65+ PNEUMOCOCCAL VACCINE (2 - PCV)] Future Scheduled Test 2023-04-06 BREAST CANCER [facility] 11:50:34 SCREENING [code = Hospital BREAST CANCER SCREENING] Future Scheduled Test 2023-04-06 DIABETIC FOOT EXAM [facility] 11:50:34 [code = DIABETIC FOOT Hospit al EXAM] Future Scheduled Test 2023-04-06 URINE MICROALBUMIN [facility] 11:50:34 [code = URINE Hospital MICROALBUMIN] Future Scheduled Test 2023-04-06 COVID-19 VACCINE (5 - [facility] 11:50:34 season) [code Hospit al = COVID-19 VACCINE ( - season)] Future Scheduled Test 2023-04-06 INFLUENZA VACCINE (#1) [facility] 11:50:34 [code = INFLUENZA Hospital VACCINE (#1)] Future Scheduled Test 2023-04-06 DIABETES: RETINAL EYE [facility] 11:50:34 EXAM [code = DIABETES: Hospi french RETINAL EYE EXAM] Future Scheduled Test 2023-04-06 Screening for [facility] 11:50:34 malignant neoplasm of Hospit al colon (procedure) [code = 979148829] Future Scheduled Test 2023-04-06 Screening for [facility] 11:50:34 malignant neoplasm of Hospit al colon (procedure) [code = 765157737] Future Scheduled Test 2023-04-06 Screening for [facility] 11:50:34 malignant neoplasm of Hospit al colon (procedure) [code = 378105111] Future Scheduled Test 2023-04-06 Screening for [facility] 11:50:34 malignant neoplasm of Hospit al colon (procedure) [code = 414115421] Future Scheduled Test 2023-04-06 Screening for [facility] 11:50:34 malignant neoplasm of Hospit al colon (procedure) [code = 453052160] Future Scheduled Test 2023-04-06 Hepatitis C screening [facility] 11:50:34 (procedure) [code = Hospital 473436750] Future Scheduled Test 2023-04-06 SHINGLES VACCINES (1 [facility] 11:50:34 of 2) [code = SHINGLES Hospi french VACCINES (1 of 2)] Future Scheduled Test 2023-04-06 HEPATITIS B VACCINES [facility] 11:50:34 (3 of 3 - Risk 3-dose Hospit al series) [code = HEPATITIS B VACCINES (3 of 3 - Risk 3-dose series)] Future Scheduled Test 2023-04-06 RSV VACCINES > 60 YR [facility] 11:50:34 (1 - 1-dose 60+ Hospital series) [code = RSV VACCINES > 60 YR (1 - 1-dose 60+ series)] Future Scheduled Test 2023-04-06 65+ PNEUMOCOCCAL [facility] 11:50:34 VACCINE (2 - PCV) Hospital [code = 65+ PNEUMOCOCCAL VACCINE (2 - PCV)] Future Scheduled Test 2023-04-06 BREAST CANCER [facility] 11:50:34 SCREENING [code = Hospital BREAST CANCER SCREENING] Future Scheduled Test 2023-04-06 DIABETIC FOOT EXAM [facility] 11:50:34 [code = DIABETIC FOOT Hospit al EXAM] Future Scheduled Test 2023-04-06 URINE MICROALBUMIN [facility] 11:50:34 [code = URINE Hospital MICROALBUMIN] Future Scheduled Test 2023-04-06 COVID-19 VACCINE (5 - [facility] 11:50:34 ) [code Hospit al = COVID-19 VACCINE ()] Future Scheduled Test 2023-04-06 INFLUENZA VACCINE (#1) [facility] 11:50:34 [code = INFLUENZA Hospital VACCINE (#1)] Future Scheduled Test 2023-04-06 DIABETES: RETINAL EYE [facility] 11:50:34 EXAM [code = DIABETES: Hospi french RETINAL EYE EXAM] Future Scheduled Test 2023-04-06 Screening for [facility] 11:50:34 malignant neoplasm of Hospit al colon (procedure) [code = 377891395] Future Scheduled Test 2023-04-06 Screening for [facility] 11:50:34 malignant neoplasm of Hospit al colon (procedure) [code = 574961106] Diagnostic Test 2023-03-29 HbA1c (hemoglobin [facility] 00:00:00 A1c), blood [code = Practice HbA1c (hemoglobin A1c), blood] Diagnostic Test 2023-03-29 CMP, serum or plasma [facility] 00:00:00 [code = CMP, serum or Practi ce plasma] Diagnostic Test 2023-03-29 CBC w/ auto diff [code Vi ll[facility] Pending 00:00:00 = CBC w/ auto diff] Practice Future Scheduled Test 2023-02-17 Influenza Vaccine (#1) [facility] 00:00:00 [code = Influenza Medical Ce nter Vaccine (#1)] Future Scheduled Test 2023-02-17 Influenza Vaccine (#1) [facility] 00:00:00 [code = Influenza Medical Ce nter Vaccine (#1)] Future Scheduled Test 2022-10-12 Urine screening for [facility] 00:00:00 protein (procedure) [facility] Center [code = 578882293] Future Scheduled Test 2022-10-12 Urine screening for [facility] 00:00:00 protein (procedure) Medical Center [code = 279829241] Future Scheduled Test 2022-06-[address] [facility] 00:00:00 (12+) [code = Medical Center DEPRESSION SCREENING (12+)] Future Scheduled Test 2022-06-19 FALLS RISK SCREENING [facility] 00:00:00 [code = FALLS RISK Medical C enter SCREENING] Future Scheduled Test 2022-06-[address] [facility] 00:00:00 (12+) [code = Medical Center DEPRESSION SCREENING (12+)] Future Scheduled Test 2022-06-19 FALLS RISK SCREENING [facility] 00:00:00 [code = FALLS RISK Medical C enter SCREENING] Future Scheduled Test 2022-02-22 COVID-19 VACCINE (5 - [facility] 00:00:00 Booster for [facility] series) [code = COVID-19 VACCINE (5 - Booster for Moderna series)] Future Scheduled Test 2022-02-22 COVID-19 VACCINE (5 - [facility] 00:00:00 Booster for [facility] series) [code = COVID-19 VACCINE (5 - Booster for Moderna series)] Future Scheduled Test 2021-02-17 INFLUENZA VACCINE (#1) [facility] 00:00:00 [code = INFLUENZA Medical Ce nter VACCINE (#1)] Future Scheduled Test 2021-02-17 INFLUENZA VACCINE (#1) [facility] 00:00:00 [code = INFLUENZA Medical Ce nter VACCINE (#1)] Future Scheduled Test 2020-06-19 DEPRESSION [...] 00:00:00 measurement Medical Center (procedure) [code = 02011145] Future Scheduled Test 2017-03-[address] [facility] 00:00:00 measurement Medical Center (procedure) [code = 96354613] Future Scheduled Test 2017-03-[address] [facility] 00:00:00 [facility] Medical Center (procedure) [code = 89942511] Future Scheduled Test 2017-03-[address] [facility] 00:00:00 [facility] Medical Center (procedure) [code = 18125775] Future Scheduled Test 2016-06-03 [facility] malignant neoplasm of Medica l Center colon (procedure) [code = 045155750] Future Scheduled Test 2016-06-03 [facility]ening [facility] 00:[facility]:00 malignant neoplasm of Medica l Center colon (procedure) [code = 111591174] Future Scheduled Test 2016-06-03 Screening for [facility] 00:[facility]:00 malignant neoplasm of Medica l Center colon (procedure) [code = 419913164] Future Scheduled Test 2016-06-03 [facility]ening [facility]:00 malignant neoplasm of Medica l Center colon (procedure) [code = 277937583] Future Scheduled Test 2015-06-20 MEDICARE ANNUAL [facility] 00:[facility]:00 (1 of 1 [facility] [id number] PCV13) [code = PNEUMOCOCCAL 65+ YRS (1 of 1 - [id number] PCV13)] Future Scheduled Test 2014 PNEUMOCOCCAL 65+ YRS [facility] 00:00:00 (1 of 1 [facility] [id number] PCV13) [code = PNEUMOCOCCAL 65+ YRS (1 of 1 - [id number] PCV13)] Future Scheduled Test 2013-12-01 [facility]ening [facility]:00 malignant neoplasm of Medica l Center breast (procedure) [code = 111013610] Future Scheduled Test 2013-12-01 [facility] [code = 065196464] Future Scheduled Test 1999 SHINGLES VACCINES ([address] [facility] 00:00:00 of 2) [code = SHINGLES Medic al Center VACCINES (1 of 2)] Future Scheduled Test 1999 SHINGLES VACCINES ([address] [facility] 00:00:00 of 2) [code = SHINGLES Medic al Center VACCINES (1 of 2)] Future Scheduled Test 1999 SHINGLES VACCINES ([address] [facility] 00:00:00 of 2) [code = SHINGLES Medic al Center VACCINES (1 of 2)] Future Scheduled Test 1999 SHINGLES VACCINES ([address] [facility] 00:00:00 of 2) [code = SHINGLES Medic al Center VACCINES (1 of 2)] Future Scheduled Test 1989 Statin - ASCVD Risk [facility] 00:00:00 Prevention [code = Medical C enter Statin - ASCVD Risk Prevention] Future Scheduled Test 1989 Statin - ASCVD Risk [facility] 00:00:00 Prevention [code = Medical C enter Statin - ASCVD Risk Prevention] Future Scheduled Test 1967 HEPATITIS C SCREENING [...] 00:00:00 examination Medical Center (regime/therapy) [code = 955688270] Future Scheduled Test 1959 DIABETIC EYE [facility] [code = DIABETIC EYE Medical Center EXAM] Future Scheduled Test 1959 Diabetic foot [facility] 00:[facility] examination Medical Center (regime/therapy) [code = 768631851] Future Scheduled Test 1959 Urine screening for [facility] 00:00:00 protein (procedure) Medical Center [code = 251571285] Future Scheduled Test 1959 DIABETIC EYE EXAM [facility] 00:00:00 [code = DIABETIC EYE Medical Center EXAM] Future Scheduled Test 1959 Diabetic foot [facility] 00:[facility]:00 examination Medical Center (regime/therapy) [code = 860230636] Future Scheduled Test 1959 DIABETIC EYE EXAM [facility] 00:00:00 [code = DIABETIC EYE Medical Center EXAM] Future Scheduled Test 1959 Diabetic foot [facility] 00:00:00 examination Medical Center (regime/therapy) [code = 294770627] Future Scheduled Test 1959 Urine screening for [facility] 00:00:00 protein (procedure) Medical Center [code = 890796613] Future Scheduled Test [address] [facility] 00:00:00 (combo) [code = CT Medical C enter Colonography (combo)] Future Scheduled Test 1949 [facility] 00:[facility]:00 malignant neoplasm of Medica l Center colon (procedure) [code = 845150276] Future Scheduled Test 1949 DXA SCAN [code = DXA [facility] 00:00:00 SCAN] Medical Center Future Scheduled Test 1949 [facility] 00:[facility]:00 malignant neoplasm of Medica l Center colon (procedure) [code = 598398953] Future Scheduled Test 1949 Sigmoidoscopy [code = [facility] 00:00:00 Sigmoidoscopy] [facility] Future Scheduled Test 1949 [facility] 00:00:00 malignant neoplasm of Medica l Center breast (procedure) [code = 706823733] Future Scheduled Test 1949 [facility] 00:00:00 malignant neoplasm of Medica l Center colon (procedure) [code = 978501109] Future Scheduled Test [address] [facility] 00:00:00 (combo) [code = CT Medical C enter Colonography (combo)] Future Scheduled Test 1949 [facility]ening [facility] 00:00:00 malignant neoplasm of Medica l Center colon (procedure) [code = 955905197] Future Scheduled Test 1949 DXA SCAN [code = DXA [facility] 00:00:00 SCAN] [facility] Future Scheduled Test 1949 [facility] 00:00:00 malignant neoplasm of Medica l Center colon (procedure) [code = 081137471] Future Scheduled Test 1949 Sigmoidoscopy [code = [facility] 00:00:00 Sigmoidoscopy] [facility] Future Scheduled Test 1949 [facility] 00:00:00 malignant neoplasm of Medica l Center breast (procedure) [code = 165079397] Future Scheduled Test 1949 [facility] 00:00:00 malignant neoplasm of Medica l Center colon (procedure) [code = 283601251] Future Scheduled Test DIABETES: RETINAL EYE [facility] EXAM [code = DIABETES: Hospi french RETINAL EYE EXAM] Future Scheduled Test DIABETIC FOOT EXAM [facility] [code = DIABETIC FOOT Hospit al EXAM] Future Scheduled Test URINE MICROALBUMIN [facility] [code = URINE Hospital MICROALBUMIN] Future Scheduled Test COVID-19 VACCINE (1) [facility] [code = COVID-19 Hospital VACCINE (1)] Future Scheduled Test Hepatitis C screening [facility] (procedure) [code = Hospital 221671098] Future Scheduled Test BREAST CANCER [facility] SCREENING [code = Hospital BREAST CANCER SCREENING] Future Scheduled Test COLONOSCOPY SCREENING [facility] [code = COLONOSCOPY Hospital SCREENING] Future Scheduled Test SHINGLES VACCINES (#1) [facility] [code = SHINGLES Hospital VACCINES (#1)] Future Scheduled Test 65+ PNEUMOCOCCAL [facility] VACCINE (2 of 2) [code Hospi french = 65+ PNEUMOCOCCAL VACCINE (2 of 2)] Future Scheduled Test INFLUENZA VACCINE M ethodist [code = INFLUENZA Hospital VACCINE] Future Appointment 2023-04-26 Katlyn Poole 12:45:00 Maria C [place] [facility] [address], [place] [address] [facility] Encounters Start End Encounter Admission Attending Care Care Encounter Source Date/Time Date/Time Type Type Clinicians Facility Department ID 2021-06-23 Outpatient TINO, [facility] [id number] MH TW 11:08:42 JOAO 2021-06-23 Outpatient JANI, [facility] [id number] MH TW 08:28:20 BEATRIS 2020-06-24 [id number] 12:00:[address] [place] [address] 2019-06-14 Outpatient MHTW MHTW [id number] MH TW 13:01:42 2023-04-03 2023-04-03 Infusion 1.2.840.1 [id number] Methodi 09:15:00 11:11:[address] 3.430.2.7 Hospit a .3.568173 l .8 2023-04-03 2023-04-03 Infusion 1.2.840.1 428 [id number] Methodi 09:15:00 11:11:[address] 3.430.2.7 Hospit a .3.585541 l .8 2023-04-03 2023-04-03 Travel 1.2.840.1 1.2.179.480 0102 398299 Methodi 00:00:00 00:00:[address] 3.430.2.7 0.2.7.3.698 Ho spita .3.369546 084.8 l .8 2023-04-03 2023-04-03 Travel 1.2.840.1 1.2.400.778 0086 053441 Methodi 00:00:00 00:00:[address] 3.430.2.7 0.2.7.3.698 Ho spita .3.547811 084.8 l .8 2023-03-29 2023-03-29 Outpatient Ngchadanjelica_C_HO VFP VFP 247 [id number] [facility] 00:00:00 00:00:00 MINDY [id number] Family Practic e 2023-03-29 2023-03-29 Katlyn VFP [place] - [id number] [facility] 00:00:00 00:00:00 [facility] [place] - Maegan shelby MD: 129 [place] - e Vision _HOU_[facility], [address], [place] [address] , Ph. 2023-03-27 2023-03-27 Telephone Dionna, 1.2.840.1 [id number] Methodi 00:00:00 00:00:[address] 3.430.2.7 Hospit a .3.979113 l .8 2023-03-27 2023-03-27 Telephone Dionna, 1.2.840.1 [id number] Methodi 00:00:00 00:00:[address] 3.430.2.7 Hospit a .3.384381 l .8 2023-03-22 2023-03-22 Office Lisa Green 1.2.840.1 [id number] Methodi 10:30:00 11:02:43 Visit [facility] 26445.1.[address] 3.430.2.7 Hospit a .3.252143 l .8 2023-03-22 2023-03-22 Office Lisa Green 1.2.840.1 [id number] Methodi 10:30:00 11:02:43 Visit [facility] 66755.1.[address] 3.430.2.7 Hospit a .3.458709 l .8 2023-03-22 2023-03-22 Telephone Rogers, 1.2.840.1 [id number] Methodi 00:00:00 00:00:[address] 3.430.2.7 Hospit a .3.346912 l .8 2023-03-22 2023-03-22 Telephone Ken, 1.2.840.1 [id number] Methodi 00:00:00 00:00:[address] 3.430.2.7 Hospit a .3.301646 l .8 2023-03-14 2023-03-15 Infusion 1.2.840.1 [id number] Methodi 08:45:00 11:02:[address] 3.430.2.7 Hospit a .3.794706 l .8 2023-03-14 2023-03-15 Infusion 1.2.840.1 0159531 Methodi 08:45:00 11:02:[address] 3.430.2.7 Hospit a .3.432504 l .8 2023-03-14 2023-03-14 Travel 1.2.840.1 1.2.284.439 4821 787753 Methodi 00:00:00 00:00:[address] 3.430.2.7 0.2.7.3.698 Ho spita .3.045767 084.8 l .8 2023-03-14 2023-03-14 Travel 1.2.840.1 1.2.659.537 9718 104426 Methodi 00:00:00 00:00:[address] 3.430.2.7 0.2.7.3.698 Ho spita .3.189342 084.8 l .8 2023-03-02 2023-03-02 Telephone Dionna, 1.2.840.1 21 [id number] Methodi 00:00:00 00:00:[address] 3.430.2.7 Hospit a .3.813630 l .8 2023-03-02 2023-03-02 Telephone Dionna, 1.2.840.1 [id number] 21 [id number] Methodi 00:00:00 00:00:[address] 3.430.2.7 Hospit a .3.976998 l .8 2023-03-01 2023-03-01 Office Astrid, 1.2.840.1 596 [id number] Methodi 11:00:00 11:44:57 Visit Erasto 79557.1.[address] 3.430.2.7 Hospit a .3.609611 l .8 2023-03-01 2023-03-01 Office Astrid, 1.2.840.1 [id number] Methodi 11:00:00 11:44:57 Visit Erasto 46795.1.[address] 3.430.2.7 Hospit a .3.771812 l .8 2023-03-01 2023-03-01 Travel 1.2.840.1 1.2.822.286 8411 631625 Methodi 00:00:00 00:00:[address] 3.430.2.7 0.2.7.3.698 Ho spita .3.943616 084.8 l .8 2023-03-01 2023-03-01 Telephone Lisa Green 1.2.840.1 [id number] 2 [id number] Methodi 00:00:00 00:00:[address] 3.430.2.7 Hospit a .3.105214 l .8 2023-03-01 2023-03-01 Travel 1.2.840.1 1.2.565.469 1457 [id number] Methodi 00:00:00 00:00:[address] 3.430.2.7 0.2.7.3.698 Ho spita .3.805102 084.8 l .8 2023-03-01 2023-03-01 Telephone Lisa Green 1.2.840.1 [id number] 2 [id number] Methodi 00:00:00 00:00:[address] 3.430.2.7 Hospit a .3.822076 l .8 2023-02-28 2023-02-28 Outpatient Nguyen_C_HO VFP VFP [address] [place] [address] 00:00:00 00:00:00 U_MD [id number] Family Practic e 2023-02-28 2023-02-28 Katlyn VFP [facility] [id number] [facility] 00:00:00 00:00:00 [facility] [place], Medical - Pracbennie shelby MD: 129 [place] - e Vision _U_[facility], [address], [place] [address] , Ph. 2023-02-27 2023-02-27 Outpatient Nguyen_C_HO VFP VFP [address] [place] [address] 00:00:00 00:00:00 U_MD 500505 Family Practic e 2023-02-22 2023-02-22 Outpatient Nguyen_C_HO VFP VFP [address] [place] [address] 00:00:00 00:00:00 U_MD [id number] Family Practic e 2023-02-16 2023-02-17 Infusion 1.2.840.1 [id number] Methodi 08:45:00 10:49:[address] 3.430.2.7 Hospit a .3.007651 l .8 2023-02-16 2023-02-17 Infusion 1.2.840.1 0158300 Methodi 08:45:00 10:49:[address] 3.430.2.7 Hospit a .3.940720 l .8 2023-02-17 2023-02-17 Katlyn VFP [place] - [id number] [facility] 00:00:00 00:00:[address] [facility] shelby MD: [address] [place] - e [facility] [address], [place] [address] , Ph. 2023-02-16 2023-02-16 Travel 1.2.840.1 1.2.217.768 9317 607210 Methodi 00:00:00 00:00:[address] 3.430.2.7 0.2.7.3.698 Ho spita .3.700634 084.8 l .8 2023-02-16 2023-02-16 Travel 1.2.840.1 1.2.827.485 9328 340697 Methodi 00:00:00 00:00:[address] 3.430.2.7 0.2.7.3.698 Ho spita .3.253315 084.8 l .8 2023-02-14 2023-02-14 Office Alian, 1.2.840.1 [id number] 645 [id number] Methodi 10:15:00 10:58:51 Visit [facility] [address]0100.1.[address] 3.430.2.7 Hospit a .3.476245 l .8 2023-02-14 2023-02-14 Office Alian, 1.2.840.1 8187 Methodi 10:15:00 10:58:51 Visit [facility] 31797.1.[address] 3.430.2.7 Hospit a .3.727465 l .8 2023-02-14 2023-02-14 Travel 1.2.840.1 1.2.912.044 1416 352129 Methodi 00:00:00 00:00:[address] 3.430.2.7 0.2.7.3.698 Ho spita .3.644567 084.8 l .8 2023-02-14 2023-02-14 Travel 1.2.840.1 1.2.059.602 8008 811539 Methodi 00:00:00 00:00:[address] 3.430.2.7 0.2.7.3.698 Ho spita .3.378877 084.8 l .8 2023-02-10 2023-02-10 Outpatient Nguyen_C_HO VFP VFP [address] [place] [address] 00:00:00 00:00:00 MINDY [id number] [facility] Practic e 2023-02-08 2023-02-08 Hospital [facility] [id number] 05:32:00 10:17:00 Encounter [facility] 2023-02-08 2023-02-08 Hospital [facility] [id number] [address] 05:32:00 10:17:00 Encounter [facility] 2023-02-08 2023-02-08 Surgery [facility] [id number] [address] 07:00:00 08:30:00 [facility] 2023-02-08 2023-02-08 [facility] [id number] [address] 07:00:00 08:30:00 [facility] 2023-02-08 2023-02-08 Travel [facility] [id number] [facility] 00:00:00 00:00:00 [facility] 2023-02-08 2023-02-08 Travel [facility] [id number] [facility] 00:00:00 00:00:00 [facility] 2023-02-07 2023-02-07 Outpatient Nguyen_C_HO VFP VFP [address] [place] [address] 00:00:00 00:00:00 MINDY [id number] Family Practic e 2023-02-07 2023-02-07 Outpatient Nguyen_C_HO VFP VFP [address] 00:00:00 00:00:00 MINDY [id number] Family Practic e 2023-02-07 2023-02-07 Katlyn VFP [place] - [id number] [facility] 00:00:00 00:00:00 Degroot [facility] Family [place]Estella bur[place] - Maegan shelby MD: [address] [place] - [place] Vision NO_HOU_[facility], [address], [place] [address] , Ph. 2023-02-03 2023-02-03 Outpatient Marcelina_Alistair_AURA VFP VFP 247 8247-20 [facility] 00:00:00 00:00:00 MINDY [id number] Family Practic e 2023-02-03 2023-02-03 Lenarashid Ramachandran VFP [place] - [id number] [facility] 00:00:00 00:00:00 MARIXA Harkins: [facility] ly [address] [place] - Maegan shelby [place] - [address] SARABIA_KIP_F[address], [place] [address] , Ph. 2023-02-02 2023-02-02 [facility] [id number] [address] 08:55:11 23:59:00 Encounter [facility] 2023-02-02 2023-02-02 Hospital [facility] [id number] [address] 08:55:11 23:59:00 Encounter [facility] 2023-02-02 2023-02-02 Travel [facility] [id number] [facility] 00:00:00 00:00:00 [facility] 2023-02-02 2023-02-02 Travel [facility] [id number] [facility] 00:00:00 00:00:00 [facility] 2022-12-27 2022-12-28 Office Jayson Resendiz.2.840.1 [id number] Methodi 12:45:00 06:24:13 Visit Erasto 99138.1.[address] 3.430.2.7 Hospit a .3.304603 l .8 2022-12-27 2022-12-28 Office Astrid, 1.2.840.1 [id number] 695 [id number] Methodi 12:45:00 06:24:13 Visit Erasto 53342.1.[address] 3.430.2.7 Hospit a .3.932160 l .8 2022-12-23 2022-12-23 Telephone Nic, 1.2.840.1 [id number] Methodi 00:00:00 00:00:[address] 3.430.2.7 Hospit a .3.275053 l .8 2022-12-23 2022-12-23 Telephone Nic, 1.2.840.1 [id number] Methodi 00:00:00 00:00:[address] 3.430.2.7 Hospit a .3.129159 l .8 2022-12-06 2022-12-06 Outpatient Nguyen_C VFP [facility] [id number] [facility] 00:00:00 00:00:[address] [place] [address] 2022-12-06 2022-12-06 Katlyn [facility] [place] - [id number] [facility] 00:00:00 00:00:00 [facility] - Pracbennie shelby MD: 129 [place] - e [facility] VM_HOU_[facility], [address], [place] [address] , Ph. 2022-11-22 2022-11-23 Office Astrid, 1.2.840.1 [id number] [id number] Methodi 11:15:00 06:57:13 Visit Erasto 84395.1.[address] 3.430.2.7 Hospit a .3.539682 l .8 2022-11-22 2022-11-23 Office Astrid, 1.2.840.1 [id number] Methodi 11:15:00 06:57:13 Visit Erasto 03273.1.[address] 3.430.2.7 Hospit a .3.198506 l .8 2022-11-23 2022-11-23 Outpatient Nguyen_C VFP VFP [id number] [address] [place] [address] 00:00:00 00:00:00 [id number] Family Practic e 2022-11-22 2022-11-22 [facility] Cheyanne Do 1.2.840.1 [id number] Methodi 00:00:00 00:00:00 Orders [place] [address]663.1.[address] 3.430.2.7 Hospit a .3.295718 l .8 2022-11-22 2022-11-22 Travel 1.2.840.1 1.2.830.221 3788 [id number] Methodi 00:00:00 00:00:[address] 3.430.2.7 0.2.7.3.698 Ho spita .3.885729 084.8 l .8 2022-11-22 2022-11-22 [facility] Cheyanne Do 1.2.840.1 [id number] Methodi 00:00:00 00:00:00 Orders [place] [address]67.1.[address] 3.430.2.7 Hospit a .3.565659 l .8 2022-11-22 2022-11-22 Travel 1.2.840.1 1.2.774.984 2196 686234 Methodi 00:00:00 00:00:[address] 3.430.2.7 0.2.7.3.698 Ho spita .3.269699 084.8 l .8 2022-11-20 2022-11-20 Outpatient Nguyen_C VFP VFP [id number] [address] [place] [address] 00:00:00 00:00:00 [id number] Family [facility] e 2022-11-18 2022-11-19 Office Astrid, 1.2.840.1 [id number] Methodi 12:15:00 08:24:19 Visit [facility] [address]95.1.[address] 3.430.2.7 Hospit a .3.186675 l .8 2022-11-18 2022-11-19 Office Astrid, 1.2.840.1 [id number] Methodi 12:15:00 08:24:19 Visit [place]ast[place] 45401.1.[address] 3.430.2.7 Hospit a .3.734248 l .8 2022-11-18 2022-11-18 Travel 1.2.840.1 1.2.482.665 5590 206122 Methodi 00:00:00 00:00:[address] 3.430.2.7 0.2.7.3.698 Ho spita .3.520221 084.8 l .8 2022-11-18 2022-11-18 Travel 1.2.840.1 1.2.297.651 7140 371698 Methodi 00:00:00 00:00:[address] 3.430.2.7 0.2.7.3.698 Ho spita .3.501019 084.8 l .8 2022-11-15 2022-11-16 Infusion Astrid, 1.2.840.1 [id number] Methodi 10:00:00 16:22:[address] [place] [address] 3.430.2.7 Hospit a .3.318773 l .8 2022-11-15 2022-11-16 Infusion Aliprashanth, 1.2.840.1 [id number] Methodi 10:00:00 16:22:[address] 3.430.2.7 Hospit a .3.502497 l .8 2022-11-15 2022-11-15 Travel 1.2.840.1 1.2.321.659 5523 121151 Methodi 00:00:00 00:00:[address] 3.430.2.7 0.2.7.3.698 Ho spita .3.172276 084.8 l .8 2022-11-15 2022-11-15 Travel 1.2.840.1 1.2.255.376 1389 874410 Methodi 00:00:00 00:00:[address] 3.430.2.7 0.2.7.3.698 Ho spita .3.355377 084.8 l .8 2022-11-08 2022-11-08 Telephone Nic, 1.2.840.1 365 Methodi 00:00:00 00:00:00 Dea 15186.1.1 [address] 3.430.2.7 Hospit a .3.698794 l .8 2022-11-08 2022-11-08 Telephone Nic, 1.2.840.1 365 Methodi 00:00:00 00:00:[address] 3.430.2.7 Hospit a .3.118786 l .8 2022-11-01 2022-11-01 Outpatient Nguyen_C [facility] [id number] [address] [place] [address] 00:00:00 00:00:00 [id number] [facility] 2022-11-01 2022-11-01 Katlyn [facility] [place] - [id number] [facility] 00:00:00 00:00:[address] [facility], Estella - Practi alistair MD: 129 [place] - e Vision VM_HOU_[facility], [address], [place] [address] , Ph. 2022-10-31 2022-10-31 Cruz Resendiz, 1.2.840.1 [id number] Methodi 00:00:00 00:00:00 Only Mujahed [address]955.1.[address] 3.430.2.7 Hospit a .3.672138 l .8 2022-10-31 2022-10-31 Orders Astrid, 1.2.840.1 [id number] Methodi 00:00:00 00:00:00 Only Mujahed [address]88.1.[address] 3.430.2.7 Hospit a .3.338221 l .8 2022-10-30 2022-10-30 Outpatient Nguyen_C VFP VFP [id number] [address] [place] [address] 00:00:00 00:00:00 [id number] Family Practic e 2022-10-16 2022-10-16 Outpatient Nguyen_C VFP VFP [id number] [address] [place] [address] 00:00:00 00:00:00 [id number] Family Practic e 2022-10-14 2022-10-14 Abstract Astrid, 1.2.840.1 [id number] 21 [id number] Methodi 00:00:00 00:00:[address] 3.430.2.7 Hospit a .3.410663 l .8 2022-10-14 2022-10-14 Abstract Astrid 1.2.840.1 [id number] 21 [id number] Methodi 00:00:00 00:00:[address] 3.430.2.7 Hospit a .3.344632 l .8 2022-09-19 2022-09-19 Outpatient Nguyen_C VFP VFP [id number] [address] [place] [address] 00:00:00 00:00:00 [id number] Family Practic e 2022-09-12 2022-09-12 Outpatient Roblessuare VFP VFP [id number] 00:00:00 00:00:00 z_J [id number] Family Practic e 2022-09-12 2022-09-12 Melodie VFP [place] - [id number] V illage 00:00:00 00:00:00 [facility] Juan [facility] [place] [place] MD: 129 [place] - e Vision _HOU_[facility], [address], [place] [address] , Ph. 2022-09-02 2022-09-02 Emergency E EFREN PICKARD MHTW 7523 MHTW 16:06:00 23:42:00 LAKESHIA 2022-08-26 2022-08-26 Outpatient Roblessuare VFP VFP [address] [place] [address] 00:00:00 00:00:00 z_J [id number] Family Practic e 2022-08-26 2022-08-26 Katlyn VFP [place] - [id number] [facility] 00:00:00 00:00:00 Zane [facility] Won Medical - Pracbennie shelby MD: 129 [place] - e Vision _KIP_[facility] [address], [place] [address] , Ph. 2022-08-16 2022-08-16 Emergency E BEATRIZ, TW TW 7522 MHTW 16:12:00 23:58:00 LYNETTE 2022-08-12 2022-08-12 Outpatient Roblessuare VFP VFP [address] [place] [address] 00:00:00 00:00:00 z_J [id number] Family Practic e 2022-08-12 2022-08-12 Outpatient Roblessuare VFP VFP [address] [place] [address] 00:00:00 00:00:00 z_J [id number] Family Practic e 2022-08-12 2022-08-12 Outpatient Roblessuare VFP VFP [address] [place] [address] 00:00:00 00:00:00 z_J [id number] Family Practic e 2022-08-12 2022-08-12 Melodie VFP [place] - [id number] V illage 00:00:00 00:00:00 [facility] Estella Martinez - [facility] love MD: 129 [place] - e Vision VM[facility]IKP[facility] [address], [place] [address] , Ph. 2022-07-27 2022-07-27 Outpatient Roblessuare VFP VFP [id number] 00:00:00 00:00:00 z_J [id number] Family Practic e 2022-07-13 2022-07-13 Katlyn VFP [place] - [id number] [facility] 00:00:00 00:00:00 [facility] WonEstella MD: 129 [place] - e Vision _[facility] [address], [place] [address] , Ph. 2022-07-07 2022-07-07 Outpatient Roblessuare VFP VFP [address] [place] [address] 00:00:00 00:00:00 z_Varsha [id number] Family Practic e 2022-07-07 2022-07-07 Outpatient Roblessuare VFP VFP [address] [place] [address] 00:00:00 00:00:00 Nalini [id number] Family Practic e 2022-06-28 2022-06-28 Outpatient Roblessuare VFP VFP [address] [place] [address] 00:00:00 00:00:00 Nalini [id number] Family Practic e 2022-06-22 2022-06-22 Outpatient Roblessuare VFP VFP [address] [place] [address] 00:00:00 00:00:00 kali_Varsha [id number] Family Practic e 2022-06-22 2022-06-22 Katlyn VFP [place] - [id number] [facility] 00:00:00 00:00:00 [facility] WonsEtella MD: 129 [place] - e Vision _Lorrie [facility] [address] [place] [address] , Ph. 2022-06-21 2022-06-21 Outpatient Roblessuare VFP VFP [address] [place] [address] 00:00:00 00:00:00 kali_Varsha [id number] Family Practic e 2022-06-21 2022-06-21 Kristin VFP [place] - [id number] [facility] 00:00:00 00:00:00 MARIXA Garcia: [facility] 129 Vision [facility] [place] - [address] _AURAU_Wilbertot [address] [address] , Ph. 2022-06-07 2022-06-07 Outpatient DEGROOT-SUAR MHTW MHTW 235 [id number] MHTW 11:00:00 23:59:00 KATLYN COON 2022-06-07 2022-06-07 Documentat Milan, [facility] [id number] 00:00[facility]00 00:00:00 [facility] 2022-06-07 2022-06-07 Anaat Milan, [facility] [id number] 00:00:00 00:00:00 [facility] 2022-06-06 2022-06-06 Outpatient Roblessuare VFP VFP 247 [id number] [facility] 00:00:00 00:00:00 z_J [id number] Family Practic e 2022-06-06 2022-06-06 Documentat Sang, [facility] [id number] 00:00:00 00:00:00 [facility] 2022-06-06 2022-06-06 Ana Sang, [facility] [id number] [id number] 00:00:00 00:00:00 [facility] 2022-05-31 2022-05-31 Orders James, [facility] [id number] [facility] 12:15:00 12:30:00 Only [facility] 2022-05-31 2022-05-31 Orders EL James, [facility] [id number] [facility] 12:15:00 12:30:00 Only [facility] 2022-05-31 2022-05-31 Office James, [facility] [id number] [id number] 10:30:00 11:00:00 Visit Jeni [facility] 2022-05-31 2022-05-31 Office James, [facility] [id number] [id number] 10:30:00 11:00:00 Visit Heide Ngo [facility] 2022-05-25 2022-05-25 Outpatient Roblessuare VFP VFP 247 [id number] [facility] 00:00:00 00:00:00 z_J [id number] Family Practic e 2022-05-25 2022-05-25 Katlyn VFP [place] - [id number] [facility] 00:00:00 00:00:00 Zane [facility] Family [place], Estella - Maegan shelby MD: 129 [place] - e Vision VM_HOU_Nort [facility], [address], [place] [address] , Ph. 2022-05-20 2022-05-20 Outpatient Clark_A_HOU VFP VFP [id number] 00:00:00 00:00:00 [id number] Family Practic e 2022-05-20 2022-05-20 Outpatient Markelllessuatan VFP VFP [id number] 00:00:00 00:00:00 z_J [id number] Family Practic e 2022-04-25 2022-04-25 [facility] [id number] [facility] 00:00:00 00:00:00 Only [facility] 2022-04-25 2022-04-[address] [facility] [id number] [facility] 00:00:00 00:00:00 Only [facility] 2022-02-15 2022-02-16 Emergency E EFREN MANLEY MHTW 7520 MHTW 23:24:00 04:36:00 NOLAN 2022-01-04 2022-01-06 Outpatient E NACHO TW MED [id number] MHTW 14:45:00 11:30:00 BARBARA MALLOY 2021-12-28 2021-12-28 Outpatient [facility] [id number] [place] 00:00:00 00:00:[address] 2021-11-25 2021-11-25 Emergency E ALICE CONTE MHTW MHTW 7518 MHTW 16:26:00 18:08:00 2021-11-09 2021-11-09 Outpatient [facility] [id number] [place] 00:00:00 00:00:[address] 2021-10-26 2021-10-26 Outpatient EL [facility] [id number] [facility] 13:54:15 13:54:15 2021-10-26 2021-10-26 Outpatient EL JAMES, [facility] [id number] WH 13:07:10 13:07:10 RISE 2021-09-20 2021-09-20 Outpatient [facility] [id number] [place] 00:00:00 00:00:[address] 2021-08-30 2021-08-30 Outpatient EL JAMES, [facility] [id number] [facility] 13:02:31 23:59:00 [facility] 2021-08-10 2021-08-10 Outpatient EL JAMES, [facility] [id number] [facility] 12:46:11 12:46:11 [facility] 2021-08-03 2021-08-03 Outpatient CALEB WOLFE [facility] [id number] [place] 00:00:00 00:00:[address] 2021-08-03 2021-08-03 Outpatient CALEB WOLFE [facility] [id number] [place] 00:00:00 00:00:[address] 2021-07-28 2021-07-28 Outpatient [facility] [id number] [place] 00:00:00 00:00:[address] 2021-07-11 2021-07-12 Emergency E EFREN MANLEY MHTW [id number] MHTW 19:46:00 02:10:00 NOLAN 2021-06-07 2021-06-07 Outpatient EL KANTIS, WH [facility] [id number] [facility] 15:28:13 23:59:00 JOAO 2021-05-03 2021-05-10 Inpatient E EFREN ESCOBAR MED [id number] MHTW 11:48:00 12:45:00 RAKAN 2021-03-16 2021-03-16 Outpatient EL JAMES, [facility] [id number] [facility] 00:00:00 00:00:00 RISE 2021-02-20 2021-02-20 Emergency E EFREN VILLANUEVA MHTW [id number] MHTW 08:33:00 13:03:00 EMEKA 2021-02-20 2021-02-20 Outpatient JANI MHTW MED [id number] MHTW 08:08:00 08:08:00 BEATRIS 2020-12-29 2020-12-29 Outpatient KATHLEEN RAMIREZ, [facility] [id number] [facility] 00:00:00 00:00:00 [facility] 2020-12-18 2020-12-18 Outpatient MIRNA SHIPLEY MHTW MED [id number] MHTW 12:44:00 15:15:00 2020-08-27 2020-08-30 Inpatient E GORDON MHTW MED [id number] MHTW 23:50:00 12:00:00 JES 2020-08-24 2020-08-[address] [facility] [id number] 00:00:00 00:00:00 [facility] 2020-08-18 2020-08-18 Outpatient KATHLEEN [facility] [id number] SL 00:00:00 00:00:00 DEL 2020-06-30 2020-06-[address] [facility] [id number] 08:23:56 08:53:56 Visit [facility] 2020-06-30 2020-06-30 Outpatient KATHLEEN RAMIREZ [facility] [id number] [facility] 00:00:00 00:00:00 [facility] 2020-06-30 2020-06-30 Outpatient KATHLEEN GREENJAMES, [facility] [id number] [facility] 00:00:00 00:00:00 [facility] 2020-06-30 2020-06-30 Outpatient EL DIANNWH [facility] [id number] [facility] 00:00:00 00:00:00 2020-06-30 2020-06-[address] [facility] [id number] 00:00:00 00:00:00 Only [facility] 2020-06-23 2020-06-23 Office [facility] [id number] [id number] 10:46:05 11:46:05 Visit Del [facility] 2020-06-23 2020-06-23 [facility] [id number] SL 00:00:00 00:00:00 DEL 2020-06-23 2020-06-23 Outpatient EL [facility] [id number] SL 00:00:00 00:00:00 2020-06-22 2020-06-[address] [facility] [id number] [facility] 00:00:00 00:00:00 ion [facility] 2020-05-28 2020-05-28 Outpatient JAMES [facility]ER[facility] [id number] [facility] 00:00:00 00:00:00 RISE 2020-05-04 2020-05-04 [facility] [id number] Memoria 15:41:00 23:59:00 [facility] 2020-03-30 2020-03-30 Outpatient SHAWANDA, TW MED [id number] MHTW 14:00:00 23:59:00 GWENDOLINE 2020-03-24 2020-03-24 [facility] [id number] Memoria 05:32:00 10:00:00 [facility] 2020-02-17 2020-02-17 Outpatient CHEYANNE DO MHTW MHTW [id number] MHTW 20:00:00 20:00:00 2019-11-04 2019-11-04 [facility] [id number] Memoria 16:12:00 16:12:00 [facility] 2019-06-05 2019-06-05 Outpatient [facility] [id number] Memoria 06:21:00 06:21:00 nathaniel [facility] 2019-03-04 2019-03-04 Outpatient MHTW MHTW [id number] MHTW 09:00:00 09:00:00 2019-02-19 2019-02-19 Outpatient [facility] [id number] Memoria 13:31:00 13:31:00 [facility]iel [facility] 2019-01-23 2019-01-23 Outpatient [facility] [id number] [facility] 13:31:00 13:31:00 nathaniel Schmitt [facility] l [facility] l 2019-01-21 2019-01-21 Outpatient [facility] MED [id number] [facility] 07:21:00 07:21:00 2018-09-11 2018-09-11 Outpatient [facility] [id number] 00:00:00 00:00:00 [facility] Results Test Description Test Time Test Comments Results Result Comments Source Sedimentation rate 2023-04-03 16:24:00 Test Item Value Reference Range Interpretation Comme nts Sedimentation rate (test code = 10 See_Comment [Automated message] The system 61476-8) which generated this result transmitted ref erence range: 0 - 30 mm/hr. The refe rence range was not used to interpr et this result as normal/abnormal . [id number] 16:24:00 Test Item Value Reference Range Interpretation Comments Sedimentation rate (test 10 See_Comment [A utomated message] code = 89596-0) The system w hich generated this result transmitted ref erence range: 0 - 30 m m/hr. The reference r leeann was not used to int erpret this result as normal/abnormal . [facility] [id number] 14:54:00 Test Item Value Reference Range Interpretation Comments Hemolysis (test code = <15 <=15 3440) Sodium (test code = 138 mmol/L 135-483 1271823) Potassium (test code = 4.3 mmol/L 3.5-5.0 1675699) Chloride (test code = 105 mmol/L 98-107 5-0) CO2 (test code = 24 mmol/L 23-32 8-9) Glucose (test code = 218 mg/dL 60-100 H 2345-7) BUN (test code = 24 mg/dL 7-17 H 2155576) Creatinine (test code = 0.7 mg/dL 0.6-1.0 9739705) eGFR MDRD (test code = 83.2 See_Comment If Af rican Cuban, 8846) multiply the GF R by 1.210. [...] Albumin (test code = 3.7 g/dL 3.5-5.0 8640990) Calcium (test code = 9.4 mg/dL 8.4-10.6 2745153) AST (test code = 14 U/L 8-35 1920-8) ALT (test code = 16 U/L 7-44 1742-6) Anion gap (test code = 14.0 10.0-20.0 3081138) BUN/creatinine ratio 35.0 7.0-25.0 H (test code = 3097-3) Lab Interpretation Abnormal (test code = 23099-4) [facility] [id number] 14:54:00 Test Item Value Reference Range Interpretation Comments CRP (test code = 1987-) 0.8 mg/dL <=0.5 H Lab Interpretation (test code = Abnormal 05910-0) [facility] [id number] 14:54:00 Test Item Value Reference Range Interpretation Comments Hemolysis (test code = <15 <=15 3440) Sodium (test code = 138 mmol/L 135-035 1197309) Potassium (test code = 4.3 mmol/L 3.5-5.0 9325709) Chloride (test code = 105 mmol/L 98-107 2075-0) CO2 (test code = 24 mmol/L 23-32 8-9) Glucose (test code = 218 mg/dL 60-100 H 2345-7) BUN (test code = 24 mg/dL 7-17 H 3013068) Creatinine (test code = 0.7 mg/dL 0.6-1.0 7678631) eGFR MDRD (test code = 83.2 See_Comment If Af rican Cuban, 8846) multiply the GF R by 1.210. [Automat ed message] The sy stem which generated this result transmit karen reference range : 60.0 - 137.0 mL/min/1.73m^2. The reference range was not used to interpret this result as normal/abnormal . Total bilirubin (test 0.3 mg/dL 0.2-1.3 code = 1974-2) Alkaline phosphatase 92 U/L 38-126 (test code = 6768-6) Protein (test code = 6.5 g/dL 6.0-8.5 2885-2) Albumin (test code = 3.7 g/dL 3.5-5.0 9204282) Calcium (test code = 9.4 mg/dL 8.4-10.6 5147552) AST (test code = 14 U/L 8-35 1920-8) ALT (test code = 16 U/L 7-44 2-6) Anion gap (test code = 14.0 10.0-20.0 3194972) BUN/creatinine ratio 35.0 7.0-25.0 H (test code = 3097-3) Lab Interpretation Abnormal (test code = 78019-3) [facility] [id number] 14:54:00 Test Item Value Reference Range Interpretation Comments CRP (test code = 1987-) 0.8 mg/dL <=0.5 H Lab Interpretation (test code = Abnormal 30452-9) [facility] with platelet and [id number] 14:27:00 Test Item Value Reference Range Interpretation Comments WBC (test code = 6690-2) 9.7 10^3/uL 4.0-10.6 RBC (test code = 0625044) 5.40 10^6/uL 4.15-4.90 H HGB (test code = 280) 14.6 g/dL 12.0-16.0 HCT (test code = 7864720) 45.4 % 37.0-48.0 MCV (test code = 6390132) 84.1 fL 80.0-98.0 MCH (test code = 3534110) 27.0 pg 28.0-33.0 L MCHC (test code = 4549724) 32.2 g/dL 32.0-36.0 RDW (test code = 2973) 16.6 % 10.6-15.4 H Platelet count (test code = 346 10^3/uL 150-400 777-3) MPV (test code = 0013783) 10.5 fL 9.4-12.4 Nucleated RBC (test code = 254) 0.0 % 0.0-1.0 Absolute nRBC (test code = 0.0 10^3/uL 0.0-0.0 4195912) Neutrophils (test code = 61.0 % 45.0-74.0 0748575) Lymphocytes (test code = 736-9) 24.6 % 16.0-45.0 Monocytes (test code = 5905-5) 10.7 % 4.0-10.0 H Eosinophils (test code = 1352) 2.7 % 0.0-5.0 Basophils (test code = 706-2) 0.4 % 0.0-2.0 Immature granulocytes (test code 0.6 % 0.0-1.0 = 1594) Neutrophils, absolute (test code 5.9 10^3/uL 1.6-9.0 = 1801) Lymphocytes, absolute (test code 2.4 10^3/uL 0.4-4.4 = 3725060) Monocytes, absolute (test code = 1.0 10^3/uL 0.2-1.7 1268223) Eosinophils, absolute (test code 0.3 10^3/uL 0.0-1.7 = 1353) Basophils, absolute (test code = 0.0 10^3/uL 0.0-0.3 929) Immature granulocytes, absolute 0.1 10^3/uL 0.0-0.0 H (test code = 2839) Lab Interpretation (test code = Abnormal 61628-6) [facility] with platelet and [id number] 14:27:00 Test Item Value Reference Range Interpretation Comments WBC (test code = 6690-2) 9.7 10^3/uL 4.0-10.6 RBC (test code = 9232598) 5.40 10^6/uL 4.15-4.90 H HGB (test code = 280) 14.6 g/dL 12.0-16.0 HCT (test code = 5693179) 45.4 % 37.0-48.0 MCV (test code = 3318438) 84.1 fL 80.0-98.0 MCH (test code = 5784303) 27.0 pg 28.0-33.0 L MCHC (test code = 7894221) 32.2 g/dL 32.0-36.0 RDW (test code = 2973) 16.6 % 10.6-15.4 H Platelet count (test code = 346 10^3/uL 150-400 777-3) MPV (test code = 3431608) 10.5 fL 9.4-12.4 Nucleated RBC (test code = 254) 0.0 % 0.0-1.0 Absolute nRBC (test code = 0.0 10^3/uL 0.0-0.0 8220793) Neutrophils (test code = 61.0 % 45.0-74.0 2683817) Lymphocytes (test code = 736-9) 24.6 % 16.0-45.0 Monocytes (test code = 5905-5) 10.7 % 4.0-10.0 H Eosinophils (test code = 1352) 2.7 % 0.0-5.0 Basophils (test code = 706-2) 0.4 % 0.0-2.0 Immature granulocytes (test code 0.6 % 0.0-1.0 = 1594) Neutrophils, absolute (test code 5.9 10^3/uL 1.6-9.0 = 1801) Lymphocytes, absolute (test code 2.4 10^3/uL 0.4-4.4 = 1875720) Monocytes, absolute (test code = 1.0 10^3/uL 0.2-1.7 4277733) Eosinophils, absolute (test code 0.3 10^3/uL 0.0-1.7 = 1353) Basophils, absolute (test code = 0.0 10^3/uL 0.0-0.3 929) Immature granulocytes, absolute 0.1 10^3/uL 0.0-0.0 H (test code = 2839) Lab Interpretation (test code = Abnormal 17101-4) [facility] [id number] 12:12:00 Test Item Value Reference Range Interpretation [...] 0-5 yeast (test code = yeast) comment [facility] W Reflex Culture panel - Urine [...] (test code = WBC negative negative esterase) [facility]/Creatinine [Mass Ratio] in [id number] 00:00:00 Test Item Value Reference Range Interpretation Comments creatinine random urine 22.1 mg/dL 20.0-320.0 (test code = creatinine random urine) microalbumin random result IS <5 ug/mL. urine (test code = result IS less than microalbumin random the sensitivity of the urine) instrument. microalbumin/creatinine (random urine) ratio calculated (test code = microalbumin/creatinine (random urine) ratio calculated) [facility] CenterThyroxine (T4) free [Mass/volume] in Serum or Plasma 2023-02-28 19:33:00 Test Item Value Reference Range Interpretation Comments T4 free (test code = T4 free) 0.96 NG/dL 0.70-1.48 [facility] W Auto Differential panel - [id number] 00:00:00 Test Item Value Reference Range Interpretation [...] (test code = baso#) 0.05 x10*3/?L 0.01-0.08 [facility] CenterTSH, serum, reflex free [id number] 00:00:00 Test Item Value Reference Range Interpretation Comments TSH_R (test code = TSH_R) 0.335 uIU/mL 0.350-4.940 L [facility] CenterCom[facility] 2000 panel - Serum or Plasma [...] (test code = AST) 16 U/L 5-34 [facility] CenterHemoglobin A1c/Hemoglobin.total in [id number] 00:00:00 Test Item Value Reference Range Interpretation Comments Hemoglobin A1c/Hemoglobin.total in 8.1 % 1.0-5.7 H Blood (test code = 4548-4) average blood glucose (calculation) 186 mg/dL (test code = average blood glucose (calculation)) [facility] CenterPOC-Glucose zkled1950-06-24 06:50:03 Test Item Value Reference Range Interpretation Comments POC-Glucose Meter (test 112 mg/dL 70-110 H : TE STED AT [facility] code = 1538) [address] [facility] [address]: Stuffer/Techni nicole ID = [id number] for Chayito Tapia Lab Interpretation (test Abnormal code = 87341-4) [facility] [id number] 06:50:03 Test Item Value Reference Range Interpretation Comments POC-Glucose Meter (test 112 mg/dL 70-110 H : TE STED AT [facility] code = 1538) [address] [facility] [address]: Stuffer/Techni nicole ID = [id number] for Chayito Tapia Lab Interpretation (test Abnormal code = 35262-0) [facility]-GLUCOSE [id number] 06:50:03 Test Item Value Reference Range Interpretation Comments POC-GLUCOSE METER 112 mg/dL 70-110 H : TESTED A T [facility] [address] (BEAKER) (test code [facility], = 1538) [facility] [address]: Stuffer/Techni nicole ID = [id number] for Chayito [place] LIPID [id number] 13:01:52 Test Item Value Reference Range Interpretation [...] Borderline 130-159 High 160-189 Very High >=190 Stuffer ID - [id number] 10:10:47 Test Item Value Reference Range Interpretation Comments PROTIME (BEAKER) (test 11.9 seconds 9.7-11.2 H Final Information code = 759) (Auto Output) INR (BEAKER) (test 1.13 See_Comment Final Inf ormation code = 370) (Auto Output) [Automated mess age] The system [employer] generated this result transmit karen reference range [...] patients with mechanical heart valves.BUN AND CREATININE [id number] 10:10:46 Test Item Value Reference Range Interpretation Comments BLOOD UREA 16 mg/dL 10-26 NITROGEN (BEAKER) (test code = 354) CREATININE 0.52 mg/dL 0.50-1.20 (BEAKER) (test code = 358) BUN/CREAT RATIO 31 For a normal individual on (BEAKER) (test a normal diet , the code = reference inter william for the [id number]) mass ratio rang es between 12:1 and [...] not as accur ate as Creatinine Anju holley in predicting glom erular filtration rate . Estimated GFR is not appl icable for dialysis patien ts [id number] 10:06:42 Test Item Value Reference Range Interpretation Comments SODIUM (BEAKER) (test code = 381) 137 meq/L 135-148 POTASSIUM (BEAKER) (test code = 3.8 meq/L 3.6-5.5 379) CHLORIDE (BEAKER) (test code = 382) 105 meq/L 98-106 CO2 (BEAKER) (test code = 355) 25 meq/L 24-32 CBC W/PLT COUNT & AUTO [id number] 09:45:34 Test Item Value Reference Range Interpretation [...] (test [place] = [place] [address]-3) infliximab. Com ments: - The optimal drug co ncentration depends upon pa tient-specific factors includi ng the disease and desired th erapeutic endpoint. - Norma ntenance trough concentr ations >=5 may be associated w ith higher remission rates .(1) - In severe CD, high er trough levels (>10) ma y be necessary to ac hieve fistula healing.(2) - I n rheumatoid arthritis, DARIUS R responders had higher medi an trough levels (3.6) th an non-responders (0.5).(3) - This assay maren ures the antibody-unboun d (free) fraction of inf liximab when serum anti-infl iximab antibodies are present. ANTI-INFLIXIMA <22 ng/mL Interpretati on: The above B ANTIBODY result is an UN DETECTED (test code = Antibody titer. Quantitation [id number]) Limit: <22 ng/m L. Results of 22 or higher in dicate detection of an ti- infliximab antibodies. 22 - 200 ng/mL: LOW titer 201 - 1,000 ng/mL: INTERMEDIATE ti ter 1,001 or greater ng/mL: HIGH titer Comments: - An ti-drug antibody levels should be interpreted in the [...] a confirmatory test. Reference s:1. Yvonne Trejo et al. AGA Review on TDM i n IBD. Gastroenterol 2017;153:835-85 7.2. Laya Bhatti, et al. Gastroen terol 2016;150(4):S10 5-S106.3. Wolbink GJ, et al. Madie Rheum Dis 2005;64:704 -707.4. pricilla Canas t al. Inflamm Bowel Dis 2012; 18(12): 9856-6021.5. Va Gera N, et al. Am J Gas troenterol 2013;108: 962-9 71.6. Korina H, et al. Clin Gas troenterol Hepatol 2015;13 (3): 522-530.7. [place] A, et al. Gastroenter ol 2019;156(6):S-6 17.8. Nacho JF, et al. Chris roenterol 2016;150(4):S14 4.9. Joshua J, et al. [facility] Marty rnal 2016 DOI:10.1208/ [id number]. These tests were raquel sebastian and [...] Performed at: = MANJIT) 01 - [facility] [address] [place], [place] [id number] Director: Jayme Santos MD, Phone: [phone] [facility] TomballInfliximab Concentration and Anti-Infliximab Antibody (Serial Monitor)2022-12-02 06:08:00 Test Item Value Reference Interpretation Comments Range Infliximab 37 ug/mL Quantitation L imit: <0.4 Drug Level ug/mLResults of 0.4 or higher (test code = [place] [address]-8) infliximab. Com ments: - The optimal drug [...] DETECTED (test code = Antibody titer. Quantitation 01582-7) Limit: <22 ng/m L. Results of 22 [...] et al. Madie Rheum Dis 2005;64:704 -707.4. pricilla Canas t al. Inflamm Bowel Dis 2012; 18(12): 5937-0440.5. Va Gera N, et al. Am J Gas troenterol 2013;108: 962-9 71.6. Korina H, et al. Clin Gas troenterol Hepatol 2015;13 (3): 522-530.7. [place] A, et al. Gastroenter ol 2019;156(6):S-6 17.8. Nacho JF, et al. Chris roenterol 2016;150(4):S14 4.9. Joshua Maddox, et al. [facility] Marty rnal 2016 DOI:10.1208/ [id number]. These tests were raquel sebastian and [...] Performed at: = MANJIT) 01 - [facility] [address] [place], [place] [id number] Director: Jayme Santos MD, Phone: [phone] [facility] TomballQuantiFERON-TB Gold Plus, 4 [id number] 03:07:00 Test Item Value Reference Range Interpretation Comments QuantiFERON Incubation Incubation (test performed. code = 5936) Quantiferon TB Negative Negative No response t o M gold plus (test tuberculosis antigens code = 42871-8) detected.Inf ection with M tubercul osis is unlikely, bu t high riskindividuals should be consi dered for additional testing(ATS/IDS A/CDC Clinical Practi ce Guidelines, 201 7). Thereference ra hurtado is an Antigen melissa s Nil result of <0.35 IU/mL.Chemilumi nescen ce immunoassay methodology MANJIT (test code = Performed at: MANJIT) - [facility] [id number] Director: Evangelista Metz MD, Phone: [phone] med at: 02 - [facility] [address], [place], [place] [id number] Director: Tab Anthony MD, Phone: [phone] [facility] TomballQuantiFERON-TB Gold [id number] 03:07:00 Test Item Value Reference Range Interpretation [...] Ag 0.05 IU/mL Value (test code = 20763-8) QuantiFERON TB2 Ag 0.04 IU/mL Value (test code = 77533-0) Quantiferon NIL 0.07 IU/mL value (test code = 90350-5) Quantiferon >10.00 IU/mL mitogen value (test code = 79617-2) MANJIT (test code = Performed at: MANJIT) - [facility] [address], [place], [place] [id number] Director: Tab Anthony MD, Phone: [phone] [facility] TomballQuantiFERON-TB Gold Plus, 4 [id number] 03:07:00 Test Item Value Reference Range Interpretation Comments QuantiFERON Incubation Incubation (test performed. code = 5936) Quantiferon TB Negative Negative No response t o M gold plus (test tuberculosis antigens code = 67076-6) detected.Inf ection with M tubercul osis is unlikely, bu t high riskindividuals should be consi dered for additional testing(ATS/IDS A/CDC Clinical Practi ce Guidelines, 201 7). Thereference ra josee is an Antigen melissa s Nil result of <0.35 IU/mL.Chemilumi nescen ce immunoassay methodology MANJIT (test code = Performed at: MANJIT) - [facility] [id number] Director: Evangelista Metz MD, Phone: [phone] med at: 02 - [facility] [address] [place] [address], [place], [place] [id number] Director: Tab Anthony MD, Phone: [phone] [facility]ballQuantiFERON-TB Gold [id number] 03:07:00 Test Item Value Reference Range Interpretation [...] Ag 0.05 IU/mL Value (test code = 48797-2) QuantiFERON TB2 Ag 0.04 IU/mL Value (test code = 53766-0) Quantiferon NIL 0.07 IU/mL value (test code = 00548-6) Quantiferon >10.00 IU/mL mitogen value (test code = 26204-5) MANJIT (test code = Performed at: MANJIT) - [facility] [address] [place] [address], [place], [place] [id number] Director: Tab Anthony MD, Phone: [phone] [facility] W Auto Differential panel - [id number] 00:00:00 Test Item Value Reference Range Interpretation [...] = 5905-5) Neutrophils [#/volume] in 4520 cells/uL 0466-9377 Blood by Automated count (test code = [...] by Automated count (test code = 6690-2) [facility] - Serum or Plasma [...] in Serum or Plasma (test code = 1974-2) Urea nitrogen 16 mg/dL 7-25 [Mass/volume] in Serum or Plasma (test code = 3094-0) Urea not applicable 6-22 nitrogen/Creatinine [Mass Ratio] in Serum or Plasma (test code = 3097-3) Calcium [Mass/volume] 9.6 mg/dL 8.6-10.4 in Serum or Plasma (test code = 60710-3) Chloride 103 mmol/L 98-110 [Moles/volume] in Serum or Plasma (test code = 2074-0) Carbon dioxide, total 26 mmol/L 20-32 [Moles/volume] in Serum or Plasma (test code = 2027-) Creatinine 0.82 mg/dL 0.60-1.00 [Mass/volume] in Serum or Plasma (test code = 2159-0) Glomerular filtration 75 mL/min/1.73m2 See_Comment [ Automated rate/1.73 sq message] The M.predicted [Volume system w hich Rate/Area] in Serum, generat ed this Plasma or Blood by result Creatinine-based transmitted formula (CKD-EPI 2020) refer ence range: (test code = 51126-9) > or = 60. The reference range was not used to interpret this result as normal/abnormal . Globulin [Mass/volume] 2.7 g/dL (calc) 1.9-3.7 in Serum by calculation (test code = 07454-2) Glucose [Mass/volume] 183 mg/dL 65-99 H in Serum or Plasma (test code = 2345-7) Potassium 4.9 mmol/L 3.5-5.3 [Moles/volume] in Serum or Plasma (test code = 2823-3) Protein [Mass/volume] 6.4 g/dL 6.1-8.1 in Serum or Plasma (test code = 2885-2) Sodium [Moles/volume] 137 mmol/L 135-146 in Serum or Plasma (test code = 2951-2) [facility] CenterHemoglobin A1c/Hemoglobin.total in [id number] 00:00:00 Test Item Value Reference Range Interpretation Comments Glucose mean value 166 mg/dL [Mass/volume] in Blood Estimated from glycated hemoglobin (test code = 47753-0) Glucose mean value 9.2 mmol/L [Moles/volume] in Blood Estimated from glycated hemoglobin (test code = 69707-5) Hemoglobin 7.4 % of total HGB <5.7 H A1c/Hemoglobin.total in Blood (test code = 4548-4) [facility] CenterLipid 1996 panel - Serum or [id number] 00:00:00 Test Item Value Reference Range Interpretation [...] or Plasma by calculation (test code = 50096-6) Cholesterol non HDL 186 mg/dL <130 H [Mass/volume] in (calc) Serum or Plasma (test code = 17151-0) Triglyceride 278 mg/dL <150 H [Mass/volume] in Serum or Plasma (test code = 2571-8) [facility] CenterReagin Ab [Units/volume] in Serum or Plasma by RPR 2022-11-11 00:00:00 Test Item Value Reference Range Interpretation Comments Reagin Ab [Presence] in Serum by non-reactive non-reactive RPR (test code = 02354-7) [facility] CenterThyroxine (T4) free [Mass/volume] in Serum or Plasma 2022-11-11 00:00:00 Test Item Value Reference Range Interpretation Comments Thyroxine (T4) free [Mass/volume] 1.0 NG/dL 0.8-1.8 in Serum or Plasma (test code = 3024-7) [facility] CenterFolate+Cyanocobalamin [Interpretation] in Serum or Blood 2022-11-11 00:00:00 Test Item Value Reference Range Interpretation Comments Cobalamin (Vitamin B12) 434 pg/mL 200-1100 [Mass/volume] in Serum or Plasma (test code = 2132-9) Folate [Mass/volume] in Serum or 6.8 NG/mL Plasma (test code = 2284-8) [facility] CenterMicroalbumin/Creatinine [Mass Ratio] in [id number] 00:00:00 Test Item Value Reference Range Interpretation Comments microalbumin random urine 5 ug/mL (test code = microalbumin random urine) creatinine random urine (test 67.5 mg/dL 20.0-320.0 code = creatinine random urine) microalbumin/creatinine 7 mcg/mg creat (random urine) ratio calculated (test code = microalbumin/creatinine (random urine) ratio calculated) [facility] CenterHemoglobin A1c/Hemoglobin.total in [id number] 00:00:00 Test Item Value Reference Range Interpretation Comments Hemoglobin A1c/Hemoglobin.total in 10.0 % 1.0-5.7 H Blood (test code = 4548-4) average blood glucose (calculation) 240 mg/dL (test code = average blood glucose (calculation)) [facility] CenterCBC W Auto Differential panel - [id number] 00:00:00 Test Item Value Reference Range Interpretation [...] (test code = baso#) 0.04 x10*3/?L 0.01-0.08 [facility] CenterThyrotropin [Units/volume] in Serum or [id number] 00:00:00 Test Item Value Reference Range Interpretation Comments TSH (test code = TSH) 0.835 uIU/mL 0.350-4.940 [facility] PracticeComprehensive metabolic 2000 panel - Serum or Plasma [...] (test code = anion gap) 12 calc [facility] CenterLipid 1995 panel - Serum or [id number] 00:00:00 Test Item Value Reference Range Interpretation [...] Serum or Plasma (test code = 2089-1) [facility] CenterCB W Auto Differential panel - [id number] 00:00:00 Test Item Value Reference Range Interpretation [...] (test code = baso#) 0.04 x10*3/?L 0.01-0.08 [facility] CenterThyrotropin [Units/volume] in Serum or [id number] 00:00:00 Test Item Value Reference Range Interpretation Comments TSH (test code = TSH) 0.835 uIU/mL 0.350-4.940 [facility] PracticeComprehensive metabolic 2000 panel - Serum or Plasma [...] (test code = anion gap) 12 calc [facility] CenterLipid 1995 panel - Serum or [id number] 00:00:00 Test Item Value Reference Range Interpretation [...] Serum or Plasma (test code = 2089-1) [facility] CenterCB W Auto Differential panel - [id number] 00:00:00 Test Item Value Reference Range Interpretation [...] (test code = baso#) 0.04 x10*3/?L 0.01-0.08 [facility] CenterThyrotropin [Units/volume] in Serum or [id number] 00:00:00 Test Item Value Reference Range Interpretation Comments TSH (test code = TSH) 0.835 uIU/mL 0.350-4.940 [facility] PracticeComprehensive metabolic 2000 panel - Serum or Plasma [...] (test code = anion gap) 12 calc [facility] CenterLipid 1996 panel - Serum or [id number] 00:00:00 Test Item Value Reference Range Interpretation [...] Serum or Plasma (test code = 2089-1) [facility] CenterCB W Auto Differential panel - [id number] 00:00:00 Test Item Value Reference Range Interpretation [...] (test code = baso#) 0.04 x10*3/?L 0.01-0.08 [facility] PracticeThyrotropin [Units/volume] in Serum or [id number] 00:00:00 Test Item Value Reference Range Interpretation Comments TSH (test code = TSH) 0.835 uIU/mL 0.350-4.940 [facility] PracticeComprehensive metabolic 2000 panel - Serum or Plasma [...] (test code = anion gap) 12 calc [facility] CenterLipid 1995 panel - Serum or [id number] 00:00:00 Test Item Value Reference Range Interpretation [...] Serum or Plasma (test code = 2089-1) [facility] CenterUrinalysis w/Microscopic + Reflex to [id number] 13:07:12 Test Item Value Reference Range Interpretation Comments Color, UA (test Yellow code = 5778-6) Clarity, UA (test Clear code = 5767-9) Specific [place], 1.025 1.001-1.035 UA (test code = 5811-5) pH, UA (test code 7.0 5.0-8.0 = 5803-2) Protein, UA (test Negative Negative code = 60919-5) Glucose, UA (test Negative Negative code = 365) Ketones, UA (test Negative Negative code = 2514-8) Bilirubin, UA Negative Negative (test code = 87636-7) Blood, UA (test Negative Negative code = 64431-0) Nitrite, UA (test Negative Negative code = 5802-4) Leukocytes, UA Negative Negative (test code = 5799-2) Urobilinogen, UA 0.2 (test code = 89279-5) RBC, UA (test 2 See_Comment [Automated me ssage] code = 20238-5) The system [facility] generated this result transmit karen reference range : /HPF. The refer ence range was not u sed to interpret th is result as normal/abnormal . WBC, UA (test 4 See_Comment [Automated me ssage] code = 5821-4) The system [facility] generated this result transmit karen reference range : /HPF. The refer ence range was not u sed to interpret th is result as normal/abnormal . Mucus (test code Few = 8247-9) Squam Epithel, UA 1 See_Comment [Automate d message] (test code = The system [facility] 87637-0) generated this result transmit karen reference range : /HPF. The refer ence range was not u sed to interpret th is result as normal/abnormal . Hyaline Casts, UA 3 See_Comment [Automate d message] (test code = The system [facility] 93626-9) generated this result transmit karen reference range : /LPF. The refer ence range was not u sed to interpret th is result as normal/abnormal . Specimen Source (test code = 2795) MANJIT (test code = Stuffer ID - MANJIT) [facility] CenterUrinalysis w/Microscopic + Reflex to Culture 2022-05-31 13:07:12 Test Item Value Reference Range Interpretation Comments Color, UA (test Yellow code = 5778-6) Clarity, UA (test Clear code = 5767-9) Specific [place], 1.025 1.001-1.035 UA (test code = 5811-5) pH, UA (test code 7.0 5.0-8.0 = 5803-2) Protein, UA (test Negative Negative code = 17133-0) Glucose, UA (test Negative Negative code = 365) Ketones, UA (test Negative Negative code = 2514-8) Bilirubin, UA Negative Negative (test code = 43657-8) Blood, UA (test Negative Negative code = 38341-1) Nitrite, UA (test Negative Negative code = 5802-4) Leukocytes, UA Negative Negative (test code = 5799-2) Urobilinogen, UA 0.2 (test code = 03787-4) RBC, UA (test 2 See_Comment [Automated me ssage] code = 72831-3) The system [facility] generated this result transmit karen reference range : /HPF. The refer ence range was not u sed to interpret th is result as normal/abnormal . WBC, UA (test 4 See_Comment [Automated me ssage] code = 5821-4) The system [facility] generated this result transmit karen reference range : /HPF. The refer ence range was not u sed to interpret th is result as normal/abnormal . Mucus (test code Few = 8247-9) Squam Epithel, UA 1 See_Comment [Automate d message] (test code = The system [facility] 80949-1) generated this result transmit karen reference range : /HPF. The refer ence range was not u sed to interpret th is result as normal/abnormal . Hyaline Casts, UA 3 See_Comment [Automate d message] (test code = The system [facility] [employer] 88013-5) generated this result transmit karen reference range : /LPF. The refer ence range was not u sed to interpret th is result as normal/abnormal . Specimen Source (test code = 2795) MANJIT (test code = Stuffer ID - MANJIT) [facility] CenterURINALYSIS W/ REFLEX URINE [id number] 13:07:12 Test Item Value Reference Range Interpretation [...] 3 /LPF 514) SOURCE(BEAKER) (test code = 2795) Stuffer ID - techCBC W/PLT COUNT & AUTO [id number] 12:38:36 Test Item Value Reference Range Interpretation [...] H PERCENT (BEAKER) (test code = 2801) Basic Metabolic [id number] 04:41:00 Test Item Value Reference Range Interpretation Comments Glucose (test code = 194 mg/dL 65-99 H Fastin g reference 5344107) interval For someone without known diabetes, a glucosevalue >1 25 mg/dL indicates that they may havediabetes an d this should be confirmed with afollow-up test . BUN (test code = 17 mg/dL 20101020) Creatinine (test code 0.66 mg/dL 0.60-1.00 = 20130812) EGFR (test code = 93 See_Comment The eGFR i s based ) on the CKD-EPI 2020 equation. To calculate the n ew eGFR from a previous Creatinine or Cystatin Cresul t, go to https://www.kid brandy .org/profession als /kdoqi/gfr%5Fca lcu lator [Automate d message] The system which generated this result transmit karen reference range : > OR = 60 mL/min/1.73m2. The reference range was not used to interpret this result as normal/abnormal . BUN/Creatinine Ratio NOT APPLICABLE See_Comment [Aut omated (test code = 9388001) messag e] The system which generated this result transmit karen reference range : 6 - 22 (calc). Th e reference range was not used to interpret this result as normal/abnormal . Sodium (test code = 137 mmol/L 135-644 1982575) Potassium, Serum 4.6 mmol/L 3.5-5.3 (test code = 20101104) Chloride (test code = 102 mmol/L 98-151 3524461) Carbon Dioxide, Total 25 mmol/L 20-32 (test code = 6595290) Calcium, Serum (test 9.9 mg/dL 8.6-10.4 code = 6524162) Lab Interpretation Abnormal (test code = 55382-6) [facility] [id number] 04:41:00 Test Item Value Reference Range Interpretation Comments Protein, Total, Serum 6.6 g/dL 6.1-8.1 (test code = 20101024) Albumin (test code = 3.8 g/dL 3.6-5.1 ) GLOBULIN (QUEST) 2.8 See_Comment [Automated message] (test code = 1728280) The sy stem which generated this result transmitted ref erence range: 1.9 - 3. 7 g/dL (calc). The ref erence range was not u sed to interpret this result as normal/abnor mal. Albumin Globulin 1.4 See_Comment [Automated message] Ratio (test code = The syste m which 1759-0) generated this result transmitted ref erence range: 1.0 - 2. 5 (calc). The ref erence range was not u sed to interpret this result as normal/abnor mal. Bilirubin, Total 0.5 mg/dL 0.2-1.2 (test code = 0002460) Bilirubin, Direct 0.1 mg/dL See_Comment [Automate d message] (test code = 9320970) The sy stem which generated this result transmitted ref erence range: < OR = 0 .2. The reference range was not used to interpr et this result as normal/abnormal . Bilirubin, Indirect 0.4 See_Comment [Automa karen message] (test code = 9943531) The sy stem which generated this result transmitted ref erence range: 0.2 - 1. 2 mg/dL (calc). The ref erence range was not u sed to interpret this result as normal/abnor mal. Alkaline Phosphatase, 102 U/L 37-153 S (test code = 6768-6) AST (SGOT) (test code 13 U/L 10-35 = 20101030) ALT (SGPT) (test code 20 U/L 6-29 = ) [facility] with platelet count + automated [id number] 04:41:00 Test Item Value Reference Range Interpretation Comments WBC (test code = 10.9 See_Comment H [Automated message] ) The system [employer] generated this result transmit karen reference range : 3.8 - 10.8 Thousand /uL. The reference r leeann was not used to interpret this result as normal/abnormal . RBC (test code = 789-8) 5.23 See_Comment H [Au tomated message] The system [employer] generated this result transmit karen reference range : 3.80 - 5.10 Million/uL. The reference range was not used to interpret this result as normal/abnormal . Hemoglobin (test code = 15.0 g/dL 11.7-15.5 ) Hematocrit (test code = 44.2 % 35.0-45.0 ) MCV (test code = 84.5 fL 80.0-100.0 ) MCH (test code = 28.7 pg 27.0-33.0 ) MCHC (test code = 33.9 g/dL 32.0-36.0 ) RDW (test code = 14.1 % 11.0-15.0 ) Platelets (test code = 374 See_Comment [Aut omated message] ) The system [employer] generated this result transmit karen reference range : 140 - 400 Thousand/ uL. The reference r leeann was not used to interpret this result as normal/abnormal . MPV (test code = 10.6 fL 7.5-12.5 ) # Neutros (test code = 7445 See_Comment [Aut omated message] 20200112) The system [employer] generated this result transmit karen reference range : 1,500 - 7,800 cells/uL. The reference range was not used to interpret this result as normal/abnormal . # Lymphs (test code = 2376 See_Comment [Auto mated message] 731-0) The system [employer] generated this result transmit karen reference range : 850 - 3,900 cells/u L. The reference r leeann was not used to interpret this result as normal/abnormal . # Monos (test code = 872 See_Comment [Autom ated message] ) The system [employer] generated this result transmit karen reference range : 200 - 950 cells/uL. The reference range was not used to interpret this result as normal/abnormal . # Eos (test code = 153 See_Comment [Automat ed message] 711-2) The system [employer] generated this result transmit karen reference range : 15 - 500 cells/uL. The reference range was not used to interpret this result as normal/abnormal . # Baso (test code = 55 See_Comment [Automa karen message] 704-7) The system [employer] generated this result transmit karen reference range : 0 - 200 cells/uL. T he reference range was not used to interpret this result as normal/abnormal . % Neutros (test code = 68.3 % ) % Lymphs (test code = 21.8 % 20200109) % Monos (test code = 8.0 % ) % Eos (test code = 1.4 % 20200107) % Baso (test code = 0.5 % 20200108) Lab Interpretation (test Abnormal code = 02413-8) [facility] Metabolic [id number] 04:41:00 Test Item Value Reference Range Interpretation Comments Glucose (test code = 194 mg/dL 65-99 H Fastin g reference 3073339) interval For someone without known diabetes, a glucosevalue >1 25 mg/dL indicates that they may havediabetes an d this should be confirmed with afollow-up test . BUN (test code = 17 mg/dL 20101020) Creatinine (test code 0.66 mg/dL 0.60-1.00 = 20130812) EGFR (test code = 93 See_Comment The eGFR i s based ) on the CKD-EPI 2020 equation. To calculate the n ew eGFR from a previous Creatinine or Cystatin Cresul t, go to https://www.kid brandy .org/profession als /kdoqi/gfr%5Fca lcu lator [Automate d message] The system which generated this result transmit karen reference range : > OR = 60 mL/min/1.73m2. The reference range was not used to interpret this result as normal/abnormal . BUN/Creatinine Ratio NOT APPLICABLE See_Comment [Aut omated (test code = 8670887) messag e] The system which generated this result transmit karen reference range : 6 - 22 (calc). Th e reference range was not used to interpret this result as normal/abnormal . Sodium (test code = 137 mmol/L 135-811 7738141) Potassium, Serum 4.6 mmol/L 3.5-5.3 (test code = 20101104) Chloride (test code = 102 mmol/L 98-043 8121124) Carbon Dioxide, Total 25 mmol/L 20-32 (test code = 2460848) Calcium, Serum (test 9.9 mg/dL 8.6-10.4 code = 4459053) Lab Interpretation Abnormal (test code = 38909-3) [facility] [id number] 04:41:00 Test Item Value Reference Range Interpretation Comments Protein, Total, Serum 6.6 g/dL 6.1-8.1 (test code = 20101024) Albumin (test code = 3.8 g/dL 3.6-5.1 ) GLOBULIN (QUEST) 2.8 See_Comment [Automated message] (test code = 4631716) The sy stem which generated this result transmitted ref erence range: 1.9 - 3. 7 g/dL (calc). The ref erence range was not u sed to interpret this result as normal/abnor mal. Albumin Globulin 1.4 See_Comment [Automated message] Ratio (test code = The syste m which ) generated this result transmitted ref erence range: 1.0 - 2. 5 (calc). The ref erence range was not u sed to interpret this result as normal/abnor mal. Bilirubin, Total 0.5 mg/dL 0.2-1.2 (test code = 8538193) Bilirubin, Direct 0.1 mg/dL See_Comment [Automate d message] (test code = 20101107) The sy stem which generated this result transmitted ref erence range: < OR = 0 .2. The reference range was not used to interpr et this result as normal/abnormal . Bilirubin, Indirect 0.4 See_Comment [Automa karen message] (test code = ) The sy stem which generated this result transmitted ref erence range: 0.2 - 1. 2 mg/dL (calc). The ref erence range was not u sed to interpret this result as normal/abnor mal. Alkaline Phosphatase, 102 U/L 37-153 S (test code = 6768-6) AST (SGOT) (test code 13 U/L 10-35 = 20101030) ALT (SGPT) (test code 20 U/L 6-29 = ) [facility] with platelet count + automated [id number] 04:41:00 Test Item Value Reference Range Interpretation Comments WBC (test code = 10.9 See_Comment H [Automated message] ) The system Digify generated this result transmit karen reference range : 3.8 - 10.8 Thousand /uL. The reference r leeann was not used to interpret this result as normal/abnormal . RBC (test code = 789-8) 5.23 See_Comment H [Au tomated message] The system Digify generated this result transmit karen reference range : 3.80 - 5.10 Million/uL. The reference range was not used to interpret this result as normal/abnormal . Hemoglobin (test code = 15.0 g/dL 11.7-15.5 ) Hematocrit (test code = 44.2 % 35.0-45.0 ) MCV (test code = 84.5 fL 80.0-100.0 ) MCH (test code = 28.7 pg 27.0-33.0 ) MCHC (test code = 33.9 g/dL 32.0-36.0 ) RDW (test code = 14.1 % 11.0-15.0 ) Platelets (test code = 374 See_Comment [Aut omated message] ) The system Digify generated this result transmit karen reference range : 140 - 400 Thousand/ uL. The reference r leeann was not used to interpret this result as normal/abnormal . MPV (test code = 10.6 fL 7.5-12.5 6657839) # Neutros (test code = 7445 See_Comment [Aut omated message] 20200112) The system Digify generated this result transmit karen reference range : 1,500 - 7,800 cells/uL. The reference range was not used to interpret this result as normal/abnormal . # Lymphs (test code = 2376 See_Comment [Auto mated message] 731-0) The system Digify generated this result transmit karen reference range : 850 - 3,900 cells/u L. The reference r leeann was not used to interpret this result as normal/abnormal . # Monos (test code = 872 See_Comment [Autom ated message] ) The system Digify generated this result transmit karen reference range : 200 - 950 cells/uL. The reference range was not used to interpret this result as normal/abnormal . # Eos (test code = 153 See_Comment [Automat ed message] 711-2) The system Digify generated this result transmit karen reference range : 15 - 500 cells/uL. The reference range was not used to interpret this result as normal/abnormal . # Baso (test code = 55 See_Comment [Automa karen message] 285-7) The system Digify generated this result transmit karen reference range : 0 - 200 cells/uL. T he reference range was not used to interpret this result as normal/abnormal . % Neutros (test code = 68.3 % ) % Lymphs (test code = 21.8 % 20200109) % Monos (test code = 8.0 % ) % Eos (test code = 1.4 % 20200107) % Baso (test code = 0.5 % 20200108) Lab Interpretation (test Abnormal code = 00634-4) [facility], [id number] 15:06:00Referring: Dr. Davy Castellanos for Exam:->fatty liver [facility] 1950 Sex: FFINAL [...] Mild bilateral symmetrical hydronephrosis. Signed: Caleb Tipton MDReport Verified Date/Time: 08/30/2021 15:06:20 Reading Location: [facility] Radiology Reading Room RAD, CHEST, 2 [id number] 16:43:00Referring: Dr. Davy Tony [facility] Reason for Exam:->z95.1 [facility] : 1950 Sex: FFINAL [...] of acute cardiopulmonary disease. Signed: Caleb Tipton [facility] Verified Date/Time: 06/07/2021 16:43:30 Reading Location: [facility] Radiology Reading Room Hepatic function [id number] 02:05:00 Test Item Value Reference Range Interpretation Comments Protein, Total, 6.5 g/dL 6.1-8.1 Serum (test code = 20101024) Albumin (test 3.8 g/dL 3.6-5.1 code = 5221042) GLOBULIN (QUEST) 2.7 See_Comment [Automated (test code = message] The 2929014) system which generated this result transmit karen [...] Total 0.4 mg/dL 0.2-1.2 (test code = 3360524) Bilirubin, 0.0 mg/dL See_Comment [Automated Direct (test message] The code = 1622352) system which generated this result transmit karen reference range : < OR = 0.2. The reference range was not used to interpret this result as normal/abnormal . Bilirubin, 0.4 See_Comment [Automated Indirect (test message] The code = 5625030) system which generated this result transmit karen reference range : 0.2 - 1.2 mg/dL (calc). The reference range was not used to interpret this result as normal/abnormal . Alkaline 107 U/L 37-153 Phosphatase, S (test code = 6768-6) AST (SGOT) (test 14 U/L 10-35 code = 3576095) ALT (SGPT) (test 20 U/L 6-29 code = 2022988) MANJIT (test code = FASTING:NOFASTING: MANJIT) NO RAC (test code = Performing RAC) Organization Information: Site ID: [facility] Name: [facility] Address: [address] [place] [address] Director: Mike Pantoja [facility]2021-02-25 02:05:00 Test Item Value Reference Range Interpretation Comments GGT (test code = 28 U/L -65 ) MANJIT (test code = FASTING:NOFASTING: NO MANJIT) RAC (test code = Performing Organization RAC) Information: Site ID: [facility] Name: [facility] Address: [address] [place] [address] Director: Mike Nathaniel [facility] CenterHepatic function [id number] 02:05:00 Test Item Value Reference Range Interpretation Comments Protein, Total, 6.5 g/dL 6.1-8.1 Serum (test code = 20101024) Albumin (test 3.8 g/dL 3.6-5.1 code = 6632296) GLOBULIN (QUEST) 2.7 See_Comment [Automated (test code [...] Total 0.4 mg/dL 0.2-1.2 (test code = 3034162) Bilirubin, 0.0 mg/dL See_Comment [Automated Direct (test message] The code = 3878165) system which generated this result transmit karen reference range : < OR = 0.2. The reference range was not used to interpret this result as normal/abnormal . Bilirubin, 0.4 See_Comment [Automated Indirect (test message] The code = 5424633) system which generated this result transmit karen reference range : 0.2 - 1.2 mg/dL (calc). The reference range was not used to interpret this result as normal/abnormal . Alkaline 107 U/L 37-153 Phosphatase, S (test code = 6768-6) AST (SGOT) (test 14 U/L 10-35 code = 5607926) ALT (SGPT) (test 20 U/L 6-29 code = 0794766) MANJIT (test code = FASTING:NOFASTING: MANJIT) NO RAC (test code = Performing RAC) Organization Information: Site ID: [facility] Name: [facility] Address: [address] [place] [id number] Director: Mike Pantoja [facility]21-[facility] 02:05:00 Test Item Value Reference Range Interpretation Comments GGT (test code = 28 U/L 65 ) MANJIT (test code = FASTING:NOFASTING: NO MANJIT) RAC (test code = Performing Organization RAC) Information: Site ID: [facility] Name: [facility] Address: [address] [place] [id number] Director: Mike Pantoja [facility]AT[facility] FUNCTION [id number] 10:28:00 Test Item Value Reference Range Interpretation [...] (test code = 36 U/L 6-50 347) Stuffer ID - [id number] Glutamyl Transferase (GGT)2020-06-30 10:12:00 Test Item Value Reference Range Interpretation Comments GGT (test code = 2324-2) 67 U/L 5-55 H MANJIT (test code = MANJIT) Stuffer ID - [id number] Lab Interpretation (test Abnormal code = 08754-1) [facility] (GGT)2020-06-30 10:12:00 Test Item Value Reference Range Interpretation Comments GGT (test code = 2324-2) 67 U/L 5-55 H MANJIT (test code = MANJIT) Stuffer ID - [id number] Lab Interpretation (test Abnormal code = 23156-8) [facility]AMMA GLUT[facility] TRANSFERASE (GGT)2020-06-30 10:12:00 Test Item Value Reference Range Interpretation Comments GAMMA GLUTAMYL TRANSFERASE (BEAKER) 67 U/L 5-55 H (test code = 364) Stuffer ID - [id number] M2 Antibody (IgG)2020-06-28 13:40:00 Test Item Value Reference Range Interpretation Comments Mitochondria M2 Ab 20.9 U See Note: H Reference (test code = 6906178) Range: NEGATIVE: < OR = 20.0EQUIVOCAL: 20.1-24.9POSITI VE: > OR = 25.0 MANJIT (test code = MANJIT) Performing Lab EZ [facility] [address] [place] [address] Kameron Erazo MD, PhD, MARJORIE Lab Interpretation Abnormal (test code = 85635-0) [facility]ochond[facility] M2 Antibody (IgG)2020-06-28 13:40:00 Test Item Value Reference Range Interpretation Comments Mitochondria M2 Ab 20.9 U See Note: H Reference (test code = 3886631) Range: NEGATIVE: < OR = 20.0EQUIVOCAL: 20.1-24.9POSITI VE: > OR = 25.0 MANJIT (test code = MANJIT) Performing Lab EZ [facility] [address] [place] [address] Kameron Erazo MD, PhD, MARJORIE Lab Interpretation Abnormal (test code = 47462-8) [facility] Metabolic [id number] 13:06:00 Test Item Value Reference Range Interpretation Comments Sodium (test code = 139 meq/L 078-538 2555-2) Potassium (test code = 4.4 meq/L 3.5-5.5 2823-3) Chloride (test code = 106 meq/L 98-106 2075-0) CO2 (test code = 24 meq/L 2027-) BUN (test code = 19 mg/dL 04-13 3094-0) Creatinine (test code 0.76 mg/dL 0.5-1.2 = 2160-0) Glucose (test code = 180 mg/dL 70-110 H 2345-7) Calcium (test code = 9.3 mg/dL 8.5-10.5 17580-2) EGFR (test code = 75 mL/min/1.73 [place] [address]-9) NOT ACCURATE CREATININE CLEARANCE IN PREDICTING GLOMERULAR FILTRATION RATE . ESTIMATED GFR I S NOT APPLICABLE FOR DIALYSIS PATIENTS. MANJIT (test code = MANJIT) Stuffer ID - [id number] Lab Interpretation Abnormal (test code = 42924-4) [facility] Metabolic [id number] 13:06:00 Test Item Value Reference Range Interpretation Comments Sodium (test code = 139 meq/L 828-149 6003-2) Potassium (test code = 4.4 meq/L 3.5-5.5 2823-3) Chloride (test code = 106 meq/L 98-106 2075-0) CO2 (test code = 24 meq/L 9) BUN (test code = 19 mg/dL 04-13 3094-0) Creatinine (test code 0.76 mg/dL 0.5-1.2 = 2160-0) Glucose (test code = 180 mg/dL 70-110 H 2345-7) Calcium (test code = 9.3 mg/dL 8.5-10.5 13413-5) EGFR (test code = 75 mL/min/1.[place] [address]-2) NOT ACCURATE CREATININE CLEARANCE IN PREDICTING GLOMERULAR FILTRATION RATE . ESTIMATED GFR I S NOT APPLICABLE FOR DIALYSIS PATIENTS. MANJIT (test code = MANJIT) Stuffer ID - [id number] Lab Interpretation Abnormal (test code = 70259-1) [facility] METABOLIC [id number] 13:06:00 Test Item Value Reference Range Interpretation Comments SODIUM (BEAKER) 139 meq/L 135-148 (test code = 381) POTASSIUM (BEAKER) 4.4 meq/L 3.5-5.5 (test code = 379) CHLORIDE (BEAKER) 106 meq/L 98-106 (test code = 382) CO2 (BEAKER) (test 24 meq/L 20-31 code = 355) BLOOD UREA NITROGEN 19 mg/dL 10-26 (BEAKER) (test code = 354) [...] S NOT APPLICABLE FOR DIALYSIS PATIEN TS. Stuffer ID - [id number] FUNCTION [id number] 13:06:00 Test Item Value Reference Range Interpretation [...] = 21 U/L 5-40 353) ALT (SGPT) (RAMANAKER) (test code = 31 U/L 6-50 347) Stuffer ID - [id number] GLUTAMYL TRANSFERASE (GGT)2020-06-23 13:06:00 Test Item Value Reference Range Interpretation Comments GAMMA GLUTAMYL TRANSFERASE (AZALEA) 78 U/L 5-55 H (test code = 364) Stuffer ID - [id number] with platelet count + automated [id number] 12:45:00 Test Item Value Reference Range Interpretation Comments WBC (test code = 6690-2) 9.8 See_Comment [A utomated message] The system Digify generated this result transmitted ref erence range: 4.0 - 10 .0 K/L. The refe rence range was not u sed to interpret this result as normal/abnor mal. RBC (test code = 789-8) 5.13 See_Comment H [Au tomated message] The system Digify generated this result transmitted ref erence range: 4.00 - 5 .00 M/L. The refe rence range was not u sed to interpret this result as normal/abnor mal. MCHC (test code = 786-4) 31.8 See_Comment L [A utomated message] The system Digify generated this result transmitted ref erence range: [...] See_Comment [Aut omated message] 777-3) The system Digify generated this result transmitted ref erence range: 150 - 43 0 K/CU MM. The referen ce range was not u sed to interpret this result as normal/abnor mal. MPV (test code = 10.8 fL 6-11.5 79108-0) nRBC (test code = 413) 0 See_Comment [Aut omated message] The system Digify generated this result transmitted ref erence range: [...] See_Comment [Aut omated message] 670) The system Digify generated this result transmitted ref erence range: 1.80 - 8 .00 K/L. The refe rence range was not u sed to interpret this result as normal/abnor mal. # Lymphs (test code = 2.97 See_Comment [Auto mated message] 414) The system Digify generated this result transmitted ref erence range: 1.48 - 4 .50 K/L. The refe rence range was not u sed to interpret this result as normal/abnor mal. # Monos (test code = 0.94 See_Comment [Autom ated message] 415) The system Digify generated this result transmitted ref erence range: 0.00 - 1 .30 K/L. The refe rence range was not u sed to interpret this result as normal/abnor mal. # Eos (test code = 416) 0.39 See_Comment [Au tomated message] The system Digify generated this result transmitted ref erence range: 0.00 - 0 .50 K/L. The refe rence range was not u sed to interpret this result as normal/abnor mal. # Baso (test code = 417) 0.05 See_Comment [A utomated message] The system Digify generated this result transmitted ref erence range: 0.00 - 0 .20 K/L. The refe rence range was not u sed to interpret this result as normal/abnor mal. Immature 0 % 0-0 Granulocytes-Relative (test code = 2801) Lab Interpretation (test Abnormal code = 92974-7) [facility] with platelet count + automated [id number] 12:45:00 Test Item Value Reference Range Interpretation Comments WBC (test code = 6690-2) 9.8 See_Comment [A utomated message] The system Digify generated this result transmitted ref erence range: 4.0 - 10 .0 K/L. The refe rence range was not u sed to interpret this result as normal/abnor mal. RBC (test code = 789-8) 5.13 See_Comment H [Au tomated message] The system Digify generated this result transmitted ref erence range: 4.00 - 5 .00 M/L. The refe rence range was not u sed to interpret this result as normal/abnor mal. MCHC (test code = 786-4) 31.8 See_Comment L [A utomated message] The system Digify generated this result transmitted ref erence range: [...] See_Comment [Aut omated message] 777-3) The system Digify generated this result transmitted ref erence range: 150 - 43 0 K/CU MM. The referen ce range was not u sed to interpret this result as normal/abnor mal. MPV (test code = 10.8 fL 6-11.5 60574-8) nRBC (test code = 413) 0 See_Comment [Aut omated message] The system Digify generated this result transmitted ref erence range: [...] See_Comment [Aut omated message] 670) The system Digify generated this result transmitted ref erence range: 1.80 - 8 .00 K/L. The refe rence range was not u sed to interpret this result as normal/abnor mal. # Lymphs (test code = 2.97 See_Comment [Auto mated message] 414) The system Digify generated this result transmitted ref erence range: 1.48 - 4 .50 K/L. The refe rence range was not u sed to interpret this result as normal/abnor mal. # Monos (test code = 0.94 See_Comment [Autom ated message] 415) The system Digify generated this result transmitted ref erence range: 0.00 - 1 .30 K/L. The refe rence range was not u sed to interpret this result as normal/abnor mal. # Eos (test code = 416) 0.39 See_Comment [Au tomated message] The system Digify generated this result transmitted ref erence range: 0.00 - 0 .50 K/L. The refe rence range was not u sed to interpret this result as normal/abnor mal. # Baso (test code = 417) 0.05 See_Comment [A utomated message] The system Digify generated this result transmitted ref erence range: 0.00 - 0 .20 K/L. The refe rence range was not u sed to interpret this result as normal/abnor mal. Immature 0 % 0-0 Granulocytes-Relative (test code = 2801) Lab Interpretation (test Abnormal code = 50593-1) [facility] W/PLT COUNT & AUTO [id number] 12:45:00 Test Item Value Reference Range Interpretation [...] PERCENT (BEAKER) (test code = 2801) BLOOD [id number] 01:00:00 Test Item Value Reference Range Interpretation Comments CULTURE (BEAKER) (test No growth in 5 days code = 1095) BLOOD [id number] 01:00:00 Test Item Value Reference Range Interpretation Comments CULTURE (BEAKER) (test No growth in 5 days code = 1095) POCT-GLUCOSE [id number] 11:28:00 Test Item Value Reference Range Interpretation Comments POC-GLUCOSE METER 229 mg/dL 70-110 H TESTED AT [facility] [address] (BEAKER) (test code [facility] = 1538) [place] [address] POCT-GLUCOSE [id number] 05:09:00 Test Item Value Reference Range Interpretation Comments POC-GLUCOSE METER 258 mg/dL 70-110 H TESTED AT [facility] [address] (BEAKER) (test code [facility] = 1538) [place] [address] BASIC METABOLIC [id number] 04:37:00 Test Item Value Reference Range Interpretation [...] NOT APPLICABLE FOR DIALYSIS PATIEN TS. POCT-GLUCOSE [id number] 20:47:00 Test Item Value Reference Range Interpretation Comments POC-GLUCOSE METER 205 mg/dL 70-110 H TESTED AT [facility] [address] (BEAKER) (test code [facility] = 1538) [place] [address] POCT-GLUCOSE [id number] 16:43:00 Test Item Value Reference Range Interpretation Comments POC-GLUCOSE METER 193 mg/dL 70-110 H TESTED AT [facility] [address] (BEAKER) (test code [facility] = 1538) [place] [address] POCT-GLUCOSE [id number] 11:38:00 Test Item Value Reference Range Interpretation Comments POC-GLUCOSE METER 198 mg/dL 70-110 H TESTED AT [address] ([facility]) (test code [facility] = 1538) [place] [address] RAD, CHEST, 1 VIEW, NON [id number] 11:13:00Reason for exam:->SOBShould this be performed at the bedside?->YesFINAL REPORT Chest, AP view. History: Shortness of breath. Comparison: 09/19/2016. Discussion: The cardiomediastinal silhouette and pulmonary vasculature are within normal limits. The lungs are clear without evidence of consolidation or effusion. There are no acute osseous abnormalities. The soft tissues are unremarkable. IMPRESSION: No acute cardiopulmonary abnormality. Signed: Joanie Sandoval Verified Date/Time: 01/06/2019 11:13:43 Reading Location: [address] Ortho Consult Reading Room POCT-GLUCOSE [id number] 05:58:00 Test Item Value Reference Range Interpretation Comments POC-GLUCOSE METER 177 mg/dL 70-110 H TESTED AT [facility] [address] ([facility]) (test code [facility] = 1538) [place] [address] RAD, HAND, 3 VIEWS, [id number] 20:51:00Reason for exam:->ABSCESSFINAL REPORT RAD, HAND, 3 [...] osteomyelitis. Additional findings discussed above. Signed: Jeferson Mikeort Verified Date/Time: 01/05/2019 20:51:30 REHENSIVE METABOLIC [id number] 20:05:00 Test Item Value Reference Range Interpretation [...] = 380) CBC W/PLT COUNT & AUTO [id number] 19:38:00 Test Item Value Reference Range Interpretation [...] H GRANULOCYTES-RELATIVE PERCENT (BEAKER) (test code = 2805) BLOOD [id number] 10:00:00 Test Item Value Reference Range Interpretation Comments CULTURE (BEAKER) (test No growth in 5 days code = 1095) SPUTUM CULTURE + GRAM [id number] 11:15:00 Test Item Value Reference Range Interpretation Comments CULTURE (BEAKER) 2+ Normal respiratory (test code = 1095) mer present GRAM STAIN RESULT 4+ White blood cells (BEAKER) (test code = seen 1123) GRAM STAIN RESULT 0-5 epithelial cells (BEAKER) (test code = 84199) GRAM STAIN RESULT No organisms seen (BEAKER) (test code = 52214) POCT-GLUCOSE [id number] 05:40:00 Test Item Value Reference Range Interpretation Comments POC-GLUCOSE METER 236 mg/dL 70-110 H TESTED AT [facility] [address] (BEAKER) (test code [facility] = 1538) [place] [address] CBC W/PLT COUNT & AUTO [id number] 03:54:00 Test Item Value Reference Range Interpretation [...] L 0.00-0.20 (test code = 417) POCT-GLUCOSE [id number] 20:20:00 Test Item Value Reference Range Interpretation Comments POC-GLUCOSE METER 311 mg/dL 70-110 H Notified R Neil JHA/TESTED AT ([facility]) (test code [facility] [address] [facility] = 1538) [facility] [place] [place] [address] POCT-GLUCOSE [id number] 16:03:00 Test Item Value Reference Range Interpretation Comments POC-GLUCOSE METER 247 mg/dL 70-110 H TESTED AT [facility] [address] ([facility] (test code [facility] = 1538) [place] [address] BLOOD [id number] 16:00:00 Test Item Value Reference Range Interpretation Comments CULTURE (BEAKER) (test No growth in 5 days code = 1095) BLOOD [id number] 16:00:00 Test Item Value Reference Range Interpretation Comments CULTURE (BEAKER) (test No growth in 5 days code = 1095) POCT-GLUCOSE [id number] 11:59:00 Test Item Value Reference Range Interpretation Comments POC-GLUCOSE METER 118 mg/dL 70-110 H TESTED AT [facility] [address] ([facility] [place]) (test code [facility] = 1538) [place] [address] POCT-GLUCOSE [id number] 06:11:00 Test Item Value Reference Range Interpretation Comments POC-GLUCOSE METER 152 mg/dL 70-110 H TESTED AT [facility] [address] (BEAKER) (test code [facility] = 1538) [place] [address] POCT-GLUCOSE [id number] 20:49:00 Test Item Value Reference Range Interpretation Comments POC-GLUCOSE METER 207 mg/dL 70-110 H TESTED AT [facility] [address] (BEAKER) (test code [facility] = 1538) [place] [address] POCT-GLUCOSE [id number] 16:49:00 Test Item Value Reference Range Interpretation Comments POC-GLUCOSE METER 221 mg/dL 70-110 H TESTED AT [facility] [address] (BEAKER) (test code [facility] = 1538) [place] [address] POCT-GLUCOSE [id number] 11:47:00 Test Item Value Reference Range Interpretation Comments POC-GLUCOSE METER 172 mg/dL 70-110 H TESTED AT [facility] [address] (BEAKER) (test code [facility] = 1538) [place] [address] BASIC METABOLIC [id number] 05:37:00 Test Item Value Reference Range Interpretation [...] PATIEN TS. CBC W/PLT COUNT & AUTO [id number] 05:26:00 Test Item Value Reference Range Interpretation [...] L 0.00-0.20 (test code = 417) POCT-GLUCOSE [id number] 12:06:00 Test Item Value Reference Range Interpretation Comments POC-GLUCOSE METER 226 mg/dL 70-110 H TESTED AT [facility] [address] ([facility] (test code [facility] = 1538) [place] [address] POCT-GLUCOSE [id number] 07:36:00 Test Item Value Reference Range Interpretation Comments POC-GLUCOSE METER 116 mg/dL 70-110 H TESTED AT [facility] [address] (BEAKER) (test code [facility] = 1538) [place] [address] POCT-GLUCOSE [id number] 20:56:00 Test Item Value Reference Range Interpretation Comments POC-GLUCOSE METER 233 mg/dL 70-110 H TESTED AT [facility] [address] ([facility] [place] (test code [facility] = 1538) [place] [address] POCT-GLUCOSE [id number] 16:24:00 Test Item Value Reference Range Interpretation Comments POC-GLUCOSE METER 152 mg/dL 70-110 H TESTED AT [facility] [facility] [id number] ([facility] [place]) (test code [facility] = 1538) [place] [address] POCT-GLUCOSE [id number] 11:46:00 Test Item Value Reference Range Interpretation Comments POC-GLUCOSE METER 171 mg/dL 70-110 H TESTED AT [facility] [address] ([facility] [place]) (test code [facility] = 1538) [place] [address] POCT-GLUCOSE [id number] 07:01:00 Test Item Value Reference Range Interpretation Comments POC-GLUCOSE METER 130 mg/dL 70-110 H TESTED AT [facility] [address] ([facility] [place]) (test code [facility] = 1538) [place] [address] HEMOGLOBIN [id number] 06:05:00 Test Item Value Reference Range Interpretation Comments HEMOGLOBIN A1C ([facility]) (test code = 7.6 % 4.3-6.1 H 368) CBC W/PLT COUNT & AUTO [id number] 05:31:00 Test Item Value Reference Range Interpretation Comments WHITE BLOOD CELL COUNT ([facility]) 7.2 K/ L 4.0-10.0 (test code = 775) RED BLOOD CELL COUNT ([facility]) 4.50 M/ L 4.00-5.00 (test code = [...] L 0.00-0.20 (test code = 417) POCT-GLUCOSE [id number] 22:05:00 Test Item Value Reference Range Interpretation Comments POC-GLUCOSE METER 198 mg/dL 70-110 H TESTED AT [facility] [address] ([facility]) (test code [facility] = 1538) [place] [address] SEDIMENTATION [id number] 18:04:00 Test Item Value Reference Range Interpretation Comments SEDIMENTATION RATE, ERYTHROCYTE 47 mm/HR 0-40 H (BEAKER) (test code = 766) POCT-GLUCOSE [id number] 17:48:00 Test Item Value Reference Range Interpretation Comments POC-GLUCOSE METER 131 mg/dL 70-110 [place] [address] ([place]) (test code [facility] = 1538) [place] [address] COMPREHENSIVE METABOLIC [id number] 14:48:00 Test Item Value Reference Range Interpretation [...] PATIEN TS. CBC W/PLT COUNT & AUTO [id number] 14:33:00 Test Item Value Reference Range Interpretation [...]
[2023-04-08 13:27] LABS: Absolute Lymphocytes (CBC) 1.8 K/uL (0.7-4.9); Hematocrit 42.9 % (36.0-45.0); Lymphocytes % 16.6 % (15.3-44.8); MCV 82.8 fL (80-100); MPV 9.1 fL (7.6-11.3); Platelets 307 thou/uL (152-406); RBC Red Blood Cell Count 5.18 M/uL (3.86-4.86)
[2023-04-08 13:32] LABS: Protime INR 1.02
--- NOTE | 2023-04-08 13:40 | EDPHYS ---
Physician Documentation [facility] Name: Shara Perdomo Age: 72 yrs Sex: Female : 1950 Arrival Date: 04/08/2023 Time: 12:20 Bed 13 Private MD: ED Physician Bharathi Dobson HPI: 04/08 12:30 This 72 yrs old Female presents to ER via Ambulatory with complaints of Hand Swelling. jh7 12:30 The patient or guardian reports pain, swelling. The complaints affect the left hand jh7 diffusely. 72-year-old female, bounce back from yesterday, presents to the ER for worsening hand swelling and redness since last night. She was barbed by a hard head catfish yesterday, was given IV antibiotics in the ER, and discharged with p.o. doxycycline. She was given strict return precautions if her symptoms worsened. She stated that her left third digit began leaking purulent drainage and that the swelling worsened. Denies fever. She reports that she has received a tetanus vaccine within the last 5 years.. Historical: - Allergies: 12:31 No Known Allergies; ll1 - PMHx: 12:31 diabetes mellitus; Rheumatoid Arthritis; ll1 - PSHx: 12:31 section; Cholecystectomy; Spinal Fusion; Tonsillectomy; Total abdominal ll1 hysterectomy; tripe bypass; - Immunization history:: Adult Immunizations up to date. - Social history:: Smoking status: Patient denies any tobacco usage or history of. ROS: 12:30 Constitutional: Negative for fever, chills, and weight loss, Eyes: Negative for injury, jh7 pain, redness, and discharge, Neck: Negative for injury, pain, and swelling, Cardiovascular: Negative for chest pain, palpitations, and edema, Respiratory: Negative for shortness of breath, cough, wheezing, and pleuritic chest pain, Back: Negative for injury and pain, Skin: Negative for injury, rash, and discoloration, Neuro: Negative for headache, weakness, numbness, tingling, and seizure, 12:30 MS/extremity: Positive for erythema, swelling, tenderness, of the L hand, 12:30 All other systems are negative, Exam: 12:30 Constitutional: This is a well developed, well nourished patient who is awake, alert, jh7 and in no acute distress. Head/Face: Normocephalic, atraumatic. Eyes: Pupils equal round and reactive to light, extra-ocular motions intact. Lids and lashes normal. Conjunctiva and sclera are non-icteric and not injected. Cornea within normal limits. Periorbital areas with no swelling, redness, or edema. Neck: Trachea midline, no thyromegaly or masses palpated, and no cervical lymphadenopathy. Supple, full range of motion without nuchal rigidity, or vertebral point tenderness. No Meningismus. Cardiovascular: Regular rate and rhythm with a normal S1 and S2. No gallops, murmurs, or rubs. Normal PMI, no JVD. No pulse deficits. Respiratory: Lungs have equal breath sounds bilaterally, clear to auscultation and percussion. No rales, rhonchi or wheezes noted. No increased work of breathing, no retractions or nasal flaring. Abdomen/GI: Soft, non-tender, with normal bowel sounds. No distension or tympany. No guarding or rebound. No evidence of tenderness throughout. Back: No spinal tenderness. No costovertebral tenderness. Full range of motion. 12:30 MS/ Extremity: Pulses equal, no cyanosis. Neurovascular intact. Full, normal range of motion. Neuro: Awake and alert, GCS 15, oriented to person, place, time, and situation. Motor strength 5/5 in all extremities. Sensory grossly intact. Normal gait. 12:30 Musculoskeletal/extremity: Extremities: Diffuse erythema and swelling of the left hand, with the most significant swelling over the third digit. There appears to be a collection of purulent drainage just proximal to the third PIP. The entire hand is hot to the touch., ROM: limited active range of motion due to pain, in the Left hand, Circulation is intact in all extremities. Pulses: are normal with no appreciated deficits, Perfusion: the extremity is normally perfused throughout, pink, warm, with brisk capillary refill, Sensation intact. 12:30 Skin: cellulitis, that is severe, on the Left hand, Vital Signs: 12:31 BP 150 / 107; Pulse 102; Resp 17; Temp 98.1; Pulse Ox 96% ; Weight 99.79 kg; Height 5 ll1 ft. 4 in. ; Pain 3/10; 12:31 Body Mass Index 37.76 (99.79 kg, 162.56 cm) ll1 12:31 Pain Scale: Adult ll1 MDM: 12:30 Patient medically screened. [facility] 13:25 Differential diagnosis: Cellulitis, abscess. Data reviewed: vital signs, nurses notes, [facility] lab test result(s), radiologic studies, plain films. Consideration of Admission/Observation Escalation of care including admission/observation considered. Management of patient was discussed with the following: Lip Reading Teacher: Dr. Rm, hand surgery. He agreed that the patient needed surgery for washout in the OR. However he stated that he was not affiliated with [facility] anymore, and therefore, could not see the patient.. Counseling: I had a detailed discussion with the patient and/or guardian regarding the historical points, exam findings, and any diagnostic results supporting the discharge/admit diagnosis, to return to the emergency department if symptoms worsen or persist or if there are any questions or concerns that arise at home. Special discussion: Inform the patient that we did not have hand surgery at this hospital so she would need to be transferred to a facility with the appropriate specialist. The patient stated that she did not want to go by ambulance and needed to drive home and do a few things before going to the hospital. She promised that she would go to [facility] where all of her records were today. Risk of leaving that were discussed include worsening of infection, loss of limb, and . AMA paperwork signed. The patient was witnessed leaving alert and oriented x4 with a stable gait.. 04/08 12:38 Order name: CBC with Diff; Complete Time: 13:39 [facility] 04/08 12:38 Order name: CMP [facility] 04/08 12:38 Order name: PT-INR; Complete Time: 13:39 [facility] 04/08 12:45 Order name: XRAY Hand LEFT 3 View [facility] Administered Medications: No medications were administered Disposition: 16:37 Co-signature as Attending Physician, Bharathi Dobson MD I agree with the assessment and kdr plan of care. Disposition Summary: 04/08/23 13:39 Left Against Medical Advice Notes: Location: Home [facility] Problem: new [facility] Symptoms: have worsened jh Condition: Stable [facility] Diagnosis - Cellulitis of the left hand [facility] Followup: [facility] - With: Private Physician - When: 1 - 2 days - Reason: Recheck today's complaints Signatures: Dispatcher [employer] EDBharathi Jo MD MD kdr Lewis, Lynsay, RN RN ll1 Jackie Branch FNP [employer] jh7 Corrections: (The following items were deleted from the chart) 13:14 12:30 72-year-old female, bounce back from yesterday, presents to the ER for worsening jh7 hand swelling and redness since last night. She was barbed by a hard head catfish yesterday, was given IV antibiotics in the ER, and discharged with p.o. doxycycline. She was given strict return precautions if her symptoms worsened. She stated that her left third digit began leaking purulent drainage and that the swelling worsened. Denies fever.. jh7
--- NOTE | 2023-04-08 13:40 | ER ---
Nurse's Notes [facility] Name: Shara Perdomo Age: 72 yrs Sex: Female : 1950 Arrival Date: 04/08/2023 Time: 12:20 Bed 13 Private MD: Diagnosis: Cellulitis of the left hand Presentation: 04/08 12:31 Chief complaint: Patient states: Catfish noah to L hand 3 days ago. Site is getting ll1 worse since her visit here yesterday. No fever. Coronavirus screen: Vaccine status: Patient reports receiving the 2nd dose of the covid vaccine. Client denies travel out of the [place] in the last 14 days. At this time, the client does not indicate any symptoms associated with coronavirus-19. Ebola Screen: Patient denies travel to an Ebola-affected area in the 21 days before illness onset. Initial Sepsis Screen: Does the patient meet any 2 criteria? No. Patient's initial sepsis screen is negative. Does the patient have a suspected source of infection? Yes: Skin breakdown/wound. Risk Assessment: Do you want to hurt yourself or someone else? Patient reports no desire to harm self or others. Onset of symptoms was April 06, 2023. 12:31 Method Of Arrival: Ambulatory ll1 12:31 Acuity: SAMIRA 3 ll1 Historical: - Allergies: 12:31 No Known Allergies; ll1 - PMHx: 12:31 diabetes mellitus; Rheumatoid Arthritis; ll1 - PSHx: 12:31 section; Cholecystectomy; Spinal Fusion; Tonsillectomy; Total abdominal ll1 hysterectomy; tripe bypass; - Immunization history:: Adult Immunizations up to date. - Social history:: Smoking status: Patient denies any tobacco usage or history of. Screenin:37 [facility] ED Fall Risk Assessment (Adult) History of falling in the last 3 months, ph including since admission No falls in past 3 months (0 pts) Score/Fall Risk Level 0 - 2 = Low Risk Oriented to surroundings, Maintained a safe environment, Provided non-skid footwear, Hourly rounding (assess needs \T\ fall precautionary measures) done. Abuse screen: Denies threats or abuse. Denies injuries from another. Nutritional screening: No deficits noted. Tuberculosis screening: No symptoms or risk factors identified. Assessment: 13:32 Reassessment: Pt does not want to be admitted to this hospital or be transferred to another hospital, citing family issues. Jackie BRAKE MECHANIC at bedside. Vital Signs: 12:31 BP 150 / 107; Pulse 102; Resp 17; Temp 98.1; Pulse Ox 96% ; Weight 99.79 kg; Height 5 1 ft. 4 in. ; Pain 3/10; 12:31 Body Mass Index 37.76 (99.79 kg, 162.56 cm) [facility] 12:31 Pain Scale: Adult [facility] ED Course: 12:25 Patient arrived in ED. ts1 12:30 Jackie Branch FNP is PHCP. 7 12:30 Bharathi Dobson MD is Attending Physician. [facility] 12:31 Arm band placed on Patient placed in an exam room, on a stretcher. 1 12:34 Triage completed. 1 12:37 Cayla Jacobo, RN is Primary Nurse. 12:37 Patient has correct armband on for positive identification. Bed in low position. Call light in reach. Side rails up X 1. Pulse ox on. NIBP on. 13:12 XRAY Hand LEFT 3 View In Process Unspecified. EDMS 13:53 No provider procedures requiring assistance completed. IV discontinued, intact, ph bleeding controlled, No redness/swelling at site. Administered Medications: No medications were administered Outcome: 13:53 AMA AMA form signed ph 13:53 Condition: stable 13:53 Instructed on the need for transfer, Demonstrated understanding of instructions, 13:55 Patient left the ED. Signatures: Dispatcher [employer] EDMS Cayla Jacobo RN RN Renee Bangura RN RN [facility] Jackie Branch FNP [employer] WR[employer]PER Dea Haynes PAS PAS ts1
[2023-04-08 13:50] LABS: Albumin 3.1 g/dL (3.4-5.0); Bilirubin Total 0.9 mg/dL (0.2-1.0); Protein, Total 6.5 g/dL (6.4-8.2)
--- NOTE | 2023-04-08 14:21 | RAD REPORT ---
EXAM DESCRIPTION: M[facility] - HAND - 04/08/2023 1:10 pm CLINICAL HISTORY: Pain;Swelling COMPARISON: Hand Left 3 View dated 04/07/2023 TECHNIQUE: Left hand, 3 views. FINDINGS: No fracture is identified. There is no dislocation or periosteal reaction noted. Degenerative changes again seen at the thumb ba se. Joint alignment is maintained. Persistent soft tissue swelling about the dorsum of the hand and knuckles. IMPRESSION: No acute osseus abnormality. Persistent soft tissue swelling as above. .
== END 2023-04-08 13:55 | disposition left against medical advice (07) ==
LOC: ER 12:20
DX: L03.114 Cellulitis of left upper limb (principal)
CPT/HCPCS: 36415; 80053; 85025; 85610; 99283